=== PATIENT | female | born 1965 | race Caucasian/White ===

== ENCOUNTER → 2017-02-12 | Outpatient (CLI) | payer MEDICARE, MEDICAID ==
[~2017-02-12] MED LIST: ALPR1T; BUPR150T20; CLAR500T8; CYCL-97; HYDR-3720; IBP800T; LNS30CCR; NF-ESOM40C; ZLP10T
--- NOTE | 2017-02-13 06:28 | ECHOCARDIOGRAPHY REPORT ---
DATE OF SERVICE: 02/12/2017 TWO-DIMENSIONAL ECHOCARDIOGRAM REFERRING PHYSICIAN: Rashad Del Rosario MD MEASUREMENTS: LVED end-diastolic: 4.1 IVS thickness: 0.8 LVPW thickness: 0.9 Left atrial diameter: 3.1 Ejection fraction: 60% FINDINGS: 1. Technical quality is good. 2. The left ventricle is normal in size with normal contractility. Systolic function appeared to be normal. Estimated ejection fraction 60%. 3. The left atrium is normal in size. No clot or thrombus was seen within the left atrium. 4. The right atrium and right ventricle are normal in size. No clot or thrombus was seen within the right side. 5. Mitral valve is normal in morphology with mild mitral regurgitation by color Doppler flow. No mitral valve prolapse, no mitral valve stenosis. 6. Aortic valve is trileaflet with normal opening and closing pattern. No significant aortic stenosis or regurgitation was seen. 7. Tricuspid valve is normal in morphology with mitral tricuspid regurgitation noted by color Doppler flow. Doppler tricuspid valve estimated pulmonary artery pressure of 9 plus right atrial pressure. 8. Pulmonic valve is functioning normally. 9. No pericardial effusion. CONCLUSION: 1. Normal left ventricular size and systolic function. Estimated ejection fraction is 60%. 2. Mild mitral and tricuspid regurgitation. 3. Estimated pulmonary artery pressure of 15 mmHg. Job ID: [id number] DocumentID: [id number] Dictated Date: 02/12/2017 16:26:39 Manager Warehouse Date: 02/12/2017 19:55:16 Dictated By: TIMI JONES MD
== END ==
LOC: CARD 13:34
PROVIDERS: ATTEND Internal Medicine Cardiovascular Disease
DX: I73.9 Peripheral vascular disease, unspecified (principal); I73.00 Raynaud's syndrome without gangrene; R06.02 Shortness of breath; E66.9 Obesity, unspecified
CPT/HCPCS: 93306

== ENCOUNTER 2018-03-16 13:35 | Outpatient (RCR) | payer MEDICARE, MEDICAID ==
[2018-04-08] MEDS ORDERED: CYCL10TA9 PO (23:40)
[2018-04-08] MEDS ORDERED: MUPI1OIN6 TP (23:40)
[2018-04-08] MEDS ORDERED: SULF1TAB35 PO (23:40)
== END 2018-04-07 | disposition home or self-care (01) ==
LOC: ONC 13:35
PROVIDERS: ATTEND Internal Medicine Hematology & Oncology
DX: C34.92 Malignant neoplasm of unspecified part of left bronchus or lung (principal); J44.9 Chronic obstructive pulmonary disease, unspecified; I73.9 Peripheral vascular disease, unspecified; I73.00 Raynaud's syndrome without gangrene; E66.9 Obesity, unspecified; Z68.33 Body mass index [BMI] 33.0-33.9, adult; Z87.891 Personal history of nicotine dependence; Z79.899 Other long term (current) drug therapy
CPT/HCPCS: 99214

== ENCOUNTER 2018-04-08 19:59 | Emergency (ER) | payer OTHER, MEDICARE, MEDICAID ==
[~2018-04-08] VITALS: Ht 175.3 cm; Wt 99.8 kg
[2018-04-08] MEDS ORDERED: TETANUS,DIPTH,PERTUSS P/F (BOOSTRIX) 0.5 ML VIAL IM STA (20:14)
[2018-04-08] MEDS ORDERED: LACTATED RINGERS 1,000 ML IV ONE (20:14)
[2018-04-08] MEDS ORDERED: LIDOCAINE 1% INJ 20 ML 20 ML VIAL INJ ONE (21:00)
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
[2018-04-08] MEDS ORDERED: fentaNYL INJECTION 100 MCG/2 ML AMP ONE (21:51)
[2018-04-08] MEDS ORDERED: fentaNYL INJECTION 100 MCG/2 ML AMP IVP STA ×2 (21:52→23:09)
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
[2018-04-08] MEDS ORDERED: RX-TRIMETH/SULFA. 160-800 MG (BACTRIM DS) TAB PPK#2 PO STA (22:46)
[2018-04-08] MEDS ORDERED: RX-MUPIROCIN (BACTROBAN) 2% OINT 22 GM TUBE TOP STA (22:46)
[2018-04-08 22:48] LABS: BASOPHILS % (AUTO) 0 % (0-10); EOSINOPHILS % (AUTO) 0 % (0-10); HEMATOCRIT 37 % (35-52); HEMOGLOBIN 13.3 G/DL (11.5-16.0); LYMPHOCYTES # (AUTO) 0.7 X 10^3 (1.0-4.0); LYMPHOCYTES % (AUTO) 6 % (12-44); MEAN CORPUSCULAR HEMOGLOBIN 32 PG (25-34); MEAN CORPUSCULAR HGB CONC 36 G/DL (32-36); MEAN CORPUSCULAR VOLUME 89 FL (80-99); MEAN PLATELET VOLUME 10.9 FL (7.4-10.4); MONOCYTES # (AUTO) 0.7 X 10^3 (0.0-1.0); MONOCYTES % (AUTO) 6 % (0-12); NEUTROPHILS # (AUTO) 10.8 X 10^3 (1.8-7.8); NEUTROPHILS % (AUTO) 88 % (42-75); PLATELET COUNT 187 10^3/uL (130-400); RED BLOOD COUNT 4.13 10^6/uL (4.35-5.85); WHITE BLOOD COUNT 12.3 10^3/uL (4.3-11.0)
[2018-04-08] MEDS ORDERED: ceFAZolin INJECTION 1,000 MG in NS (IVPB) 50 ML IV ONE (23:00)
[2018-04-08 23:03] LABS: BAND NEUTROPHILS 15 %; NEUTROPHILS % (MANUAL) 73 %
[2018-04-08 23:04] LABS: BASOPHILS % (MANUAL) 0 %; EOSINOPHILS % (MANUAL) 0 %; LYMPHOCYTES % (MANUAL) 8 %; MONOCYTES % (MANUAL) 4 %; RBC MORPH NORMAL
[2018-04-08 23:09] LABS: ALANINE AMINOTRANSFERASE 16 U/L (0-55); ALBUMIN 4.3 GM/DL (3.2-4.5); ALKALINE PHOSPHATASE 91 U/L (40-136); BILIRUBIN,TOTAL 0.6 MG/DL (0.1-1.0); BUN/CREATININE RATIO 17; CALCIUM 9.5 MG/DL (8.5-10.1); CARBON DIOXIDE 21 MMOL/L (21-32); CHLORIDE 108 MMOL/L (98-107); CREATININE SERUM 0.72 MG/DL (0.60-1.30); GFR ESTIMATED > 60; GLUCOSE 108 MG/DL (70-105); POTASSIUM 3.4 MMOL/L (3.6-5.0); SODIUM 140 MMOL/L (135-145); TOTAL PROTEIN 7.1 GM/DL (6.4-8.2)
[2018-04-08 23:16] LABS: BILIRUBIN,URINE NEGATIVE (NEGATIVE); CLARITY,URINE SLIGHTLY CLOUDY; COLOR,URINE AMBER; GLUCOSE, URINE (UA) NEGATIVE (NEGATIVE); KETONES,URINE NEGATIVE (NEGATIVE); LEUKOCYTE ESTERASE ,URINE 1+ (NEGATIVE); NITRITE,URINE NEGATIVE (NEGATIVE); PH,URINE 5 (5-9); PROTEIN,URINE 2+ (NEGATIVE); UROBILINOGEN,URINE NORMAL (NORMAL)
[2018-04-08 23:17] LABS: PROTHROMBIN TIME PATIENT 12.9 SEC (12.2-14.7)
[2018-04-08 23:24] LABS: SQUAMOUS EPITHELIAL CELL,UR 0-2 /HPF
[2018-04-08 23:27] LABS: AMPHETAMINE SCREEN, URINE POSITIVE (NEGATIVE); BARBITURATE SCREEN URINE NEGATIVE (NEGATIVE); BENZODIAZEPINES SCREEN URINE POSITIVE (NEGATIVE); CANNABINOID SCREEN, URINE POSITIVE (NEGATIVE); COCAINE SCREEN URINE NEGATIVE (NEGATIVE); METHADONE STAT NEGATIVE (NEGATIVE); METHAMPHETAMINE SCREEN URINE S POSITIVE (NEGATIVE); OPIATE SCREEN URINE NEGATIVE (NEGATIVE); OXYCODONE STAT NEGATIVE (NEGATIVE); PROPOXYPHENE STAT NEGATIVE (NEGATIVE); TRICYCLIC ANTIDEPRESSANTS SCRE NEGATIVE (NEGATIVE)
[2018-04-08] MEDS ORDERED: CYCL10TA9 PO (23:40)
[2018-04-08] MEDS ORDERED: MUPI1OIN6 TP (23:40)
[2018-04-08] MEDS ORDERED: SULF1TAB35 PO (23:40)
[2018-04-09] MEDS ORDERED: RX-MUPIROCIN (BACTROBAN) 2% OINT 22 GM TUBE TOP STA (00:15)
[2018-04-09] MEDS ORDERED: SILVER SULFADIAZINE 50 GM CREAM TOP SCH ×2 (00:25→09:00)
[2018-04-09 00:50] VITALS: BP 134/78
--- OUTSIDE RECORDS SUMMARY | 2018-04-09 01:29 | XMS REPORT | Clinical Summary ---
Author Author [facility] Organization [facility] Address Unknown Phone Unavailable Care Team Providers Care Integrity Engineer Name Role Phone Derek Mccormick MD Unavailable Jose Daniel Mckeon MD Unavailable Mainor Del Rosario MD PCP Unavailable Angelita Caballero MD Unavailable Jakob Cole Unavailable Unavailable Yari Carias MA Unavailable Unavailable Mariah Espinoza Unavailable Unavailable Jennifer Mojica WASTE WATER OR WATER PLANT OPERATOR Unavailable Annie Macias MA Unavailable Unavailable Blessing Morin Unavailable Unavailable Parul De Los Santos MD Unavailable Ngozi Camarena PA-C Unavailable Lary Noguera MD 3 Source Comments Some departments are not documenting in the electronic medical record. If you do not see the information that you expected, contact Release of Information in the Health Information Management department at [phone] for further assistance in locating additional records.[facility] Allergies Active Allergy Reactions Severity Noted Date Comments Cefazolin NAUSEA AND VOMITING Low 09/12/2017 Current Medications Prescription Sig. Disp. Refills Start End Date Status Date albuterol (PROVENTIL; Inhale 2 puffs by mouth Active VENTOLIN) 90 into the lungs twice mcg/Actuation inhaler daily as needed for Wheezing. tiotropium-olodaterol Inhale 2 Puffs by mouth 4 g 12 05/20/20 Active 2.5-2.5 mcg/actuation into the lungs daily. 16 mistIndications: Chronic obstructive pulmonary disease, unspecified COPD type (HCC), SOB (shortness of breath) aspirin EC 81 mg tablet Take 1 tablet by mouth 90 tablet 3 07/15/20 Active daily. Take with food. 17 NIFEdipine XL Take 60 mg by mouth at Active (PROCARDIA-XL) 60 mg bedtime daily. tablet acetaminophen (TYLENOL) Take 2 tablets by mouth 0 09/13/19 Active 500 mg tablet every 6 hours while 18 awake. Max of 4,000 mg of acetaminophen in 24 hours. milk of magnesia (CONC) Take 10 mL by mouth 360 mL 09/13/19 Active 2,400 mg/10 mL oral daily. 18 suspension ondansetron (ZOFRAN ODT) Dissolve 1 tablet by 30 tablet 0 09/13/19 Active 8 mg rapid dissolve mouth every 8 hours as 18 tablet needed for Nausea or Vomiting. Place on tongue to disolve. oxycodone Take by mouth. Active HCl/acetaminophen (PERCOCET PO) alprazolam (XANAX PO) Take by mouth. Active azithromycin (ZITHROMAX) Take 2 tabs by mouth on 6 tablet 0 04/07/20 Active 250 mg tabletIndications: day 1, followed by 1 tab 18 chronic bronchitis with by mouth daily on days 2 bacterial exacerbation - 5. prednisone (DELTASONE) 10 Take 4 tablets by mouth 20 tablet 0 Active mg tabletIndications: daily with breakfast. 18 COPD exacerbation mxhnjemchex-ouqkiejcq-yis Inhale 1 puff by mouth 1 each 04/07/20 Active anter (TRELEGY ELLIPTA) into the lungs daily. 18 100-62.5-25 mcg dsdvIndications: Bronchospasm Prevention with COPD folic acid (FOLVITE) 1 mg Take 1 tablet by mouth 30 tablet 3 04/08/20 Active tabletIndications: daily. 18 Malignant neoplasm of hilus of left lung (HCC) ondansetron (ZOFRAN) 8 mg Take 1 tablet by mouth 30 tablet 3 04/08/20 Active tabletIndications: every 8 hours as needed 18 Malignant neoplasm of (nausea and vomiting). hilus of left lung (HCC) dexamethasone (DECADRON) Take 1 tablet by mouth 40 tablet 3 04/08/20 Active 4 mg tabletIndications: twice a day starting the 18 Malignant neoplasm of day before hilus of left lung (HCC) Pemetrexed/Carboplatin and continue for a total of five days. folic acid (FOLVITE) 1 mg Take 1 tablet by mouth 30 tablet 3 04/07/20 04/08/20 Discontin tabletIndications: daily. 18 18 ued Malignant neoplasm of hilus of left lung (HCC) dexamethasone (DECADRON) Take 1 tablet by mouth 40 tablet 3 04/07/20 04/08/20 Discontin 4 mg tabletIndications: twice a day starting the 18 18 ued Malignant neoplasm of day before hilus of left lung (HCC) Pemetrexed/Carboplatin and continue for a total of five days. ondansetron (ZOFRAN) 8 mg Take 1 tablet by mouth 30 tablet 3 04/07/20 04/08/20 Discontin tabletIndications: every 8 hours as needed 18 18 ued Malignant neoplasm of (nausea and vomiting). hilus of left lung (HCC) Active Problems Problem Noted Date Malignant neoplasm of hilus of left lung (HCC) 04/07/2018 Overview: [id number] adenocarcinoma s/p SBRT 02/19 to 02/27/18. Mediastinal adenopathy 12/24/2017 Hilar adenopathy 2017 Overview: Added automatically from request for surgery [id number] Personal history of tobacco use 08/08/2017 Abnormal cardiovascular stress test 07/15/2017 Adenocarcinoma of left lung (HCC) 06/04/2017 Overview: 52-year-old female with a newly diagnosed recurrent non-small cell lung cancer in the left hilar region. She previously had a history of lung lesion detected when she had an x-ray done for a flu symptom. Her initial CT scan was in November 2016 and she started her follow up since then. She had a E bus and biopsy in January 22, 2017 which was negative. She continued to have follow-up and then subsequent CT scan demonstrated increase of the left lower lung lesion. She underwent a CT-guided biopsy on April 28, 2017 which was negative. She underwent another CT scan in May 2017 after a follow-up CT scan showed increasing side that showed atypical cells. Finally she had a follow-up CT scan in August 05, 2017 that again show progression of the left lung lesion and underwent a left lower lung wedge resection on September 11, 2017 which demonstrated poorly differentiated adenocarcinoma. One lymph node was removed and was negative for disease. PDL 1 was 60%. Due to lung disease she did not have a formal lobectomy. She had a follow-up CT scan in December 20162017 demonstrating enlargement of the left hilar lymph node. PET scan demonstrated increased metabolic activity of this region but no distant metastatic disease. She underwent E bus and FNA of the level 11 and level 12 lymph node and this was positive for poorly differentiated adenocarcinoma. The patient was referred to radiation oncology and medical oncology for further recommendations regarding treatment. She denies increasing cough no shortness of breath. She denies Pain or weight loss. 09/11/17 - LLL Wedge resection, Path: poorly diff Adeno CA, pT2N0 A. Lung, "left lower lobe", wedge resection: Poorly differentiated adenocarcinoma. PD-L1 positive 60%, Additional mutation studies requested 01/05/18 - EBUS, LN path positive for malignant cells, consistent with Adeno CA Last Assessment & Plan: This patient was seen by Dr. Colvin in January 15, 2018 and reviewed in horacic tumor conference. It appears short interval progression or had persistent disease from September 2017 resection. Thoracic tumor conference, she was discussed and planned to have 10 fractions radiation possibly followed by chemotherapy. She now has completed radiation, recovering well from radiation therapy. Last date of radiation was on February. Patient desires care here in [facility], completed radiation (10 fractions), Because of short interval relapse and locally advanced disease she will require further therapy. She will need post radiation therapy CT for restaging as it is about a month since last radiation therapy. I will schedule CT scan of chest with contrast and return to see Dr. Colvin for consideration of further therapy. Abnormal PET scan, mediastinum 05/22/2017 Abnormal PET of left lung 05/22/2017 Acute metabolic encephalopathy 07/26/2016 Overview: 10/10 unintentional benzodiazepine overdose Encephalopathy acute 07/24/2016 Degeneration of lumbar or lumbosacral intervertebral disc 06/20/2016 Lumbar radicular pain 06/20/2016 Pulmonary nodules 05/20/2016 Overview: CT CHEST (05/2016): stable 0.5 cm YADIRA and subpleural nodularity LLL. New 0.[address] CHEST (11/2016): increase in size of nodular opacity of superior LLL. Stable appearance of RLL and YADIRA nodules PET (01/07/17): left hilar node with SUV 4.08 and superior LLL nodular opacity with SUV 3.16 EBUS (01/22/17): FNA 11L and 7 LN with polymorphous lymphocytes. No carcinoma identified in either specimen. CT CHEST (03/27/17): increase in nodular opacity of the LLL concerning for primary lung neoplasm, stable YADIRA nodule Pathology from surgery (LLL wedge resection): A. Lung, "left lower lobe", wedge resection: Poorly differentiated adenocarcinoma. See comment. B. Lymph node (1), "1-3 lymph nodes", biopsy: One lymph node negative for malignancy. (0/1) L ast Assessment & Plan: - 36 pack-year tobacco history - LLL nodular opacity with evidence of growth since 05/2016 - PET with LLL nodule SUV 3.16 - previous EBUS of hypermetabolic lymphadenopathy negative for malignancy, but given small sampling of FNA a false negative is of concern - recommend CT guided biopsy of LLL lesion - risk of pneumothorax discussed with patient, given peripheral location of this lesion this risk is slightly lower, but she has significant emphysema which increases her overall risk for this to occur - will follow-up with result of biopsy by phone Seizure disorder (HCC) 05/20/2016 Last Assessment & Plan: - Recent seizure 2 weeks ago - Transitioned from Trileptal to Depakote due to Harvoni, but now is off of Harvoni - Offered neurology consult for evaluation, but the patient prefers to follow up with primary care Daytime sleepiness 05/20/2016 Last Assessment & Plan: - ESS 12, witnessed apneas, snoring Plan: - Obtain sleep study Mixed simple and mucopurulent chronic bronchitis (HCC) 05/20/2016 Chronic hypoxemic respiratory failure (HCC) 05/20/2016 Overview: - On O2 with sleep and exertion - DME: [employer] L ast Assessment & Plan: Continue supplemental oxygen Cryoglobulinemia (HCC) 09/17/2015 Chronic hepatitis C without hepatic coma (HCC) 07/20/2015 Raynaud's disease 11/15/2014 COPD (chronic obstructive pulmonary disease) (HCC) 11/15/2014 Overview: GOLD Staging: Category B1 mMRC: 2 GOLD classification of airflow obstruction: 1 Number exacerbations in past year: 0-1 PFT (05/2016 --> 05/2017) FVC 2.29L (66% pred) --> 3.11L (90% pred) FEV1 1.38L (50% pred) --> 2.09L (77% pred) FEV1/FVC 60% --> 67% RV 3.32L (185% pred) --> 2.33L (128% pred) DLCO 45% pred --> 45% pred Inhaler Regimen Stiolto 2 puff QAM Albuterol PRN Vaccinations Influenza - up to date Pneumonia vaccine - received previously, unsure of type -- touching base with PCP Oxygen Oxygen at night and occasional exertion (DME: [facility]) Pulm Rehab Discussed possibility in the future, may benefit after acute illness Smoking 36 pack-years; quit 2011 LDCT screening N/A currently, as obtaining regular surveillance with her cancer L ast Assessment & Plan: S/s consistent with COPD exacerbation Will treat with Z-pac and Prednisone x [address] without focal pneumonia Will step up controller therapy with addition of ICS Trelegy (samples provided today in clinic) - favor 3-in-1 inhaler to minimize treatment burden and zyj-lz-ylmyml cost Resolved Problems Problem Noted Date Resolved Date Malignant neoplasm of lung (HCC) 2017 12/24/2017 Overview: T2N1M0 stage II s/p SBRT 02/19 - 02/27/18 Mutation testing ALK, ROS-1, EGFR, BRAF, KRAS negative. PD-L1 60%. . Last Assessment & Plan: Plan to give adjuvant chemotherapy pem/carboplatin. Pt has peripheral neuropathy, would avoid cisplatin. Acute confusional state 07/24/2016 07/26/2016 Last Assessment & Plan: - patient presents today with confusion that is new - reports taking meds as usual this AM; including clonazepam, xanax, and Depakote - denies additional substance use - denies infectious symptoms - CN II-XII grossly intact - dysarthria - glucose 150 - transport to ED for further evaluation Snoring 05/20/2016 07/26/2016 Encounters Date Type Specialty Care Team Description 04/08/2018 Refill Oncology Chapo Colvin MD Malignant neoplasm of hilus of left lung (HCC) 04/08/2018 Pre/Post Radiology Belia Enamorado RN Procedure 04/07/2018 Office Visit Oncology Chapo Colvin MD Adenocarcinoma of left lung (HCC) (Primary Dx); Malignant neoplasm of hilus of left lung (HCC) 04/07/2018 Hospital Radiology Maverick Castillo MD Arrived Encounter 04/07/2018 Office Visit Pulmonology Bozena Acuna APRN-NP COPD exacerbation (HCC) (Primary Dx); Chronic bronchitis, unspecified chronic bronchitis type (HCC); Chronic hypoxemic respiratory failure (HCC) 04/07/2018 Pharmacy Visit 04/01/2018 Office Visit Oncology Latrell Ayers MD Adenocarcinoma of left Maverick Castillo MD lung (HCC) (Primary Dx) 04/01/2018 Procedure Pass Radiology 03/24/2018 Nurse Only Radiation Therapy Francisco Green RN Malignant neoplasm of lung, unspecified laterality, unspecified part of lung (HCC) (Primary Dx) 03/05/2018 Documentation Radiation Therapy Francisco Green RN 02/27/2018 Office Visit Radiation Therapy Latrell Ayers MD Adenocarcinoma of left lung (HCC) (Primary Dx) 02/24/2018 Orders Only Radiation Therapy Interface, Aria Treatment Data 02/20/2018 Office Visit Radiation Therapy Latrell Ayers MD Adenocarcinoma of left lung (HCC) (Primary Dx) 02/16/2018 Orders Only Radiation Therapy Interface, Aria Treatment Data 02/06/2018 Hospital Radiology Latrell Ayers MD Encounter 02/04/2018 Hosp [facility] Documentation Only 02/03/2018 Hospital Lab Latrell Ayers MD Malignant neoplasm of Encounter unspecified part of left bronchus or lung (HCC) 02/03/2018 Nurse Only Radiation Therapy Latrell Ayers MD Adenocarcinoma of left lung (HCC) (Primary Dx) 02/03/2018 Orders Only Radiation Therapy Ruben Smith MD 01/26/2018 Orders Only Radiation Therapy Ruben Smith MD Malignant neoplasm of left lung, unspecified part of lung (HCC) (Primary Dx) 01/16/2018 Hospital Lab Chapo Colvin MD Malignant neoplasm of Encounter unspecified part of unspecified bronchus or lung (HCC) 01/15/2018 Office Visit Oncology Marko Pat MD Adenocarcinoma of left Chapo Colvin MD lung (HCC) (Primary Dx); Hilar adenopathy 01/15/2018 Office Visit Radiation Therapy Latrell Ayers MD Pulmonary nodules 01/15/2018 Procedure Pass Radiology 01/13/2018 Hospital Lab Chapo Colvin MD Malignant neoplasm of Encounter unspecified part of left bronchus or lung (HCC) 01/12/2018 Hospital Lab Chapo Colvin MD Malignant neoplasm of Encounter unspecified part of unspecified bronchus or lung (HCC) 01/12/2018 Telephone Oncology Chapo Colvin MD Navigation Assessment from Last 3 Months Immunizations Name Dates Previously Given Next Due Flu Vaccine 07/25/2016 Quadrivalent=>3 Yo (Preservative Free) Family History Medical History Relation Name Comments Emphysema Mother from cancer but does not know the primary stie. Cancer-Lung Sister Relation Name Status Comments Mother Sister Social History Tobacco Use Types Packs/Day Years Used Date Former Smoker Cigarettes 2 35 Quit: 06/03/2012 Smokeless Tobacco: Never Used Tobacco Cessation: Counseling Given: No Alcohol Use Drinks/Week oz/Week Comments No 1 Standard 0.6 drinks or equivalent Sex Assigned at Date Recorded Not on file Last Filed Vital Signs Vital Sign Reading Time Taken Blood Pressure 121/83 04/07/2018 3:29 PM CDT Pulse 87 04/07/2018 3:29 PM CDT Temperature 36.5 C (97.7 F) 04/07/2018 3:29 PM CDT Respiratory Rate 16 04/07/2018 3:29 PM CDT Oxygen Saturation 100% 04/07/2018 3:29 PM CDT Inhaled Oxygen - - Concentration Weight 88.5 kg (195 lb) 04/07/2018 3:29 PM CDT Height 162.6 cm (5' 4.02") 04/07/2018 3:29 PM CDT Body Mass Index 33.45 04/07/2018 3:29 PM CDT Plan of Treatment Health Maintenance Due Date Last Done Comments PHYSICAL (COMPREHENSIVE) 12/24/1971 EXAM PERTUSSIS VACCINE 12/24/1975 TETANUS VACCINE 1981 CERVICAL CANCER SCREENING 1994 BREAST CANCER SCREENING 2004 COLORECTAL CANCER 2014 SCREENING SHINGLES RECOMBINANT 2014 VACCINE (1 of 2) INFLUENZA VACCINE 06/08/2018 07/25/2016, 08/24/2014 HIV SCREENING Completed 06/27/2015 Implants Implanted Type Area Laboratory Inspector Device Expiration Model / Identifier Date Serial / Lot System [employer] T[employer] Sealant - Chest Wall Surgical [id number] Sn/A Specialties / Implanted: Qty: 1 on 04/28/2017 by Nba N/A / Filiberto Brown MD NOT RECORDED System [employer] T[employer] Sealant - Chest Wall [employer] [id number] Sn/A Specialties / Implanted: Qty: 1 on 06/26/2017 by Nba Marc/Ramón / Leonidas Patton MD [id number] Procedures Procedure Name Priority Date/Time Associated Diagnosis Comments RAD ONC TREATMENT Routine 02/27/2018 Results for this INFORMATION 12:57 PM CDT procedure are in the results section. RAD ONC TREATMENT Routine 02/26/2018 Results for this INFORMATION 1:13 PM CDT procedure are in the results section. RAD ONC TREATMENT Routine 02/25/2018 Results for this INFORMATION 1:22 PM CDT procedure are in the results section. RAD ONC TREATMENT Routine 02/24/2018 Results for this INFORMATION 1:31 PM CDT procedure are in the results section. RAD ONC TREATMENT Routine 02/23/2018 Results for this INFORMATION 1:02 PM CDT procedure are in the results section. RAD ONC TREATMENT Routine 02/20/2018 Results for this INFORMATION 1:13 PM CDT procedure are in the results section. RAD ONC TREATMENT Routine 02/19/2018 Results for this INFORMATION 1:05 PM CDT procedure are in the results section. RAD ONC TREATMENT Routine 02/18/2018 Results for this INFORMATION 1:01 PM CDT procedure are in the results section. RAD ONC TREATMENT Routine 02/17/2018 Results for this INFORMATION 3:10 PM CDT procedure are in the results section. RAD ONC TREATMENT Routine 02/16/2018 Results for this INFORMATION 3:04 PM CDT procedure are in the results section. from Last 3 Months Results * CT CHEST W CONTRAST (04/07/2018 1:12 PM) Impressions Performed At 1. Decrease in size of left hilar lymphadenopathy and mildly prominent [facility] RESULTS mediastinal lymph nodes. 2. Left lower lobe wedge resection changes without evidence of new or enlarging pulmonary nodule. 3. Moderate emphysema. 4. At least mild coronary artery calcification. Finalized by Tomy Abreu M.D. on 04/07/2018 3:05 PM. Dictated by Tomy Abreu M.D. on 04/07/2018 2:55 PM. Narrative Performed At CT Chest [facility] RESULTS Clinical Indication: Adenocarcinoma of the left lung. Restaging. Technique: Multiple contiguous axial CT images were obtained through the chest during IV administration of 80 mL Isovue-370 IV contrast.Post processing coronal and sagittal reconstruction images were made from the axial images. Comparison: [address] Findings: Axilla, Mediastinum and Tess: There is no axillary lymphadenopathy. There has been slight decrease in size of a few mildly prominent mediastinal lymph nodes. The enlarged left hilar lymph nodes have also slightly decreased, for example , a left hilar lymph node now measures 1.3 x 1.3 cm on series 2, image 31 compared to a previous measurement of 2.0 x 1.6 cm. Heart and Great Vessels: The heart size is normal. There is no pericardial effusion. There is at least mild coronary artery calcification. Lungs and Pleura: Moderate emphysema and scattered areas of scarring are again noted. Left lower lobe wedge resection changes are again noted. The previously identified small nodular opacity in the left upper lobe on image 20, and small nodule in the right lower lobe on image 43 remain unchanged since at least 10/24/2014 compatible with granulomas or scars. There is mild bibasilar atelectasis and/or scarring. No new or enlarging pulmonary nodules are identified. No pleural effusions. Chest Wall and Osseous Structures: No destructive osseous lesions. Visualized Upper Abdomen: Small right renal cyst is noted. Procedure Note Interface, Radiant Results - 04/07/2018 3:[address] Chest Clinical Indication: Adenocarcinoma of the left lung. Restaging. Technique: Multiple contiguous axial CT images were obtained through the chest during IV administration of 80 mL Isovue-370 IV contrast. Post processing coronal and sagittal reconstruction images were made from the axial images. Comparison: [address] Findings: Axilla, Mediastinum and Tess: There is no axillary lymphadenopathy. There has been slight decrease in size of a few mildly prominent mediastinal lymph nodes. The enlarged left hilar lymph nodes have also slightly decreased, for example, a left hilar lymph node now measures 1.3 x 1.3 cm on series 2, image 31 compared to a previous measurement of 2.0 x 1.6 cm. Heart and Great Vessels: The heart size is normal. There is no pericardial effusion. There is at least mild coronary artery calcification. Lungs and Pleura: Moderate emphysema and scattered areas of scarring are again noted. Left lower lobe wedge resection changes are again noted. The previously identified small nodular opacity in the left upper lobe on image 20, and small nodule in the right lower lobe on image 43 remain unchanged since at least 2014 compatible with granulomas or scars. There is mild bibasilar atelectasis and/or scarring. No new or enlarging pulmonary nodules are identified. No pleural effusions. Chest Wall and Osseous Structures: No destructive osseous lesions. Visualized Upper Abdomen: Small right renal cyst is noted. IMPRESSION 1. Decrease in size of left hilar lymphadenopathy and mildly prominent mediastinal lymph nodes. 2. Left lower lobe wedge resection changes without evidence of new or enlarging pulmonary nodule. 3. Moderate emphysema. 4. At least mild coronary artery calcification. Finalized by Tomy Abreu M.D. on 04/07/2018 3:05 PM. Dictated by Tomy Abreu M.D. on 04/07/2018 2:55 PM. Performing Organization Address [facility] Phone Number [facility] RESULTS * RAD ONC TREATMENT INFORMATION (02/27/2018 12:57 PM) Course ID Hypo L lung [facility] RAD ONC TREATMENT First Treatment Date 02-16-2018 03:00PM [facility] RAD ONC TREATMENT Last Treatment Date 02-27-2018 12:57PM [facility] RAD ONC TREATMENT Treatment Elapsed Days 11 [facility] RAD ONC TREATMENT Reference Point ID L LUNG PTV^L LUNG PTV [facility] RAD ONC TREATMENT Dosage Given To Date 60 [facility] RAD ONC TREATMENT Session Dosage Given 6 [facility] RAD ONC TREATMENT Plan ID [id number] [facility] RAD ONC TREATMENT Plan Name [id number] [facility] RAD ONC TREATMENT Fractions Treated to Date 10 [facility] RAD ONC TREATMENT Total Fractions on Plan 10 [facility] RAD ONC TREATMENT Prescribed Dose per 6 [facility] RAD ONC TREATMENT Fraction Prescription Dose 6,000 [facility] RAD ONC TREATMENT Performing Organization Address [facility] Phone Number [facility] RAD ONC TREATMENT * RAD ONC TREATMENT INFORMATION (02/26/2018 1:13 PM) Course ID Hypo L lung [facility] RAD ONC TREATMENT First Treatment Date 02-16-2018 03:00PM [facility] RAD ONC TREATMENT Last Treatment Date 02-26-2018 01:13PM [facility] RAD ONC TREATMENT Treatment Elapsed Days 10 [facility] RAD ONC TREATMENT Reference Point ID L LUNG PTV^L LUNG PTV [facility] RAD ONC TREATMENT Dosage Given To Date 54 [facility] RAD ONC TREATMENT Session Dosage Given 6 [facility] RAD ONC TREATMENT Plan ID [id number] [facility] RAD ONC TREATMENT Plan Name [id number] [facility] RAD ONC TREATMENT Fractions Treated to Date 9 [facility] RAD ONC TREATMENT Total Fractions on Plan 10 [facility] RAD ONC TREATMENT Prescribed Dose per 6 [facility] RAD ONC TREATMENT Fraction Prescription Dose 6,000 [facility] RAD ONC TREATMENT Performing Organization Address [facility] Phone Number [facility] RAD ONC TREATMENT * RAD ONC TREATMENT INFORMATION (02/25/2018 1:22 PM) Course ID Hypo L lung [facility] RAD ONC TREATMENT First Treatment Date 02-16-2018 03:00PM [facility] RAD ONC TREATMENT Last Treatment Date 02-25-2018 01:22PM [facility] RAD ONC TREATMENT Treatment Elapsed Days 9 [facility] RAD ONC TREATMENT Reference Point ID L LUNG PTV^L LUNG PTV [facility] RAD ONC TREATMENT Dosage Given To Date 48 [facility] RAD ONC TREATMENT Session Dosage Given 6 [facility] RAD ONC TREATMENT Plan ID [id number] [facility] RAD ONC TREATMENT Plan Name [id number] [facility] RAD ONC TREATMENT Fractions Treated to Date 8 [facility] RAD ONC TREATMENT Total Fractions on Plan 10 [facility] RAD ONC TREATMENT Prescribed Dose per 6 [facility] RAD ONC TREATMENT Fraction Prescription Dose 6,000 [facility] RAD ONC TREATMENT Performing Organization Address [facility] Phone Number [facility] RAD ONC TREATMENT * RAD ONC TREATMENT INFORMATION (02/24/2018 1:31 PM) Course ID Hypo L lung [facility] RAD ONC TREATMENT First Treatment Date 02-16-2018 03:00PM [facility] RAD ONC TREATMENT Last Treatment Date 02-24-2018 01:31PM [facility] ON[facility] TREATMENT Treatment Elapsed Days 8 [facility] TREATMENT Reference Point ID L LUNG PTV^L LUNG PTV [facility] TREATMENT Dosage Given To Date 42 [facility] ONC TREATMENT Session Dosage Given 6 [facility] ONC TREATMENT Plan ID [id number] [facility] ONC TREATMENT Plan Name [id number] [facility] ONC TREATMENT Fractions Treated to Date 7 [facility] ONC TREATMENT Total Fractions on Plan 10 [facility] ONC TREATMENT Prescribed Dose per 6 [facility] ONC TREATMENT Fraction Prescription Dose 6,000 [facility] ONC TREATMENT Performing Organization Address [facility] Phone Number [facility] ONC TREATMENT * RAD ONC TREATMENT INFORMATION (02/23/2018 1:02 PM) Course ID Hypo L lung [facility] ONC TREATMENT First Treatment Date 02-16-2018 03:00PM [facility] ONC TREATMENT Last Treatment Date 02-23-2018 01:02PM [facility] ONC TREATMENT Treatment Elapsed Days 7 [facility] RAD ONC TREATMENT Reference Point ID L LUNG PTV^L LUNG PTV [facility] RAD ONC TREATMENT Dosage Given To Date 36 [facility] RAD ONC TREATMENT Session Dosage Given 6 [facility] RAD ONC TREATMENT Plan ID [id number] [facility] RAD ONC TREATMENT Plan Name [id number] [facility] ONC TREATMENT Fractions Treated to Date 6 [facility] ONC TREATMENT Total Fractions on Plan 10 [facility] RAD ONC TREATMENT Prescribed Dose per 6 [facility] RAD ONC TREATMENT Fraction Prescription Dose 6,000 [facility] ONC TREATMENT Performing Organization Address [facility] Phone Number [facility] ONC TREATMENT * RAD ONC TREATMENT INFORMATION (02/20/2018 1:13 PM) Course ID Hypo L lung [facility] ONC TREATMENT First Treatment Date 02-16-2018 03:00PM [facility] ONC TREATMENT Last Treatment Date 02-20-2018 01:13PM [facility] ONC TREATMENT Treatment Elapsed Days 4 [facility] RAD ONC TREATMENT Reference Point ID L LUNG PTV^L LUNG PTV [facility] RAD ONC TREATMENT Dosage Given To Date 30 [facility] RAD ONC TREATMENT Session Dosage Given 6 [facility] RAD ONC TREATMENT Plan ID [id number] [facility] RAD ONC TREATMENT Plan Name [id number] [facility] RAD ONC TREATMENT Fractions Treated to Date 5 [facility] RAD ONC TREATMENT Total Fractions on Plan 10 [facility] RAD ONC TREATMENT Prescribed Dose per 6 [facility] RAD ONC TREATMENT Fraction Prescription Dose 6,000 [facility] ONC TREATMENT Performing Organization Address [facility] Phone Number [facility] ONC TREATMENT * RAD ONC TREATMENT INFORMATION (02/19/2018 1:05 PM) Course ID Hypo L lung [facility] ONC TREATMENT First Treatment Date 02-16-2018 03:00PM [facility] ONC TREATMENT Last Treatment Date 02-19-2018 01:05PM [facility] RAD ONC TREATMENT Treatment Elapsed Days 3 [facility] RAD ONC TREATMENT Reference Point ID L LUNG PTV^L LUNG PTV [facility] RAD ONC TREATMENT Dosage Given To Date 24 [facility] RAD ONC TREATMENT Session Dosage Given 6 [facility] RAD ONC TREATMENT Plan ID [id number] [facility] RAD ONC TREATMENT Plan Name [id number] [facility] RAD ONC TREATMENT Fractions Treated to Date 4 [facility] RAD ONC TREATMENT Total Fractions on Plan 10 [facility] RAD ONC TREATMENT Prescribed Dose per 6 [facility] RAD ONC TREATMENT Fraction Prescription Dose 6,000 [facility] ONC TREATMENT Performing Organization Address [facility] Phone Number [facility] ONC TREATMENT * RAD ONC TREATMENT INFORMATION (02/18/2018 1:01 PM) Course ID Hypo L lung [facility] ONC TREATMENT First Treatment Date 02-16-2018 03:00PM [facility] RAD ONC TREATMENT Last Treatment Date 02-18-2018 01:01PM [facility] RAD ONC TREATMENT Treatment Elapsed Days 2 [facility] RAD ONC TREATMENT Reference Point ID L LUNG PTV^L LUNG PTV [facility] RAD ONC TREATMENT Dosage Given To Date 18 [facility] RAD ONC TREATMENT Session Dosage Given 6 [facility] RAD ONC TREATMENT Plan ID [id number] [facility] RAD ONC TREATMENT Plan Name [id number] [facility] RAD ONC TREATMENT Fractions Treated to Date 3 [facility] RAD ONC TREATMENT Total Fractions on Plan 10 [facility] RAD ONC TREATMENT Prescribed Dose per 6 [facility] RAD ONC TREATMENT Fraction Prescription Dose 6,000 [facility] RAD ONC TREATMENT Performing Organization Address [facility] Phone Number [facility] ONC TREATMENT * RAD ONC TREATMENT INFORMATION (02/17/2018 3:10 PM) Course ID Hypo L lung [facility] ONC TREATMENT First Treatment Date 02-16-2018 03:00PM [facility] ONC TREATMENT Last Treatment Date 02-17-2018 03:10PM [facility] ONC TREATMENT Treatment Elapsed Days 1 [facility] RAD ONC TREATMENT Reference Point ID L LUNG PTV^L LUNG PTV [facility] RAD ONC TREATMENT Dosage Given To Date 12 [facility] RAD ONC TREATMENT Session Dosage Given 6 [facility] RAD ONC TREATMENT Plan ID [id number] [facility] RAD ONC TREATMENT Plan Name [id number] [facility] RAD ONC TREATMENT Fractions Treated to Date 2 [facility] RAD ONC TREATMENT Total Fractions on Plan 10 [facility] RAD ONC TREATMENT Prescribed Dose per 6 [facility] RAD ONC TREATMENT Fraction Prescription Dose 6,000 [facility] RAD ONC TREATMENT Performing Organization Address [facility] Phone Number [facility] RAD ONC TREATMENT * RAD ONC TREATMENT INFORMATION (02/16/2018 3:04 PM) Course ID Hypo L lung [facility] ONC TREATMENT First Treatment Date 02-16-2018 03:00PM [facility] ONC TREATMENT Last Treatment Date 02-16-2018 03:04PM [facility] RAD ONC TREATMENT Treatment Elapsed Days 0 [facility] RAD ONC TREATMENT Reference Point ID L LUNG PTV^L LUNG PTV [facility] RAD ONC TREATMENT Dosage Given To Date 6 [facility] RAD ONC TREATMENT Session Dosage Given 6 [facility] RAD ONC TREATMENT Plan ID [id number] [facility] RAD ONC TREATMENT Plan Name [id number] [facility] RAD ONC TREATMENT Fractions Treated to Date 1 [facility] RAD ONC TREATMENT Total Fractions on Plan 10 [facility] RAD ONC TREATMENT Prescribed Dose per 6 [facility] RAD ONC TREATMENT Fraction Prescription Dose 6,000 [facility] ONC TREATMENT Performing Organization Address [facility] Phone Number [facility] ONC TREATMENT * MRI HEAD WO/W CONTRAST (02/06/2018 11:52 AM) Impressions Performed At 1.No evidence of intracranial metastatic disease. [facility] RESULTS 2.Unchanged round area of hypointensity or signal loss at the periclinoid left ICA, possibly secondary to an aneurysm or vessel tortuosity. If not previously evaluated a CTA or MRA is suggested. Approved by Dwayne Berry D.O. on 02/06/2018 1:37 PM By my electronic signature, I attest that I have personally reviewed the images for this examination and formulated the interpretations and opinions expressed in this report Finalized by Angelito Fleming M.D. on 02/06/2018 4:46 PM. Dictated by Dwayne Berry D.O. on 02/06/2018 12:57 PM. Narrative Performed At EXAM: MRI BRAIN [facility] RESULTS HISTORY: 52-year-old female with history of lung cancer, staging. TECHNIQUE: Multiplanar and multisequence MR imaging of the head was performed. This was done both before and after the administration of MultiHancecontrast. COMPARISON: PET scan dated 01/05/2018 and MRI head dated 07/24/2016. FINDINGS: Dr. Angelito Fleming M.D. has personally reviewed these images and formulated the interpretations and opinions expressed in this report. Unchanged focal rounded area of T2 hypointensity or signal loss projecting medially from the left periclinoid internal carotid artery. The ventricles and subarachnoid spaces are normal in size and configuration. Brain parenchyma is normal in signal. There is no midline shift or mass effect. There is no area of abnormal contrast enhancement, suspicious lesions, or masses. The vascular flow-voids are unremarkable. Diffusion weighted imaging is not indicative of acute or recent infarct. Procedure Note Interface, Radiant Results - 02/06/2018 4:49 PM CDT EXAM: MRI BRAIN HISTORY: 52-year-old female with history of lung cancer, staging. TECHNIQUE: Multiplanar and multisequence MR imaging of the head was performed. This was done both before and after the administration of MultiHancecontrast. COMPARISON: PET scan dated 01/05/2018 and MRI head dated 07/24/2016. FINDINGS: Dr. Angelito Fleming M.D. has personally reviewed these images and formulated the interpretations and opinions expressed in this report. Unchanged focal rounded area of T2 hypointensity or signal loss projecting medially from the left periclinoid internal carotid artery. The ventricles and subarachnoid spaces are normal in size and configuration. Brain parenchyma is normal in signal. There is no midline shift or mass effect. There is no area of abnormal contrast enhancement, suspicious lesions, or masses. The vascular flow- voids are unremarkable. Diffusion weighted imaging is not indicative of acute or recent infarct. IMPRESSION 1. No evidence of intracranial metastatic disease. 2. Unchanged round area of hypointensity or signal loss at the periclinoid left ICA, possibly secondary to an aneurysm or vessel tortuosity. If not previously evaluated a CTA or MRA is suggested. Approved by Dwayne Berry D.O. on 02/06/2018 1:37 PM By my electronic signature, I attest that I have personally reviewed the images for this examination and formulated the interpretations and opinions expressed in this report Finalized by Angelito Fleming M.D. on 02/06/2018 4:46 PM. Dictated by Dwayne Berry D.O. on 02/06/2018 12:57 PM. Performing Organization Address City/[facility]dependent [employer] Phone Number [facility] RESULTS * BHARGAV PATH MOLEC REF LAB SCAN (02/05/2018 2:37 PM) Only the most recent of 4 results within the time period is included. Narrative Performed At Ordered by an unspecified provider. * BASIC METABOLIC PANEL (02/03/2018 8:20 AM) Sodium 138 137 - 147 MMOL/L [facility] Potassium 4.2 3.5 - 5.1 MMOL/L [facility] Chloride 106 98 - 110 MMOL/L [facility] CO2 25 21 - 30 MMOL/L [facility] Anion Gap 7 3 - 12 [facility] Glucose 102 (H) 70 - 100 MG/DL [facility] Blood Urea Nitrogen 16 7 - 25 MG/DL [facility] Creatinine 0.76 0.4 - 1.00 MG/DL [facility] Calcium 9.8 8.5 - 10.6 MG/DL [facility] eGFR Non >60 >60 mL/min [facility] Comment: The eGFR is not validated for use in drug dosing adjustments.Continue to use estimated creatinine clearance per dosing reference text.Please contact the Clinical Pharmacist for questions. eGFR >60 >60 mL/min [facility] Comment: The eGFR is not validated for use in drug dosing adjustments.Continue to use estimated creatinine clearance per dosing reference text.Please contact the Clinical Pharmacist for questions. Specimen Blood Performing Organization Address City/[facility]/Zipcode Phone Number [facility] [address] [place] [address] * RNA LUNG PANEL (01/16/2018 10:00 AM) RNA Lung Panel SEE STACKER STRAIGHTENER FOR REPORT REFERENCE LAB Performing Organization Address City/[facility] Phone Number REFERENCE LAB REFERENCE LAB See results for address. * BRAF SINGLE NGS (01/16/2018 10:00 AM) BRAF Single NGS SEE STACKER STRAIGHTENER FOR REPORT REFERENCE LAB Performing Organization Address City/[facility] Phone Number [facility] REFERENCE LAB See results for address. * EGFR SINGLE NGS (01/16/2018 10:00 AM) EGFR Single NGS SEE STACKER STRAIGHTENER FOR REPORT REFERENCE LAB Performing Organization Address [facility] Phone Number RE[facility] LAB REFERENCE LAB See results for address. * KRAS NGS EXONS 2, 3 & 4 (01/16/2018 10:00 AM) KRAS NGS Exons 2,3 and 4 SEE STACKER STRAIGHTENER FOR REPORT REFERENCE LAB Performing Organization Address [facility] Phone Number REFERENCE LAB REFERENCE LAB See results for address. * CYTOGENETICS SCAN (01/14/2018 4:30 PM) Only the most recent of 2 results within the time period is included. Narrative Performed At Ordered by an unspecified provider. * CHROMOSOMES FISH DNA PROBE (01/13/2018 9:00 AM) Only the most recent of 2 results within the time period is included. Chromosomes Fish DNA SEE STACKER STRAIGHTENER FOR REPORT [facility] Probe Performing Organization Address [facility] Phone Number [facility] [address] [place] [address] from Last 3 Months
--- OUTSIDE RECORDS SUMMARY | 2018-04-09 01:29 | XMS REPORT | Encounter Summary ---
Author Author [facility] Organization [facility] Address Unknown Phone Unavailable Care Team Providers Care Reimbursement Consultant Name Role Phone Derek Mccormick MD Unavailable Jose Daniel Mckeon MD Unavailable Mainor Del Rosario MD PCP Unavailable Angelita Caballero MD Unavailable Jakob Cole Unavailable Unavailable aYri Carias MA Unavailable Unavailable Mariah Espinoza Unavailable Unavailable Jennifer Mojica ENTRY LEVEL WEB DEVELOPER Unavailable Annie Macias MA Unavailable Unavailable Blessing Morin Unavailable Unavailable Parul De Los Santos MD Unavailable Ngozi Camarena PA-C Unavailable Lary Noguera MD 3 Encounter Details Date Type Department Care Team Description 04/07/2018 Pharmacy Visit [facility] [address] [place] [address] Social History Tobacco Use Types Packs/Day Years Used Date Former Smoker Cigarettes 2 35 Quit: 06/03/2012 Smokeless Tobacco: Never Used Alcohol Use Drinks/Week oz/Week Comments No 1 Standard 0.6 drinks or equivalent Sex Assigned at Date Recorded Not on file as of this encounter Functional Status Functional Status Response Date of Assessment Does the patient have a hearing impairment: No 01/15/2018 Does the patient have a visual impairment: Yes 01/15/2018 Does the patient have impaired ambulation: Yes 01/15/2018 Does the patient have an activity of daily living No 01/15/2018 (ADL) impairment: Does the patient have an instrumental activity of No 01/15/2018 daily living (IADL) impairment: Cognitive Status Response Date of Assessment Does the patient have a cognitive impairment: No 01/15/2018 as of this encounter Plan of Treatment Not on fileas of this encounter Visit Diagnoses Not on filein this encounter
--- OUTSIDE RECORDS SUMMARY | 2018-04-09 01:29 | XMS REPORT | Encounter Summary ---
Author Author [facility] Organization [facility] Address Unknown Phone Unavailable Care Team Providers Care Hat Cone Inspector Name Role Phone Derek Mccormick MD Unavailable Jose Daniel Mckeon MD Unavailable Mainor Del Rosario MD PCP Unavailable Angelita Caballero MD Unavailable Jakob Cole Unavailable Unavailable Yari Carias MA Unavailable Unavailable Mariah Espinoza Unavailable Unavailable Jennifer Mojica THREAT ANALYST Unavailable Annie Macias MA Unavailable Unavailable Blessing Morin Unavailable Unavailable Parul De Los Santos MD Unavailable Ngozi Camarena PA-C Unavailable Lary Noguera MD 3 Reason for Referral * Radiology Services Status Reason Specialty Diagnoses / Referred By Referred To Procedures Contact Contact No Auth Needed Radiology Diagnoses Jonathan, Kuwp Mri Adenocarcinoma MD [place] [address] [place] of left lung [address] (HCC) [place] [address] [address] Phone: [employer] [place], [place] [phone] [place]ST [address] [address] CONTRAST * Radiology Services Status Reason Specialty Diagnoses / Referred By Referred To Procedures Contact Contact No Auth Needed Radiology Diagnoses Jonathan, Kuwp Mri Adenocarcinoma MD [place] [address] [place] of left lung [address] (HCC) [place] [address] [address] Phone: [employer] [place], [place] [phone] CT CHEST [place] [address] CONTRAST Reason for Visit * Radiology Services Status Reason Specialty Diagnoses / Referred By Referred To Procedures Contact Contact No Auth Needed Radiology Diagnoses Jonathan, Kuwp Mri Adenocarcinoma MD [place] [address] [place] of left lung [address] (HCC) [place] [address] [address] Phone: [employer] [place], [place] [phone] CT CHEST W CONTRAST Encounter Details Date Type Department Care Team Description 04/07/2018 [facility] [place] Castillo MD Arrived Encounter [facility] Radiology [address] [place] [address] [place] [address] [place] [address] [phone] Social History Tobacco Use Types Packs/Day Years [...] Treatment Not on fileas of this encounter Results * CT CHEST W CONTRAST (04/07/2018 [...] on 04/07/2018 2:55 PM. Performing Organization Address City/State/Zipcode Phone Number [facility] RESULTS in this encounter Visit Diagnoses Diagnosis Adenocarcinoma of left lung (HCC) Administered Medications Medication Order MAR Action Action Date Dose Rate Site iopamidol 370 (ISOVUE-370) injection 80 Given 04/07/2018 80 mL mL 13:15 CDT 80 mL, Intravenous, ONCE, 1 dose, 04/07/18 at 1315, NOTE: This is a HIGH ALERT Medication. sodium chloride PF 0.9% injection 50 mL Given 04/07/2018 50 mL 50 mL, Intravenous, ONCE, 1 dose, Tue 13:15 CDT 04/07/18 at 1315, Intra-procedure (IR) in this encounter
--- OUTSIDE RECORDS SUMMARY | 2018-04-09 01:29 | XMS REPORT | Encounter Summary ---
Author Author [facility] Organization [facility] Address Unknown Phone Unavailable Care Team Providers Care Wall Attendant Name Role Phone Derek Mccormick MD Unavailable Jose Daniel Mckeon MD Unavailable Mainor Del Rosario MD PCP Unavailable Angelita Caballero MD Unavailable Jakob Cole Unavailable Unavailable Yari Carias MA Unavailable Unavailable Mariah Espinoza Unavailable Unavailable Jennifer Mojica OPTOMETRIST ASSISTANT Unavailable Annie Macias MA Unavailable Unavailable Blessing Morin Unavailable Unavailable Parul De Los Santos MD Unavailable Ngozi Camarena PA-C Unavailable Lary Noguera MD 3 Reason for Referral * Radiology Services Status Reason Specialty Diagnoses / Referred By Referred To Procedures Contact Contact New Request Radiology Diagnoses Chapo Colvin Malignant neoplasm of [address] hilus of left [place] lung (HCC) [address] [place], [place] rocedures [address] IR CENTRAL Phone: VENOUS CATHETER [phone] Reason for Visit * Reason Comments Heme/Onc Care Encounter Details Date Type Department Care Team Description 04/07/2018 Office Visit [facility] Chapo Colvin MD Adenocarcinoma of left Cancer Center [facility] Exam [address] [place] lung (HCC) (Primary Dx); [facility] [address] Malignant neoplasm of [address] [place] [address] hilus of left lung (HCC) [address] [phone] [place] [address] [phone] Social History Tobacco Use Types Packs/Day Years Used Date Former Smoker Cigarettes 2 35 Quit: 06/03/2012 Smokeless Tobacco: Never Used Alcohol Use Drinks/Week oz/Week Comments No 1 Standard 0.6 drinks or equivalent Sex Assigned at Date Recorded Not on file as of this encounter Last Filed Vital Signs Vital Sign Reading [...] Mass Index 33.45 04/07/2018 3:29 PM CDT in this encounter Functional Status Functional Status Response [...] impairment: No 01/15/2018 as of this encounter Miscellaneous Notes * Assessment & Plan Note - Chapo Colvin MD - 04/07/2018 3:55 PM CDT Associated Problem(s): Malignant neoplasm of lung (HCC) (Resolved 12/24/2017) Plan to give adjuvant chemotherapy pem/carboplatin. Pt has peripheral neuropathy , would avoid cisplatin. in this encounter Plan of Treatment Name Priority Associated Diagnoses Order Schedule CBC AND DIFF Routine Malignant neoplasm of Expected: 04/13/2018 hilus of left lung (HCC) (Approximate), Expires: 04/07/2019 COMPREHENSIVE METABOLIC PANEL Routine Malignant neoplasm of Expected: hilus of left lung (HCC) (Approximate), Expires: 04/07/2019 IR CENTRAL VENOUS CATHETER Routine Malignant neoplasm of Expected: 04/14 hilus of left lung (HCC) (Approximate), Expires: 04/07/2019 as of this encounter Visit Diagnoses Diagnosis Adenocarcinoma of left lung (HCC) - Primary Malignant neoplasm of hilus of left lung (HCC)
--- OUTSIDE RECORDS SUMMARY | 2018-04-09 01:29 | XMS REPORT | Encounter Summary ---
Author Author [facility] Organization [facility] Address Unknown Phone Unavailable Care Team Providers Care Longwall Foreman Name Role Phone Derek Mccormick MD Unavailable Jose Daniel Mckeon MD Unavailable Mainor Del Rosario MD PCP Unavailable Angelita Caballero MD Unavailable Jakob Cole Unavailable Unavailable Yari Carias MA Unavailable Unavailable Mariah Espinoza Unavailable Unavailable Jennifer Mojica GEOTECHNICAL ENGINEERING TECHNICIAN Unavailable Annie Macias MA Unavailable Unavailable Blessing Morin Unavailable Unavailable Parul De Los Santos MD Unavailable Ngozi Camarena PA-C Unavailable Lary Noguera MD 3 Reason for Visit * Reason Comments Medication Refill Encounter Details Date Type Department Care Team Description 04/08/2018 Refill [facility] Chapo Colvin MD Malignant neoplasm of [facility] Exam [address] [facility] hilus of left lung (HCC) [facility] [address] [place] [address] [address] [phone] [place] [address] [phone] Social History Tobacco Use Types Packs/Day Years [...] on fileas of this encounter Visit Diagnoses Diagnosis Malignant neoplasm of hilus of left lung (HCC)
--- OUTSIDE RECORDS SUMMARY | 2018-04-09 01:29 | XMS REPORT | Encounter Summary ---
Author Author [facility] Organization [facility] Address Unknown Phone Unavailable Care Team Providers Care Coil Wrapper Name Role Phone Derek Mccormick MD Unavailable Jose Daniel Mckeon MD Unavailable Mainor Del Rosario MD PCP Unavailable Angelita Caballero MD Unavailable Jakob Cole Unavailable Unavailable Yari Carias MA Unavailable Unavailable Mariah Espinoza Unavailable Unavailable Jennifer Mojica DRAPERY WORKER Unavailable Annie Macias MA Unavailable Unavailable Blessing Morin Unavailable Unavailable Parul De Los Santos MD Unavailable Ngozi Camarena PA-C Unavailable Lary Noguera MD 3 Encounter Details Date Type Department Care Team Description 04/08/2018 Pre/Post [facility] Rad[facility] [address] [place] [address] Social History Tobacco Use Types Packs/Day Years [...] impairment: No 01/15/2018 as of this encounter Progress Notes * Belia Enamorado RN - 04/08/2018 8:42 AM CDT Interventional Radiology Outpatient Scheduling Checklist 1. Procedure: Portacath placement 2. Date of Procedure: 05/13/18 3. Arrival Time: 0700 4. Procedure Time: 0800 5. Correct Procedural Room Assignment: ICC Fluoro 6. Blood Thinners Triaged and instructed per protocol: N/A 7. Order Verified: Yes 8. Patient informed regarding procedure: Yes 9. Patient instructed to have a assembly line driver: Yes 10. Patient instructed on NPO status: No solids after midnight, clear liquids until 0600, NPO from 0600 until after procedure 11. Specimen needed: Y/N: NA 12. Allergies Verified: Y/N: Yes 13. Iodine Allergy: Y/N: If yes and receiving Iodine has the patient been premedicated: Y/N: No 14. Does the patient have labs according to IR procedural policy: Y/N: Getting labs drawn prior to procedure 15. Will the patient need to be admitted/possible admission: Y/N: NA 16. If YES to possible admission has the patient been instructed: Y/N: NA 17. Patient States Understanding: Y/N Yes 18. Hx JOLYNN: Y/N: Pt instructed to bring PAP Machine:Pt uses O2 at [facility] And PRN during the day in this encounter Plan of Treatment Not on fileas of this encounter Visit Diagnoses Not on filein this encounter
--- OUTSIDE RECORDS SUMMARY | 2018-04-09 01:29 | XMS REPORT | Encounter Summary ---
Author Author [facility] Organization [facility] Address Unknown Phone Unavailable Care Team Providers Care Concessionist Name Role Phone Derek Mccormick MD Unavailable Jose Daniel Mckeon MD Unavailable Mainor Del Rosario MD PCP Unavailable Angelita Caballero MD Unavailable Jakob Cole Unavailable Unavailable Yari Carias MA Unavailable Unavailable Mariah Espinoza Unavailable Unavailable Jennifer Mojica SUPPLY ANALYST Unavailable Annie Macias MA Unavailable Unavailable Blessing Morin Unavailable Unavailable Parul De Los Santos MD Unavailable Ngozi Camarena PA-C Unavailable Lary Noguera MD 3 Reason for Visit * Reason Comments Copd Abnormal Lung Imaging Encounter Details Date Type Department Care Team Description 04/07/2018 Office Visit [facility] Bozena Acuna APRN-PLANT TECHNICAL SPECIALIST COPD exacerbation (HCC) Physicians - Internal [address] (Primary Dx); [place] [address] Chronic bronchitis, Ortho and Medical [phone] unspecified chronic [facility] Level 5A bronchitis type (HCC); [address] Chronic hypoxemic [place], [place] respiratory failure (HCC) [address] Social History Tobacco Use Types Packs/Day Years Used Date Former Smoker Cigarettes 2 35 Quit: 06/03/2012 Smokeless Tobacco: Never Used Alcohol Use Drinks/Week oz/Week Comments No 1 Standard 0.6 drinks or equivalent Sex Assigned at Date Recorded Not on file as of this encounter Last Filed Vital Signs Vital Sign Reading Time Taken Blood Pressure 97/66 04/07/2018 10:37 AM CDT Pulse 76 04/07/2018 10:37 AM CDT Temperature 36.4 C (97.6 F) 04/07/2018 10:37 AM CDT Respiratory Rate 16 04/07/2018 10:37 AM CDT Oxygen Saturation 96% 04/07/2018 10:37 AM CDT Inhaled Oxygen - - Concentration Weight 87.1 kg (192 lb) 04/07/2018 10:37 AM CDT Height 162.6 cm (5' 4") 04/07/2018 10:37 AM CDT Body Mass Index 32.96 04/07/2018 10:37 AM CDT in this encounter Functional Status Functional [...] impairment: No 01/15/2018 as of this encounter Instructions * Patient Instructions - Viviana Dumont RN - 04/07/2018 11:30 AM CDT My nurse is Viviana Dumont RN. She can be reached at [phone]. Please contact my nurse with any signs and symptoms of worsening productive cough with thick secretions, blood in sputum, chest tightness/pain, shortness of breath, fever, chills, night sweats, or any questions or concerns. For refills on medications, please have your pharmacy fax a refill authorization request form to our office at [phone]. Please allow at least 3 business days for refill requests. For urgent issues after business hours/weekends/holidays call [phone] and request for the route contractor to be paged. in this encounter Progress Notes * Bozena Acuna, SUPPLY ANALYST-PLANT TECHNICAL SPECIALIST - 04/07/2018 11:30 AM CDT Formatting of this note may be different from the original. Date of Service: 04/07/2018 Subjective: Charlene Arias is a 52 y.o. female. History of Present Illness Patient presents for follow-up on COPD. Since she was last seen she was diagnosed with locally advanced disease. Completed radiation therapy and scheduled for repeat chest CT today and follow-up with medical oncology for discussion of chemotherapy. With regards to her respiratory symptoms she reports she developed new symptoms over the weekend of chest heaviness and discomfort with coughing. No runny nose or congestion. Increase in cough and sputum production. Sputum is yellow in color. Small streaks of bright pink in her sputum over the weekend. Denies any shawanda hemoptysis. Erwin any associated fevers or chills. Has not been sick in years. No antibiotics for many months. On stiolto daily. Currently using albuterol nebulizer 2-3x daily. Is compliant with oxygen at home, with sleep, and with camping, is not wearing it outside the home regularly. Review of Systems HENT: Positive for congestion and sore throat. Respiratory: Positive for cough and wheezing. Musculoskeletal: Positive for arthralgias, back pain, joint swelling and myalgias. Psychiatric/Behavioral: Positive for sleep disturbance. The patient is nervous/ anxious. All other systems reviewed and are negative. Objective: acetaminophen (TYLENOL) 500 mg tablet Take 2 tablets by mouth every 6 hours while awake. Max of 4,000 mg of acetaminophen in 24 hours. albuterol (PROVENTIL; VENTOLIN) 90 mcg/Actuation inhaler Inhale 2 puffs by mouth into the lungs twice daily as needed for Wheezing. alprazolam (XANAX PO) Take by mouth. aspirin EC 81 mg tablet Take 1 tablet by mouth daily. Take with food. ( Patient taking differently: Take 81 mg by mouth at bedtime daily. Take with food.) azithromycin (ZITHROMAX) 250 mg tablet Take 2 tabs by mouth on day 1, followed by 1 tab by mouth daily on days 2 - 5. dexamethasone (DECADRON) 4 mg tablet Take 1 tablet by mouth twice a day starting the day before Pemetrexed/Carboplatin and continue for a total of five days. lnmlzrakpkd-zhevdyiab-gjxcuael (TRELEGY ELLIPTA) 100-62.5-25 mcg dsdv Inhale 1 puff by mouth into the lungs daily. folic acid (FOLVITE) 1 mg tablet Take 1 tablet by mouth daily. milk of magnesia (CONC) 2,400 mg/10 mL oral suspension Take 10 mL by mouth daily. NIFEdipine XL (PROCARDIA-XL) 60 mg tablet Take 60 mg by mouth at bedtime daily. ondansetron (ZOFRAN ODT) 8 mg rapid dissolve tablet Dissolve 1 tablet by mouth every 8 hours as needed for Nausea or Vomiting. Place on tongue to disolve. ondansetron (ZOFRAN) 8 mg tablet Take 1 tablet by mouth every 8 hours as needed (nausea and vomiting). oxycodone HCl/acetaminophen (PERCOCET PO) Take by mouth. prednisone (DELTASONE) 10 mg tablet Take 4 tablets by mouth daily with breakfast. tiotropium-olodaterol 2.5-2.5 mcg/actuation mist Inhale 2 Puffs by mouth into the lungs daily. Vitals: 04/07/18 1037 BP: 97/66 Pulse: 76 Resp: 16 Temp: 36.4 C (97.6 F) TempSrc: Oral SpO2: 96% Weight: 87.1 kg (192 lb) Height: 162.6 cm (64") Body mass index is 32.96 kg/m. Physical Exam Constitutional: She is oriented to person, place, and time. She appears well- developed and well-nourished. HENT: Head: Normocephalic and atraumatic. Eyes: Pupils are equal, round, and reactive to light. Neck: Neck supple. Cardiovascular: Normal rate, regular rhythm and normal heart sounds. Pulmonary/Chest: Effort normal. No respiratory distress. She has wheezes in the right lower field and the left lower field. She has rhonchi in the right lower field and the left lower field. Musculoskeletal: She exhibits no edema. Neurological: She is alert and oriented to person, place, and time. Skin: Skin is warm and dry. Psychiatric: She has a normal mood and affect. Her behavior is normal. Judgment and thought content normal. Vitals reviewed. CT CHEST W (04/07/18) IMPRESSION 1. Decrease in size of left hilar lymphadenopathy and mildly prominent mediastinal lymph nodes. 2. Left lower lobe wedge resection changes without evidence of new or enlarging pulmonary nodule. 3. Moderate emphysema. 4. At least mild coronary artery calcification. Finalized by Tomy Abreu M.D. on 04/07/2018 3:05 PM. Dictated by Tomy Abreu M.D. on 04/07/2018 2:55 PM. Assessment and Plan: Problem Chronic Hypoxemic Respiratory Failure (Hcc) - On O2 with sleep and exertion - DME: [facility] (Chronic Obstructive Pulmonary Disease) ([facility]) GOLD Staging: Category B1 mMRC: 2 GOLD [...] as obtaining regular surveillance with her cancer COPD (chronic obstructive pulmonary disease) ([facility]) S/s consistent with COPD exacerbation Will treat with Z-pac and Prednisone x [address] without focal pneumonia Will step up controller therapy with addition of ICS Trelegy (samples provided today in clinic) - favor 3-in-1 inhaler to minimize treatment burden and ppe-dg-ezvcqr cost Chronic hypoxemic respiratory failure (HCC) Continue supplemental oxygen RTC 3 mo Bozena Acuna APRN-PLANT TECHNICAL SPECIALIST Orders Placed This Encounter azithromycin (ZITHROMAX) 250 mg tablet prednisone (DELTASONE) 10 mg tablet slbqffvbyyl-xasbzrdvl-gxyrazkh (TRELEGY ELLIPTA) 100-62.5-25 mcg dsdv Future Appointments Date Time Provider Department Center 04/21/2018 8:30 AM CC LAB NURSE CHAIR [id number] None 04/21/2018 9:00 AM FINANCIAL COUNSELOR 2 [facility]2 [facility] Exam 04/21/2018 9:30 AM Jaleesa Coyle APRN [facility] Exam 04/21/2018 11:30 AM TREATMENT ROOM 27 [facility] Treatme 05/13/2018 8:00 AM IR - IC ROOM 1 [facility] ICC Interv R 05/19/2018 8:00 AM CC NURSE CHAIR [facility]2 [facility] Exam 05/19/2018 9:00 AM Jaleesa Coyle APRN [facility] Exam 05/19/2018 10:00 AM TREATMENT ROOM 31 [facility] Treatme 07/09/2018 9:30 AM Bozena Acuna APRN-NP [facility] IM in this encounter Miscellaneous Notes * Assessment & Plan Note - Bozena Acuna APRN-NP - 04/08/2018 11:22 AM CDT Associated Problem(s): Chronic hypoxemic respiratory failure (HCC) Continue supplemental oxygen * Assessment & Plan Note - Bozena Acuna APRN-NP - 04/08/2018 11:18 AM CDT Associated Problem(s): COPD (chronic obstructive pulmonary disease) (HCC) S/s consistent with COPD exacerbation Will treat with Z-pac and Prednisone x [address] without focal pneumonia Will step up controller therapy with addition of ICS Trelegy (samples provided today in clinic) - favor 3-in-1 inhaler to minimize treatment burden and xar-ng-olqkwf cost in this encounter Plan of Treatment Not on fileas of this encounter Visit Diagnoses Diagnosis COPD exacerbation (HCC) - Primary Obstructive chronic bronchitis with exacerbation Chronic bronchitis, unspecified chronic bronchitis type (HCC) Chronic hypoxemic respiratory failure (HCC) Chronic respiratory failure
--- OUTSIDE RECORDS SUMMARY | 2018-04-09 01:30 | XMS REPORT | Encounter Summary ---
Author Author [facility] Organization [facility] Address Unknown Phone Unavailable Care Team Providers Care Longitudinal Float Operator Name Role Phone Derek Mccormick MD Unavailable Jose Daniel Mckeon MD Unavailable Mainor Del Rosario MD PCP Unavailable Angelita Caballero MD Unavailable Jakob Cole Unavailable Unavailable Yari Carias MA Unavailable Unavailable Mariah Espinoza Unavailable Unavailable Jennifer Mojica COORDINATOR INTEGRATED MARKETING Unavailable Annie Macias MA Unavailable Unavailable Blessing Morin Unavailable Unavailable Parul De Los Santos MD Unavailable Ngozi Camarena PA-C Unavailable Encounter Details Date Type Department Care Team Description 02/24/2018 [facility] Rad [facility] [address] [place] [address] Social History Tobacco Use Types [...] Treatment Not on fileas of this encounter Procedures Procedure Name Priority Date/Time Associated Diagnosis [...] CDT procedure are in the results section. in this encounter Results * RAD ONC TREATMENT INFORMATION (02/27/2018 12:57 [...] [facility] RAD ONC TREATMENT Performing Organization Address City/State/Zipcode Phone Number [facility] RAD ONC TREATMENT * [...] [facility] RAD ONC TREATMENT Performing Organization Address [facility] Phone Number [facility] RAD ONC TREATMENT * [...] [facility] RAD ONC TREATMENT Performing Organization Address [facility] Phone Number [facility] RAD ONC TREATMENT * [...] [facility] RAD ONC TREATMENT Performing Organization Address [facility] Phone Number [facility] RAD ONC TREATMENT in this encounter Visit Diagnoses Not on filein this encounter
--- OUTSIDE RECORDS SUMMARY | 2018-04-09 01:30 | XMS REPORT | Encounter Summary ---
Author Author [facility] Organization [facility] Address Unknown Phone Unavailable Care Team Providers Care District Operations Manager Name Role Phone Derek Mccormick MD Unavailable Jose Daniel Mckeon MD Unavailable Mainor Del Rosario MD PCP Unavailable Angelita Caballero MD Unavailable Jakob Cole Unavailable Unavailable Yari Carias MA Unavailable Unavailable Mariah Espinoza Unavailable Unavailable Jennifer Mojica LAB COURIER Unavailable Annie Macias MA Unavailable Unavailable Blessing Morin Unavailable Unavailable Parul De Los Santos MD Unavailable Ngozi Camarena PA-C Unavailable Reason for Visit * Reason Comments On-treatment Encounter Details Date Type Department Care Team Description 02/20/2018 Office Visit Cancer Center - Radiation Latrell Ayers MD Adenocarcinoma of left Therapy [address] lung (HCC) (Primary Dx) Tonya Vasques [place] [address] [place] [address] [phone] [place] [address] [phone] Social History Tobacco Use Types Packs/Day Years Used Date Former Smoker Cigarettes 2 35 Quit: 06/03/2012 Smokeless Tobacco: Never Used Alcohol Use Drinks/Week oz/Week Comments No 1 Standard 0.6 drinks or equivalent Sex Assigned at Date Recorded Not on file as of this encounter Last Filed Vital Signs Vital Sign Reading Time Taken Blood Pressure 113/61 02/20/2018 1:22 PM CDT Pulse 99 02/20/2018 1:22 PM CDT Temperature 37.2 C (98.9 F) 02/20/2018 1:22 PM CDT Respiratory Rate - - Oxygen Saturation 100% 02/20/2018 1:22 PM CDT Inhaled Oxygen - - Concentration Weight 86.3 kg (190 lb 3.2 oz) 02/20/2018 1:22 PM CDT Height 162.6 cm (5' 4.02") 02/20/2018 1:22 PM CDT Body Mass Index 32.63 02/20/2018 1:22 PM CDT in this encounter Functional Status [...] as of this encounter Progress Notes * Latrell Ayers MD - 02/20/2018 1:45 PM CDT Formatting of this note may be different from the original. Weekly Management Progress Note Date: 02/20/2018 Charlene Arias is a 52 y.o. female. Vitals: Vitals: 02/20/18 1322 BP: 113/61 Pulse: 99 Temp: 37.2 C (98.9 F) TempSrc: Temporal SpO2: 100% Weight: 86.3 kg (190 lb 3.2 oz) Height: 162.6 cm (64.02") Subjective There were no encounter diagnoses. Staging: Cancer Staging Adenocarcinoma of left lung (HCC) Staging form: Lung, AJCC 7th Edition - Clinical stage from 09/11/2017: T2, N0, M0 - Signed by Nina Rubalcava APRN -NP on 09/23/2017 Treatment Data Summary: Treatment Data 02/16/2018 02/17/2018 02/18/2018 02/19/2018 02/20/2018 Course ID Hypo L lung Hypo L lung Hypo L lung Hypo L lung Hypo L lung Plan ID [id number] Prescription Dose (cGy) 6,000 6,000 6,000 6,000 6,000 Prescribed Dose per Fraction (Gy) 6 6 6 6 6 Fractions Treated to Date 1 2 3 4 5 Total Fractions on Plan 10 10 10 10 10 Treatment Elapsed Days 0 1 2 3 4 Reference Point ID L LUNG PTV~L LUNG PTV L LUNG PTV~L LUNG PTV L LUNG PTV~L LUNG PTV L LUNG PTV~L LUNG PTV L LUNG PTV~L LUNG PTV Dosage Given to Date (Gy) 6 12 18 24 30 Subjective: She tolerates treatment. No complaints. Objective: WNL Assessment: lung cancer. Plan: Continue planned XRT. Port images reviewed. in this encounter Plan of Treatment Not on fileas of this encounter Visit Diagnoses Diagnosis Adenocarcinoma of left lung (HCC) - Primary
--- OUTSIDE RECORDS SUMMARY | 2018-04-09 01:30 | XMS REPORT | Encounter Summary ---
Author Author [facility] Organization [facility] Address Unknown Phone Unavailable Care Team Providers Care Biology Internship Name Role Phone Derek Mccormick MD Unavailable Jose Daniel Mckeon MD Unavailable Mainor Del Rosario MD PCP Unavailable Angelita Caballero MD Unavailable Jakob Cole Unavailable Unavailable Yari Carias MA Unavailable Unavailable Mariah Espinoza Unavailable Unavailable Jennifer Mojica MANAGER TELECOM Unavailable Annie Macias MA Unavailable Unavailable Blessing Morin Unavailable Unavailable Parul De Los Santos MD Unavailable Ngozi Camarena PA-C Unavailable Encounter Details Date Type Department Care Team Description 02/16/2018 [facility] Data Tonya Vasques Rad Onc [address] [place] [address] Social History Tobacco Use Types [...] Associated Diagnosis Comments RAD ONC TREATMENT Routine 02/23/2018 Results for [...] encounter Results * RAD ONC TREATMENT INFORMATION (02/23/2018 1:02 [...] [facility] RAD ONC TREATMENT Performing Organization Address [facility] Phone Number KU RAD ONC TREATMENT * [...] KU RAD ONC TREATMENT Performing Organization Address [facility] Phone Number KU RAD ONC TREATMENT * [...] KU RAD ONC TREATMENT Performing Organization Address [facility] Phone Number KU RAD ONC TREATMENT * [...] KU RAD ONC TREATMENT Performing Organization Address City/[facility] Phone Number KU RAD ONC TREATMENT * [...] KU RAD ONC TREATMENT Performing Organization Address City/[facility] Phone Number KU RAD ONC TREATMENT in this encounter Visit Diagnoses Not on filein this encounter
--- OUTSIDE RECORDS SUMMARY | 2018-04-09 01:30 | XMS REPORT | Encounter Summary ---
Author Author [facility] Organization [facility] Address Unknown Phone Unavailable Care Team Providers Care Oil And Gas Specialist Name Role Phone Derek Mccormick MD Unavailable Jose Daniel Mckeon MD Unavailable Mainor Del Rosario MD PCP Unavailable Angelita Caballero MD Unavailable Jakob Cole Unavailable Unavailable Yari Carias MA Unavailable Unavailable Mariah Espinoza Unavailable Unavailable Jennifer Mojica ASSEMBLER [employer]ATCHES [employer] SPRINGS Unavailable Annie Macias MA Unavailable Unavailable Blessing Morin Unavailable Unavailable Parul De Los Santos MD Unavailable Ngozi Camarena PA-C Unavailable Lary Noguera MD 3 Reason for Referral * Radiology Services Status Reason Specialty Diagnoses / Referred By Referred To Procedures Contact Contact No Auth Needed Radiology Diagnoses Tasneem Castillo Mri Adenocarcinoma MD [place] [address] of left lung [address] (HCC) [place] [address] [address] Phone: [employer] [place], [place] [phone] [place] CHEST [place] [address] CONTRAST Reason for Visit * Reason Comments Lung Cancer * Consult, Test & Treat (Routine) Status Reason Specialty Diagnoses / Referred By Referred To Procedures Contact Contact No Auth Needed Specialty Oncology Diagnoses Latrell Ayers MD Huang, Chao H, MD Services Malignant [address] Required neoplasm of [place] lung, [place] [address] [place] [address] laterality, [address] Phone: unspecified part of lung (HCC) [phone] Encounter Details Date Type Department Care Team Description 04/01/2018 Office Visit [facility] Latrell Ayers MD Adenocarcinoma of RUST - WW Exam [address] lung (HCC) (Primary Dx) [facility] [place] [address] [place] [address] [address] [phone] [place] [address] [phone] Maverick Hutson MD [address] [place] [address] [phone] Social History Tobacco Use Types Packs/Day Years Used Date Former Smoker Cigarettes 2 35 Quit: 06/03/2012 Smokeless Tobacco: Never Used Alcohol Use Drinks/Week oz/Week Comments No 1 Standard 0.6 drinks or equivalent Sex Assigned at Date Recorded Not on file as of this encounter Last Filed Vital Signs Vital Sign Reading Time Taken Blood Pressure 117/71 04/01/2018 10:07 AM CDT Pulse 82 04/01/2018 10:07 AM CDT Temperature 36.6 C (97.8 F) 04/01/2018 10:07 AM CDT Respiratory Rate 18 04/01/2018 10:07 AM CDT Oxygen Saturation 97% 04/01/2018 10:07 AM CDT Inhaled Oxygen - - Concentration Weight 87.5 kg (192 lb 12.8 oz) 04/01/2018 10:07 AM CDT Height 162.6 cm (5' 4") 04/01/2018 10:07 AM CDT Body Mass Index 33.09 04/01/2018 10:07 AM CDT in this encounter Functional Status [...] as of this encounter Progress Notes * Maverick Castillo MD - 04/01/2018 10:20 AM CDT Formatting of this note may be different from the original. Name: Charlene Arias : 1965 AGE: 52 y.o. DATE OF SERVICE: 04/01/2018 Subjective: Reason for Visit: No chief complaint on file. Charlene Arias is a 52 y.o. female. Cancer Staging Adenocarcinoma of left lung (HCC) Staging form: Lung, AJCC 7th Edition - Clinical stage from 09/11/2017: T2, N0, M0 - Signed by Nina Rubalcava APRN -NP on 09/23/2017 History of Present Illness 52-year-old female with a newly diagnosed recurrent [...] which was negative. She continued to have follow -up and then subsequent CT scan demonstrated increase [...] for malignant cells, consistent with Adeno CA She completed 10 fractions of radiation on February 27 2018. She is here for discission of systemic therapy for her lung carcinoma. Review of Systems Constitutional: Positive for fatigue. Negative for activity change, appetite change and unexpected weight change. HENT: Negative. Respiratory: Positive for shortness of breath (on exertion). Negative for cough and choking. Cardiovascular: Negative. Negative for chest pain, palpitations and leg swelling. Gastrointestinal: Negative. Genitourinary: Negative. Musculoskeletal: Negative. Skin: Negative. Neurological: Negative. Hematological: Negative. Negative for adenopathy. Does not bruise/bleed easily. Psychiatric/Behavioral: Negative. All other systems reviewed and are negative. Objective: acetaminophen (TYLENOL) 500 mg tablet Take 2 tablets by mouth every 6 hours while awake. Max of 4,000 mg of acetaminophen in 24 hours. albuterol (PROVENTIL; VENTOLIN) 90 mcg/Actuation inhaler Inhale 2 puffs by mouth into the lungs twice daily as needed for Wheezing. aspirin EC 81 mg tablet Take 1 tablet by mouth daily. Take with food. ( Patient taking differently: Take 81 mg by mouth at bedtime daily. Take with food.) milk of magnesia (CONC) 2,400 mg/10 mL oral suspension Take 10 mL by mouth daily. NIFEdipine XL (PROCARDIA-XL) 60 mg tablet Take 60 mg by mouth at bedtime daily. ondansetron (ZOFRAN ODT) 8 mg rapid dissolve tablet Dissolve 1 tablet by mouth every 8 hours as needed for Nausea or Vomiting. Place on tongue to disolve. tiotropium-olodaterol 2.5-2.5 mcg/actuation mist Inhale 2 Puffs by mouth into the lungs daily. Vitals: 04/01/18 1007 BP: 117/71 Pulse: 82 Resp: 18 Temp: 36.6 C (97.8 F) TempSrc: Oral SpO2: 97% Weight: 87.5 kg (192 lb 12.8 oz) Height: 162.6 cm (64") Body mass index is 33.09 kg/m. Pain Addressed: N/A Patient Evaluated for a Clinical Trial: No treatment clinical trial available for this patient. Eastern Cooperative Oncology Group performance status is 1, Restricted in physically strenuous activity but ambulatory and able to carry out work of a light or sedentary nature, e.g., light house work, office work. Physical Exam Constitutional: She is oriented to person, place, and time. Vital signs are normal. She appears well-developed and well-nourished. She is active. HENT: Head: Normocephalic and atraumatic. Right Ear: External ear normal. Left Ear: External ear normal. Nose: Nose normal. Mouth/Throat: Uvula is midline, oropharynx is clear and moist and mucous membranes are normal. Eyes: Conjunctivae and EOM are normal. Pupils are equal, round, and reactive to light. Right eye exhibits no discharge. Left eye exhibits no discharge. No scleral icterus. Neck: Trachea normal, normal range of motion and full passive range of motion without pain. Neck supple. No JVD present. Carotid bruit is not present. Cardiovascular: Normal rate, regular rhythm, S1 normal, S2 normal, normal heart sounds, intact distal pulses and normal pulses. Exam reveals no gallop and no friction rub. No murmur heard. Pulmonary/Chest: Effort normal and breath sounds normal. No respiratory distress. She has no decreased breath sounds. She has no wheezes. She has no rhonchi. She has no rales. She exhibits no tenderness. Abdominal: Soft. Normal appearance and bowel sounds are normal. There is no tenderness. Musculoskeletal: Normal range of motion. She exhibits no edema or deformity. Lymphadenopathy: She has no cervical adenopathy. She has no axillary adenopathy. Neurological: She is alert and oriented to person, place, and time. No cranial nerve deficit. Skin: Skin is warm and intact. No cyanosis. Psychiatric: She has a normal mood and affect. Her speech is normal and behavior is normal. Judgment and thought content normal. Cognition and memory are normal. Vitals reviewed. Assessment and Plan: Problem Adenocarcinoma of Left Lung (Hcc) 52-year-old female with a newly diagnosed recurrent [...] which was negative. She continued to have follow -up and then subsequent CT scan demonstrated increase [...] for malignant cells, consistent with Adeno CA Adenocarcinoma of left lung (HCC) This patient was seen by Dr. Colvin [...] on February. Patient desires care here in [facility], completed radiation (10 fractions), Because of short interval relapse and locally advanced disease she will require further therapy. She will need post radiation therapy CT for restaging as it is about a month since last radiation therapy. I will schedule CT scan of chest with contrast and return to see Dr. Colvin for consideration of further therapy. in this encounter Miscellaneous Notes * Assessment & Plan Note - Maverick Castillo MD - 04/01/2018 10:56 AM CDT Associated Problem(s): Adenocarcinoma of left lung (HCC) This patient was seen by Dr. Colvin [...] on February. Patient desires care here in [facility], completed radiation (10 fractions), Because of short interval relapse and locally advanced disease she will require further therapy. She will need post radiation therapy CT for restaging as it is about a month since last radiation therapy. I will schedule CT scan of chest with contrast and return to see Dr. Colvin for consideration of further therapy. in this encounter Plan of Treatment Name Priority Associated Diagnoses Order Schedule COMPREHENSIVE METABOLIC PANEL Routine Adenocarcinoma of left Expected: 04/01/2018 lung (HCC) (Approximate), Expires: 04/01/2019 CBC AND DIFF Routine Adenocarcinoma of left Expected: 04/01/2018 lung (HCC) (Approximate), Expires: 04/01/2019 as of this encounter Results * CT CHEST [...]
--- OUTSIDE RECORDS SUMMARY | 2018-04-09 01:30 | XMS REPORT | Encounter Summary ---
Author Author [facility] Organization [facility] Address Unknown Phone Unavailable Care Team Providers Care Processor Helper Name Role Phone Derek Mccormick MD Unavailable Jose Daniel Mckeon MD Unavailable Mainor Del Rosario MD PCP Unavailable Angelita Caballero MD Unavailable Jakob Cole Unavailable Unavailable Yari Carias MA Unavailable Unavailable Mariah Espinoza Unavailable Unavailable Jennifer Mojica WIRE STRETCHER Unavailable Annie Macias MA Unavailable Unavailable Blessing Morin Unavailable Unavailable Parul De Los Santos MD Unavailable Ngozi Camarena PA-C Unavailable Lary Noguera MD 3 Encounter Details Date Type Department Care Team Description 03/05/2018 Documentation [facility] - Radiation Francisco Green, RN Therapy [facility] Rad Onc [address] [place] [address] Social History Tobacco Use Types [...] as of this encounter Progress Notes * Francisco Green RN - 03/05/2018 3:22 PM CDT XRT records sent to Dr. Lary Noguera's office at [facility] to [phone]. The patient will be discussing chemotherapy with Dr. Noguera now that she is post xrt. in this encounter Plan of Treatment Not on fileas of this encounter Visit Diagnoses Not on filein this encounter
--- OUTSIDE RECORDS SUMMARY | 2018-04-09 01:30 | XMS REPORT | Encounter Summary ---
Author Author [facility] Organization [facility] Address Unknown Phone Unavailable Care Team Providers Care Behavioral Sciences Instructor Name Role Phone Derek Mccormick MD Unavailable Jose Daniel Mckeon MD Unavailable Mainor Del Rosario MD PCP Unavailable Angelita Caballero MD Unavailable Jakob Cole Unavailable Unavailable Yari Carias MA Unavailable Unavailable Mariah Espinoza Unavailable Unavailable Jennifer Mojica FISCAL MANAGER Unavailable Annie Macias MA Unavailable Unavailable Blessing Morin Unavailable Unavailable Parul De Los Santos MD Unavailable Ngozi Camarena PA-C Unavailable Lary Noguera MD 3 Reason for Visit * Reason Comments On-treatment Encounter Details Date Type Department Care Team Description 02/27/2018 Office Visit Cancer Center - Radiation Latrell Ayers MD Adenocarcinoma of left Therapy [address] lung (HCC) (Primary Dx) [facility] [place] [address] [place] [address] [phone] [place] [address] [phone] Social History Tobacco Use Types Packs/Day Years Used Date Former Smoker Cigarettes 2 35 Quit: 06/03/2012 Smokeless Tobacco: Never Used Alcohol Use Drinks/Week oz/Week Comments No 1 Standard 0.6 drinks or equivalent Sex Assigned at Date Recorded Not on file as of this encounter Last Filed Vital Signs Vital Sign Reading Time Taken Blood Pressure 149/86 02/27/2018 1:22 PM CDT Pulse 96 02/27/2018 1:22 PM CDT Temperature 36.9 C (98.5 F) 02/27/2018 1:22 PM CDT Respiratory Rate - - Oxygen Saturation 98% 02/27/2018 1:22 PM CDT Inhaled Oxygen - - Concentration Weight 84.4 kg (186 lb) 02/27/2018 1:22 PM CDT Height - - Body Mass Index 31.91 02/27/2018 1:22 PM CDT in this encounter Functional [...] Progress Notes * Latrell Ayers MD - 02/27/2018 1:30 PM CDT Formatting of this note may be different from the original. End of Treatment Summary Note Date: 03/09/2018 Charlene Arias is a 52 y.o. female. There were no encounter diagnoses. Staging: Cancer Staging Adenocarcinoma of left lung (HCC) Staging form: Lung, AJCC 7th Edition - Clinical stage from 09/11/2017: T2, N0, M0 - Signed by Nina Rubalcava APRN -NP on 09/23/2017 Treatment Data Summary: Treatment Data 02/19/2018 02/20/2018 02/23/2018 02/24/2018 02/25/2018 02/26/20182017 Course ID Hypo L lung Hypo L lung Hypo L lung Hypo L lung Hypo L lung Hypo L lung Hypo L lung Plan ID [id number] L- [id number] Prescription Dose (cGy) 6,000 6,000 6,000 6,000 6,000 6,000 6,000 Prescribed Dose per Fraction (Gy) 6 6 6 6 6 6 6 Fractions Treated to Date 4 5 6 7 8 9 10 Total Fractions on Plan 10 10 10 10 10 10 10 Treatment Elapsed Days 3 4 7 8 9 10 11 Reference Point ID L LUNG PTV~L LUNG PTV L LUNG PTV~L LUNG PTV L LUNG PTV~L LUNG PTV L LUNG PTV~L LUNG PTV L LUNG PTV~L LUNG PTV L LUNG PTV~L LUNG PTV L LUNG PTV~L LUNG PTV Dosage Given to Date 24 30 36 42 48 54 60 Some recent data might be hidden Site of treatment: left lower lobe of lung Date of treatment: 02/16- Dose /fraction: 6000 cGy in 10 fractions Technique of radiation: VMAT, 6x photon Treatment Tolerance and Response: The patient tolerated treatment well without unexpected or significant acute side effects. Follow Up: Charlene Arias will be scheduled for a follow up in a month. She will start her chmeotherapy at OSH. * Latrell Ayers MD - 02/27/2018 1:30 PM CDT Formatting of this note may be different from the original. Weekly Management Progress Note Date: 03/09/2018 Charlene Arias is a 52 y.o. female. Vitals: Vitals: 02/27/18 1322 BP: 149/86 Pulse: 96 Temp: 36.9 C (98.5 F) SpO2: 98% Weight: 84.4 kg (186 lb) Subjective There were no encounter diagnoses. Staging: Cancer Staging Adenocarcinoma of left lung (HCC) Staging form: Lung, AJCC 7th Edition - Clinical stage from 09/11/2017: T2, N0, M0 - Signed by Nina Rubalcava APRN -NP on 09/23/2017 Treatment Data Summary: Treatment Data 02/19/2018 02/20/2018 02/23/2018 02/24/2018 02/25/2018 02/26/20182017 Course ID Hypo L lung Hypo L lung Hypo L lung Hypo L lung Hypo L lung Hypo L lung Hypo L lung Plan ID [id number] L- [id number] Prescription Dose (cGy) 6,000 6,000 6,000 6,000 6,000 6,000 6,000 Prescribed Dose per Fraction (Gy) 6 6 6 6 6 6 6 Fractions Treated to Date 4 5 6 7 8 9 10 Total Fractions on Plan 10 10 10 10 10 10 10 Treatment Elapsed Days 3 4 7 8 9 10 11 Reference Point ID L LUNG PTV~L LUNG PTV L LUNG PTV~L LUNG PTV L LUNG PTV~L LUNG PTV L LUNG PTV~L LUNG PTV L LUNG PTV~L LUNG PTV L LUNG PTV~L LUNG PTV L LUNG PTV~L LUNG PTV Dosage Given to Date (Gy) 24 30 36 42 48 54 60 Subjective: She tolerated fSBRT well. No painful swallowing and no cough or SOB. Objective: lungs are clear and no skin reaction Assessment: Lung cancer Plan: EOT today. Will started chemotherapy at [facility]. * Francisco Green RN - 02/27/2018 1:30 PM CDT The patient is scheduled to see Dr. Lary Noguera in med onc at [facility] in [place], [place] on 03/16 at 1:30pm. The patient is aware of the appointment and verbalizes understanding. in this encounter Plan of Treatment Not on fileas of this encounter Visit Diagnoses Diagnosis Adenocarcinoma of left lung (HCC) - Primary
--- OUTSIDE RECORDS SUMMARY | 2018-04-09 01:30 | XMS REPORT | Encounter Summary ---
Author Author [facility] Organization [facility] Address Unknown Phone Unavailable Care Team Providers Care Copra Sampler Name Role Phone Derek Mccormick MD Unavailable Jose Daniel Mckeon MD Unavailable Mainor Del Rosario MD PCP Unavailable Angelita Caballero MD Unavailable Jakob Cole Unavailable Unavailable Yari Carias MA Unavailable Unavailable Mariah Espinoza Unavailable Unavailable Jennifer Mojica TRIM CREW SUPERVISOR Unavailable Annie Macias MA Unavailable Unavailable Blessing Morin Unavailable Unavailable Parul De Los Santos MD Unavailable Ngozi Camarena PA-C Unavailable Lary Noguera MD 3 Reason for Referral * Consult, Test & Treat (Routine) Status Reason Specialty Diagnoses / Referred By Referred To Procedures Contact Contact No Auth Needed Specialty Oncology Diagnoses Latrell Ayers MD Huang, Chao H, MD Services Malignant [address] Required neoplasm of [address] [place] lung, [place] [address] [place] [address] laterality, [address] Phone: unspecified part of lung (HCC) [phone] Encounter Details Date Type Department Care Team Description 03/24/2018 Nurse Only Cancer Center - Radiation Francisco Green RN Malignant neoplasm of Therapy lung, unspecified Tonya Vasques laterality, unspecified Rad Onc part of lung (HCC) [address] [facility] (Primary Dx) [place] [address] Social History Tobacco Use Types Packs/Day Years [...] as of this encounter Plan of Treatment Name Priority Associated Diagnoses Order Schedule AMB REFERRAL TO ONCOLOGY Routine Malignant neoplasm of Ordered: 2017 lung, unspecified laterality, unspecified part of lung (HCC) as of this encounter Visit Diagnoses Diagnosis Malignant neoplasm of lung, unspecified laterality, unspecified part of lung ( HCC) - Primary
--- OUTSIDE RECORDS SUMMARY | 2018-04-09 01:30 | XMS REPORT | Encounter Summary ---
Author Author [facility] Organization [facility] Address Unknown Phone Unavailable Care Team Providers Care Poured Pipe Maker Name Role Phone Derek Mccormick MD Unavailable Jose Daniel Mckeon MD Unavailable Mainor Del Rosario MD PCP Unavailable Angelita Caballero MD Unavailable Jakob Cole Unavailable Unavailable Yari Craias MA Unavailable Unavailable Mariah Espinoza Unavailable Unavailable Jennifer Mojica COMPONENT OVERHAUL OPERATOR Unavailable Annie Macias MA Unavailable Unavailable Blessing Morin Unavailable Unavailable Parul eD Los Santos MD Unavailable Ngozi Camarena PA-C Unavailable Lary Noguera MD 3 Encounter Details Date Type Department Care Team Description 04/01/2018 Procedure Pass [facility] Radiology [address] [place] [address] Social History Tobacco Use Types Packs/Day Years Used Date Former Smoker Cigarettes 2 35 Quit: 06/03/2012 Smokeless Tobacco: Never Used Alcohol Use Drinks/Week oz/Week Comments No 1 Standard 0.6 drinks or equivalent Sex Assigned at Date Recorded Not on file as of this encounter Last Filed Vital Signs Vital Sign Reading Time Taken Blood Pressure - - Pulse - - Temperature - - Respiratory Rate - - Oxygen Saturation - - Inhaled Oxygen - - Concentration Weight 87.1 kg (192 lb) 04/07/2018 12:43 PM CDT Height 162.6 cm (5' 4") 04/07/2018 12:43 PM CDT Body Mass Index 32.96 04/07/2018 12:43 PM CDT in this encounter Functional Status [...]
--- OUTSIDE RECORDS SUMMARY | 2018-04-09 01:31 | XMS REPORT | Encounter Summary ---
Author Author [facility] Organization [facility] Address Unknown Phone Unavailable Care Team Providers Care Advertising Inserter Name Role Phone Derek Mccormick MD Unavailable Jose Daniel Mckeon MD Unavailable Mainor Del Rosario MD PCP Unavailable Angelita Caballero MD Unavailable Jakob Cole Unavailable Unavailable Yari Carias MA Unavailable Unavailable Mariah Espinoza Unavailable Unavailable Jennifer Mojica LEASING MANAGER Unavailable Annie Macias MA Unavailable Unavailable Blessing Morin Unavailable Unavailable Parul De Los Santos MD Unavailable Ngozi Camarena PA-C Unavailable Reason for Referral * Radiology Services Status Reason Specialty Diagnoses / Referred By Referred To Procedures Contact Contact No Auth Needed Radiology Diagnoses Latrell Ayers MD [facility] [address] [place] [address] rocedures [place], [place] Phone: MRI HEAD WO/W [address] CONTRAST Phone: Reason for Visit * Reason Comments Consult Encounter Details Date Type Department Care Team Description 01/15/2018 Office Visit Cancer Center - Radiation Latrell Ayers MD Pulmonary nodules Therapy [address] [place]adeo and Asha Vasques [address] [place] [address] [phone] [place] [address] [phone] Social History Tobacco Use Types Packs/Day Years Used Date Former Smoker Cigarettes 2 35 Quit: 06/03/2012 Smokeless Tobacco: Never Used Alcohol Use Drinks/Week oz/Week Comments No 1 Standard 0.6 drinks or equivalent Sex Assigned at Date Recorded Not on file as of this encounter Last Filed Vital Signs Vital Sign Reading Time Taken Blood Pressure 101/63 01/15/2018 10:11 AM CDT Pulse 98 01/15/2018 10:11 AM CDT Temperature 37 C (98.6 F) 01/15/2018 10:08 AM CDT Respiratory Rate - - Oxygen Saturation 94% 01/15/2018 10:08 AM CDT Inhaled Oxygen - - Concentration Weight 86.9 kg (191 lb 9.6 oz) 01/15/2018 10:08 AM CDT Height 162.6 cm (5' 4.02") 01/15/2018 10:08 AM CDT Body Mass Index 32.87 01/15/2018 10:08 AM CDT in this encounter Functional Status Functional Status Response Date of Assessment Does the patient have a hearing impairment: No 01/15/2018 Does the patient have a visual impairment: Yes 01/15/2018 Does the patient have impaired ambulation: No 01/15/2018 Does the patient have an activity of daily living No 01/15/2018 (ADL) impairment: Does the patient have an instrumental activity of No 01/15/2018 daily living (IADL) impairment: Cognitive Status Response Date of Assessment Does the patient have a cognitive impairment: No 01/15/2018 as of this encounter Progress Notes * Latrell Ayers MD - 01/15/2018 10:00 AM CDT Formatting of this note may be different from the original. Radiation Oncology Consultation Date: 01/15/2018 Sis Allen is a 52 y.o. female. Requesting Provider: Nikkie Rivero MD There were no encounter diagnoses. Staging: Cancer Staging Adenocarcinoma of left lung (HCC) Staging form: Lung, AJCC 7th Edition - Clinical stage from 09/11/2017: T2, N0, M0 - Signed by Nina Rubalcava APRN -NP on 09/23/2017 History of Present Illness: Sis Allen is a 52 y.o. female with LLL adenocarcinoma. Her oncologic Hx is as follows: ? 12/04/16 - CT chest - Increase in size of a nodular opacity in the superior segment of the left lower lobe, measuring 1.0 cm compared to a previous measurement of 0.6 cm. Stable tiny nodules in the right lower lobe and left upper lobe, stable since 10/24/14. ? 01/07/17 - PET scan - small metabolically active left hilar lymph node with a max SUV of 4.08. Nodular opacity in the left lower lobe has max SUV of 3.16. No additional hypermetabolic pulmonary nodules are seen. Recommend CT chest w/ contrast and biopsy. ? 01/22/17 - EBUS-FNA 11L and 7 lymph nodes - positive lymphocytes - negative for carcinoma ? 03/27/17 - consultation w/ pulmonary- concern for false negative of EBUS FNA; CT guided biopsy of LLL lesion recommended ? 03/27/17 - CT chest - The previously measured tiny left upper lobe nodule is unchanged measuring 0.5 cm on series 3, image 20. The previously measured small nodular opacity in the superior segment of the left lower lobe shows further increase in size, now measuring up to 1.3 cm on image 22 compared to a previous measurement of 1.0 cm. Tiny nodule in the right lower lobe remains unchanged on image 39. ? 04/28/17 - LLL biopsy Path: Subpleural lung tissue w/ focal pneumocyte atypia /chronic inflammation; findings are insufficient for definitive assessment ? 06/03/17 CT chest- Further slight increase in size of irregular nodular opacity in the superior segment of the left lower lobe most compatible with small primary bronchogenic carcinoma. This has slowly increased in size across multiple prior exams. Prominent left hilar lymph node, which was hypermetabolic on prior PET/CT of 01/07/2017, suggestive of early belén metastasis. No additional thoracic lymphadenopathy. ? 06/26/2017 CT guided biopsy of LLL nodule: Atypical and highly crushed epithelial groups, cannot exclude carcinoma. ? 09/11/2017 Video assisted LLL wedge resection with mediastinal LN dissection. A wedge resection was performed at that time secondary to poor pulmonary function and inability to tolerate a lobectomy. Intraoperatively, unable to access this belén station of concern secondary to necessity of a lobectomy which she would not tolerate. o Pathology: Poorly differentiated adenocarcinoma. One lymph node negative for malignancy. TNM Descriptors: pT2 N0, Tumor Size: 1.9 x 1.2 x 0.9 cm. ? Postoperative discussion in our tumor conference suggested short interval three-month follow-up with CT scan to monitor lymph node status. ? CT chest 2017: Development of left hilar adenopathy, suspicious for metastatic disease. Few mediastinal nodes are also slightly larger and are indeterminant. Interval left lower lobe wedge resection. No new or enlarging pulmonary nodule is identified. ? PET 01/05/2018: Progression in hypermetabolic left hilar lymphadenopathy compatible with progression of metastatic disease. No right hilar or mediastinal hypermetabolic lymphadenopathy demonstrated. No evidence of distant metastases. ? 01/05/2018 EBUS-FNA o A. Lymph Node - 11L, EBUS-FNA: Polymorphous population of lymphocytes. No carcinoma identified in the sampled specimen. B. Left Hilar Mass, EBUS-FNA: Blood and scant benign bronchial epithelial cells. No lesional tissue identified. C. Lymph Node - 12L, EBUS-FNA: Malignant cells present, consistent with poorly differentiated adenocarcinoma. See comment. Comment: Immunohistochemical stains performed on the cell block (C1) show the tumor cells are positive for CK7 and negative for Napsin and TTF-1, supporting the above diagnosis. The staining pattern is noted to be similar to the previously diagnosed poorly differentiated lung adenocarcinoma. ([id number]) 01/08/2018: Tumor board: Recommended chemotherapy and radiation therapy The patient has a h/o Raynaud's disease with consequent L index finger amputation. She reports SOB that has been consistent. The patient is on 3L O2 at home. No CP. She also reports fatigue. Denies h/o other cancers. No pacemaker. Past Medical History: Patient Active Problem List Diagnosis Date Noted Mediastinal adenopathy 12/24/2017 Hilar adenopathy 2017 Personal history of tobacco use 08/08/2017 Abnormal cardiovascular stress test 07/15/2017 Adenocarcinoma of left lung (HCC) 06/04/2017 Abnormal PET scan, mediastinum 05/22/2017 Abnormal PET of left lung 05/22/2017 Acute metabolic encephalopathy 07/26/2016 Encephalopathy acute 07/24/2016 Degeneration of lumbar or lumbosacral intervertebral disc 06/20/2016 Lumbar radicular pain 06/20/2016 Pulmonary nodules 05/20/2016 Seizure disorder (HCC) 05/20/2016 Daytime sleepiness 05/20/2016 Mixed simple and mucopurulent chronic bronchitis (HCC) 05/20/2016 Chronic hypoxemic respiratory failure (HCC) 05/20/2016 Cryoglobulinemia (HCC) 09/17/2015 Chronic hepatitis C without hepatic coma (HCC) 07/20/2015 Raynaud's disease 11/15/2014 COPD (chronic obstructive pulmonary disease) (HCC) 11/15/2014 Past Medical History: Diagnosis Date Anemia "comes and goes" last episode 2005 Anxiety Back pain Chest pain last episode 09/2007 evaluated Chronic bronchitis (HCC) Chronic hepatitis C (HCC) completed treatment COPD (chronic obstructive pulmonary disease) (HCC) DDD (degenerative disc disease), cervical Depression Fibromyalgia GERD (gastroesophageal reflux disease) Hiatal hernia Hyperlipidemia Osteoporosis Overweight Oxygen dependent 2.5 liters at night time and prn during day Poor circulation of extremity feet and hands RA (rheumatoid arthritis) (HCC) cervical per patient Raynaud's disease Seasonal allergic rhinitis Seizures (HCC) x 1 ~2006 Past Surgical History: Procedure Laterality Date [facility] EBUS GUIDED SAMPL 3/> NODE STATION/STRUX Left 01/22/2017 BRONCHOSCOPY WITH ULTRASOUND performed by Tomy Arnett MD at [facility] PERCUTANEOUS CORONARY INTERVENTION N/A 07/30/2017 Possible Percutaneous Coronary Intervention performed by Abdiel Augustine MD at [facility] Left 09/11/2017 LEFT VIDEO ASSISTED THORACOSCOPY, LEFT LOWER LOBECTOMY performed by Nikkie Rivero MD at [facility] BRONCHOSCOPY N/A 01/05/2018 BRONCHOSCOPY WITH ULTRASOUND performed by Tomy Arnett MD at [facility] HAND SURGERY Bilateral HX FRACTURE TX x2 numerous faciual fractures HX TUBAL LIGATION KNEE SURGERY Left arthroscopy TN UNLISTED PROCEDURE HANDS/FINGERS x8 SYMPATHECTOMY Prior Radiation History: None Medications acetaminophen (TYLENOL) 500 mg tablet Take 2 [...] Puffs by mouth into the lungs daily. 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 Respiratory: Positive for shortness of breath, wheezing and stridor. Cardiovascular: Positive for leg swelling. Gastrointestinal: Positive for abdominal pain, nausea and vomiting. Musculoskeletal: Positive for arthralgias, back pain, joint swelling, myalgias, neck pain and neck stiffness. Psychiatric/Behavioral: Positive for sleep disturbance. The patient is nervous/ anxious. All other systems reviewed and are negative. Patient Evaluated for a Clinical Trial: No treatment clinical trial available for this patient. KARNOFSKY PERFORMANCE SCORE: 80% Normal activity with effort; some symptoms of disease Physical Exam General: Patient in no acute distress. Alert and oriented. In wheelchair. Head: Normocephalic, atraumatic Eyes: Normal sclerae/conjunctivae. Lymphadenopathy: No cervical adenopathy. Heart: Regular rate and rhythm. Lungs: Clear to ausculation B/L. No increased work of breathing Abdomen: Non-distended Skin: No rashes or pallor Neurological: Cranial nerves 2-12 grossly intact, no focal deficits noted. Musculoskeletal: . No range of motion deficit. L index finger amputation Psychiatric: Normal mood and affect LABORATORY: Comprehensive Metabolic Profile Lab Results Component Value Date/Time NA 139 09/13/2017 03:25 AM K 3.8 09/13/2017 03:25 AM CL 106 09/13/2017 03:25 AM CO2 26 09/13/2017 03:25 AM GAP 7 09/13/2017 03:25 AM BUN 6 (L) 09/13/2017 03:25 AM CR 0.57 09/13/2017 03:25 AM GLU 99 09/13/2017 03:25 AM GLU 95 01/25/2016 10:32 AM Lab Results Component Value Date/Time CA 9.2 09/13/2017 03:25 AM PO4 3.3 07/26/2016 06:16 AM ALBUMIN 4.2 09/10/2017 10:51 AM TOTPROT 7.3 09/10/2017 10:51 AM ALKPHOS 77 09/10/2017 10:51 AM AST 15 09/10/2017 10:51 AM ALT 10 09/10/2017 10:51 AM TOTBILI 0.3 09/10/2017 10:51 AM GFR >60 09/13/2017 03:25 AM GFRAA >60 09/13/2017 03:25 AM CBC w/Diff Lab Results Component Value Date/Time WBC 7.9 09/13/2017 03:25 AM RBC 4.01 09/13/2017 03:25 AM HGB 12.4 09/13/2017 03:25 AM HCT 36.3 09/13/2017 03:25 AM MCV 90.6 09/13/2017 03:25 AM MCH 31.0 09/13/2017 03:25 AM MCHC 34.2 09/13/2017 03:25 AM RDW 14.3 09/13/2017 03:25 AM PLTCT 166 09/13/2017 03:25 AM MPV 10.2 09/13/2017 03:25 AM Lab Results Component Value Date/Time NEUT 61 01/07/2017 10:46 AM ANC 4.60 01/07/2017 10:46 AM LYMA 30 01/07/2017 10:46 AM ALC 2.30 01/07/2017 10:46 AM MARGARITA 6 01/07/2017 10:46 AM AMC 0.50 01/07/2017 10:46 AM EOSA 3 01/07/2017 10:46 AM AEC 0.20 01/07/2017 10:46 AM BASA 0 01/07/2017 10:46 AM ABC 0.00 01/07/2017 10:46 AM IMAGING: Ct Chest W Contrast Result Date: 2017 1. Development of left hilar adenopathy, suspicious for metastatic disease. Few mediastinal nodes are also slightly larger and are indeterminant. 2. Interval left lower lobe wedge resection. No new or enlarging pulmonary nodule is identified. 3. Moderate emphysema. 4. At least mild coronary artery calcification. Finalized by BERYL SCHAFFER M.D. on 2017 11:15 AM. Dictated by BERYL SCHAFFER M.D. on 2017 10:54 AM. Nm Pet Scan Torso (skull-thighs) Result Date: 01/06/2018 Progression in hypermetabolic left hilar lymphadenopathy compatible with progression of metastatic disease. No right hilar or mediastinal hypermetabolic lymphadenopathy demonstrated. No evidence of distant metastases. Approved by Daryl Wong D.O. on 01/06/2018 9:44 AM By my electronic signature, I attest that I have personally reviewed the images for this examination and formulated the interpretations and opinions expressed in this report Finalized by Leonidas Patton M.D. on 01/06/2018 10:01 AM. Dictated by Daryl Wong D.O. on 01/06/2018 8 :09 AM. PATHOLOGY: PATHOLOGY REPORT Date Value Ref Range Status 09/11/2017 Final [facility] [email or web address] Department of Pathology and Laboratory Medicine [address] [place] [address] Surgical Pathology Office: [phone] SURGICAL PATHOLOGY REPORT NAME: SIS ALLEN SURG PATH #: [id number] MR #: [id number] SPECIMEN CLASS: SR BILLING #: [id number] ALT ID #: LOCATION: [facility] DATE OF PROCEDURE: 09/11/2017 AGE: 51 SEX: F DATE RECEIVED: 09/11/2017 : 1965 TIME RECEIVED: 10:46 PHYSICIAN: NIKKIE RIVERO MD DATE OF REPORT: 09/18/2017 COPY TO: DATE OF PRINTIN09/18/2017 ######################################################################## Final Diagnosis: A. Lung, "left lower lobe", wedge resection: Poorly differentiated adenocarcinoma. See comment. B. Lymph node (1), "1-3 lymph nodes", biopsy: One lymph node negative for malignancy. (0/1) Comment: The tumor is composed predominantly of poorly differentiated carcinoma with focal glandular formation. Immunohistochemical stains performed on block A3 show the tumor cells are positive for CK7, MOC-31, Napsin A (very focal), and Ab-EP4 (focal), and negative for CK20, TTF-1, p40, CK5/6, [place]-8, calretinin, WT-1, chromogranin and synaptophysin. GATA3 shows weak non-specific staining. VVG special stain performed on block A1 confirms pleural involvement. A diagnosis of lung primary is favored due to the very focal Napsin A labeling, however clinical and radiological correlation is recommended to rule out other potential primary site. LUNG: Resection CAP Version: Lung 4.0.0.0 Procedure: Wedge resection Specimen Laterality: Left Tumor Site: Lower lobe Tumor Size Greatest dimension (centimeters): 1.9 cm Additional dimensions (centimeters): 1.2 x 0.9 cm Total Tumor Size Inclusive of Invasive and Lepidic Components (applies only to invasive nonmucinous adenocarcinoma with a lepidic component) Not applicable Invasive Tumor Size (applies only to invasive nonmucinous adenocarcinoma with a lepidic component) Not applicable Tumor Focality: Single tumor Histologic Type: Invasive adenocarcinoma, solid predominant (95%) Other subtypes present (specify subtype(s), may also include percentages): Acinar (5%) Histologic Grade G3: Poorly differentiated Spread Through Air Spaces (CLAIR): Not identified Visceral Pleura Invasion: Present Lymphovascular Invasion: Not identified Direct Invasion of Adjacent Structures: No adjacent structures present Margins: All margins are uninvolved by carcinoma Distance of invasive carcinoma from closest margin (centimeters): 2.4 cm Specify closest margin: Parenchymal margin Treatment Effect: No known presurgical therapy Regional Lymph Nodes Level 1-3 lymph node Lymph Node Examination: Number of Lymph Nodes Involved: 0 Number of Lymph Nodes Examined: 1 Specify belén station(s) examined: Level 1-3 lymph node Pathologic Stage Classification (pTNM, AJCC 8th Edition) TNM Descriptors (required only if applicable): pT2 N0 Primary Tumor (pT): pT2: Tumor greater than 3 cm but 5 cm or having any of the following features Involves the main bronchus regardless of distance to the yolanda, but without involvement of the yolanda; Invades visceral pleura (PL1 or PL2); Associated with atelectasis or obstructive pneumonitis that extends to the hilar region, involving part or all of the lung. Regional Lymph Nodes (pN): pN0: No regional lymph node metastasis Distant Metastasis (pM): Not applicable Other testing: PD-L1: Results: Positive % Positive: 60% Interpretation: High PD-L1 expression (Tumor proportion Score >=50%) Comment: PD-L1 test name: DAKO PD-L1 IHC 22C3 pharmDX Cell types evaluated: Tumor cells FDA status: Tube Balancer Pursuant to the Ground Support Equipment Mechanic Program at the [facility] Pathology Department, selected slides from this case have been concurrently reviewed by the following pathologist: Tita Sanches who agrees with the final diagnosis. The pathologic stage assigned here should be regarded as provisional, as it reflects only current pathologic data and does not incorporate full knowledge of the patient's clinical status and/or prior pathology. Block for Biomarker Testing: [A3] Attestation: By this signature, I attest that I have personally formulated the final interpretation expressed in this report and that the above diagnosis is based upon my examination of the slides and/or other material indicated in this report. +++ +++ Ramy Trevizo MD Resident ksw/09/11/2017 ######################################################################## Material Received: A: left lower lobe wedge frozen B: 1-3 lymph nodes History: 51-year-old female with a history of lung nodule. Gross Description: A. Fixative: Fresh Labeled: "left lower lobe wedge" Measurement: 8.3 x 4.5 x 1.9 cm Staple line: 9.2 cm Pleural Surface: Hoover-pink and smooth with an area of pleural erosion measuring 1.0 x 0.7 cm located 2.9 cm from the staple line Tumor: 1.9 x 1.2 x 0.9 cm Tumor appearance: Hoover-white and firm Tumor from pleura: Grossly abuts and correspond to the pleural erosion previously mentioned Tumor from staple line: 2.4 cm Uninvolved lung parenchyma: Red-pink and spongy The pleural surface is inked black, and the lung parenchyma deep to the staple line is inked blue. Sample Distributor sections are submitted as follows: A1FS Sample Distributor section of mass to inked pleura. A2 Mass to inked resection margin. A3 Mass to inked pleura and adjacent tissue. A4 Remainder of mass. (eef) B. Received fresh labeled patient's name and "level 1-3 lymph nodes" is a 0.5 x 0.4 x 0.2 cm black possible lymph node. The specimen is submitted entirely in cassette B1. (eef) ksw/09/11/2017 Intraoperative Consultation: A1FS, lung, "left lower lobe wedge", biopsy: Poorly differentiated non-small cell carcinoma Maxine Rice MD If immunohistochemical stains and/or in situ hybridization are cited in this report, the performance characteristics were determined by the Department of Pathology and Laboratory Medicine of the [facility] ([employer]) in compliance with CLIA'88 regulations. Some of these tests rely on the use of "analyte specific reagents" and are subject to specific labeling requirements by the FDA. Known positive and negative control tissues demonstrate appropriate staining. Results should be interpreted with caution given the likelihood of false negativity on decalcified specimens. This testing was developed by the Department of Pathology and Laboratory Medicine of the [facility]. It has not been cleared or approved by the FDA. The FDA has determined that such clearance or approval is not necessary. ] ASSESSMENT: 52 y.o. female who initially underwent a video-assisted thoracoscopic left lower lobe wedge resection in 09/2017 for what was likely a clinical cT2aN1 LLL adenocarcinoma, although the LN was not pathologically proven at the time. Her pre-op PET scan was concerning for left hilar LN metastasis but EBUS was negative. This belén station was not able to be accessed during the wedge resection. Followup CT chest found significant left hilar adenopathy suspicious for metastatic disease. PET found progression in hypermetabolic left hilar lymphadenopathy compatible with progression of metastatic disease. The patient currently has belén N1 progression. Tumor board recommended chemotherapy and RT. RECOMMENDATIONS: We discussed the patient's diagnosis, workup, exam, imaging, and pathologic findings with her at today's evaluation. We would recommend completion of staging with MRI of the head. We discussed that multimodality treatment of the LN progression would be preferable with systemic therapy as well as local therapy such as radiation therapy. Options for radiation therapy include 6 weeks of RT concurrent with chemotherapy or alternatively, if the patient is not going to have concurrent REINSTATEMENT CLERK therapy, we could treat with short course of RT via SBRT followed by chemotherapy. The risks and benefits of radiation therapy were discussed in detail with the patient. The patient expressed an understanding of these risks. She has an appointment with Medical Oncology later today. We will followup with patient after discussion with medical oncology. Patient lives in [place], [place] and is considering treatment there vs staying here at [facility]. Ruben Smith PGY2 Radiation Oncology Resident Pager # [phone] CC: A copy of this note has been sent to the referring provider, Nikkie Tello MD. ATTESTATION I personally performed the mckeon portions of the E/M visit, discussed case with resident and concur with resident documentation of history, physical exam, assessment, and treatment plan unless otherwise noted. Staff name: Latrell Ayers MD Date: 01/26/2018 in this encounter Plan of Treatment Not on fileas of this encounter Results * MRI HEAD WO/W CONTRAST (02/06/2018 11:52 [...] on 02/06/2018 12:57 PM. Performing Organization Address City/State/Zipcode Phone Number [facility] RESULTS in this encounter Visit Diagnoses Diagnosis Pulmonary nodules Other nonspecific abnormal finding of lung field
--- OUTSIDE RECORDS SUMMARY | 2018-04-09 01:31 | XMS REPORT | Encounter Summary ---
Author Author [facility] Organization [facility] Address Unknown Phone Unavailable Care Team Providers Care Qa Consultant Name Role Phone Derek Mccormick MD Unavailable Jose Daniel Mckeon MD Unavailable Mainor Del Rosario MD PCP Unavailable Angelita Caballero MD Unavailable Jakob Cole Unavailable Unavailable Yari Carias MA Unavailable Unavailable Mariah Espinoza Unavailable Unavailable Jenniefr Mojica DECORATING EQUIPMENT SETTER Unavailable Annie Macias MA Unavailable Unavailable Blessing Morin Unavailable Unavailable Parul De Los Santos MD Unavailable Ngozi Camarena PA-C Unavailable Reason for Referral * Radiation Oncology Status Reason Specialty Diagnoses / Referred By Referred To Procedures Contact Contact Authorized Specialty Radiation Therapy Diagnoses Latrell Ayers MD [facility] Malignant [address] Therapy Required neoplasm of left [address] and lung, [place] [address] Rad unspecified part [place], [place] Onc of lung (HCC) [address] Phone: [place], [place] [phone] Fax: Encounter Details Date Type Department Care Team Description 01/26/2018 Orders Only [facility] - Radiation Ruben Smith MD Malignant neoplasm of Therapy [address] left lung, unspecified [place] [address] part of lung (HCC) Rad Onc (Primary Dx) [address] [place] [address] Social History Tobacco Use Types Packs/Day Years [...] Treatment Name Priority Associated Diagnoses Order Schedule RADIATION THERAPY SIMULATION Routine Malignant neoplasm of Ordered: left lung, unspecified part of lung (HCC) as of this encounter Visit Diagnoses Diagnosis Malignant neoplasm of left lung, unspecified part of lung (HCC) - Primary
--- OUTSIDE RECORDS SUMMARY | 2018-04-09 01:31 | XMS REPORT | Encounter Summary ---
Author Author [facility] Organization [facility] Address Unknown Phone Unavailable Care Team Providers Care Iridologist Name Role Phone Derek Mccormick MD Unavailable Jose Daniel Mckeon MD Unavailable Mainor Del Rosario MD PCP Unavailable Angelita Caballero MD Unavailable Jakob Cole Unavailable Unavailable Yari Carias MA Unavailable Unavailable Mariah Espinoza Unavailable Unavailable Jennifer Mojica SENIOR ANALYST PROGRAMMER Unavailable Annie Macias MA Unavailable Unavailable Blessing Morin Unavailable Unavailable Parul De Los Santos MD Unavailable Ngozi Camarena PA-C Unavailable Encounter Details Date Type Department Care Team Description 01/16/2018 Hospital Clinlab Chapo Colvin MD Malignant neoplasm of Encounter [facility] 1st fl [address] unspecified part of [address] [place] [address] [place] [address] [place] [address] lung (HCC) [phone] Social History Tobacco Use Types Packs/Day Years [...] impairment: No 01/15/2018 as of this encounter Medications at Time of Discharge Medication Sig. Disp. Refills Start Date End Date acetaminophen (TYLENOL) Take 2 tablets by mouth 0 09/13/2017 500 mg tablet every 6 hours while awake. Max of 4,000 mg of acetaminophen in 24 hours. albuterol (PROVENTIL; Inhale 2 puffs by mouth VENTOLIN) 90 into the lungs twice mcg/Actuation inhaler daily as needed for Wheezing. aspirin EC 81 mg tablet Take 1 tablet by mouth 90 tablet 3 07/15/2017 daily. Take with food. milk of magnesia (CONC) Take 10 mL by mouth 360 mL 09/13/2017 2,400 mg/10 mL oral daily. suspension NIFEdipine XL Take 60 mg by mouth at (PROCARDIA-XL) 60 mg bedtime daily. tablet ondansetron (ZOFRAN ODT) Dissolve 1 tablet by 30 tablet 0 09/13/2017 8 mg rapid dissolve mouth every 8 hours as tablet needed for Nausea or Vomiting. Place on tongue to disolve. tiotropium-olodaterol Inhale 2 Puffs by mouth 4 g 12 05/20/2016 2.5-2.5 mcg/actuation into the lungs daily. mistIndications: Chronic obstructive pulmonary disease, unspecified COPD type (HCC), SOB (shortness of breath) as of this encounter Plan of Treatment Not on fileas of this encounter Results * RNA LUNG PANEL (01/16/2018 10:00 AM) RNA Lung Panel SEE DIRECT MARKETING MANAGER FOR REPORT REFERENCE LAB Performing Organization Address City/State/Zipcode Phone Number REFERENCE LAB REFERENCE LAB See results for address. * KRAS NGS EXONS 2, 3 & 4 (01/16/2018 10:00 AM) KRAS NGS Exons 2,3 and 4 SEE DIRECT MARKETING MANAGER FOR REPORT REFERENCE LAB Performing Organization Address City/State/Zipcode Phone Number REFERENCE LAB REFERENCE LAB See results for address. * EGFR SINGLE NGS (01/16/2018 10:00 AM) EGFR Single NGS SEE DIRECT MARKETING MANAGER FOR REPORT REFERENCE LAB Performing Organization Address City[facility] Phone Number [facility] LAB REFERENCE LAB See results for address. * BRAF SINGLE NGS (01/16/2018 10:00 AM) BRAF Single NGS SEE DIRECT MARKETING MANAGER FOR REPORT REFERENCE LAB Performing Organization Address City/[facility] Phone Number REFERENCE LAB REFERENCE LAB See results for address. in this encounter Visit Diagnoses Diagnosis Malignant neoplasm of unspecified part of unspecified bronchus or lung (HCC) Admitting Diagnoses Diagnosis Malignant neoplasm of unspecified part of unspecified bronchus or lung (HCC) Malignant neoplasm of unspecified part of unspecified bronchus or lung
--- OUTSIDE RECORDS SUMMARY | 2018-04-09 01:31 | XMS REPORT | Encounter Summary ---
Author Author [facility] Organization [facility] Address Unknown Phone Unavailable Care Team Providers Care Farm Reporter Name Role Phone Derek Mccormick MD Unavailable Jose Daniel Mckeon MD Unavailable Mainor Del Rosario MD PCP Unavailable Angelita Caballero MD Unavailable Jakob Cole Unavailable Unavailable Yari Carias MA Unavailable Unavailable Mariah Espinoza Unavailable Unavailable Jennifer Mojica RETORT COOLER Unavailable Annie Macias MA Unavailable Unavailable Blessing Morin Unavailable Unavailable Parul De Los Santos MD Unavailable Ngozi Camarena PA-C Unavailable Reason for Referral * Radiology Services Status Reason Specialty Diagnoses / Referred By Referred To Procedures Contact Contact No Auth Needed Radiology Diagnoses Latrell Ayers MD [facility] [address] [place] [address] [place] [address] [place], [place] Phone: MRI HEAD WO/W [address] CONTRAST Phone: * Radiology Services Status Reason Specialty Diagnoses / Referred By Referred To Procedures Contact Contact No Auth Needed Radiology Diagnoses Latrell A[place] MD [facility] [address] [place] [address] [place] [address] [facility], [place] Phone: MRI HEAD WO/W [address] CONTRAST Phone: Reason for Visit * Radiology Services (Routine) Status Reason Specialty Diagnoses / Referred By Referred To Procedures Contact Contact No Auth Needed Radiology Diagnoses Radiology [facility] Other [address] MED OFFICE BLDG abnormal finding [place], [place] 2ND FLOOR of lung field [address] [place], [place] 3-[address] Thi Phone: [phone] no pacemaker/ [phone] Phone: 191 lbs/pt [phone] resched P rocedures MRI HEAD WO/W CONTRAST MRI HEAD WO/W CONTRAST Encounter Details Date Type Department Care Team Description 02/06/2018 Hospital [facility] Latrell Ayers MD Encounter Hospital Radiology [address] MED [place] [address] [place] [address] 2ND FLOOR [phone] [place] [address] [phone] Social History Tobacco Use Types Packs/Day Years [...] Other nonspecific abnormal finding of lung field Administered Medications Medication Order MAR Action Action Date Dose Rate Site gadobenate dimeglumine (MULTIHANCE) Given 02/06/2018 18 mL injection 18 mL 11:40 CDT 18 mL, Intravenous, ONCE, 1 dose, Fri02/06/18 at 1130, NOTE: This is a HIGH ALERT Medication. in this encounter
--- OUTSIDE RECORDS SUMMARY | 2018-04-09 01:31 | XMS REPORT | Encounter Summary ---
Author Author [facility] Organization [facility] Address Unknown Phone Unavailable Care Team Providers Care Product Safety Compliance Leader Name Role Phone Derek Mccormick MD Unavailable Jose Daniel Mckeon MD Unavailable Mainor Del Rosario MD PCP Unavailable Angelita Caballero MD Unavailable Jakob Cole Unavailable Unavailable Yari Carias MA Unavailable Unavailable Mariah Espinoza Unavailable Unavailable Jennifer Mojica DISEASE MANAGEMENT NURSE Unavailable Annie Macias MA Unavailable Unavailable Blessing Morin Unavailable Unavailable Parul De Los Santos MD Unavailable Ngozi Camarena PA-C Unavailable Lary Noguera MD 3 Encounter Details Date Type Department Care Team Description 01/15/2018 Procedure Pass [facility] Radiology [address] [place] [address] Social History Tobacco Use Types [...]
--- OUTSIDE RECORDS SUMMARY | 2018-04-09 01:31 | XMS REPORT | Encounter Summary ---
Author Author [facility] Organization [facility] Address Unknown Phone Unavailable Care Team Providers Care Key Account Executive Name Role Phone Derek Mccormick MD Unavailable Jose Daniel Mckeon MD Unavailable Mainor Del Rosario MD PCP Unavailable Angelita Caballero MD Unavailable Jakob Cole Unavailable Unavailable Yari Carias MA Unavailable Unavailable Mariah Espinoza Unavailable Unavailable Jennifer Mojica BOTTOM BRUSHER Unavailable Annie Macias MA Unavailable Unavailable Blessing Morin Unavailable Unavailable Parul De Los Santos MD Unavailable Ngozi Camarena PA-C Unavailable Encounter Details Date Type Department Care Team Description 02/03/2018 Hospital Clinlab Latrell Ayers MD Malignant neoplasm [facility] 1st fl [address] unspecified part of left [address] [place] [address] bronchus or lung ([place]CC) [place] [address] [place] [address] [phone] Social History Tobacco Use Types Packs/Day Years [...] on fileas of this encounter Results * BASIC METABOLIC PANEL (02/03/2018 8:20 AM) [...] for questions. Specimen Blood Performing Organization Address City/State/Zipcode Phone Number [facility] [address] [place] [address] in this encounter Visit Diagnoses Diagnosis Adenocarcinoma of left lung (HCC) Admitting Diagnoses Diagnosis Malignant neoplasm of unspecified part of left bronchus or lung (HCC) Malignant neoplasm of unspecified part of left bronchus or lung
--- OUTSIDE RECORDS SUMMARY | 2018-04-09 01:31 | XMS REPORT | Encounter Summary ---
Author Author [facility] Organization [facility] Address Unknown Phone Unavailable Care Team Providers Care Gas Pumper Name Role Phone Derek Mccormick MD Unavailable Jose Daniel Mckeon MD Unavailable Mainor Del Rosario MD PCP Unavailable Angelita Caballero MD Unavailable Jakob Cole Unavailable Unavailable Yari Carias MA Unavailable Unavailable Mariah Espinoza Unavailable Unavailable Jennifer Mojica PRODUCE SERVICE TEAM MEMBER Unavailable Annie Macias MA Unavailable Unavailable Blessing Morin Unavailable Unavailable Parul De Los Santos MD Unavailable Ngozi Camarena PA-C Unavailable Encounter Details Date Type Department Care Team Description 02/04/2018 Hosp Case Management - Jessa Cruz Documentation Work Only [address] [place] [address] Social History Tobacco Use Types Packs/Day Years [...] as of this encounter Progress Notes * Jessa [place] - 02/04/2018 11:33 AM CDT 02/04/18-HERO note- Plan-Assist pt with lodging at [facility]. Intervention-HERO notified by RN that pt will start tx in next few weeks and will need [facility]. HERO called and spoke with pt who states she is due to start two week tx on 02/16/18 for stage 2 lung cancer. Pt has a s/o but he works and her sister also is ill therefore she states she has no caregiver. HERO has faxed referral and caregiver exception to [facility]. Await their decision. Pt has [place] medicaid so will use same for transportation to and from to x 2 weeks. HERO will inform pt when decides whether she can stay without a caregiver. KENYA Phillips,CCM in this encounter Plan of Treatment Not on fileas of this encounter Visit Diagnoses Not on filein this encounter
--- OUTSIDE RECORDS SUMMARY | 2018-04-09 01:31 | XMS REPORT | Encounter Summary ---
Author Author [facility] Organization [facility] Address Unknown Phone Unavailable Care Team Providers Care Medical Supply Technician Name Role Phone Derek Mccormick MD Unavailable Jose Daniel Mckeon MD Unavailable Mainor Del Rosario MD PCP Unavailable Angelita Caballero MD Unavailable Jakob Cole Unavailable Unavailable Yari Carias MA Unavailable Unavailable Mariah Espinoza Unavailable Unavailable Jennifer Mojica CATERERS HELPER Unavailable Annie Macias MA Unavailable Unavailable Blessing Morin Unavailable Unavailable Parul De Los Santos MD Unavailable Ngozi Camarena PA-C Unavailable Reason for Visit * Reason Comments Rad Therapy Follow-up Encounter Details Date Type Department Care Team Description 02/03/2018 Nurse Only [facility] - Radiation Latrell Ayers MD Adenocarcinoma of left Therapy [address] lung (HCC) (Primary Dx) [address] [place] [address] [place] [address] [phone] [place] [address] [phone] Social History Tobacco Use Types Packs/Day Years Used Date Former Smoker Cigarettes 2 35 Quit: 06/03/2012 Smokeless Tobacco: Never Used Alcohol Use Drinks/Week oz/Week Comments No 1 Standard 0.6 drinks or equivalent Sex Assigned at Date Recorded Not on file as of this encounter Last Filed Vital Signs Vital Sign Reading Time Taken Blood Pressure 106/66 02/03/2018 8:14 AM CDT Pulse 77 02/03/2018 8:14 AM CDT Temperature 36.8 C (98.3 F) 02/03/2018 8:14 AM CDT Respiratory Rate - - Oxygen Saturation 99% 02/03/2018 8:14 AM CDT Inhaled Oxygen - - Concentration Weight 87.5 kg (192 lb 12.8 oz) 02/03/2018 8:14 AM CDT Height - - Body Mass Index 33.07 02/03/2018 8:14 AM CDT in this encounter Functional Status [...] Blood Performing Organization Address City/State/Zipcode Phone Number MAIN [facility] [address] [place] [address] in this encounter Visit Diagnoses Diagnosis Adenocarcinoma of left lung (HCC) - Primary
--- OUTSIDE RECORDS SUMMARY | 2018-04-09 01:31 | XMS REPORT | Encounter Summary ---
Author Author [facility] Organization [facility] Address Unknown Phone Unavailable Care Team Providers Care Perpetual Inventory Clerk Name Role Phone Derek Mccormick MD Unavailable Jose Daniel Mckeon MD Unavailable Mainor Del Rosario MD PCP Unavailable Angelita Caballero MD Unavailable Jakob Cole Unavailable Unavailable Yari Carias MA Unavailable Unavailable Mariah Espinoza Unavailable Unavailable Jennifer Mojica FINANCIAL SERVICE PROFESSIONAL Unavailable Annie Macias MA Unavailable Unavailable Blessing Morin Unavailable Unavailable Parul De Los Santos MD Unavailable Ngozi Camarena PA-C Unavailable Encounter Details Date Type Department Care Team Description 02/03/2018 Orders Only Cancer Center - Radiation Ruben Smith MD Therapy [address] [facility] [address] [place] [address] Rad Onc [address] [place], [place] [id number] Social History Tobacco Use Types Packs/Day Years [...]
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
--- OUTSIDE RECORDS SUMMARY | 2018-04-09 01:32 | XMS REPORT | Encounter Summary ---
Author Author [facility] Organization [facility] Address Unknown Phone Unavailable Care Team Providers Care Surveillance Sensor Officer Name Role Phone Deerk Mccormick MD Unavailable Jose Daniel Mckeon MD Unavailable Mainor Del Rosario MD PCP Unavailable Angelita Caballero MD Unavailable Jakob Cole Unavailable Unavailable Yari Carias MA Unavailable Unavailable Mariah Espinoza Unavailable Unavailable Jennifer Mojica ALARM INSTALLATION TECHNICIAN Unavailable Annie Macias MA Unavailable Unavailable Blessing Morin Unavailable Unavailable Parul De Los Santos MD Unavailable Ngozi Camarena PA-C Unavailable Encounter Details Date Type Department Care Team Description 01/12/2018 Hospital Clinlab Chapo Colvin MD Malignant neoplasm of Encounter [facility] 1st fl [address] unspecified part of [address] [place] [address] [place] [address] lung (HCC) [phone] Social History Tobacco Use Types Packs/Day Years Used Date Former Smoker Cigarettes 1.5 35 Quit: 06/03/2012 Smokeless Tobacco: Never Used [...] Visit Diagnoses Not on filein this encounter Admitting Diagnoses Diagnosis Malignant neoplasm of unspecified part of unspecified bronchus or lung (HCC) Malignant neoplasm of unspecified part of unspecified bronchus or lung
--- OUTSIDE RECORDS SUMMARY | 2018-04-09 01:32 | XMS REPORT | Encounter Summary ---
Author Author [facility] Organization [facility] Address Unknown Phone Unavailable Care Team Providers Care Continuous Improvement Lead Name Role Phone Derek Mccormick MD Unavailable Jose Daniel Mckeon MD Unavailable Mainor Del Rosario MD PCP Unavailable Angelita Caballero MD Unavailable Jakob Cole Unavailable Unavailable Yari Carias MA Unavailable Unavailable Mariah Espinoza Unavailable Unavailable Jennifer Mojica MANAGER COUNCIL Unavailable Annie Macias MA Unavailable Unavailable Blessing Morin Unavailable Unavailable Parul De Los Santos MD Unavailable Ngozi Camarena PA-C Unavailable Reason for Visit * Reason Comments Navigation Assessment Encounter Details Date Type Department Care Team Description 01/12/2018 Telephone [facility] Chapo Colvin MD Navigation Assessment Cancer Center - [facility] Exam [address] [facility] [address] [place] [address] [address] [phone] [place] [address] [phone] Social History Tobacco Use Types Packs/Day Years Used Date Former Smoker Cigarettes 1.5 35 Quit: 06/03/2012 Smokeless Tobacco: Never Used Alcohol Use Drinks/Week oz/Week Comments No 1 Standard 0.6 drinks or equivalent Sex Assigned at Date Recorded Not on file as of this encounter Functional Status Functional Status Response Date of Assessment Does the patient have a hearing impairment: No 09/13/2017 Does the patient have a visual impairment: Yes 09/13/2017 Does the patient have impaired ambulation: No 09/13/2017 Does the patient have an activity of daily living No 09/13/2017 (ADL) impairment: Does the patient have an instrumental activity of No 09/13/2017 daily living (IADL) impairment: Cognitive Status Response Date of Assessment Does the patient have a cognitive impairment: No 09/13/2017 as of this encounter Miscellaneous Notes * Telephone Encounter - Maranda Moreland RN - 01/12/2018 11:37 AM CDT Navigation Intake Assessment Document Patient Name: Charlene Arias : 1965 Insurance: Medicare Appointment Info: to see Dr Colvin on 01/15/18 Diagnosis & Reason for Visit: [facility] [place] cancer Physician Info: Referring Physician: Dr Ramón Pat Contact Name & Number: Thoracic Surgery, [phone] Surgeon: Dr Ramón Pat Medical Oncologist: Radiation Oncologist: to see Dr Brionna Ayers, 01/15/18 appt at 10 am PCP: Dr Eder Del Rosario Other: Dr Arnett, Dr De Los Santos, Derek Acuna, Pul Location of Films: PACS Location of Pathology: IN HOUSE History of Present Illness: Pt had workup and surgery at . Records and images in [facility]. 12/04/16 - CT chest 01/07/17 - PET scan 01/22/17 - EBUS, path negative 03/27/17 - CT chest 04/28/17 - CT biopsy lung, LLL path negative 06/03/17 - CT chest 06/26/17 - CT biopsy lung, LLL path: atypical cells 08/05/17 - CT chest 09/11/17 - LLL Wedge resection, Path: poorly diff Adeno CA, pT2N0 PD-L1 positive 60%, Additional mutation studies requested 12/23/17 - CT chest 01/05/18 - PET scan 01/05/18 - EBUS, LN path positive for malignant cells, consistent with Adeno CA Pt referred to Med Onc and Rad Onc to eval for adjuvant treatment. Prior Treatment (XRT, Surgery, Chemotherapy): Surgical resection 09/11/17 Comments: Appts coordinated with Rad Onc and Med Onc on same day. Pt lives [place] few hours away from . Additional info sent to pt via email. NEEDS Assessment: Genetic Counseling: Not Applicable Nutrition: No needs identified Social Work/Financial: No need identified and Patient provided information on available services Spiritual & Emotional: No needs identified Physical: No needs identified Communication: No needs identified Oncofertility - Females age 40 and under; Males age 50 and under : Not applicable in this encounter Plan of Treatment Not on fileas of this encounter Visit Diagnoses Not on filein this encounter
--- OUTSIDE RECORDS SUMMARY | 2018-04-09 01:32 | XMS REPORT | Encounter Summary ---
Author Author [facility] Organization [facility] Address Unknown Phone Unavailable Care Team Providers Care Die Sizer Name Role Phone Derek Mccormick MD Unavailable Jose Daniel Mckeon MD Unavailable Mainor Del Rosario MD PCP Unavailable Angelita Caballero MD Unavailable Jakob Cole Unavailable Unavailable Yari Carias MA Unavailable Unavailable Mariah Espinoza Unavailable Unavailable Jennifer Mojica HOG SCRAPER Unavailable Annie Macias MA Unavailable Unavailable Blessing Morin Unavailable Unavailable Parul De Los Santos MD Unavailable Ngozi Camarena PA-C Unavailable Encounter Details Date Type Department Care Team Description 01/13/2018 Hospital Clinlab Chapo Colvin MD Malignant neoplasm of Encounter [facility] 1st fl [address] unspecified part of left [address] bronchus or lung (HCC) [place] [address] [place] [address] [phone] Social History Tobacco Use Types Packs/Day Years [...]
== END 2018-04-09 00:50 | disposition home or self-care (01) ==
LOC: EDUNIT# 19:59 → ER 20:00
DX: S09.90XA Unspecified injury of head, initial encounter (principal); S01.81XA Laceration without foreign body of other part of head, initial encounter; S16.1XXA Strain of muscle, fascia and tendon at neck level, initial encounter; S80.02XA Contusion of left knee, initial encounter; J44.9 Chronic obstructive pulmonary disease, unspecified; F15.10 Other stimulant abuse, uncomplicated; F41.9 Anxiety disorder, unspecified; F32.9 Major depressive disorder, single episode, unspecified; R40.2142 Coma scale, eyes open, spontaneous, at arrival to emergency department; R40.2252 Coma scale, best verbal response, oriented, at arrival to emergency department; R40.2362 Coma scale, best motor response, obeys commands, at arrival to emergency department; F12.10 Cannabis abuse, uncomplicated; F11.10 Opioid abuse, uncomplicated; F17.210 Nicotine dependence, cigarettes, uncomplicated; Z90.710 Acquired absence of both cervix and uterus; Z23 Encounter for immunization; Z92.21 Personal history of antineoplastic chemotherapy; Z91.5 Personal history of self-harm; Z85.118 Personal history of other malignant neoplasm of bronchus and lung; Z89.022 Acquired absence of left finger(s); Z98.51 Tubal ligation status; V20.4XXA Motorcycle driver injured in collision with pedestrian or animal in traffic accident, initial encounter
CPT/HCPCS: 13132; 36415; 70450; 70486; 71045; 72125; 72170; 73562; 80053; 80306; 80320; 81000; 85007; 85027; 85610; 85730; 90471; 90715; 93041; 96374; 96375; 96376

== ENCOUNTER 2018-11-26 13:06 | Inpatient (IN) | payer MEDICARE, MEDICAID ==
[~2018-11-26] VITALS: Ht 162.6 cm; Wt 83.6 kg
[~2018-11-26 13:06] MED LIST changes: +CYCL10TA9 PO; +MUPI1OIN6 TP; +SULF1TAB35 PO
--- OUTSIDE RECORDS SUMMARY | 2018-11-26 13:18 | XMS REPORT | Encounter Summary ---
Author Author [facility] Organization [facility] Address Unknown Phone Unavailable Care Team Providers Care Assistant Offset Press Operator Name Role Phone Derek Mccormick MD Unavailable Jose Daniel Mckeon MD Unavailable Angelita Caballero MD Unavailable Jakob Cole Unavailable Unavailable Yari Carias MA Unavailable Unavailable Mariah Espinoza Unavailable Unavailable Jennifer Mojica FREE LANCE MODEL Unavailable Annie Macias MA Unavailable Unavailable Blessing Morin Unavailable Unavailable Parul De Los Santos MD Unavailable Ngozi Camarena PA-C Unavailable Lary Noguera MD 3 Kristen Gong MD PCP Unavailable Kristen Gong MD 100 Unavailable Reason for Visit * Reason Comments Transition Of Care Encounter Details Care Team Description Date Type Department Kristen Gong MD [address] [place] [address] Transition Of Care 11/16/2018 Telephone [facility] [address] [facility] [address] [place] [address] Social History Date Tobacco Use Types Packs/Day Years Used Quit: 06/03/2012 Former Smoker Cigarettes 2 35 Smokeless Tobacco: Never Used Alcohol Use Drinks/Week oz/Week Comments No 1 Standard 0.6 drinks or equivalent Sex Assigned at Date Recorded Not on file Industry Job Start Date Occupation Not on file Not on file Not on file Travel End Travel History Travel Start No recent travel history available. documented as of this encounter Functional Status Date of Assessment Functional Status Response 11/13/2018 Does the patient have a hearing impairment: No 10/08/2018 Does the patient have a visual impairment: Yes 10/08/2018 Does the patient have impaired ambulation: Yes 10/08/2018 Does the patient have an activity of daily living No (ADL) impairment: 10/08/2018 Does the patient have an instrumental activity of No daily living (IADL) impairment: Date of Assessment Cognitive Status Response 10/08/2018 Does the patient have a cognitive impairment: No documented as of this encounter Miscellaneous Notes * Telephone Encounter - Ismael Dean - 11/16/2018 2:22 PM CDT Hospital Discharge Follow Up Reached Patient:Yes Admission Information: Hospital Name: [facility] Admission Date: 11/12/2018 Discharge Date: 11/14/2018 Discharge Diagnosis: Bipolar depression Chronic hypoxemic respiratory failure Intractable nausea and vomiting Malignant neoplasm of hilus of left lung Anemia, unspecified type - Primary Metastatic disease Was this a readmission? No If yes, reason: N/A Hospital Services: Unplanned Today's call is 1(business) days post discharge Discharge Instruction Review Did patient receive and understand discharge instructions? Yes Home Health ordered? No Agency name/telephone number: N/A Has Home Health agency contacted patient? No Caregiver assistance in the home? No Are there concerns regarding the patient's ADL'S? No Is patient a fall risk? Yes Special diet? No If yes, type: Regular diet Medication Reconciliation Changes to pre-hospital medications? Yes CHANGE how you take: prednisone 5 mg tablet (DELTASONE) Were new prescriptions filled?No, due to no new medications ordered. Understanding Condition Having any current symptoms? No Patient denies nausea/vomiting, fever/chills, diarrhea/constipation. Patient states she is now able to keep food and fluids down. Patient understands when to seek additional medical care? Yes Other instructions provided : Activity as tolerated. Scheduling Follow-up Appointment Upcoming appointment date and time and with whom scheduled: Future Appointments Date Time Provider Department Center 11/19/2018 1:00 PM LL2 NURSE CHAIR [facility] Exam 11/19/2018 2:00 PM Chapo Colvin MD CCC2 [facility] Exam 11/19/2018 3:15 PM CC [facility] TREATMENT CCT [facility] Treatme 12/10/2018 9:00 AM LL2 NURSE CHAIR [facility] Exam 12/10/2018 10:00 AM Jaleesa Coyle APRN [facility] Exam 12/10/2018 11:15 AM CC WW TREATMENT CCT [facility] Treatme 02/10/2019 9:00 AM [facility] 03/23/2019 8:50 AM Parul De Los Santos MD [facility] PCP appointment scheduled?Yes, Date: 02/10/2019 Patient declines sooner appointment. PCP primary location: [facility] Gen Medicine Specialist appointment scheduled? Yes, with Oncology 11/19/2018 and 12/10/2018; Pulmonary 03/23/2019 Both PCP and Specialist appointment scheduled: Yes Is assistance with transportation needed?No documented in this encounter Plan of Treatment Not on filedocumented as of this encounter Visit Diagnoses Not on filedocumented in this encounter
--- OUTSIDE RECORDS SUMMARY | 2018-11-26 13:18 | XMS REPORT | Clinical Summary ---
Author Author [facility] Organization [facility] Address Unknown Phone Unavailable Care Team Providers Care Oil Rigger Name Role Phone Derek Mccormick MD Unavailable Jose Daniel Mckeon MD Unavailable Angelita Caballero MD Unavailable Jakob Cole Unavailable Unavailable Yari Carias MA Unavailable Unavailable Mariah Espinoza Unavailable Unavailable Jennifer Mojica WILDLIFE POLICY PROFESSIONAL Unavailable Annie Macias MA Unavailable Unavailable Blessing Morin Unavailable Unavailable Parul De Los Santos MD Unavailable Ngozi Camarena PA-C Unavailable Lary Noguera MD 3 Kristen Gong MD PCP Unavailable Kristen Gong MD 100 Unavailable Source Comments Some departments are not documenting in the electronic medical record. If you do not see the information that you expected, contact Release of Information in the Health Information Management department at [phone] for further assistance in locating additional records.[facility] Allergies Comments Active Allergy Reactions Severity Noted Date Cefazolin NAUSEA AND Low 09/12/2017 VOMITING Medications End Date Status Medication Sig Dispensed Refills Start Date Active aspirin EC 81 mg tablet Take 1 tablet 90 tablet 3 by mouth 7 daily. Take with food. Active hattjcaqccm-lelmcipub-fxu Inhale 1 puff 1 each 11 anter (TRELEGY ELLIPTA) by mouth into 8 100-62.5-25 mcg the lungs dsdvIndications: Chronic daily. bronchitis, unspecified chronic bronchitis type (HCC) Active folic acid (FOLVITE) 1 mg Take 1 tablet 30 tablet 3 tabletIndications: by mouth 8 Malignant neoplasm of daily. hilus of left lung (HCC) Active ondansetron (ZOFRAN) 8 mg Take 1 tablet 30 tablet 3 tabletIndications: by mouth 8 Malignant neoplasm of every 8 hours hilus of left lung (HCC) as needed (nausea and vomiting). Active albuterol (PROAIR HFA, Inhale two 18 g 3 VENTOLIN HFA, OR puffs by 8 PROVENTIL HFA) 90 mouth into mcg/actuation the lungs inhalerIndications: every 6 hours Malignant neoplasm of as needed for lung, unspecified Wheezing or laterality, unspecified Shortness of part of lung (HCC) Breath. Shake well before use. Active prochlorperazine maleate Take one 50 tablet 3 (COMPAZINE) 10 mg tablet tablet by 8 mouth every 6 hours as needed for Nausea or Vomiting. Active gabapentin (NEURONTIN) Take one 90 capsule 3 100 mg capsule capsule by 9 mouth at bedtime daily. Active ALPRAZolam (XANAX) 1 mg Take one 90 tablet 0 tabletIndications: tablet by 9 Malignant neoplasm of mouth three lung, unspecified times daily laterality, unspecified as needed for part of lung (HCC), Anxiety. Anxiety Active oxyCODONE (ROXICODONE, Take 1 to 2 75 tablet 0 OXY-IR) 5 mg tablets by 9 tabletIndications: Pain mouth every 6 hours as needed for Pain Active albuterol-ipratropium Inhale 3 mL 3 ampule 1 (DUO-NEB, DUO-VENT) 0.5 solution by 9 mg-3 mg(2.5 mg base)/3 mL nebulizer as nebulizer solution directed four times daily. 11/13/2018 Discontinued NIFEdipine XL Take 60 mg by 0 (PROCARDIA-XL) 60 mg mouth at tablet bedtime daily. 11/13/2018 Discontinued acetaminophen (TYLENOL) Take 2 0 500 mg tablet tablets by 8 mouth every 6 hours while awake. Max of 4,000 mg of acetaminophen in 24 hours. 11/13/2018 Discontinued milk of magnesia (CONC) Take 10 mL by 360 mL 0 2,400 mg/10 mL oral mouth daily. 8 suspension 11/13/2018 Discontinued guaifenesin (MUCINEX PO) Take 1 tablet 0 by mouth every 4 hours as needed. 11/13/2018 Discontinued loperamide (IMODIUM A-D) Take 2 mg by 0 2 mg capsule mouth as Needed for Diarrhea. Take 2 capsules by mouth initially, followed by 1 capsule by mouth after each loose stool up to a maximum of 8 tablets in 24 hours. 11/13/2018 Discontinued albuterol 0.083% Inhale 3 mL 360 mL 11 (PROVENTIL; VENTOLIN) 2.5 solution by 8 mg /3 mL (0.083 %) nebulizer as nebulizer solution directed every 6 hours as needed for Wheezing or Shortness of Breath. 11/13/2018 Discontinued azithromycin (ZITHROMAX) Take one 30 tablet 11 250 mg tabletIndications: tablet by 9 COPD exacerbation mouth daily. . 11/13/2018 Discontinued prednisone (DELTASONE) 10 Take one 70 tablet 0 mg tablet tablet by 9 mouth daily with breakfast. 60mg x7days, then 40mg x 7d, then 30mg x7d, then 20mg x7,then 10mg xd, then 5mg x7 d then stop. 11/19/2018 prednisone (DELTASONE) 5 Take one 5 tablet 0 mg tablet tablet by 9 mouth daily with breakfast for 4 days. Active Problems Problem Noted Date Intractable nausea and vomiting 11/12/2018 Burning sensation of feet 09/23/2018 Overview: -advised pt to send pictures of feet when she gets the sensation -started on gabapentin 100mg and increase up to 300mg Insomnia 09/23/2018 Overview: -most likely anxiety and bipolar depression is contributing -pt take an OTC medication for sleep -started on gabapentin 100mg and can increase every 3 days up to 300mg nightly. Bipolar depression 07/01/2018 Overview: - hx of bipolar depression - pt has been medicated in the past; unknown medication - psychiatry referral placed today; would like assistance on bipolar medication in setting of chemotherapy Need for influenza vaccination 07/01/2018 Overview: - flu vaccine given today Hx of bipolar disorder 07/01/2018 Depression 07/01/2018 Overview: - pt's mood down since being dx with lung cancer - denies SI/HI - continue with psychology with oncology as needed - currently declines psychiatry and also any other medications Anxiety 05/19/2018 Overview: - anxiety and depression with diagnosis of lung cancer - pt currently xanax and pt states it is controlled. - continue PRN xanax - continue psychology services through oncology as needed - Pt declines to see psychiatry L ast Assessment & Plan: Well controlled with current medications. Healthcare maintenance 05/03/2018 Overview: Pap: 2017; will plan for pap on next visit Mammogram: 2016 and normal Colonoscopy: 2016; will be due to 2019 Flu Vaccine: 07/01/18 Tdap: unknown Pneumonia: pt states she has had one in the past Physical: 07/01/18 Last Assessment & Plan: Patients PCP recently retired. We will refer to [facility] per patients request. Malignant neoplasm of hilus of left lung 04/07/2018 Cancer Staging: Clinical: Stage IV (cT2a, cN1, cM1a) - Signed by Chapo Colvin MD on 10/22/2018 Overview: [id number] adenocarcinoma s/p SBRT 02/19 to 02/27/18. L ast Assessment & Plan: Carboplatin and Alimta side effects including: drop in blood counts, nausea, vomiting, constipation, diarrhea, rash, fatigue, watery eyes and nose and taste changes reviewed. Chemotherapy and blood consent signed. She will return in 3 weeks with labs, treatment and visit. Mediastinal adenopathy 12/24/2017 Last Assessment & Plan: Recent PET with hypermetabolic hilar peribronchial soft tissue thickening and subcarinal lymphadenopathy Plan for bronchoscopy tomorrow - not contraindications for proceeding. Pre-procedure instructions reviewed No anticoagulation or hypoglycemic agents EKG today Scheduled for follow-up with oncology 10/08 to discuss results and treatment options Hilar adenopathy 2017 Overview: Added automatically from request for surgery [id number] Personal history of tobacco use 08/08/2017 Abnormal cardiovascular stress test 07/15/2017 Adenocarcinoma of left lung 06/04/2017 Cancer Staging: Clinical stage from 09/11/2017: T2, N0, M0 - Signed by Nina Rubalcava APRN-SHIPPING AND RECEIVING SPECIALIST on 09/23/2017 Overview: 52-year-old female with a newly diagnosed [...] for malignant cells, consistent with [place] CA Pemetrexed 500 mg/m2 +Carboplatin AUC 5 chemotherapy IV for 4 cycles. Treatment was to begin 04/30/18 but unable to be completed r/t poor IV access. Patient had port placed 05/13/18. Treatment began 06/02/18. -CTs after 2 cycle showed significant progression in lung lesion with interval occlusion of the left lower lobe bronchus and progressing of a right adrenal nodule, most compatible with metastatic disease. Treamtne complicated by COPD exacerbations. Carbo & Alimta discontinued. -PDL1 expression >50%, recommend Keytruda. PRESENT THERAPY: Keytruda 200 mg IV every 21 days, begin today (10/29/18). Last Assessment & Plan: Patient will begin Keytruda today. She will call [phone] if she develops any immune related side effects including: worsening of shortness of breath, diarrhea or rash. Patient verbalized understanding. She will return in 3 weeks with labs, treatment and visit. Abnormal PET scan, mediastinum 05/22/2017 Abnormal PET [...] superior LLL. 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 ALT improved. Raynaud's disease 11/15/2014 COPD (chronic obstructive pulmonary disease) 11/15/2014 Overview: GOLD Staging: Category B1mMRC: 2GOLD classification of airflow obstruction: 1Number exacerbations in past year: 0-1 PFT (05/2016 --> 05/2017) FVC 2.29L (66% pred) --> 3.11L (90% pred) FEV1 1.38L (50% pred) --> 2.09L (77% pred) FEV1/FVC 60% --> 67% RV 3.32L (185% pred) --> 2.33L (128% pred) DLCO 45% pred --> 45% pred Inhaler Regimen Trelegy Albuterol PRN Vaccinations Influenza - up to date Pneumonia vaccine - received previously, unsure of type -records requested Oxygen Oxygen at night and occasional exertion (DME: [facility]) Pulm Rehab Possibly in the future - follows with pulmonary Smoking 36 pack-years; quit 2011 LDCT screening N/A currently, as obtaining regular surveillance with her cancer L ast Assessment & Plan: Continue medications as prescribed. Resolved Problems Problem Noted Date Resolved Date Malignant neoplasm of lung 2017 12/24/2017 Cancer Staging: Clinical stage from 01/15/2018: Stage IIB (cT2a, cN1, cM0) - Signed by Chapo Colvin MD on 01/15/2018 Overview: T2N1M0 stage II s/p SBRT 02/19 [...] for further evaluation Snoring 05/20/2016 07/26/2016 Encounters Care Team Description Date Type Specialty Kristen Gong MD Transition Of Care 11/16/2018 Telephone General Internal Medicine Andrew Molina MD Jones, Matthew, DO Gizaw, Yonatan, [facility] Intractable nausea and vomiting 11/12/2018 Hospital - Encounter 11/14/2018 Jaleesa Coyle APRN 10/29/2018 Hospital Oncology Encounter Jaleesa Coyle APRN Adenocarcinoma of left lung (HCC); Chronic bronchitis, unspecified chronic bronchitis type (HCC); Chronic hepatitis C without hepatic coma (HCC) 10/29/2018 Office Visit Oncology Jaleesa Coyle APRN 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); Chronic hepatitis C without hepatic coma (HCC) 10/29/2018 Lab Only Oncology Angely Huber, 10/29/2018 Clinical Oncology Support Chapo Colvin MD 10/28/2018 Orders Only Oncology Chapo Colvin MD Chronic hepatitis C without hepatic coma (HCC) (Primary Dx) 10/22/2018 Office Visit Oncology Chapo Colvin MD 10/22/2018 Hospital Radiology Encounter Chapo Colvin MD 10/22/2018 Hospital Radiology Encounter Chapo Colvin MD 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) 10/20/2018 Orders Only Oncology Chapo Colvin MD Malignant neoplasm of lung, unspecified laterality, unspecified part of lung (HCC); Anxiety; Upper respiratory tract infection, unspecified type; Pain 10/08/2018 Office Visit Oncology Chapo Colvin MD Appointment 10/08/2018 Telephone Oncology Tamiko Flores APRN-C Follow-up Phone Call (EBUS) 10/01/2018 Telephone Pulmonology Diana Yoder MD BRONCHOSCOPY WITH ENDOBRONCHIAL ULTRASOUND GUIDED TRANSTRACHEAL/ TRANSBRONCHIAL SAMPLING - 3 OR MORE MEDIASTINAL/ HILAR LYMPH NODE STATIONS/ STRUCTURE - FLEXIBLE 09/25/2018 Surgery Micah Varghese DO 09/25/2018 Anesthesia Event Diana Yoder MD Lung mass 09/25/2018 Hospital Encounter Bozena Acuna APRN-NP Abnormal cardiovascular stress test (Primary Dx) 09/25/2018 Orders Only Pulmonology Bozena Acuna APRN-NP Chronic bronchitis, unspecified chronic bronchitis type (HCC); Mediastinal adenopathy; Chronic hypoxemic respiratory failure (HCC) 09/24/2018 Office Visit Pulmonology Kristen Gong MD Burning sensation of feet (Primary Dx); Anxiety; Chronic bronchitis, unspecified chronic bronchitis type (HCC); Healthcare maintenance; Depression, unspecified depression type; Insomnia, unspecified type; Encounter for screening mammogram for malignant neoplasm of breast; Raynaud's disease with gangrene (HCC); Malignant neoplasm of hilus of left lung (HCC) 09/23/2018 Office Visit General Internal Medicine Tomy Arnett MD Lung mass (Primary Dx) 09/17/2018 Prep for Case Pulmonology Tiffany Aguero MD Research 09/16/2018 Telephone Oncology Chapo Colvin MD Malignant neoplasm of lung, unspecified laterality, unspecified part of lung (HCC) (Primary Dx); Pain; Anxiety 09/10/2018 Office Visit Oncology Chapo Colvin MD Custer, Brandon M, MD Haertling, Steffanie, RN Adenocarcinoma of left lung (HCC) 08/31/2018 Hospital Radiology Encounter from Last 3 Months Immunizations Name Dates Previously Given Next Due Flu Vaccine=>6 Months 07/01/2018 Quadrivalent PF Flu Vaccine 07/25/2016 Quadrivalent=>3 Yo (Preservative Free) Family History Medical History Relation Name Comments Emphysema Mother from cancer but does not know the primary stie. Cancer-Lung Sister Relation Name Status Comments Mother Sister Social History Date Tobacco Use Types Packs/Day Years Used Quit: 06/03/2012 Former Smoker Cigarettes 2 35 Smokeless Tobacco: Never Used Tobacco Cessation: Counseling Given: No Alcohol Use Drinks/Week oz/Week Comments No 1 Standard 0.6 drinks or equivalent Sex Assigned at Date Recorded Not on file Industry Job Start Date Occupation Not on file Not on file Not on file Travel End Travel History Travel Start No recent travel history available. Last Filed Vital Signs Time Taken Vital Sign Reading 11/14/2018 11:02 AM ROOF MECHANIC Blood Pressure 96/51 11/14/2018 11:02 AM ROOF MECHANIC Pulse 109 11/14/2018 11:02 AM ROOF MECHANIC Temperature 37.2 C (99 F) 10/29/2018 10:22 AM ROOF MECHANIC Respiratory Rate 16 11/14/2018 11:02 AM ROOF MECHANIC Oxygen Saturation 93% - Inhaled Oxygen - Concentration 11/12/2018 9:55 PM ROOF MECHANIC Weight 85 kg (187 lb 6.3 oz) 11/12/2018 9:55 PM ROOF MECHANIC Height 162.6 cm (5' 4") 11/12/2018 9:55 PM ROOF MECHANIC Body Mass Index 32.17 Plan of Treatment Health Maintenance Due Date Last Done Comments DTAP/TDAP VACCINES (1 - 1982 Tdap) BREAST CANCER SCREENING 2004 SHINGLES RECOMBINANT 2014 VACCINE (1 of 2) PHYSICAL (COMPREHENSIVE) 07/01/2019 07/01/2018 EXAM CERVICAL CANCER SCREENING 08/08/2020 08/08/2017 (Previously completed) COLORECTAL CANCER 03/10/2027 03/10/2017 (Previously completed) SCREENING HIV SCREENING Completed 06/27/2015 INFLUENZA VACCINE Completed 07/01/2018, 07/01/2018, 07/25/2016, Additional history exists Implants Device Identifier Shelf Expiration Date Model / Serial / Lot Implanted Type Area Manufactur [id number] / N/A / NOT RECORDED System [employer]entry Tract Sealant - Chest Wall Surgical Sn/A Specialtie Implanted: Qty: 1 on 04/28/2017 by s Filiberto Guerra MD [id number] / N/A / [id number] System Biosentry Tract Sealant - Chest Wall Surgical Sn/A Specialtie Implanted: Qty: 1 on 06/26/2017 by Leonidas Abreu MD [id number] 12/07/2019 [id number] / NA / [id number] Port Implantable Infusion Powerport Right: Chest C R BARD Mri Plastic Polyurethane - Sna Wall Implanted: Qty: 1 on 05/13/2018 by Kasi Rousseau MD Procedures Comments Procedure Name Priority Date/Time Associated Diagnosis CBC AND DIFF Routine 11/14/2018 9:16 AM ROOF MECHANIC MAGNESIUM Routine 11/14/2018 4:25 AM ROOF MECHANIC COMPREHENSIVE METABOLIC Routine 11/14/2018 PANEL 4:25 AM ROOF MECHANIC LACTIC ACID(LACTATE) Routine 11/13/2018 5:15 AM ROOF MECHANIC LACTIC ACID (BG - RAPID Routine 11/13/2018 LACTATE) 5:15 AM ROOF MECHANIC CORTISOL-AM Routine 11/13/2018 5:15 AM ROOF MECHANIC OSMOLALITY-URINE RANDOM STAT 11/13/2018 2:24 AM ROOF MECHANIC SODIUM-URINE RANDOM STAT 11/13/2018 2:24 AM ROOF MECHANIC PTT (APTT) Add on 11/12/2018 11:48 PM ROOF MECHANIC FREE T4 (FREE THYROXINE) Add on 11/12/2018 ONLY 11:48 PM ROOF MECHANIC FIBRINOGEN Add on 11/12/2018 11:48 PM ROOF MECHANIC BNP (B-TYPE NATRIURETIC Add on 11/12/2018 PEPTI) 11:48 PM ROOF MECHANIC CBC Routine 11/12/2018 11:48 PM ROOF MECHANIC PROTIME INR (PT) Routine 11/12/2018 11:48 PM ROOF MECHANIC THYROID STIMULATING STAT 11/12/2018 HORMONE-TSH 11:48 PM ROOF MECHANIC PERIPHERAL SMEAR STAT 11/12/2018 11:48 PM ROOF MECHANIC HAPTOGLOBIN STAT 11/12/2018 11:48 PM ROOF MECHANIC LDH-LACTATE DEHYDROGENASE STAT 11/12/2018 11:48 PM ROOF MECHANIC RETICULOCYTE COUNT STAT 11/12/2018 11:48 PM ROOF MECHANIC OSMOLALITY STAT 11/12/2018 11:48 PM ROOF MECHANIC CONTACT AOD TO REQUEST STAT 11/12/2018 INTERNAL MEDICINE 7:28 PM ROOF MECHANIC ADMISSION FROM ED CT ABD/PELV W CONTRAST STAT 11/12/2018 5:42 PM ROOF MECHANIC CHEST SINGLE VIEW STAT 11/12/2018 4:16 PM ROOF MECHANIC URINALYSIS, MICROSCOPIC STAT 11/12/2018 3:36 PM ROOF MECHANIC URINALYSIS DIPSTICK STAT 11/12/2018 3:36 PM ROOF MECHANIC INFLUENZA A/B AG (RAPID STAT 11/12/2018 TEST) 3:36 PM ROOF MECHANIC LIPASE Add on 11/12/2018 2:15 PM ROOF MECHANIC PHOSPHORUS STAT 11/12/2018 2:15 PM ROOF MECHANIC MAGNESIUM STAT 11/12/2018 2:15 PM ROOF MECHANIC COMPREHENSIVE METABOLIC STAT 11/12/2018 PANEL 2:15 PM ROOF MECHANIC CBC AND DIFF STAT 11/12/2018 2:15 PM ROOF MECHANIC ECG 12-LEAD STAT 11/12/2018 12:42 PM ROOF MECHANIC ECG-SCAN 11/12/2018 12:00 AM ROOF MECHANIC FREE T4-FREE THYROXINE Routine 10/29/2018 Malignant neoplasm of 10:05 AM ROOF MECHANIC hilus of left lung (HCC) HEPATITIS C VIRAL LOAD Routine 10/29/2018 Chronic hepatitis C PCR QUANT 10:05 AM ROOF MECHANIC without hepatic coma (HCC) TSH WITH FREE T4 REFLEX Routine 10/29/2018 Malignant neoplasm of 10:05 AM ROOF MECHANIC hilus of left lung (HCC) COMPREHENSIVE METABOLIC Routine 10/29/2018 Malignant neoplasm of PANEL 10:05 AM ROOF MECHANIC hilus of left lung (HCC) CBC AND DIFF Routine 10/29/2018 Malignant neoplasm of 10:05 AM ROOF MECHANIC hilus of left lung (HCC) CT CHEST W CONTRAST Routine 10/22/2018 Malignant neoplasm of 8:27 AM ROOF MECHANIC lung, unspecified laterality, unspecified part of lung (HCC) COMPREHENSIVE METABOLIC Routine 10/22/2018 Malignant neoplasm of PANEL 8:10 AM ROOF MECHANIC hilus of left lung (HCC) CBC AND DIFF Routine 10/22/2018 Malignant neoplasm of 8:10 AM ROOF MECHANIC hilus of left lung (HCC) NON-CHECKER CASHIER CYTOLOGY (BODY 09/25/2018 FLUIDS/TISSUE) 4:45 PM ROOF MECHANIC FINE NEEDLE ASPIRATE 09/25/2018 (FNA) 12:36 PM ROOF MECHANIC SURGICAL PATHOLOGY 09/25/2018 12:33 PM ROOF MECHANIC BRONCHOSCOPY WITH 09/25/2018 Lung mass ENDOBRONCHIAL ULTRASOUND 11:30 AM ROOF MECHANIC GUIDED TRANSTRACHEAL/ TRANSBRONCHIAL SAMPLING - 3 OR MORE MEDIASTINAL/ HILAR LYMPH NODE STATIONS/ STRUCTURE - FLEXIBLE BRONCHOSCOPY 09/25/2018 10:24 AM ROOF MECHANIC TEST-URINE STAT 09/25/2018 10:07 AM ROOF MECHANIC TELEMETRY STRIPS-SCAN 09/25/2018 12:00 AM ROOF MECHANIC PROCEDURE RECORD-SCAN 09/25/2018 12:00 AM ROOF MECHANIC FL ECG ROUTINE ECG Routine 09/24/2018 Abnormal cardiovascular W/LEAST 12 LDS W/I&R stress test SURGICAL PATHOLOGY 08/31/2018 10:35 AM ROOF MECHANIC CHEST IMMEDIATE POST Routine 08/31/2018 PROCEDURE INSP/EXP 10:[address] GUIDE NEEDLE PLACEMENT Routine 08/31/2018 Adenocarcinoma of left 9:03 AM ROOF MECHANIC lung (HCC) from Last 3 Months Results * CBC AND DIFF (11/14/2018 9:16 AM ROOF MECHANIC) Only the most recent of 4 results within the time period is included. White Blood 9.4 4.5 - 11.0 K/UL [facility] Cells RBC 2.93 (L) 4.0 - 5.0 M/UL [facility] Hemoglobin 8.5 (L) 12.0 - 15.0 GM/DL [facility] Hematocrit 25.7 (L) 36 - 45 % [facility] MCV 87.8 80 - 100 FL [facility] MCH 29.1 26 - 34 PG [facility] MCHC 33.1 32.0 - 36.0 G/DL [facility] RDW 16.4 (H) 11 - 15 % [facility] Platelet Count 218 150 - 400 K/UL [facility] MPV 8.8 7 - 11 FL [facility] Neutrophils 83 (H) 41 - 77 % [facility] Lymphocytes 8 (L) 24 - 44 % [facility] Monocytes 8 4 - 12 % [facility] Eosinophils 0 0 - 5 % [facility] Basophils 1 0 - 2 % [facility] Absolute 7.90 (H) 1.8 - 7.0 K/UL [facility] Neutrophil Count Absolute Lymph 0.70 (L) 1.0 - 4.8 K/UL [facility] Count Absolute 0.70 0 - 0.80 K/[facility] Monocyte Count Absolute 0.00 0 - 0.45 K/UL [facility] Eosinophil Count Absolute 0.10 0 - 0.20 K/UL [facility] Basophil Count Specimen Blood Performing Organization Address City/[facility]/Zipcode Phone Number MAIN LAB [address] [place] [address] * MAGNESIUM (11/14/2018 4:25 AM ROOF MECHANIC) Only the most recent of 2 results within the time period is included. [facility] Magnesium 1.5 (L) 1.6 - 2.6 mg/dL [facility]IN LAB Specimen Blood Performing Organization Address City/[facility]/Zipcode Phone Number [facility] [address] [place] [address] * COMPREHENSIVE METABOLIC PANEL (11/14/2018 4:25 AM ROOF MECHANIC) Only the most recent of 4 results within the time period is included. [facility] Sodium 138 137 - 147 MMOL/L MAIN LAB Potassium 4.4 3.5 - 5.1 MMOL/L [facility] Chloride 104 98 - 110 MMOL/L [facility] Glucose 130 (H) 70 - 100 MG/DL [facility] Blood Urea 5 (L) 7 - 25 MG/DL [facility] Nitrogen Creatinine 0.64 0.4 - 1.00 MG/DL [facility] Calcium 8.0 (L) 8.5 - 10.6 MG/DL [facility] Total Protein 5.1 (L) 6.0 - 8.0 G/DL [facility] Total Bilirubin 0.2 (L) 0.3 - 1.2 MG/DL [facility] Albumin 2.5 (L) 3.5 - 5.0 G/DL [facility] Alk Phosphatase 79 25 - 110 U/L [facility] AST (SGOT) 43 (H) 7 - 40 U/L [facility] CO2 28 21 - 30 MMOL/L [facility]IN [facility] ALT (SGPT) 33 7 - 56 U/L [facility] Anion Gap 6 3 - 12 MAIN LAB eGFR Non >60 >60 mL/min MAIN LAB Comment: Indian The eGFR is not validated for use in drug dosing adjustments.Continue to use estimated creatinine clearance per dosing reference text.Please contact the Clinical Pharmacist for questions. eGFR >60 >60 mL/min [facility] Indian Comment: The eGFR is not validated for use in drug dosing adjustments.Continue to use estimated creatinine clearance per dosing reference text.Please contact the Clinical Pharmacist for questions. Specimen Blood Performing Organization Address City/[facility]/Zipcode Phone Number [facility] [address] [place] [address] * LACTIC ACID (BG - RAPID LACTATE) (11/13/2018 5:15 AM ROOF MECHANIC) Lactic Acid,BG 1.8 0.5 - 2.0 MMOL/L [facility] Specimen Blood Performing Organization Address City/[facility]/Zipcode Phone Number [facility] [address] [place] [address] * LACTIC ACID(LACTATE) (11/13/2018 5:15 AM ROOF MECHANIC) Lactic Acid 1.7 0.5 - 2.0 MMOL/L [facility] Specimen Blood Performing Organization Address [facility]/Zipcode Phone Number [facility] [address] [place] [address] * CORTISOL-AM (11/13/2018 5:15 AM ROOF MECHANIC) Cortisol-AM 7.3 6.7 - 22.6 MCG/DL [facility] Specimen Blood Performing Organization Address [facility]/Zipcode Phone Number MAIN LAB [address] [place] [address] * SODIUM-URINE RANDOM (11/13/2018 2:24 AM ROOF MECHANIC) Sodium, Random 10 MMOL/L [facility] Specimen Urine - Urine Performing Organization Address [facility] Phone Number [facility] [address] [place] [address] * OSMOLALITY-URINE RANDOM (11/13/2018 2:24 AM ROOF MECHANIC) Osmolality-Urin 85 50 - 1,400 MOS/KG [facility] e Specimen Urine - Urine Performing Organization Address [facility] Phone Number [facility] [address] [place] [address] * PERIPHERAL SMEAR (11/12/2018 11:48 PM ROOF MECHANIC) Peripheral NORMOCYTIC ANEMIA WITH [facility] Smear ANISOCYTOSIS. WHITE CELLS AND PLATELETS APPEAR NORMAL IN NUMBER AND MORPHOLOGY. Pathologist INTERPRETED BY COOPER MEDRANO [facility] Signature Noel By the PATH SIGNATURE ABOVE, I attest that I have personally formulated the final interpretation expressed in this report and that the above diagnosis is based upon my examination of the slides and/or other material indicated in this report. Specimen Blood Performing Organization Address [facility] Phone Number [facility] [address] [place] [address] * PTT (APTT) (11/12/2018 11:48 PM ROOF MECHANIC) APTT 26.3 24.0 - 36.5 SEC MAIN LAB Performing Organization Address [facility]ode Phone Number MAIN LAB [address] [place] [address] * PROTIME INR (PT) (11/12/2018 11:48 PM ROOF MECHANIC) INR 1.6 (H) 0.8 - 1.2 [facility] Specimen Blood Performing Organization Address [facility]ode Phone Number [facility] [address] [place] [address] * FIBRINOGEN (11/12/2018 11:48 PM ROOF MECHANIC) Fibrinogen 527 (H) 200 - 400 MG/DL [facility] MAIN LAB Performing Organization Address City/[facility] Centercode Phone Number MAIN LAB [address] [place] [address] * RETICULOCYTE COUNT (11/12/2018 11:48 PM ROOF MECHANIC) [facility] Retic, 1.2 0.5 - 2.0 % [facility] MAIN LAB Uncorrected Retic, 0.8 % [facility] Corrected Retic, Absolute 35.4 30 - 94 K/UL [facility] MAIN LAB Specimen Blood Performing Organization Address City/[facility] Cent[facility]ode Phone Number [facility] MAIN [facility] [address] [place] [address] * CBC (11/12/2018 11:48 PM ROOF MECHANIC) [facility] White Blood 9.4 4.5 - 11.0 K/UL MAIN LAB Cells RBC 3.03 (L) 4.0 - 5.0 M/UL [facility] MAIN [facility] Hemoglobin 9.0 (L) 12.0 - 15.0 GM/DL [facility] MAIN LAB Hematocrit 26.6 (L) 36 - 45 % [facility] MCV 87.8 80 - 100 FL [facility]IN [facility] MCH 29.7 26 - 34 PG [facility] MCHC 33.8 32.0 - 36.0 G/DL [facility] MAIN [facility] RDW 16.2 (H) 11 - 15 % [facility] Platelet Count 207 150 - 400 K/UL [facility]IN [facility] MPV 8.9 7 - 11 FL MAIN LAB Specimen Blood Performing Organization Address [facility] Centercode Phone Number MAIN LAB [address] [place] [address] * THYROID STIMULATING HORMONE-TSH (11/12/2018 11:48 PM ROOF MECHANIC) [facility] TSH 0.120 (L) 0.35 - 5.00 MCU/ML MAIN LAB Specimen Blood Performing Organization Address City/[facility]/Zipcode Phone Number MAIN LAB [address] [place] [address] * FREE T4 (FREE THYROXINE) ONLY (11/12/2018 11:48 PM ROOF MECHANIC) [facility] T4-Free 1.1 0.6 - 1.6 NG/DL [facility] MAIN LAB Performing Organization Address City/[facility] Cent[facility]ode Phone Number MAIN LAB [address] [place] [address] * OSMOLALITY (11/12/2018 11:48 PM ROOF MECHANIC) Osmolality 278 (L) 280 - 307 MOSMOL/KG [facility] MAIN LAB Specimen Blood Performing Organization Address [facility] Center[facility]j Phone Number [facility] MA[facility] [address] [place] [address] * BNP (B-TYPE NATRIURETIC PEPTI) (11/12/2018 11:48 PM ROOF MECHANIC) B Type 134.0 (H) 0 - 100 PG/ML [facility] MAIN LAB Natriuretic Peptide Performing Organization Address [facility] Cent[facility]ode Phone Number [facility] MAIN [facility] [address] [place] [address] * LDH-LACTATE DEHYDROGENASE (11/12/2018 11:48 PM ROOF MECHANIC) Lactate 158 100 - 210 U/L [facility] MAIN LAB Dehydrogenase Specimen Blood Performing Organization Address [facility] Phone Number [facility] [address] [place] [address] * HAPTOGLOBIN (11/12/2018 11:48 PM ROOF MECHANIC) Haptoglobin 347 (H) 16 - 200 MG/DL [facility] MAIN [facility] Specimen Blood Performing Organization Address [facility] Phone Number [facility] [address] [place] [address] * CT ABD/PELV W CONTRAST (11/12/2018 5:42 PM ROOF MECHANIC) Impressions Performed At 1.No abdominopelvic inflammatory mass, bowel obstruction, or ascites. Normal [facility] RESULTS appendix. 2.Persistent complete left lower lobe consolidation, likely post obstructive atelectasis. Refer to recent CT chest for further discussion. 3.Further increased size of right adrenal mass consistent with worsening metastatic disease. 4.Development of retrocaval nodule at the level of the right kidney which may represent eblén metastasis or tumor thrombus within an adrenal vein. 5.Mild distal colonic diverticulosis without diverticulitis. By my electronic signature, I attest that I have personally reviewed the images for this examination and formulated the interpretations and opinions expressed in this report Finalized by Niall Armenta M.D. on 11/12/2018 6:44 PM. Dictated by Priyank Wynn MD on 11/12/2018 5:47 PM. Narrative Performed At CT ABDOMEN AND PELVIS [facility] RESULTS Clinical Indication:Female, 52 years old. Generalized abdominal pain, cough, vomiting Technique:Multiple contiguous axial images were obtained through the abdomen and pelvis following the administration of IV contrast material. Post processing coronal and sagittal reconstruction images were made from the axial images. IV contrast: Omnipaque 350 Bowel contrast:None Comparison: CT chest October 22 2018 and PET scan August 13, 2018. FINDINGS: Lower Thorax: Small hiatal hernia. Heart size is normal. Previous left lower lobe resection with complete consolidation of the left lower lobe, unchanged. Liver and Biliary system: Mild hepatomegaly. No focal enhancing hepatic mass identified. Small hypodense lesion adjacent to the falciform ligament which is likely area of focal fatty infiltration. Nondistended gallbladder. Main portal veins are patent. Spleen: Unremarkable. Adrenal Glands and Kidneys: Further increase in size in the heterogeneous right adrenal gland mass measuring up to 6.2 x 5.3 cm (series 2, image 15), previously 5.2 x 4.2 cm. Left adrenal gland is unremarkable. Small left renal cyst and additional subcentimeter renal hypodensities which are too small to characterize. Pancreas and Retroperitoneum: Pancreas is unremarkable. Development of right retrocaval nodule at the level of the right kidney measuring up to 1.7 x 1.3 (series 2, image 22). This nodule may be contiguous to the adjacent veins. Aorta and Major Vessels: Aorta is normal in caliber. Moderate scattered calcified atherosclerotic aortoiliac plaque. Bowel, Mesentery and Peritoneal space: Large and small bowel loops are normal in caliber. Appendix is normal. Mild distal colonic diverticulosis. No mesenteric lymphadenopathy or ascites. No intraperitoneal free air identified. Pelvis: Urinary bladder is mildly distended and grossly unremarkable. Uterus is unremarkable. No pelvic lymphadenopathy or ascites. Abdominal wall and Osseous Structures: Moderate thoracolumbar spondylosis with mild rightward convex scoliosis of the lumbar spine and multilevel degenerative disc disease greatest at L3-L4. No destructive osseous lesion identified. Small fat-containing umbilical hernia. Procedure Note Interface, Radiant Results - 11/12/2018 6:[address] ABDOMEN AND PELVIS Clinical Indication: Female, 52 years old. Generalized abdominal pain, cough, vomiting Technique: Multiple contiguous axial images were obtained through the abdomen and pelvis following the administration of IV contrast material. Post processing coronal and sagittal reconstruction images were made from the axial images. IV contrast: Omnipaque 350 Bowel contrast: None Comparison: CT chest October 22 2018 and PET scan August 13, 2018. FINDINGS: Lower Thorax: Small hiatal hernia. Heart size is normal. Previous left lower lobe resection with complete consolidation of the left lower lobe, unchanged. Liver and Biliary system: Mild hepatomegaly. No focal enhancing hepatic mass identified. Small hypodense lesion adjacent to the falciform ligament which is likely area of focal fatty infiltration. Nondistended gallbladder. Main portal veins are patent. Spleen: Unremarkable. Adrenal Glands and Kidneys: Further increase in size in the heterogeneous right adrenal gland mass measuring up to 6.2 x 5.3 cm (series 2, image 15), previously 5.2 x 4.2 cm. Left adrenal gland is unremarkable. Small left renal cyst and additional subcentimeter renal hypodensities which are too small to characterize. Pancreas and Retroperitoneum: Pancreas is unremarkable. Development of right retrocaval nodule at the level of the right kidney measuring up to 1.7 x 1.3 ( series 2, image 22). This nodule may be contiguous to the adjacent veins. Aorta and Major Vessels: Aorta is normal in caliber. Moderate scattered calcified atherosclerotic aortoiliac plaque. Bowel, Mesentery and Peritoneal space: Large and small bowel loops are normal in caliber. Appendix is normal. Mild distal colonic diverticulosis. No mesenteric lymphadenopathy or ascites. No intraperitoneal free air identified. Pelvis: Urinary bladder is mildly distended and grossly unremarkable. Uterus is unremarkable. No pelvic lymphadenopathy or ascites. Abdominal wall and Osseous Structures: Moderate thoracolumbar spondylosis with mild rightward convex scoliosis of the lumbar spine and multilevel degenerative disc disease greatest at L3-L4. No destructive osseous lesion identified. Small fat-containing umbilical hernia. IMPRESSION 1. No abdominopelvic inflammatory mass, bowel obstruction, or ascites. Normal appendix. 2. Persistent complete left lower lobe consolidation, likely post obstructive atelectasis. Refer to recent CT chest for further discussion. 3. Further increased size of right adrenal mass consistent with worsening metastatic disease. 4. Development of retrocaval nodule at the level of the right kidney which may represent belén metastasis or tumor thrombus within an adrenal vein. 5. Mild distal colonic diverticulosis without diverticulitis. By my electronic signature, I attest that I have personally reviewed the images for this examination and formulated the interpretations and opinions expressed in this report Finalized by Niall Armenta M.D. on 11/12/2018 6:44 PM. Dictated by Priyank Wynn MD on 11/12/2018 5:47 PM. Performing Organization Address [facility] Phone Number [facility] RESULTS * CHEST SINGLE VIEW (11/12/2018 4:16 PM ROOF MECHANIC) Impressions Performed At Chronic atelectasis or scarring in the left lower lobe. [facility] RESULTS No acute cardiopulmonary abnormalities. Finalized by Raymond Hanson M.D. on 11/13/2018 8:34 AM. Dictated by Raymond Hanson M.D. on 11/13/2018 8:29 AM. Narrative Performed At CHEST SINGLE VIEW [facility] RES[facility] History: shortness of breath. Technique: Single portable AP upright view of the chest was obtained. Comparison: Comparison is made to an examination of 08/31/2018. Findings: Cardiac size remains within normal limits. There is no vascular congestion. There is chronic atelectasis or scarring in the left lower lobe. No acute interstitial or alveolar opacities are identified. Right Vokasu-c-Hzrt catheter remains in place with its tip at the level of the right atrium. No pleural fluid is identified. No pneumothorax is seen. Procedure Note Interface, Radiant Results - 11/13/2018 8:37 AM ROOF MECHANIC CHEST SINGLE VIEW History: shortness of breath. Technique: Single portable AP upright view of the chest was obtained. Comparison: Comparison is made to an examination of 08/31/2018. Findings: Cardiac size remains within normal limits. There is no vascular congestion. There is chronic atelectasis or scarring in the left lower lobe. No acute interstitial or alveolar opacities are identified. Right Wrroae-l-Xabz catheter remains in place with its tip at the level of the right atrium. No pleural fluid is identified. No pneumothorax is seen. IMPRESSION Chronic atelectasis or scarring in the left lower lobe. No acute cardiopulmonary abnormalities. Finalized by Ramyond Hanson M.D. on 11/13/2018 8:34 AM. Dictated by Raymond Hanson M.D. on 11/13/2018 8:29 AM. Performing Organization Address City/[facility] Phone Number [facility] RES[facility] * URINALYSIS, MICROSCOPIC (11/12/2018 3:36 PM ROOF MECHANIC) WBCs,UA 2-10 0 - 2 /HPF [facility] MAIN LAB RBCs,UA 0-2 0 - 3 /HPF [facility] MAIN LAB MucousUA TRACE [facility] MAIN LAB Squamous 0-2 0 - 5 MAIN LAB Epithelial Cells Specimen Urine - Urine Performing Organization Address City/[facility] Phone Number MAIN LAB [address] [place] [address] * URINALYSIS DIPSTICK (11/12/2018 3:36 PM ROOF MECHANIC) Color,UA CHRISTIANO [facility] MAIN [facility] Turbidity,UA CLEAR CLEAR-CLEAR [facility] MAIN [facility] Specific 1.020 1.003 - 1.035 MAIN LAB [place]-Urine pH,UA 6.0 5.0 - 8.0 [facility] MAIN [facility] Protein,UA 1+ (A) NEG-NEG MAIN LAB Glucose,UA NEG NEG-NEG [facility] MAIN [facility] Ketones,UA NEG NEG-NEG MAIN LAB Bilirubin,UA NEG NEG-NEG MAIN LAB Blood,UA NEG NEG-NEG MAIN LAB Urobilinogen,UA INCREASED (A) NORM-NORMAL MAIN LAB Nitrite,UA NEG NEG-NEG [facility] MAIN LAB Leukocytes,UA NEG NEG-NEG [facility] MAIN [facility] Urine Ascorbic POS (A) NEG-NEG MAIN LAB Acid, UA Comment: Ascorbic acid is found in various food supplies and dietary supplements, and is reported to cause strong interference with Macroscopic Urinalysis testing for glucose, blood and nitrite, and can result in a false negative result. Specimen Urine - Urine Performing Organization Address [facility] Phone Number MAIN LAB [address] [place] [address] * INFLUENZA A/B AG (RAPID TEST) (11/12/2018 3:36 PM ROOF MECHANIC) Pathologist [facility] Battery Name INFLUENZA A/B ANTIGEN MAIN LAB Specimen NASOPHARYNGEAL SWAB MAIN LAB Description Special NONE MAIN LAB Requests Direct Antigen NEGATIVE FOR INFLUENZA A/B MAIN LAB Report Status FINAL MAIN LAB 11/12/2018 Specimen Nasopharyngeal Swab Performing Organization Address City/[facility]/Zipcode Phone Number MAIN LAB [address] [place] [address] * PHOSPHORUS (11/12/2018 2:15 PM ROOF MECHANIC) Phosphorus 3.1Comment: NOTE NEW REFERENCE 2.0 - 4.5 MG/DL [facility] MAIN LAB RANGES Specimen Blood Performing Organization Address City/[facility]/Zipcode Phone Number MAIN LAB [address] [place] [phone] * LIPASE (11/12/2018 2:15 PM ROOF MECHANIC) Lipase 9 (L) 11 - 82 U/L [facility] MAIN LAB Performing Organization Address [facility] Phone Number MAIN LAB [address] [place] [address] * ECG-SCAN (11/12/2018 12:00 AM ROOF MECHANIC) Narrative Performed At Ordered by an unspecified provider. * FREE T4-FREE THYROXINE (10/29/2018 10:05 AM ROOF MECHANIC) Pathologist [facility] T4-Free 1.0 0.6 - 1.6 NG/DL [facility] MAIN LAB Performing Organization Address [facility] Phone Number MAIN LAB [address] [place] [address] * TSH WITH FREE T4 REFLEX (10/29/2018 10:05 AM ROOF MECHANIC) Pathologist [facility] TSH 0.220 (L) 0.35 - 5.00 MCU/ML MAIN LAB Specimen Blood Performing Organization Address [facility] Phone Number MAIN LAB [address] [place] [address] * HEPATITIS C VIRAL LOAD PCR QUANT (10/29/2018 10:05 AM ROOF MECHANIC) Pathologist [facility] Hepatitis C PCR HCV RNA Not Detected, <12 <12 IU/ML MAIN LAB Quantitative IU/mL Comment: The test method detects HCV viral load using the Piña RealTime assay. Please correlate results with the clinical status of the patient. Log 10 HCV <1.08 <1.08 IU/mL MAIN LAB Specimen Blood Performing Organization Address [facility] Phone Number MAIN LAB [address] [place] [address] * CT CHEST W CONTRAST (10/22/2018 8:27 AM ROOF MECHANIC) Impressions Performed At 1. Interval occlusion of the left lower lobe bronchus, presumably by increasing [facility] RESULTS neoplastic tissue in the left hilum which is ill-defined and nonmasslike. 2. Marked increase in large right adrenal metastasis. 3. Moderate emphysema. 4. At least mild coronary artery calcification. Finalized by Tomy Abreu M.D. on 10/22/2018 9:39 AM. Dictated by Tomy Abreu M.D. on 10/22/2018 9:31 AM. Narrative Performed At CT Chest [facility] RES[facility] Clinical Indication: Lung cancer. Restaging. Technique: Multiple contiguous axial CT images were obtained through the chest with IV contrast.Post processing coronal and sagittal reconstruction images were made from the axial images. Comparison: October 22, [address] Findings: Right IJ chest port remains in place. Axilla, Mediastinum and Tess: There is no axillary or mediastinal lymphadenopathy. Left hilar soft tissue thickening persists which may represent belén tissue. A discrete rounded enlarged lymph node is no longer seen in this region. A small hiatal hernia is noted. Heart and Great Vessels: The heart size is normal. There is a persistent small pericardial effusion. There is at least mild coronary artery calcification. Lungs and Pleura: Moderate emphysema and scattered areas of scarring are again noted. Left lower lobe wedge resection changes are again noted. There has been interval occlusion of the left lower lobe bronchus with complete atelectasis of the left lower lobe. Mild patchy groundglass the previously identified faint left upper lobe nodule is no longer distinctly seen. The tiny right lower lobe nodule on image 39 is for greater than 2 years compatible with a granuloma. Opacities are now seen in the left lung base.No pleural effusions. Chest Wall and Osseous Structures: Old healed nondisplaced left lateral eighth rib fracture is again noted. No destructive osseous lesions are identified. Visualized Upper Abdomen: The right adrenal metastasis has markedly increased in size, now measuring up to 5.2 x 4.2 cm on series 2, image 52 compared to a previous measurement of 2.8 x 1.6 cm. Procedure Note Interface, Radiant Results - 10/22/2018 9:[address] Chest Clinical Indication: Lung cancer. Restaging. Technique: Multiple contiguous axial CT images were obtained through the chest with IV contrast. Post processing coronal and sagittal reconstruction images were made from the axial images. Comparison: October 22, [address] Findings: Right IJ chest port remains in place. Axilla, Mediastinum and Tess: There is no axillary or mediastinal lymphadenopathy. Left hilar soft tissue thickening persists which may represent belén tissue. A discrete rounded enlarged lymph node is no longer seen in this region. A small hiatal hernia is noted. Heart and Great Vessels: The heart size is normal. There is a persistent small pericardial effusion. There is at least mild coronary artery calcification. Lungs and Pleura: Moderate emphysema and scattered areas of scarring are again noted. Left lower lobe wedge resection changes are again noted. There has been interval occlusion of the left lower lobe bronchus with complete atelectasis of the left lower lobe. Mild patchy groundglass the previously identified faint left upper lobe nodule is no longer distinctly seen. The tiny right lower lobe nodule on image 39 is for greater than 2 years compatible with a granuloma. Opacities are now seen in the left lung base. No pleural effusions. Chest Wall and Osseous Structures: Old healed nondisplaced left lateral eighth rib fracture is again noted. No destructive osseous lesions are identified. Visualized Upper Abdomen: The right adrenal metastasis has markedly increased in size, now measuring up to 5.2 x 4.2 cm on series 2, image 52 compared to a previous measurement of 2.8 x 1.6 cm. IMPRESSION 1. Interval occlusion of the left lower lobe bronchus, presumably by increasing neoplastic tissue in the left hilum which is ill-defined and nonmasslike. 2. Marked increase in large right adrenal metastasis. 3. Moderate emphysema. 4. At least mild coronary artery calcification. Finalized by Tomy Abreu M.D. on 10/22/2018 9:39 AM. Dictated by Tomy Abreu M.D. on 10/22/2018 9:31 AM. Performing Organization Address City/State/Zipcode Phone Number [facility] RAD RESULTS * NON-CHECKER CASHIER CYTOLOGY (BODY FLUIDS/TISSUE) (09/25/2018 4:45 PM ROOF MECHANIC) Cytology [email or web address] Department of Pathology and Laboratory Medicine [address] [place] [address] Surgical Pathology Office:[phone] :[phone] CYTOLOGY REPORT NAME: SIS ALLEN CYTOLOGY #: [id number] MR #: [id number] ALT ID #: BILLING #: [id number] LOCATION: [facility] DATE OF PROCEDURE: 09/25/2018 AGE: 52 SEX: F DATE RECEIVED: 09/29/2018 : 1965TIME RECEIVED:16:45 PHYSICIAN: DIANA YODER MD DATE OF REPORT: 10/01/2018 COPY TO:DATE OF PRINTIN10/05/2018 Material Received: A: Bronchial Washing-LLL B: Bronchial Brushing-LLL History: 52 year old female with history of lung mass. Gross Description: A (1 ThinPrep) 10ml bloody turbid fluid. B (1 ThinPrep,1 Pap direct smear) 8ml clear fluid w / one brush. ############################## ############################## ############ Final Diagnosis: A. Bronchial Washing-LLL: Scant cellularity. Negative for malignant cells. B. Bronchial Brushing-LLL: Negative for malignant cells. Attestation: By this signature, I attest that I have personally formulated the final interpretation expressed in this report and that the above diagnosis is based upon my examination of the slides and/or other material indicated in this report. +++Electronically Signed Out By+++ /10/01/2018 Interpreted by: Yumiko Astudillo MD, PhD Russell Causey D.O. Performing Organization Address City/State/Zipcode Phone Number [facility] [address] [place] [address] * FINE NEEDLE ASPIRATE (FNA) (09/25/2018 12:36 PM ROOF MECHANIC) Cytology [facility] [email or web address] Department of Pathology and Laboratory Medicine [address] [place] [address] Surgical Pathology Office:[phone] :[phone] CYTOLOGY REPORT NAME: SIS ALLEN SURG PATH #: [id number] MR #: [id number] ALT ID #: BILLING #: [id number] LOCATION: [facility] DATE OF PROCEDURE: 09/25/2018 AGE: 52 SEX: F DATE RECEIVED: 09/25/2018 : 1965TIME RECEIVED:12:36 PHYSICIAN: DIANA YODER MD DATE OF REPORT: 09/30/2018 COPY TO:DATE OF PRINTIN09/30/2018 Material Received: A: FNA Lymph Node - Station 7 B: FNA Lymph Node - 11L History: 52-year-old woman with history of adenocarcinoma of the lung, undergoing evaluation of mediastinal and hilar lymphadenopathy Gross Description: A. (4 DQ direct smear, 4 Pap direct smear, 1 Cellblock) Rapid determination of adequacy was performed by the drywall boardhangerDO, on Diff-Quik stained slide(s). Passes one, two, and five were adequate for evaluation. Pass four was not adequate for evaluation. Pass three was submitted in RPMI for Cellblock. B. (4 DQ direct smear, 4 Pap direct smear, 1 Cellblock) Rapid determination of adequacy was performed by the drywall boardhanger, , on Diff-Quik stained slide(s). Passes one through four were not adequate for evaluation. Pass five was submitted in RPMI for Cellblock. ############################## ############################## ############ Final Diagnosis: A. Lymph Node, Station 7 (subcarinal), EBUS FNA: Polymorphous population of lymphocytes.No carcinoma identified in the sampled specimen. B. Lymph Node, Station 11L (interlobar), EBUS FNA: No lymphoid tissue or lesional tissue identified. Comment: Cellblocks are prepared for parts A and B and examined microscopically. Please also see concurrent surgical pathology report ([id number]). Attestation: By this signature, I attest that I have personally formulated the final interpretation expressed in this report and that the above diagnosis is based upon my examination of the slides and/or other material indicated in this report. +++Electronically Signed Out By+++ sk/09/25/2018 Interpreted by: Yumiko Astudillo MD, PhD Mariah De La Cruz M.D. Performing Organization Address City/State/Zipcode Phone Number [facility] [address] [place] [address] * SURGICAL PATHOLOGY (09/25/2018 12:33 PM ROOF MECHANIC) Only the most recent of 2 results within the time period is included. PATHOLOGY [email or web address] Department of Pathology and Laboratory Medicine [address] [place] [id number] Surgical Pathology Office:[phone] :[phone] SURGICAL PATHOLOGY REPORT NAME: SIS ALLEN SURG PATH #: [id number] MR #: [id number] SPECIMEN CLASS: SR BILLING #: [id number] ALT ID #:LOCATION: [facility] DATE OF PROCEDURE: 09/25/2018 AGE:52 SEX: F DATE RECEIVED: 09/25/2018 : 1965TIME RECEIVED:12:33 PHYSICIAN: DIANA YODER MD DATE OF REPORT: 10/01/2018 COPY TO: INOCENCIA TAN DATE OF PRINTIN10/01/2018 ############################## ############################## ############ Final Diagnosis: A. Squamous mucosa, "LLL lung mass", biopsy: Extensive necrosis and patchy acute inflammation. Negative for viable malignancy in this material. See comment. Comment: Special stains performed on block A1 for GMS and AFB are negative for fungal and acid-fast bacterial organisms. Clinical and radiologic correlation is recommended. Attestation: By this signature, I attest that I have personally formulated the final interpretation expressed in this report and that the above diagnosis is based upon my examination of the slides and/or other material indicated in this report. +++ +++ Florin Abel MD Resident lkr/09/29/2018 ############################## ############################## ############ Material Received: A: LLL lung mass History: 52-year-old female history of suspect recurrent NSCLC. Gross Description: A. Received in formalin labeled "LLL lung mass" is a 1.4 x 0.2 x 0.2 cm aggregate of irregular, pale doty soft tissue fragments. The specimen is entirely submitted in cassettes A1 and A2. (lmt) lt09/25/2018 Performing Organization Address City/State/Zipcode Phone Number [facility] [address] [place] [address] * BRONCHOSCOPY (09/25/2018 10:24 AM ROOF MECHANIC) Provation Patient Name: Sis CASE OTHER Report Procedure Date: 09/25/2018 RESULTS 10:24 AM CSN: [id number] Date of : 1965 Gender: Female Attending Physician: Diana Yoder MD Procedure: Bronchoscopy Indications: Personal history of lung cancer, Abnormal CT scan of chest Providers: Daina Yoder MD (Doctor), Inocencia Tan (Fellow), Matias Spaulding RN (Nurse), Inocencia Granger, Technologist (Program Developer) Referring Physician:Chapo Clovin Medications: Tetricaine 0.25%/Epinephrine 0.003% 10 mL nebulizer, Tetricaine 0.25%/Epinephrine 0.003% topically on airway mucosa 10 mL, General Anesthesia Complications: No immediate complications Findings: An endobronchial ultrasound endoscope was utilized in order to assist with fine needle aspiration and/or characterization of lymph node stations 4R, 4L, 10R, 10L, 11Rs, 11Ri, 11L and 7. Only the following lymphnode stations were determined to be larger than 5mm on EBUS and/or metabolically active on PET then sampled using EBUS FNA: Lymph Nodes: Lymph node sizing was performed via endobronchial ultrasound for suspected non-small cell lung cancer. Sampling by transbronchial needle aspiration was also performed 25 Gauge NonProcor in the subcarinal mediastinum (level 7) and left interlobar region (level 11L) and sent for routine cytology. - The 7 (subcarinal) node was 25 mm by EBUS. Six samples with the needle were obtained. - The 11L (interlobar) node was 8 mm by EBUS. Five samples with the needle were obtained. Rapid On-Site Evaluation (ANSELMO): - 7 (subcarinal): the cellularity of the specimen was adequate. - 11L (interlobar): preliminary cytology was suggestive of atypical cells (final results are pending). Endobronchial biopsies of an endobronchial papular pearly lesion were performed in the left lower lobe using a forceps and sent for histopathology examination. 8 were obtained. Brushings of a lesion were obtained in the left lower lobe with a cytology brush and sent for routine cytology. One sample was obtained. Washings were obtained in the left lower lobe and sent for routine cytology. The return was cellular. Impression: - Personal history of lung cancer - Abnormal CT scan of chest - Endobronchial ultrasound was performed. - Lymph node sizing and sampling was performed. - Rapid On-Site Evaluation (ANSELMO): Preliminary cytology was suggestive of the following: - 7 (subcarinal): the cellularity of the specimen was adequate. - 11L (interlobar): of atypical cells. (Final results are pending). - An endobronchial biopsy was performed. - Brushings were obtained. - Washings were obtained. Estimated Blood Loss: Estimated blood loss: none. Recommendation: - Await cytology results. Scope In: 10:54:51 AM Scope Out: 11:57:01 AM Attending Participation: I was present and participated during the entire procedure, including non-mckeon portions. MD Diana Mitchell MD 09/25/2018 1:21:14 PM The attending physician has electronically signed and finalized this document. Inocencia Tan, Number of Addenda: 0 Note Initiated On: 09/25/2018 10:24 AM Performing Organization Address City/State/Zipcode Phone Number OTHER RESULTS * TEST-URINE (09/25/2018 10:07 AM ROOF MECHANIC) Urine-HCG NEG [facility] Samples with Specific [place] <1.010 may result in a false negative test Specific 1.020 [facility] [place] Specimen Urine - Urine Performing Organization Address City/State/Zipcode Phone Number [facility] [address] [place] [address] * TELEMETRY STRIPS-SCAN (09/25/2018 12:00 AM ROOF MECHANIC) Narrative Performed At Ordered by an unspecified provider. * PROCEDURE RECORD-SCAN (09/25/2018 12:00 AM ROOF MECHANIC) Narrative Performed At Ordered by an unspecified provider. * FL ECG ROUTINE ECG W/LEAST 12 LDS W/I&R (09/24/2018) Narrative Performed At Performing Organization Address City/State/Zipcode Phone Number [facility] CLINIC * CHEST IMMEDIATE POST PROCEDURE INSP/EXP (08/31/2018 10:13 AM ROOF MECHANIC) Impressions Performed At No evidence of significant pneumothorax one hour after biopsy of the right [facility] adrenal nodule. Progressing atelectasis of the left lower lobe concerning for postobstructive atelectasis secondary to bronchial stenotic or bronchial occlusive lesion of the lower lobe bronchus. Finalized by Raymond Hanson M.D. on 08/31/2018 10:20 AM. Dictated by Raymond Hanson M.D. on 08/31/2018 10:14 AM. Narrative Performed At CHEST X-RAY INSPIRATION/EXPIRATION [facility] History: 1 hour post biopsy. Status post right adrenal biopsy, rule out pneumothorax Technique: Portable AP upright inspiratory and expiratory views of the chest were obtained Comparison: Comparison is made to a prior radiograph of 10/19/2017 Findings: There are persistent zones of atelectasis or scarring in the lower lobes bilaterally, left greater than right. The degree of atelectasis in the left lower lobe has progressed since the prior examination. There is hyperexpansion of the upper lobes with attenuation of vessels consistent with an element of COPD. A right [id number]-g-[id number] catheter remains in place with its tip at the level of the right atrium. There is no significant pleural fluid. No pneumothorax is identified. Performing Organization Address City/[facility] Phone Number [facility] * CT GUIDE NEEDLE PLACEMENT (08/31/2018 9:03 AM ROOF MECHANIC) Impressions Performed At 1. Successful CT-guided biopsy of right adrenal nodule. [facility] RESULTS 2. Three separate 18-gauge core biopsies were obtained and sent in formalin to surgical pathology. Lacho Naik M.D, the attending radiologist, was present for the critical and mckeon portions of the procedure with a midlevel, resident, and/or fellow participating.Overlapping portions were non mckeon and I was immediately available.I interpret the critical and mckeon portion of this procedure to have been needle positioning for core needle biopsy. @TT Approved by Remberto Douglas M.D. on 08/31/2018 3:10 PM By my electronic signature, I attest that I have personally reviewed the images for this examination and formulated the interpretations and opinions expressed in this report Finalized by Lacho Shepherd M.D. on 08/31/2018 4:24 PM. Dictated by Remberto Douglas M.D. on 08/31/2018 3:09 PM. Narrative Performed At CT GUIDED BIOPSY OF RIGHT ADRENAL NODULE [facility] RESULTS CLINICAL HISTORY:Lung cancer, right adrenal nodule MEDICATIONS:I was personally responsible for the administration of moderate sedation services during the procedure performed and I confirm requirements described in CPT section on moderate sedation were followed, including the use of an independent trained observer who had no other duties during the procedure.The drug(s) utilized were Versed and fentanyl. TECHNIQUE/FINDINGS: A brief history and physical was obtained and appropriate imaging was reviewed. The patient was provided an explanation of the procedure including risks and benefits. Informed written consent was then obtained. The patient was placed in prone position on the CT table. Limited scans through the abdomen were done to identify the right adrenal nodule. The patient's skin was marked with ink at the appropriate entry site. The entry site was then prepped and draped in the usual sterile fashion. Lidocaine was then injected in the subcutaneous tissues at this site. Position of the lesion was confirmed by CT measurements. A 15 cm 17/18 gauge Temno introducer needle was then advanced into the perinephric space and placement was confirmed by CT. 3 separate core biopsies were then obtained using an 18-gauge Temno needle and submitted in formalin for surgical pathology. A small amount of gelfoam slurry was injected for hemostasis prior to removal of the introducer needle.Limited post procedure CT scan demonstrates no evidence of post biopsy complication.The patient tolerated the procedure well and left the department in stable condition. Procedure Note Interface, Radiant Results - 08/31/2018 4:[address] GUIDED BIOPSY OF RIGHT ADRENAL NODULE CLINICAL HISTORY: Lung cancer, right adrenal nodule MEDICATIONS: I was personally responsible for the administration of moderate sedation services during the procedure performed and I confirm requirements described in CPT section on moderate sedation were followed, including the use of an independent trained observer who had no other duties during the procedure. The drug(s) utilized were Versed and fentanyl. TECHNIQUE/FINDINGS: A brief history and physical was obtained and appropriate imaging was reviewed. The patient was provided an explanation of the procedure including risks and benefits. Informed written consent was then obtained. The patient was placed in prone position on the CT table. Limited scans through the abdomen were done to identify the right adrenal nodule. The patient's skin was marked with ink at the appropriate entry site. The entry site was then prepped and draped in the usual sterile fashion. Lidocaine was then injected in the subcutaneous tissues at this site. Position of the lesion was confirmed by CT measurements. A 15 cm 17/18 gauge Temno introducer needle was then advanced into the perinephric space and placement was confirmed by CT. 3 separate core biopsies were then obtained using an 18-gauge Temno needle and submitted in formalin for surgical pathology. A small amount of gelfoam slurry was injected for hemostasis prior to removal of the introducer needle. Limited post procedure CT scan demonstrates no evidence of post biopsy complication. The patient tolerated the procedure well and left the department in stable condition. IMPRESSION 1. Successful CT-guided biopsy of right adrenal nodule. 2. Three separate 18-gauge core biopsies were obtained and sent in formalin to surgical pathology. ILacho M.D, the attending radiologist, was present for the critical and mckeon portions of the procedure with a midlevel, resident, and/or fellow participating. Overlapping portions were non mckeon and I was immediately available. I interpret the critical and mckeon portion of this procedure to have been needle positioning for core needle biopsy. @TT Approved by Remberto Douglas M.D. on 08/31/2018 3:10 PM By my electronic signature, I attest that I have personally reviewed the images for this examination and formulated the interpretations and opinions expressed in this report Finalized by Lacho Shepherd M.D. on 08/31/2018 4:24 PM. Dictated by Remberto Douglas M.D. on 08/31/2018 3:09 PM. Performing Organization Address City/State/Zipcode Phone Number [facility] RESULTS from Last 3 Months Insurance Type Payer Benefit Subscriber ID Effective Phone Address Plan / Dates Group Medicare MEDICARE MEDICARE xxxxxxxxxx 1996-P PART A AND resent B Medicaid [place] [employer] xxxxxxxxxxx 2010- STATE Present HEALTH Advance Directives Patient has advance care planning documents, and code status on file. For more information, please contact: [facility] [place] [place] [address] Date Inactivated Comments Code Status Date Activated 11/14/2018 2:59 PM Full Code 11/12/2018 10:37 PM Provider has discussed Code Status Yes w/Patient or Family? 11/12/2018 10:36 PM Full Code 11/12/2018 9:53 PM Provider has discussed Code Status No, more discussion w/Patient or Family? needed 09/13/2017 1:44 PM Full Code 09/11/2017 7:20 AM Provider has discussed Code Status Yes w/Patient or Family? 07/26/2016 5:29 PM Full Code 07/24/2016 4:54 PM Provider has discussed Code Status Yes w/Patient or Family?
--- OUTSIDE RECORDS SUMMARY | 2018-11-26 13:19 | XMS REPORT | Encounter Summary ---
Author Author [facility] Organization [facility] Address Unknown Phone Unavailable Care Team Providers Care Payable Manager Name Role Phone Derek Mccormick MD Unavailable Jose Daniel Mckeon MD Unavailable Angelita Caballero MD Unavailable Jakob Cole Unavailable Unavailable Yari Carias MA Unavailable Unavailable Mariah Espinoza Unavailable Unavailable Jennifer Mojica CAR REPAIR SUPERVISOR Unavailable Annie Macias MA Unavailable Unavailable Blessing Morin Unavailable Unavailable Parul De Los Santos MD Unavailable Ngozi Camarena PA-C Unavailable Lary Noguera MD 3 Kristen Gong MD PCP Unavailable Kristen Gong MD 100 Unavailable Reason for Visit * Reason Comments Heme/Onc Care Encounter Details Care Team Description Date Type Department Angely Huber, 10/29/2018 Clinical [facility] [address] [address] Social History Date Tobacco Use Types Packs/Day [...] Status Date of Assessment Functional Status Response 10/08/2018 Does the patient have a hearing impairment: [...] impairment: No documented as of this encounter Progress Notes * Mabel Hylton, PhD - 10/29/2018 2:55 PM LOCATION DIRECTOR Ms. Arias was seen by Angely Huber MS, psychology practicum student, on for a health and behavior intervention. The case was reviewed and discussed with the psychology trainee, and I agree with the findings and plan as documented in her note. Mabel Hylton, Ph.D. Licensed Psychologist and Clinical Manager Inpatient Clinical Brain Picker Pager [phone] TION DIRECTOR * Angely Huber, MS - 10/29/2018 2:55 PM LOCATION DIRECTOR Health and Behavior Assessment and Intervention CONFIDENTIAL : 1965 Date of Service: 10/29/2018 Time of Service: 10:30-10:55am Location of Service: [facility] Necessity of Service: Pt is a 52 y.o. female with adenocarcinoma of left lung. She was seen by this provider for Health and Behavior Assessment and Intervention as part of her medical care with her medical provider, Jaleesa Coyle. Review of Problem and Assessment: This assessment focused on the biological, psychological and social factors affecting the physical health and treatment plan of the patient. Pt reported feeling stressed, but did not endorse any significant symptoms of depression or anxiety. Pt reported sleep and appetite as poor, stating, Im not eating well because I cant swallow. Pt indicated that she is experiencing a lot of life stressors in addition to her current health condition. We discussed things the pt could do to alleviate her stress including, cooking, using adult coloring books, and riding her motorcycle when able. Introduced Onco-Psychology services and encouraged pt to contact the Onco-Psychology team for coping and symptom management if she experiences any significant anxiety or depression symptoms. Assessed for safety , and pt denied SI, plan, or intent, stating, "oh, no." MSE: Pt was alert and Ox4. Speech WNL. Thoughts lucid. Memory grossly intact. No evidence of AH/VH/HI or delusions. Pt denied SI, plan, or intent. Pt was cooperative and engaged in conversation. Mood was described as stressed with congruent affect. Plan of Care and Rationale: Pt was encouraged to engage in pleasurable activities to help alleviate stress. Pt was introduced with onco-psychology services and agreed to seek our services if the need arises. Medical Diagnosis: Adenocarcinoma of left lung [C34.90] Angely Huber M.A. Health Psychology Practicum Student Note: Services and documentation were provided under the supervision of a licensed psychologist. TION DIRECTOR documented in this encounter Plan of Treatment Not on filedocumented as of this encounter Visit Diagnoses Not on filedocumented in this encounter
--- OUTSIDE RECORDS SUMMARY | 2018-11-26 13:19 | XMS REPORT | Encounter Summary ---
Author Author [facility] Address Unknown Phone Unavailable Care Team Providers Care Dry Room Operator Name Role Phone Derek Mccormick MD Unavailable Jose Daniel Mckeon MD Unavailable Angelita Cbaallero MD Unavailable Jakob Cole Unavailable Unavailable Yari Carias MA Unavailable Unavailable Mariah Espinoza Unavailable Unavailable Jennifer Mojica PLANT CULTURE MANAGER Unavailable Annie Macias MA Unavailable Unavailable Blessing Morin Unavailable Unavailable Parul De Los Santos MD Unavailable Ngozi Camarena PA-C Unavailable Lary Noguera MD 3 Kristen Gong MD PCP Unavailable Kristen Gong MD 100 Unavailable Reason for Visit * Reason Comments Vomiting vomiting since Friday, chest pain, pt has hx of lung cancer and on chemotherapy. * Auth/Cert Referred By Contact Referred To Contact Status Reason Specialty Diagnoses / Procedures Diagnoses Intractable nausea and vomiting Encounter Details Care Team Description Date Type Department Andrew Molina MD [address] [facility] Emergency Dept [place], [place] [id number] Ollie Espinoza DO [address] [facility] [place], [place] [id number] Trav Sampson MD [address] [place] [address] [phone] Roberto Gauthier, JD [address] [place] [address] [phone] Intractable nausea and vomiting 11/12/2018 [facility] 11/14/[address] [place] [address] Social History Date Tobacco Use Types Packs/Day [...] history available. documented as of this encounter Last Filed Vital Signs Time Taken Vital Sign Reading 11/14/2018 11:02 AM DOUGH CATCHER Blood Pressure 96/51 11/14/2018 11:02 AM DOUGH CATCHER Pulse 109 11/14/2018 11:02 AM DOUGH CATCHER Temperature 37.2 C (99 F) - Respiratory Rate - 11/14/2018 11:02 AM DOUGH CATCHER Oxygen Saturation 93% - Inhaled Oxygen - Concentration 11/12/2018 9:55 PM DOUGH CATCHER Weight 85 kg (187 lb 6.3 oz) 11/12/2018 9:55 PM DOUGH CATCHER Height 162.6 cm (5' 4") 11/12/2018 9:55 PM DOUGH CATCHER Body Mass Index 32.17 documented in this encounter Functional Status Date of Assessment [...] impairment: No documented as of this encounter Discharge Summaries * Denia Queen MD - 11/14/2018 12:54 PM DOUGH CATCHER Physician Discharge Summary Name: Charlene Arias Date Of : 1965 Age: 52 years Admit date: 11/12/2018 Discharge date: 11/14/2018 Attending Physician: Denia Queen MD Service: [facility] 5573 Physician Summary completed by: Denia Queen MD Reason for hospitalization: 52-year-old F known COPD St IV NSCLCa who presented with a one-week history of intractable nausea and vomiting Significant PMH: Past Medical History: Diagnosis Date Anemia "comes [...] allergic rhinitis Seizures (HCC) x 1 ~2006 Allergies: Ancef [cefazolin] Brief Hospital Course: The patient was admitted and the following issues were addressed during this hospitalization: 52-year-old F known COPD St IV NSCLCa who presented with a one-week history of intractable nausea and vomiting Nausea and Emesis Etiology likely related to a viral gastroenteritis versus medication. 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 Most recently received a dose of Keytruda. A.m. cortisol level normal , TSH low but T4 normal. Oncology evaluated. Since improving symptoms, planned for supportive care. All her symptoms resolved. She was tolerating regular diet. No further diarrhea since hospitalization. She will follow up with oncology and pcp for further care. COPD/chronic respiratory failure Respiratory function at baseline no wheeze presently. 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 She will complete previously commenced prednisone taper Anemia Normocytic anemia no overt blood loss. Hemoglobin currently 9.0 continue to monitor. one marrow suppression from chemotherapy Adenocarcinoma of the lung Diagnosed in 2016 undergone wedge biopsy September 2017. Completed radiation therapy in February 2018. Completed 2 cycles of chemotherapy. Commenced on Keytruda in October [address] Colvin in the outpatient Condition at Discharge: Stable Discharge Diagnoses: Hospital Problems Active Problems * (Principal) Intractable nausea and vomiting Chronic hypoxemic respiratory failure (HCC) Malignant neoplasm of hilus of left lung (HCC) Bipolar depression (HCC) Surgical Procedures: None Significant Diagnostic Studies and Procedures: noted in brief hospital course Consults: Oncology Patient Disposition: Home Patient instructions/medications: Activity as Tolerated It is important to keep increasing your activity level after you leave the hospital. Moving around can help prevent blood clots, lung infection (pneumonia ) and other problems. Gradually increasing the number of times you are up moving around will help you return to your normal activity level more quickly. Continue to increase the number of times you are up to the chair and walking daily to return to your normal activity level. Begin to work toward your normal activity level at discharge Report These Signs and Symptoms Please contact your doctor if you have any of the following symptoms: temperature higher than 100 degrees F, uncontrolled pain, persistent nausea and/ or vomiting, difficulty breathing, chest pain, severe abdominal pain, headache, unable to urinate, unable to have bowel movement or drainage with a foul odor Questions About Your Stay For questions or concerns regarding your hospital stay. Call [phone] Discharging attending physician: DENIA QUEEN [[id number]] Regular Diet You have no dietary restriction. Please continue with a healthy balanced diet. Current Discharge Medication List CONTINUE these medications which have been CHANGED or REFILLED Details prednisone (DELTASONE) 5 mg tablet Take one tablet by mouth daily with breakfast for 4 days. Qty: 5 tablet, Refills: 0 PRESCRIPTION TYPE: Normal CONTINUE these medications which have NOT CHANGED Details albuterol (PROAIR HFA, VENTOLIN HFA, OR PROVENTIL HFA) 90 mcg/actuation inhaler Inhale two puffs by mouth into the lungs every 6 hours as needed for Wheezing or Shortness of Breath. Shake well before use. Qty: 18 g, Refills: 3 PRESCRIPTION TYPE: Normal Associated Diagnoses: Malignant neoplasm of lung, unspecified laterality, unspecified part of lung (HCC) albuterol-ipratropium (DUO-NEB, DUO-VENT) 0.5 mg-3 mg(2.5 mg base)/3 mL nebulizer solution Inhale 3 mL solution by nebulizer as directed four times daily. Qty: 3 ampule, Refills: 1 PRESCRIPTION TYPE: Normal ALPRAZolam (XANAX) 1 mg tablet Take one tablet by mouth three times daily as needed for Anxiety. Qty: 90 tablet, Refills: 0 PRESCRIPTION TYPE: Print Associated Diagnoses: Malignant neoplasm of lung, unspecified laterality, unspecified part of lung (HCC); Anxiety aspirin EC 81 mg tablet Take 1 tablet by mouth daily. Take with food. Qty: 90 tablet, Refills: 3 PRESCRIPTION TYPE: No Print sotkxgatjgl-cetffmkoz-vwplmoud (TRELEGY ELLIPTA) 100-62.5-25 mcg dsdv Inhale 1 puff by mouth into the lungs daily. Qty: 1 each, Refills: 11 PRESCRIPTION TYPE: Normal Associated Diagnoses: Chronic bronchitis, unspecified chronic bronchitis type ( HCC) folic acid (FOLVITE) 1 mg tablet Take 1 tablet by mouth daily. Qty: 30 tablet, Refills: 3 PRESCRIPTION TYPE: Normal Associated Diagnoses: Malignant neoplasm of hilus of left lung (HCC) gabapentin (NEURONTIN) 100 mg capsule Take one capsule by mouth at bedtime daily. Qty: 90 capsule, Refills: 3 PRESCRIPTION TYPE: Normal ondansetron (ZOFRAN) 8 mg tablet Take 1 tablet by mouth every 8 hours as needed (nausea and vomiting). Qty: 30 tablet, Refills: 3 PRESCRIPTION TYPE: Normal Associated Diagnoses: Malignant neoplasm of hilus of left lung (HCC) oxyCODONE (ROXICODONE, OXY-IR) 5 mg tablet Take 1 to 2 tablets by mouth every 6 hours as needed for Pain Qty: 75 tablet, Refills: 0 PRESCRIPTION TYPE: Print Associated Diagnoses: Pain prochlorperazine maleate (COMPAZINE) 10 mg tablet Take one tablet by mouth every 6 hours as needed for Nausea or Vomiting. Qty: 50 tablet, Refills: 3 PRESCRIPTION TYPE: Normal Scheduled appointments: Nov 19, 2018 1:00 PM CDT (Arrive by 12:45 PM) Lab with LL2 NURSE CHAIR [facility] Exam ([facility] Exam) [address] [address] Nov 19, 2018 2:00 PM CDT (Arrive by 1:45 PM) Return Patient with Chapo Colvin MD [facility] ([facility] Exam) [facility] [address] [place] [phone] Nov 19, 2018 3:15 PM CDT (Arrive by 3:00 PM) Treatment 02 Hour with CC [facility] TREATMENT [facility] Treatment ([facility] Treatment) [place] [address] [address] [place] [phone] Dec 10, 2018 9:00 AM CDT (Arrive by 8:45 AM) Nurse Lab Visit with LL2 NURSE CHAIR [facility] ([facility] Exam) [address] [address] Dec 10, 2018 10:00 AM CDT (Arrive by 9:45 AM) Return Patient with Jaleesa Coyle APRN [facility] ([facility] Exam) [address] [address] Dec 10, 2018 11:15 AM CDT (Arrive by 11:00 AM) Treatment 02 Hour with CC [facility] TREATMENT [facility] Treatment ([facility] Treatment) [place] [address] [place] [phone] Feb 10, 2019 9:00 AM CDT Return Patient with Kristen Gong MD [facility] - Internal Medicine (Internal Medicine) [address] [facility] [address] Mar 23, 2019 8:50 AM CDT Return Patient with Parul De Los Santos MD [facility] - [facility] Medicine (Internal Medicine) [address] [facility] [id number] Signed: Denia Queen MD 11/16/2018 cc: Primary Care Physician: Kristen Gong Referring physicians: Self, Referral Additional provider(s): documented in this encounter Medications at Time of Discharge Start Date End Date Medication Sig Dispensed Refills 05/19/2018 albuterol (PROAIR HFA, Inhale two 18 g 3 VENTOLIN HFA, OR puffs by PROVENTIL HFA) 90 mouth into mcg/actuation the lungs inhalerIndications: every 6 hours Malignant neoplasm of as needed for lung, unspecified Wheezing or laterality, unspecified Shortness of part of lung (HCC) Breath. Shake well before use. 10/22/2018 albuterol-ipratropium Inhale 3 mL 3 ampule 1 (DUO-NEB, DUO-VENT) 0.5 solution by mg-3 mg(2.5 mg base)/3 mL nebulizer as nebulizer solution directed four times daily. 10/08/2018 ALPRAZolam (XANAX) 1 mg Take one 90 tablet 0 tabletIndications: tablet by Malignant neoplasm of mouth three lung, unspecified times daily laterality, unspecified as needed for part of lung (HCC), Anxiety. Anxiety 07/15/2017 aspirin EC 81 mg tablet Take 1 tablet 90 tablet 3 by mouth daily. Take with food. 04/07/2018 ulnefylbqxv-acclkozbn-bey Inhale 1 puff 1 each 11 anter (TRELEGY ELLIPTA) by mouth into 100-62.5-25 mcg the lungs dsdvIndications: Chronic daily. bronchitis, unspecified chronic bronchitis type (HCC) 04/08/2018 folic acid (FOLVITE) 1 mg Take 1 tablet 30 tablet 3 tabletIndications: by mouth Malignant neoplasm of daily. hilus of left lung (HCC) 09/23/2018 gabapentin (NEURONTIN) Take one 90 capsule 3 100 mg capsule capsule by mouth at bedtime daily. 04/08/2018 ondansetron (ZOFRAN) 8 mg Take 1 tablet 30 tablet 3 tabletIndications: by mouth Malignant neoplasm of every 8 hours hilus of left lung (HCC) as needed (nausea and vomiting). 10/08/2018 oxyCODONE (ROXICODONE, Take 1 to 2 75 tablet 0 OXY-IR) 5 mg tablets by tabletIndications: Pain mouth every 6 hours as needed for Pain 05/19/2018 prochlorperazine maleate Take one 50 tablet 3 (COMPAZINE) 10 mg tablet tablet by mouth every 6 hours as needed for Nausea or Vomiting. 11/15/2018 11/19/2018 prednisone (DELTASONE) 5 Take one 5 tablet 0 mg tablet tablet by mouth daily with breakfast for 4 days. documented as of this encounter Progress Notes * Do Bolton RN - 11/14/2018 12:54 PM DOUGH CATCHER Charlene Arias discharged on 11/14/2018. . Discharge instructions reviewed with patient and family. Valuables returned: Personal Items / Valuables: Cell Phone, Eyeglasses/Contacts, Dentures, Clothing Denture Type: Full upper, Full lower. Home medications: N/A . Functional assessment at discharge complete: Yes . Prescriptions delivered via PCS. Addressed questions/concerns. Port de- accessed. Pt left unit via wheelchair at 1255. H CATCHER * Denia Queen MD - 11/14/2018 7:48 AM DOUGH CATCHER General Progress Note Admission Date: 11/12/2018 LOS: 2 days Assessment/Plan: Principal Problem: Intractable nausea and vomiting Active Problems: Chronic hypoxemic respiratory failure (HCC) Malignant neoplasm of hilus of left lung (HCC) Bipolar depression (HCC) 52-year-old F known COPD St IV NSCLCa who presented with a one-week history of intractable nausea and vomiting Nausea and Emesis Etiology likely related to a viral gastroenteritis versus medication. 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 Most recently received a dose of Keytruda. A.m. cortisol level normal , TSH low but T4 normal. Oncology evaluated. Since improving symptoms, planned for supportive care. All her symptoms resolved. She was tolerating regular diet. No further diarrhea since hospitalization. She will follow up with oncology and pcp for further care. COPD/chronic respiratory failure Respiratory function at baseline no wheeze presently. 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 She will complete previously commenced prednisone taper Anemia Normocytic anemia no overt blood loss. Hemoglobin currently 9.0 continue to monitor. one marrow suppression from chemotherapy Adenocarcinoma of the lung Diagnosed in 2016 undergone wedge biopsy September 2017. Completed radiation therapy in February 2018. Completed 2 cycles of chemotherapy. Commenced on Keytruda in October [address] Colvin in the outpatient Disp -discharge to home today. ATTESTATION Total floor unit time 40 minutes performing discharge service. Time spent in evaluating patient and coordinating discharge. Staff name: Denia Queen MD Date: 11/14/2018 Subjective No acute events overnight. No Nausea or vomiting. No diarrhea. She feels like she is 100% better and anxious to go home. Medications Scheduled Meds: albuterol 0.5% (PROVENTIL; VENTOLIN) nebulizer solution 2.5 mg 2.5 mg Inhalation TID & PRN enoxaparin (LOVENOX) syringe 40 mg 40 mg Subcutaneous QDAY(21) flzfzjymxrm-zkipwckjh-eugudvwy (TRELEGY ELLIPTA) 100-62.5-25 mcg dsdv 1 puff [ Patient's Own Medication] 1 puff Inhalation QDAY ipratropium bromide (ATROVENT) 0.02 % nebulizer solution 0.5 mg 0.5 mg Inhalation TID & PRN pantoprazole DR (PROTONIX) tablet 40 mg 40 mg Oral QDAY(21) prednisone (DELTASONE) tablet 5 mg 5 mg Oral QDAY w/breakfast Continuous Infusions: dextrose 5 % & 0.9% NaCl with KCl 20 mEq/L infusion 125 mL/hr at 11/14/18 0541 PRN and Respiratory Meds:acetaminophen/lidocaine/antacid DS(#) Q6H PRN, ALPRAZolam TID PRN, ondansetron (ZOFRAN) IV Q6H PRN, oxyCODONE Q6H PRN, prochlorperazine maleate Q6H PRN Objective Vital Signs: Last Filed Vital Signs: 24 Hour Range BP: 98/50 (11/14 644) Temp: 37.4 C (99.4 F) (11/14 644) Pulse: 123 (11/14 644) Respirations: 18 PER MINUTE (11/14 644) SpO2: 92 % (11/14 644) O2 Delivery: None (Room Air) (11/14 644) BP: (96-126)/(50-64) Temp: [36.7 C (98.1 F)-37.4 C (99.4 F)] Pulse: [97-123] Respirations: [16 PER MINUTE-20 PER MINUTE] SpO2: [92 %-100 %] O2 Delivery: None (Room Air) Intensity Pain Scale (Self Report): Asleep (11/14/18 0015) Vitals: 11/12/18 1249 11/12/18 2155 Weight: 86.6 kg (191 lb) 85 kg (187 lb 6.3 oz) Intake/Output Summary: (Last 24 hours) Intake/Output Summary (Last 24 hours) at 11/14/2018 0748 Last data filed at 11/14/2018 0415 Gross per 24 hour Intake 2797 ml Output 1760 ml Net 1037 ml Stool Occurrence: 1 Physical Exam General appearance: fatigued, well-developed, cooperative and no distress Neurologic: Grossly normal Lungs: clear to auscultation bilaterally Heart: regular rate and rhythm, S1, S2 normal, no murmur, click, rub or gallop Abdomen: soft, non-tender. Bowel sounds normal. No masses, no organomegaly Extremities: extremities normal, atraumatic, no cyanosis or edema Lab Review CBC w/Diff Lab Results Component Value Date/Time WBC 9.4 11/12/2018 11:48 PM RBC 3.03 (L) 11/12/2018 11:48 PM HGB 9.0 (L) 11/12/2018 11:48 PM HCT 26.6 (L) 11/12/2018 11:48 PM MCV 87.8 11/12/2018 11:48 PM MCH 29.7 11/12/2018 11:48 PM MCHC 33.8 11/12/2018 11:48 PM RDW 16.2 (H) 11/12/2018 11:48 PM PLTCT 207 11/12/2018 11:48 PM MPV 8.9 11/12/2018 11:48 PM Lab Results Component Value Date/Time NEUT 82 (H) 11/12/2018 02:15 PM ANC 10.50 (H) 11/12/2018 02:15 PM LYMA 8 (L) 11/12/2018 02:15 PM ALC 1.00 11/12/2018 02:15 PM MARGARITA 9 11/12/2018 02:15 PM AMC 1.10 (H) 11/12/2018 02:15 PM EOSA 1 11/12/2018 02:15 PM AEC 0.10 11/12/2018 02:15 PM BASA 0 11/12/2018 02:15 PM ABC 0.00 11/12/2018 02:15 PM Comprehensive Metabolic Profile Lab Results Component Value Date/Time NA 138 11/14/2018 04:25 AM K 4.4 11/14/2018 04:25 AM CL 104 11/14/2018 04:25 AM CO2 28 11/14/2018 04:25 AM GAP 6 11/14/2018 04:25 AM BUN 5 (L) 11/14/2018 04:25 AM CR 0.64 11/14/2018 04:25 AM GLU 130 (H) 11/14/2018 04:25 AM GLU 95 01/25/2016 10:32 AM Lab Results Component Value Date/Time CA 8.0 (L) 11/14/2018 04:25 AM PO4 3.1 11/12/2018 02:15 PM ALBUMIN 2.5 (L) 11/14/2018 04:25 AM TOTPROT 5.1 (L) 11/14/2018 04:25 AM ALKPHOS 79 11/14/2018 04:25 AM AST 43 (H) 11/14/2018 04:25 AM ALT 33 11/14/2018 04:25 AM TOTBILI 0.2 (L) 11/14/2018 04:25 AM GFR >60 11/14/2018 04:25 AM GFRAA >60 11/14/2018 04:25 AM Point of Care Testing (Last 24 hours) Glucose: (!) 130 Hemoccult: Negative Radiology and other Diagnostics Review: CT Scan Abd/Pelvis - Impression 1. No abdominopelvic inflammatory mass, bowel obstruction, [...] 5. Mild distal colonic diverticulosis without diverticulitis. Denia Queen MD [employer] [facility] [address] H CATCHER * Roberto Gauthier, [facility] - 11/13/2018 11:41 AM DOUGH CATCHER General Progress Note Admission Date: 11/12/2018 LOS: 1 day Assessment/Plan: Principal Problem: Intractable nausea and vomiting Active Problems: Chronic hypoxemic respiratory failure (HCC) Malignant neoplasm of hilus of left lung (HCC) Bipolar depression (HCC) 52-year-old F known COPD St IV NSCLCa who presented with a one-week history of intractable nausea and vomiting Nausea and Emesis -Etiology likely related to a viral gastroenteritis versus medication -CT abdomen did not show any obstructive lesions-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 cortisol level normal , TSH low but T4 normal -With improvement in symptoms will advance diet as tolerated -We will discontinue IV fluids encourage oral hydration FEN -Hypovolemic hyponatremia slowly resolving -IV fluids discontinued as noted above -Continue cardiac diet COPD/chronic respiratory failure -Respiratory function at baseline no wheeze presently -Patient had baseline oxygen requirement -We will maintain current duo nebs and Trelegy Ellipta -Will complete previously commenced prednisone taper Anemia -Normocytic anemia no overt blood loss -Hemoglobin currently 9.0 continue to monitor -Bone marrow suppression from chemotherapy Adenocarcinoma of the lung -Diagnosed in 2016 undergone wedge biopsy September 2017 -Completed radiation therapy in February 2018 -Completed 2 cycles of chemotherapy -Commenced on Keytruda in October [address] Colvin in the outpatient Ppx - Lovenox Code - Full Code Disp -remains inpatient this encounter took 40 minutes reviewing chart labs radiology examining patient and counseling on plan of care 20 minutes spent face -to-face with the patient Subjective Stable this a.m. has tolerated clear liquids without any episodes of nausea or emesis denies any abdominal pain presently Medications Scheduled Meds: albuterol 0.5% (PROVENTIL; VENTOLIN) nebulizer solution 2.5 mg 2.5 mg Inhalation TID & PRN enoxaparin (LOVENOX) syringe 40 mg 40 mg Subcutaneous QDAY(21) ikvruvhvwew-tqilyvycz-lfuzibxu (TRELEGY ELLIPTA) 100-62.5-25 mcg dsdv 1 puff [ Patient's Own Medication] 1 puff Inhalation QDAY ipratropium bromide (ATROVENT) 0.02 % nebulizer solution 0.5 mg 0.5 mg Inhalation TID & PRN pantoprazole DR (PROTONIX) tablet 40 mg 40 mg Oral QDAY(21) [START ON 11/14/2018] prednisone (DELTASONE) tablet 5 mg 5 mg Oral QDAY w/ breakfast Continuous Infusions: dextrose 5 % & 0.9% NaCl with KCl 20 mEq/L infusion 125 mL/hr at 11/13/18 1237 PRN and Respiratory Meds:acetaminophen/lidocaine/antacid DS(#) Q6H PRN, ALPRAZolam TID PRN, ondansetron (ZOFRAN) IV Q6H PRN, oxyCODONE Q6H PRN, prochlorperazine maleate Q6H PRN Objective Vital Signs: Last Filed Vital Signs: 24 Hour Range BP: 96/50 (11/13 1830) Temp: 36.8 C (98.2 F) (11/13 1829) Pulse: 102 (11/13 1829) Respirations: 20 PER MINUTE (11/13 1829) SpO2: 93 % (11/13 1829) O2 Delivery: Nasal Cannula (11/13 1829) Height: 162.6 cm (64") (11/12 2154) BP: (78-123)/(43-72) Temp: [36.7 C (98.1 F)-37.2 C (99 F)] Pulse: [92-117] Respirations: [11 PER MINUTE-20 PER MINUTE] SpO2: [92 %-97 %] O2 Delivery: Nasal Cannula Intensity Pain Scale (Self Report): 7 (11/13/182106) Vitals: 11/12/18 1249 11/12/182154 Weight: 86.6 kg (191 lb) 85 kg (187 lb 6.3 oz) Intake/Output Summary: (Last 24 hours) Intake/Output Summary (Last 24 hours) at 11/13/20182126 Last data filed at 11/13/2018 193 Gross per 24 hour Intake 2690 ml Output 1500 ml Net 1190 ml Physical Exam General appearance: fatigued, well-developed, cooperative and no distress Neurologic: Grossly normal Lungs: clear to auscultation bilaterally Heart: regular rate and rhythm, S1, S2 normal, no murmur, click, rub or gallop Abdomen: soft, non-tender. Bowel sounds normal. No masses, no organomegaly Extremities: extremities normal, atraumatic, no cyanosis or edema Lab Review CBC w/Diff Lab Results Component Value Date/Time WBC 9.4 11/12/2018 11:48 PM RBC 3.03 (L) 11/12/2018 11:48 PM HGB 9.0 (L) 11/12/2018 11:48 PM HCT 26.6 (L) 11/12/2018 11:48 PM MCV 87.8 11/12/2018 11:48 PM MCH 29.7 11/12/2018 11:48 PM MCHC 33.8 11/12/2018 11:48 PM RDW 16.2 (H) 11/12/2018 11:48 PM PLTCT 207 11/12/2018 11:48 PM MPV 8.9 11/12/2018 11:48 PM Lab Results Component Value Date/Time NEUT 82 (H) 11/12/2018 02:15 PM ANC 10.50 (H) 11/12/2018 02:15 PM LYMA 8 (L) 11/12/2018 02:15 PM ALC 1.00 11/12/2018 02:15 PM MARGARITA 9 11/12/2018 02:15 PM AMC 1.10 (H) 11/12/2018 02:15 PM EOSA 1 11/12/2018 02:15 PM AEC 0.10 11/12/2018 02:15 PM BASA 0 11/12/2018 02:15 PM ABC 0.00 11/12/2018 02:15 PM Comprehensive Metabolic Profile Lab Results Component Value Date/Time NA 130 (L) 11/12/2018 02:15 PM K 3.3 (L) 11/12/2018 02:15 PM CL 92 (L) 11/12/2018 02:15 PM CO2 28 11/12/2018 02:15 PM GAP 10 11/12/2018 02:15 PM BUN 7 11/12/2018 02:15 PM CR 0.61 11/12/2018 02:15 PM GLU 109 (H) 11/12/2018 02:15 PM GLU 95 01/25/2016 10:32 AM Lab Results Component Value Date/Time CA 9.5 11/12/2018 02:15 PM PO4 3.1 11/12/2018 02:15 PM ALBUMIN 3.4 (L) 11/12/2018 02:15 PM TOTPROT 7.1 11/12/2018 02:15 PM ALKPHOS 95 11/12/2018 02:15 PM AST 38 11/12/2018 02:15 PM ALT 35 11/12/2018 02:15 PM TOTBILI 0.6 11/12/2018 02:15 PM GFR >60 11/12/2018 02:15 PM GFRAA >60 11/12/2018 02:15 PM Point of Care Testing (Last 24 hours) Glucose: (!) 109 Hemoccult: Negative Radiology and other Diagnostics Review: CT Scan Abd/Pelvis - Impression 1. No abdominopelvic inflammatory mass, bowel obstruction, [...] 5. Mild distal colonic diverticulosis without diverticulitis. Breanna Mccarthy [facility] P[address] 5573 H CATCHER * Idalia Raymond PHARMD - 11/13/2018 6:12 AM DOUGH CATCHER Pharmacy Note: Patient's Own Medication The following medication has been identified by pharmacy and placed in the secure medication room for storage: wyxhpzklzqz-cwsbheionais-usjoilskiu (TRELEGY ELLIPTA) 100-62.5-25 mcg inhalation disk Lot: [id number] Exp: The patient may use their own supply of this medication during this admission. All doses should be administered and documented per hospital policy. Idalia Raymond PharmEder, JESSICA [phone] H CATCHER * Sakshi Casey, RN - 11/13/2018 1:50 AM DOUGH CATCHER Pt BP 78/43. Text page sent to [facility] Teaching pager [phone]. Awaiting orders. H CATCHER * Roberto Aparicio, RT - 11/12/2018 10:58 PM DOUGH CATCHER RT Adult Assessment Note NAME:Charlene Arias :1965 AGE: 52 y.o. ADMISSION DATE: 11/12/2018 DAYS ADMITTED: LOS: 0 days RT Treatment Plan: Protocol Plan: Medications Albuterol: Neb TID Ipratropium: Neb TID Protocol Plan: Procedures IPPB: Place a nursing order for "IS Q1h While Awake" for any of Lung Expansion indicators Oxygen/Humidity: O2 to keep SpO2 > 95%(Hbg 7.8(11/12)) Monitoring: Pulse oximetry BID & PRN Comment: Hx Bronchitis w/Tx TID@ home.Lonnie Additional Comments: Impressions of the patient: Alert no distress Intervention(s)/outcome(s): oxygen 2Lpm Patient education that was completed: Tx frequency Recommendations to the care team: None Vital Signs: Pulse: 112 RR: 16 PER MINUTE SpO2: 95 % O2 Device: Cannula Liter Flow: 2 lpm O2%: Breath Sounds: Clear (implies normal);Decreased;Coarse crackles Respiratory Effort: Non-Labored H CATCHER * Jenni Stoner RN - 11/12/2018 9:51 PM DOUGH CATCHER Patient arrived to room # 5320 via cart accompanied by organic section technical lead. Patient transferred to the bed with assistance. Bedside safety checks completed. Initial patient assessment completed, refer to flowsheet for details. Admission skin assessment completed by: JOSH Arteaga and JOSH Cantor Pressure Injury Present on Hospital Admission (within 24 hours): No 1. Occiput: No 2. Ear: No 3. Scapula: No 4. Spinous Process: No 5. Shoulder: No 6. Elbow: No 7. Iliac Crest: No 8. Sacrum/Coccyx: No 9. Ischial Tuberosity: No 10. Trochanter: No 11. Knee: No 12. Malleolus: No 13. Heel: No 14. Toes: No 15. Assessed for device associated injury Yes 16. Nursing Nutrition Assessment Completed Yes See Doc Flowsheet for additional wound details. H CATCHER documented in this encounter H&P Notes * Ge Wong MD - 11/12/2018 10:39 PM DOUGH CATCHER Admission History and Physical Examination Name: Charlene Arias Admission Date: 11/12/2018 Assessment/Plan: Active Problems: Intractable nausea and vomiting Intractable Nausea and Vomiting -Most likely viral gastroenteritis given the diarrhea. Also could be due to Keytruda. Nausea is listed as a side effect -No belly pain, hematemesis or headache -CT abdomen on admission shows new adrenal lesion -TSH 0.22 on 10/29/18. No mention of thyroid issues in her pmh -TSH is low. PLAN >D5NS w/ 20meq potassium @ 125ml/hr >Consult Oncology >CLD >AM cortisol >Free T4 pending >Zofran PRN. QTc 430 Normocytic Anemia -Hgb 7.8 from 11.5 on 10/29/18 -No hematemesis, black or bloody stools -Most likely 2/2 Keytruda. Will r/o destruction PLAN >LDH, haptoglobin, peripheral smear >Retic count >INR >Oncology consult >repeat CBC when up on floor COPD -No acute exacerbation -at baseline o2 requirement of 2L -wheezy on exam -chronic cough without recent worsening -Takes Trelegy and duonebs at home. She has been taking albuterol 2-3 times per day -Follows with Dr. De Los Santos -PFT 05/2017: mild obstructive defect with air trapping and mild uncorrected diffusion defect PLAN >Continue [employer] trelegy and duonebs Hyponatremia -most likely hypovolemic hyponatremia. Differential includes medication effect of Keytruda vs SIADH -Baseline is 140 >s/p 2L in ED PLAN >Urine studies >IVF as above Elevated INR -INR 1.6 on admission -previously normal most recently in September -Patient has hx of treated HCV -Reportedly had liver Bx at [facility] showing no cirrhosis -Denies bleeding. Denies melena, hematochezia and hematemesis PLAN >PTT, Fibrinogen, peripheral smear ordered Leukocytosis -Most likely hemoconcentration -No infectious symptoms: No cough, SOB, dysuria, headache, abdominal pain PLAN >Will recheck CBC once she arrives on floor Hypokalemia -2/2 poor PO intake and dehydration PLAN >replete as necessary. IVFs as above Hypomagnesemia -2/2 poor PO intake PLAN >replet as necessary. Daily monitoring. Stage IV adenocarcinoma of the lung Anxiety -First noticed on CXR. CT first demonstrated in 2016. Underwent wedge biospy on 09/11/2017 showing poorly differentiated adenocarcinoma. Formal lobectomy not performed due to COPD. Underwent EBUS abd Bx on 01/05 demonstrating adenocarcinoma present in mediastinal lymph nodes. Underwent radiation from 02/19-02/27/18. Received Permetrexed and Carboplatin 2 cycles starting 06/02/18. Was paused for a COPD exacerbation. Started Keytruda on 10/29/18 because PDL1 is 60% -Follows with Dr. Colvin PLAN >consult oncology >Continue [employer] xanax. >continue [employer] prednisone taper. Fluids, electrolytes and Nutrition: IVF: No IVF Electrolytes: replacing prn Diet: CLD. Prophylaxis: DVT: Lovenox Code status: FULL Disposition: [facility] Patient seen and discussed with Dr. Leoncio Wong MD __ Primary Care Physician: Kristen Gong Verified Chief Complaint: Intractable Nausea and Vomiting History of Present Illness: Charlene Arias is a 52 y.o. female with the active problems of COPD and stage IV adenocarcinoma of the lung presents for a week of intractable nausea and vomiting. Patient says that on Friday she started vomiting everything that she try to eat. Over a few days a got little bit worse to where she was not able to take anything by mouth. During the week before admission she was only able to get down a bowl of 40 tiffanie. Around that time she started having watery diarrhea and this subsided 3 days ago. She has Zofran and Compazine at home and these did not help. Patient initially links her chronic cough with the vomiting but on further questioning it appears she vomits most often after taking anything by mouth. The vomitus is undigested food. It is nonbilious and nonbloody. She denies black or bloody stools. She denies abdominal pain. 2 weeks ago she was started on Keytruda. She has had nausea and vomiting after chemotherapy in the past but this usually subsided after a couple of days. She has had fevers and chills but denies dysuria and increased cough. In the ED patient was found to be anemic with a hemoglobin of 7.8. On 2018 her hemoglobin was 11.5. She denies bleeding of any sort as described above. Patient says she is faithfully taking her inhalers and takes her albuterol 2-3 times a day. This has increased within the last 2 weeks. She says she is taking it more often to help with the cough and does not feel more dyspneic. Past Medical History: Diagnosis Date Anemia "comes [...] ~2006 Past Surgical History: Procedure Laterality Date IN [facility] EBUS GUIDED SAMPL 3/> NODE STATION/STRUX Left 01/22/2017 BRONCHOSCOPY WITH ULTRASOUND performed by Tomy Arnett MD at ENDO/GI PERCUTANEOUS CORONARY INTERVENTION N/A 07/30/2017 Possible Percutaneous Coronary Intervention performed by Abdiel Augustine MD at [facility] THORACOSCOPY Left 09/11/2017 LEFT VIDEO ASSISTED THORACOSCOPY, LEFT LOWER LOBECTOMY performed by Marko Pat MD at OR LUNG SURGERY Left 09/11/2017 LLL wedge resection showed poorly differentiated adenocarcinoma. pT2N0 PD-L1 60 %. BRONCHOSCOPY N/A 01/05/2018 BRONCHOSCOPY WITH ULTRASOUND performed by Tomy Arnett MD at ENDO/GI BRONCHOSCOPY N/A 09/25/2018 BRONCHOSCOPY WITH ENDOBRONCHIAL ULTRASOUND GUIDED TRANSTRACHEAL/ TRANSBRONCHIAL SAMPLING - 3 OR MORE MEDIASTINAL/ HILAR LYMPH NODE STATIONS/ STRUCTURE - FLEXIBLE performed by Clinton Hart MD at [facility] OR/Periop HAND SURGERY Bilateral HAND SURGERY Left left index amputation due to burn injury and ischemia from Raynaud's HX FRACTURE TX x2 numerous faciual fractures HX TUBAL LIGATION KNEE SURGERY Left arthroscopy IN UNLISTED PROCEDURE HANDS/FINGERS x8 SYMPATHECTOMY Family History Problem Relation Age of Onset Emphysema Mother from cancer but does not know the primary stie. Cancer-Lung Sister 57 Social History Socioeconomic History Marital status: Spouse name: Not on file Number of children: 4 Years of education: 15 Highest education level: Not on file Social Needs Financial resource strain: Not on file Food insecurity - worry: Not on file Food insecurity - inability: Not on file Transportation needs - medical: Not on file Transportation needs - non-medical: Not on file Occupational History Occupation: [email or web address] business Comment: disabled. 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 No pets Immunizations (includes history and patient reported): Immunization History Administered Date(s) Administered Flu Vaccine=>6 Months Quadrivalent PF 07/01/2018 Flu Vaccine Quadrivalent=>3 Yo (Preservative Free) 07/25/2016 Allergies: Ancef [cefazolin] Medications: Medications Prior to Admission Medication Sig acetaminophen (TYLENOL) 500 mg tablet Take 2 tablets by mouth every 6 hours while awake. Max of 4,000 mg of acetaminophen in 24 hours. albuterol (PROAIR HFA, VENTOLIN HFA, OR PROVENTIL HFA) 90 mcg/actuation inhaler Inhale two puffs by mouth into the lungs every 6 hours as needed for Wheezing or Shortness of Breath. Shake well before use. albuterol 0.083% (PROVENTIL; VENTOLIN) 2.5 mg /3 mL (0.083 %) nebulizer solution Inhale 3 mL solution by nebulizer as directed every 6 hours as needed for Wheezing or Shortness of Breath. albuterol-ipratropium (DUO-NEB, DUO-VENT) 0.5 mg-3 mg(2.5 mg base)/3 mL nebulizer solution Inhale 3 mL solution by nebulizer as directed four times daily. ALPRAZolam (XANAX) 1 mg tablet Take one tablet by mouth three times daily as needed for Anxiety. aspirin EC 81 mg tablet Take 1 tablet by mouth daily. Take with food. ( Patient taking differently: Take 81 mg by mouth at bedtime daily. Take with food.) azithromycin (ZITHROMAX) 250 mg tablet Take one tablet by mouth daily. . lionbyghrhl-rhvrvxtof-vsxeubfk (TRELEGY ELLIPTA) 100-62.5-25 mcg dsdv Inhale 1 puff by mouth into the lungs daily. folic acid (FOLVITE) 1 mg tablet Take 1 tablet by mouth daily. gabapentin (NEURONTIN) 100 mg capsule Take one capsule by mouth at bedtime daily. guaifenesin (MUCINEX PO) Take 1 tablet by mouth every 4 hours as needed. loperamide (IMODIUM A-D) 2 mg capsule Take 2 mg by mouth as Needed for Diarrhea. Take 2 capsules by mouth initially, followed by 1 capsule by mouth after each loose stool up to a maximum of 8 tablets in 24 hours. milk of magnesia (CONC) 2,400 mg/10 mL oral suspension Take 10 mL by mouth daily. (Patient taking differently: Take 10 mL by mouth daily as needed.) NIFEdipine XL (PROCARDIA-XL) 60 mg tablet Take 60 mg by mouth at bedtime daily. ondansetron (ZOFRAN) 8 mg tablet Take 1 tablet by mouth every 8 hours as needed (nausea and vomiting). oxyCODONE (ROXICODONE, OXY-IR) 5 mg tablet Take 1 to 2 tablets by mouth every 6 hours as needed for Pain prednisone (DELTASONE) 10 mg tablet Take one tablet by mouth daily with breakfast. 60mg x7days, then 40mg x 7d, then 30mg x7d, then 20mg x7,then 10mg xd , then 5mg x7 d then stop. prochlorperazine maleate (COMPAZINE) 10 mg tablet Take one tablet by mouth every 6 hours as needed for Nausea or Vomiting. Review of Systems: Review of Systems Constitutional: Positive for chills, fever, malaise/fatigue and weight loss. HENT: Negative. Eyes: Negative. Respiratory: Positive for cough, sputum production, shortness of breath and wheezing. Cardiovascular: Negative. Gastrointestinal: Positive for diarrhea, nausea and vomiting. Negative for abdominal pain, blood in stool, constipation and melena. Genitourinary: Negative for dysuria, frequency and urgency. Musculoskeletal: Negative for back pain. Skin: Negative for rash. Neurological: Positive for weakness. Negative for sensory change. Endo/Heme/Allergies: Does not bruise/bleed easily. Psychiatric/Behavioral: The patient is nervous/anxious. Physical Exam: Vital Signs: Last Filed In 24 Hours Vital Signs: 24 Hour Range BP: 109/72 (11/12 2154) Temp: 37.2 C (99 F) (11/12 2154) Pulse: 92 (11/12 2154) Respirations: 11 PER MINUTE (11/12 2154) SpO2: 97 % (11/12 2154) O2 Delivery: Nasal Cannula (03/07 2155) SpO2 Pulse: 110 (11/12 2099) Height: 162.6 cm (64") (11/12 2154) BP: (68-111)/(52-79) Temp: [37.2 C (98.9 F)-37.2 C (99 F)] Pulse: [92-120] Respirations: [9 PER MINUTE-24 PER MINUTE] SpO2: [96 %-100 %] O2 Delivery: Nasal Cannula Intensity Pain Scale (Self Report): 6 (11/12/18 1249) General: Well appearing. No acute distress. Awake and Oriented x3. HEENT: Normocephalic and atraumatic. No scleral icterus, PERRLA, No conjunctival injection. Oropharynx is clear. Neck: Supple. Trachea is midline. No evidence of thyroid enlargement. No lymphadenopathy. Lungs: diffuse wheezes bilaterally. No crackles Heart: mildly tachycardic with normal rhythm and normal S1 and S2. No murmurs, gallops, or rubs. Abdomen: Soft, non-tender without masses, guarding, or rebound. No organomegaly or hernia. Bowel sounds are present. No CVA tenderness or flank mass. Extremities: No cyanosis, clubbing, or edema. Neuro: Cranial nerves II-XII are grossly intact. Psych: Appropriate mood and affect. Skin: Warm, dry, and well perfused. No rashes are noted. Lab/Radiology/Other Diagnostic Tests: 24-hour labs: Results for orders placed or performed during the hospital encounter of (from the past 24 hour(s)) CBC AND DIFF Collection Time: 11/12/18 2:15 PM Result Value Ref Range White Blood Cells 12.6 (H) 4.5 - 11.0 K/UL RBC 2.63 (L) 4.0 - 5.0 M/UL Hemoglobin 7.8 (L) 12.0 - 15.0 GM/DL Hematocrit 23.6 (L) 36 - 45 % MCV 89.7 80 - 100 FL MCH 29.7 26 - 34 PG MCHC 33.1 32.0 - 36.0 G/DL RDW 16.9 (H) 11 - 15 % Platelet Count 279 150 - 400 K/UL MPV 9.7 7 - 11 FL Neutrophils 82 (H) 41 - 77 % Lymphocytes 8 (L) 24 - 44 % Monocytes 9 4 - 12 % Eosinophils 1 0 - 5 % Basophils 0 0 - 2 % Absolute Neutrophil Count 10.50 (H) 1.8 - 7.0 K/UL Absolute Lymph Count 1.00 1.0 - 4.8 K/UL Absolute Monocyte Count 1.10 (H) 0 - 0.80 K/UL Absolute Eosinophil Count 0.10 0 - 0.45 K/UL Absolute Basophil Count 0.00 0 - 0.20 K/UL COMPREHENSIVE METABOLIC PANEL Collection Time: 11/12/18 2:15 PM Result Value Ref Range Sodium 130 (L) 137 - 147 MMOL/L Potassium 3.3 (L) 3.5 - 5.1 MMOL/L Chloride 92 (L) 98 - 110 MMOL/L Glucose 109 (H) 70 - 100 MG/DL Blood Urea Nitrogen 7 7 - 25 MG/DL Creatinine 0.61 0.4 - 1.00 MG/DL Calcium 9.5 8.5 - 10.6 MG/DL Total Protein 7.1 6.0 - 8.0 G/DL Total Bilirubin 0.6 0.3 - 1.2 MG/DL Albumin 3.4 (L) 3.5 - 5.0 G/DL Alk Phosphatase 95 25 - 110 U/L AST (SGOT) 38 7 - 40 U/L CO2 28 21 - 30 MMOL/L ALT (SGPT) 35 7 - 56 U/L Anion Gap 10 3 - 12 eGFR Non >60 >60 mL/min eGFR >60 >60 mL/min MAGNESIUM Collection Time: 11/12/18 2:15 PM Result Value Ref Range Magnesium 1.6 1.6 - 2.6 mg/dL PHOSPHORUS Collection Time: 11/12/18 2:15 PM Result Value Ref Range Phosphorus 3.1 2.0 - 4.5 MG/DL LIPASE Collection Time: 11/12/18 2:15 PM Result Value Ref Range Lipase 9 (L) 11 - 82 U/L URINALYSIS DIPSTICK Collection Time: 11/12/18 3:36 PM Result Value Ref Range Color,UA CHRISTIANO Turbidity,UA CLEAR CLEAR-CLEAR Specific Rogers-Urine 1.020 1.003 - 1.035 pH,UA 6.0 5.0 - 8.0 Protein,UA 1+ (A) NEG-NEG Glucose,UA NEG NEG-NEG Ketones,UA NEG NEG-NEG Bilirubin,UA NEG NEG-NEG Blood,UA NEG NEG-NEG Urobilinogen,UA INCREASED (A) NORM-NORMAL Nitrite,UA NEG NEG-NEG Leukocytes,UA NEG NEG-NEG Urine Ascorbic Acid, UA POS (A) NEG-NEG URINALYSIS, MICROSCOPIC Collection Time: 11/12/18 3:36 PM Result Value Ref Range WBCs,UA 2-10 0 - 2 /HPF RBCs,UA 0-2 0 - 3 /HPF MucousUA TRACE Squamous Epithelial Cells 0-2 0 - 5 INFLUENZA A/B AG (RAPID TEST) Collection Time: 11/12/18 3:36 PM Result Value Ref Range Battery Name INFLUENZA A/B ANTIGEN Specimen Description NASOPHARYNGEAL SWAB Special Requests NONE Direct Antigen NEGATIVE FOR INFLUENZA A/B Report Status FINAL 11/12/2018 Glucose: (!) 109 (11/12/18 1415) Hemoccult: Negative (11/12/18 1634) Pertinent radiology reviewed. Ge Wong MD Pager [phone]. After 0600, please page day team H CATCHER Associated attestation - Sofi Quinonez MD - 11/13/2018 5:22 AM DOUGH CATCHER ATTESTATION I personally performed the mckeon portions of the E/M visit, discussed case with resident and concur with resident documentation of history, physical exam, assessment, and treatment plan unless otherwise noted. I have seen and examined the patient on - 11/12/2018 Assessment: patient states that all her symptoms started after Keytruda. She denies having worsening breathing or cough. She denies having GI bleed. Hemoccult negative. No abdominal tenderness on exam. Plan: - Supportive tx with IVF and anti-emetics - Oncology consult - AM cortisol Staff name: Sofi Fang MD Date: 11/13/2018 documented in this encounter Consult Notes * Yanira Morgan MD - 11/13/2018 7:55 AM DOUGH CATCHER Associated Order(s): CONSULT ONCOLOGY PHYSICIAN Oncology Consult Note Admission Date: 11/12/2018 LOS: 1 day Reason for Consult: Stage IV poorly differentiated adenocarcinoma of lung. s/p 2 cycles of permetrexed and carboplatin. Started on Keytruda 2 weeks ago. Coming in with anemia, hyponatremia, and intractable nausea and vomiting. No s/ s of GI bleed. Consult type: Opinion Assessment/Plan Lung Adenocarcinoma - Current therapy: Pembrolizumab C1 on 10/29 Nausea/Vomiting - Developed on 11/06 - Normal AM cortisol (7.3) - Normal TSH and free T4 - 11/12/18: CT a/p- No abdominopelvic inflammatory mass, bowel obstruction, or ascites. Normal appendix Hyponatremia - NA 130, stable (NA 131 on 10/29) Anemia - 11.5 down to 7.8 - No evidence of bleeding - LDH wnl, retic count wnl, haptoglobin elevated Plan - Continue with supportive care. If symptoms of nausea persist or worsen, recommend MRI brain to evaluate for other possible etiologies - Please continue to track amount of emesis and diarrhea. If diarrhea continues or increases, will need to assess for possible immunotherapy induced colitis - Follow up appointment with Dr. Colvin on 11/19/18 at [facility] 2 pm Thank you for this consult, please page with any questions. Patient seen and discussed with Dr. Morgan. ATTESTATION I personally interviewed and examined the patient. I have reviewed the history , physical, impression and plan outlined by the Nurse Practitioner. The patient presents with (HPI) 52 F with metastatic adenocarcinoma of the lung who is hospitalized with nausea and vomiting. She reports she had nausea and vomiting similar to this with her prior chemotherapy (carbo pem which was stopped due to COPD exacerbation). She received her first dose of pembrolizumab on 10/29 and nausea/vomiting started on 11/06 with watery diarrhea. Denies any blood in stools or emesis. No abdominal pain. Decreased appetite. Since admission her symptoms have improved and she tolerated lunch without any nausea/ vomiting or diarrhea. On examination there is older appearing woman in no acute distress, she is resting comfortably in bed. Breathing comfortably on oxygen by nasal cannula ( baseline), no wheezing on exam. Cardiac exam regular rate and rhythm. Abdomen is soft and nondistended and non-tender. She is alert and oriented. My impression is 52 F with metastatic adenocarcinoma of the lung s/p cycle 1 pembrolizumab on 10/29/18 who presents with nausea/vomting since 11/06. CT imaging reviewed without notable etiology. Symptoms currently resolved. My plan is continue supportive care. If symptoms persist, particularly diarrhea or if there is any bloody diarrhea or abdominal pain please contact us so we can evaluate for immunotherapy induced colitis which may require colonoscopy for diagnosis (I am not highly suspicious of this at this time). Staff name: Yanira Morgan MD Date: 11/13/2018 History of Present Illness: Charlene Arias is a 52 y.o. female admitted with intractable nausea, vomiting. She follows with Dr. Colvin for history of metastatic lung cancer, most recently started on immunotherapy with Pembrolizumab. She reports symptoms of nausea, vomiting, generalized weakness started around last 11/06/18. She reports over the past week, minimal intake of oral intake. She is currently on 2 liters oxygen per NC, which has been her baseline need at home. She reports several episodes of diarrhea, approximately three days ago and one recent episode of fever 2-3 days ago. She denies any current pain. Oncology consulted regarding ongoing plan of care, treatment recommendations. Oncology History Non-Small Cell Lung Cancer - Presented with finding of mass involving left hilar region - 01/22/17: EBUS- negative. She continued to have follow-up and then subsequent CT scan demonstrated increase of the left lower lung lesion. - 04/28/17: CT-guided biopsy- negative. - Continued with surveillance imaging which noted increased size of mass - 09/11/17: s/p left lower lung wedge resection which demonstrated poorly differentiated adenocarcinoma. One lymph node was removed and was negative for disease. PDL 1 was 60%. Due to lung disease she did not have a formal lobectomy. - December 2017: imaging demonstrating enlargement of the left hilar lymph node. PET scan demonstrated increased metabolic activity of this region but no distant metastatic disease. - 01/05/18: EBUS and FNA of the level 11 and level 12 lymph node and this was positive for poorly differentiated adenocarcinoma. - Mutation testing ALK, ROS-1, EGFR, BRAF, KRAS negative. PD-L1 60%. - 08/13/18: PET- Hypermetabolic left hilar peribronchial soft tissue thickening with local tumor recurrence. Prominent hypermetabolic subcarinal lymph node and hypermetabolic right adrenal mass compatible with metastatic disease. - 08/31/18: adrenal mass bx negative - 09/25/18: EBUS negative PREVIOUS TREATMENT - 02/19/18-02/27/18: s/p SBRT - 06/02/18: S/p 2 cycles Pemetrexed 500mg/m2 +Carboplatin. Treatment stopped due to COPD exacerbation CURRENT TREATMENT - 10/10/18: Pembrolizumab, s/p 1 cycles Past Medical History: Diagnosis Date Anemia "comes [...] ~2006 Past Surgical History: Procedure Laterality Date IN [facility] EBUS GUIDED SAMPL 3/> NODE STATION/STRUX Left 01/22/2017 BRONCHOSCOPY WITH ULTRASOUND performed by Tomy Arnett MD at ENDO/GI PERCUTANEOUS CORONARY INTERVENTION N/A 07/30/2017 Possible Percutaneous Coronary Intervention performed by Abdiel Augustine MD at [facility] THORACOSCOPY Left 09/11/2017 LEFT VIDEO ASSISTED THORACOSCOPY, LEFT LOWER LOBECTOMY performed by Marko Pat MD at OR LUNG SURGERY Left 09/11/2017 LLL wedge resection showed poorly differentiated adenocarcinoma. pT2N0 PD-L1 60 %. BRONCHOSCOPY N/A 01/05/2018 BRONCHOSCOPY WITH ULTRASOUND performed by Tomy Arnett MD at ENDO/GI BRONCHOSCOPY N/A 09/25/2018 BRONCHOSCOPY WITH ENDOBRONCHIAL ULTRASOUND GUIDED TRANSTRACHEAL/ TRANSBRONCHIAL SAMPLING - 3 OR MORE MEDIASTINAL/ HILAR LYMPH NODE STATIONS/ STRUCTURE - FLEXIBLE performed by Clinton Hart MD at [facility] OR/Periop HAND SURGERY Bilateral HAND SURGERY Left left index amputation due to burn injury and ischemia from Raynaud's HX FRACTURE TX x2 numerous faciual fractures HX TUBAL LIGATION KNEE SURGERY Left arthroscopy IN UNLISTED PROCEDURE HANDS/FINGERS x8 SYMPATHECTOMY Social History Socioeconomic History Marital status: Spouse name: Not on file Number of children: 4 Years of education: 15 Highest education level: Not on file Social Needs Financial resource strain: Not on file Food insecurity - worry: Not on file Food insecurity - inability: Not on file Transportation needs - medical: Not on file Transportation needs - non-medical: Not on file Occupational History Occupation: [email or web address] business Comment: disabled. 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 No pets Family History Problem Relation Age of Onset Emphysema Mother from cancer but does not know the primary stie. Cancer-Lung Sister 57 Allergies: Ancef [cefazolin] Scheduled Meds: albuterol 0.5% (PROVENTIL; VENTOLIN) nebulizer solution 2.5 mg 2.5 mg Inhalation TID & PRN nkyiyhllpjf-gzjgmolig-csbewrhg (TRELEGY ELLIPTA) 100-62.5-25 mcg dsdv 1 puff [ Patient's Own Medication] 1 puff Inhalation QDAY ipratropium bromide (ATROVENT) 0.02 % nebulizer solution 0.5 mg 0.5 mg Inhalation TID & PRN pantoprazole DR (PROTONIX) tablet 40 mg 40 mg Oral QDAY(21) prednisone (DELTASONE) tablet 10 mg 10 mg Oral QDAY w/breakfast Continuous Infusions: dextrose 5 % & 0.9% NaCl with KCl 20 mEq/L infusion 125 mL/hr at 11/12/18 2326 PRN and Respiratory Meds:acetaminophen/lidocaine/antacid DS(#) Q6H PRN, ALPRAZolam TID PRN, ondansetron (ZOFRAN) IV Q6H PRN, oxyCODONE Q6H PRN, prochlorperazine maleate Q6H PRN Review of Systems: A 14 point review of systems was negative except for: Constitutional: positive for fatigue, anorexia and weight loss Respiratory: positive for cough or dyspnea on exertion Gastrointestinal: positive for nausea, vomiting and diarrhea Musculoskeletal: positive for muscle weakness Neurological: positive for dizziness Vital Signs: Last Filed in 24 hours Vital Signs: 24 hour Range BP: 123/56 (11/13 554) Temp: 37 C (98.6 F) (11/13 554) Pulse: 109 (11/13 554) Respirations: 20 PER MINUTE (11/13 554) SpO2: 92 % (11/13 554) O2 Delivery: Nasal Cannula (11/13 554) SpO2 Pulse: 110 (11/12 2099) Height: 162.6 cm (64") (11/12 2154) BP: (68-123)/(43-79) Temp: [36.9 C (98.4 F)-37.2 C (99 F)] Pulse: [92-120] Respirations: [9 PER MINUTE-24 PER MINUTE] SpO2: [92 %-100 %] O2 Delivery: Nasal Cannula Physical Exam: General appearance: alert, cooperative, no distress Head: normocephalic, atraumatic Eyes: PERRL Throat: lips, mucosa, and tongue normal. Lungs: coarse in bases, + wheezes Heart: regular rate and rhythm Abdomen: soft, non-tender. Bowel sounds normal Extremities: extremities normal, atraumatic, no edema Neurologic: no focal deficits Pulses:2+ and symmetric Skin: No rash Lab/Radiology/Other Diagnostic Tests: 24-hour labs: Results for orders placed or performed during the hospital encounter of (from the past 24 hour(s)) CBC AND DIFF Collection Time: 11/12/18 2:15 PM Result Value Ref Range White Blood Cells 12.6 (H) 4.5 - 11.0 K/UL RBC 2.63 (L) 4.0 - 5.0 M/UL Hemoglobin 7.8 (L) 12.0 - 15.0 GM/DL Hematocrit 23.6 (L) 36 - 45 % MCV 89.7 80 - 100 FL MCH 29.7 26 - 34 PG MCHC 33.1 32.0 - 36.0 G/DL RDW 16.9 (H) 11 - 15 % Platelet Count 279 150 - 400 K/UL MPV 9.7 7 - 11 FL Neutrophils 82 (H) 41 - 77 % Lymphocytes 8 (L) 24 - 44 % Monocytes 9 4 - 12 % Eosinophils 1 0 - 5 % Basophils 0 0 - 2 % Absolute Neutrophil Count 10.50 (H) 1.8 - 7.0 K/UL Absolute Lymph Count 1.00 1.0 - 4.8 K/UL Absolute Monocyte Count 1.10 (H) 0 - 0.80 K/UL Absolute Eosinophil Count 0.10 0 - 0.45 K/UL Absolute Basophil Count 0.00 0 - 0.20 K/UL COMPREHENSIVE METABOLIC PANEL Collection Time: 11/12/18 2:15 PM Result Value Ref Range Sodium 130 (L) 137 - 147 MMOL/L Potassium 3.3 (L) 3.5 - 5.1 MMOL/L Chloride 92 (L) 98 - 110 MMOL/L Glucose 109 (H) 70 - 100 MG/DL Blood Urea Nitrogen 7 7 - 25 MG/DL Creatinine 0.61 0.4 - 1.00 MG/DL Calcium 9.5 8.5 - 10.6 MG/DL Total Protein 7.1 6.0 - 8.0 G/DL Total Bilirubin 0.6 0.3 - 1.2 MG/DL Albumin 3.4 (L) 3.5 - 5.0 G/DL Alk Phosphatase 95 25 - 110 U/L AST (SGOT) 38 7 - 40 U/L CO2 28 21 - 30 MMOL/L ALT (SGPT) 35 7 - 56 U/L Anion Gap 10 3 - 12 eGFR Non >60 >60 mL/min eGFR >60 >60 mL/min MAGNESIUM Collection Time: 11/12/18 2:15 PM Result Value Ref Range Magnesium 1.6 1.6 - 2.6 mg/dL PHOSPHORUS Collection Time: 11/12/18 2:15 PM Result Value Ref Range Phosphorus 3.1 2.0 - 4.5 MG/DL LIPASE Collection Time: 11/12/18 2:15 PM Result Value Ref Range Lipase 9 (L) 11 - 82 U/L URINALYSIS DIPSTICK Collection Time: 11/12/18 3:36 PM Result Value Ref Range Color,UA CHRISTIANO Turbidity,UA CLEAR CLEAR-CLEAR Specific Rogers-Urine 1.020 1.003 - 1.035 pH,UA 6.0 5.0 - 8.0 Protein,UA 1+ (A) NEG-NEG Glucose,UA NEG NEG-NEG Ketones,UA NEG NEG-NEG Bilirubin,UA NEG NEG-NEG Blood,UA NEG NEG-NEG Urobilinogen,UA INCREASED (A) NORM-NORMAL Nitrite,UA NEG NEG-NEG Leukocytes,UA NEG NEG-NEG Urine Ascorbic Acid, UA POS (A) NEG-NEG URINALYSIS, MICROSCOPIC Collection Time: 11/12/18 3:36 PM Result Value Ref Range WBCs,UA 2-10 0 - 2 /HPF RBCs,UA 0-2 0 - 3 /HPF MucousUA TRACE Squamous Epithelial Cells 0-2 0 - 5 INFLUENZA A/B AG (RAPID TEST) Collection Time: 11/12/18 3:36 PM Result Value Ref Range Battery Name INFLUENZA A/B ANTIGEN Specimen Description NASOPHARYNGEAL SWAB Special Requests NONE Direct Antigen NEGATIVE FOR INFLUENZA A/B Report Status FINAL 11/12/2018 OSMOLALITY Collection Time: 11/12/18 11:48 PM Result Value Ref Range Osmolality 278 (L) 280 - 307 MOSMOL/KG RETICULOCYTE COUNT Collection Time: 11/12/18 11:48 PM Result Value Ref Range Retic, Uncorrected 1.2 0.5 - 2.0 % Retic, Corrected 0.8 % Retic, Absolute 35.4 30 - 94 K/UL LDH-LACTATE DEHYDROGENASE Collection Time: 11/12/18 11:48 PM Result Value Ref Range Lactate Dehydrogenase 158 100 - 210 U/L HAPTOGLOBIN Collection Time: 11/12/18 11:48 PM Result Value Ref Range Haptoglobin 347 (H) 16 - 200 MG/DL THYROID STIMULATING HORMONE-TSH Collection Time: 11/12/18 11:48 PM Result Value Ref Range TSH 0.120 (L) 0.35 - 5.00 MCU/ML PROTIME INR (PT) Collection Time: 11/12/18 11:48 PM Result Value Ref Range INR 1.6 (H) 0.8 - 1.2 CBC Collection Time: 11/12/18 11:48 PM Result Value Ref Range White Blood Cells 9.4 4.5 - 11.0 K/UL RBC 3.03 (L) 4.0 - 5.0 M/UL Hemoglobin 9.0 (L) 12.0 - 15.0 GM/DL Hematocrit 26.6 (L) 36 - 45 % MCV 87.8 80 - 100 FL MCH 29.7 26 - 34 PG MCHC 33.8 32.0 - 36.0 G/DL RDW 16.2 (H) 11 - 15 % Platelet Count 207 150 - 400 K/UL MPV 8.9 7 - 11 FL BNP (B-TYPE NATRIURETIC PEPTI) Collection Time: 11/12/18 11:48 PM Result Value Ref Range B Type Natriuretic Peptide 134.0 (H) 0 - 100 PG/ML FIBRINOGEN Collection Time: 11/12/18 11:48 PM Result Value Ref Range Fibrinogen 527 (H) 200 - 400 MG/DL FREE T4 (FREE THYROXINE) ONLY Collection Time: 11/12/18 11:48 PM Result Value Ref Range T4-Free 1.1 0.6 - 1.6 NG/DL PTT (APTT) Collection Time: 11/12/18 11:48 PM Result Value Ref Range APTT 26.3 24.0 - 36.5 SEC SODIUM-URINE RANDOM Collection Time: 11/13/18 2:24 AM Result Value Ref Range Sodium, Random 10 MMOL/L OSMOLALITY-URINE RANDOM Collection Time: 11/13/18 2:24 AM Result Value Ref Range Osmolality-Urine 85 50 - 1,400 MOS/KG CORTISOL-AM Collection Time: 11/13/18 5:15 AM Result Value Ref Range Cortisol-AM 7.3 6.7 - 22.6 MCG/DL LACTIC ACID (BG - RAPID LACTATE) Collection Time: 11/13/18 5:15 AM Result Value Ref Range Lactic Acid,BG 1.8 0.5 - 2.0 MMOL/L LACTIC ACID(LACTATE) Collection Time: 11/13/18 5:15 AM Result Value Ref Range Lactic Acid 1.7 0.5 - 2.0 MMOL/L Pertinent radiology reviewed. Meagan Mendez, PLANT CULTURE MANAGER [phone] H CATCHER documented in this encounter ED Notes * Vesta Espinoza RN - 11/12/2018 9:42 PM DOUGH CATCHER To room per cart H CATCHER * Vesta Espinoza RN - 11/12/2018 9:16 PM DOUGH CATCHER Report to Zoe MORENO H CATCHER * Vesta Espinoza RN - 11/12/2018 8:49 PM DOUGH CATCHER Nicom results reported to Dr García, orders to bolus fluids H CATCHER * Vesta Espinoza RN - 11/12/2018 8:43 PM DOUGH CATCHER NICOM Fluid Bolus or Passive Leg Raise Challenge: Fluid Bolus Challenge: {/no , Passive Leg Raise: {yes CO CI SV SVI Baseline 4.0 37 Challenge Stroke Volume Index Change:2.3% H CATCHER * Vesta Espinoza RN - 11/12/2018 8:04 PM DOUGH CATCHER BP reported to Dr Molina orders to nicom H CATCHER * Vesta Espinoza RN - 11/12/2018 7:39 PM DOUGH CATCHER Assumed care, bedside safety checks done, H CATCHER * Andrew Molina MD - 11/12/2018 3:05 PM DOUGH CATCHER Charlene Arias is a 52 y.o. female. Chief Complaint: Chief Complaint Patient presents with Vomiting vomiting since Friday, chest pain, pt has hx of lung cancer and on chemotherapy. History of Present Illness: Ms. Gomez is a 52-year-old woman with history of COPD, chronic hepatitis C, cryoglobulinemia, chronic hypoxic respiratory failure, adenocarcinoma of the lung, recently started on Keytruda, who presents with concern for shortness of breath and vomiting. Patient states for the last week she has been unable to keep any food down and persistently vomits. Patient also states that she vomits after having coughing fits. Patient states that she is beginning to feel exhausted and feels extremely lightheaded. Patient states that this was her first Keytruda and she is unsure if this precipitated her vomiting, however her treatment was 1 week before initiation of her vomiting. Patient has no known sick contacts. She reports subjective fevers at home. Denies leg swelling. Review of Systems: Review of Systems Constitutional: Positive for chills, fatigue and fever. HENT: Negative for congestion, rhinorrhea, sneezing and sore throat. Eyes: Negative for photophobia and visual disturbance. Respiratory: Positive for cough and shortness of breath. Negative for chest tightness. Cardiovascular: Negative for chest pain, palpitations and leg swelling. Gastrointestinal: Positive for diarrhea, nausea and vomiting. Negative for abdominal pain and constipation. Endocrine: Negative. Genitourinary: Negative for difficulty urinating, dysuria and frequency. Musculoskeletal: Positive for arthralgias and myalgias. Skin: Negative. Neurological: Positive for light-headedness. Negative for weakness, numbness and headaches. Psychiatric/Behavioral: Negative. All other systems reviewed and are negative. Allergies: Ancef [cefazolin] Past Medical History: Past Medical History: Diagnosis Date Anemia [...] (HCC) x 1 ~2006 Past Surgical History: Past Surgical History: Procedure Laterality Date IN [facility] EBUS GUIDED SAMPL 3/> NODE STATION/STRUX Left 01/22/2017 BRONCHOSCOPY WITH ULTRASOUND performed by Tomy Arnett MD at ENDO/GI PERCUTANEOUS CORONARY INTERVENTION N/A 07/30/2017 Possible Percutaneous Coronary Intervention performed by Abdiel Augustine MD at [facility] THORACOSCOPY Left 09/11/2017 LEFT VIDEO ASSISTED THORACOSCOPY, LEFT LOWER LOBECTOMY performed by Marko Pat MD at [facility] LUNG SURGERY Left 09/11/2017 LLL wedge resection showed poorly differentiated adenocarcinoma. pT2N0 PD-L1 60 %. BRONCHOSCOPY N/A 01/05/2018 BRONCHOSCOPY WITH ULTRASOUND performed by Tomy Arnett MD at ENDO/GI BRONCHOSCOPY N/A 09/25/2018 BRONCHOSCOPY WITH ENDOBRONCHIAL ULTRASOUND GUIDED TRANSTRACHEAL/ TRANSBRONCHIAL SAMPLING - 3 OR MORE MEDIASTINAL/ HILAR LYMPH NODE STATIONS/ STRUCTURE - FLEXIBLE performed by Clinton Hart MD at [facility] OR/Periop HAND SURGERY Bilateral HAND SURGERY Left left index amputation due to burn injury and ischemia from Raynaud's HX FRACTURE TX x2 numerous faciual fractures HX TUBAL LIGATION KNEE SURGERY Left arthroscopy IN UNLISTED PROCEDURE HANDS/FINGERS x8 SYMPATHECTOMY Pertinent medical/surgical history reviewed Social History: Social History Tobacco Use Smoking status: Former Smoker Packs/day: 2.00 Years: 35.00 Pack years: 70.00 Types: Cigarettes Last attempt to quit: 06/03/2012 Years since quittin.4 Smokeless tobacco: Never Used Substance Use Topics Alcohol use: No Alcohol/week: 0.6 oz Types: 1 Standard drinks or equivalent per week Drug use: Yes Frequency: 2.0 times per week Types: Marijuana Social History Substance and Sexual Activity Drug Use Yes Frequency: 2.0 times per week Types: Marijuana Family History: Family History Problem Relation Age of Onset Emphysema Mother from cancer but does not know the primary stie. Cancer-Lung Sister 57 Vitals: ED Vitals Date and Time T BP P RR SPO2P SPO2 User 11/12/18 1259 37.2 C (98.9 F) 111/59 -- -- 113 99 % DB Physical Exam: Physical Exam Constitutional: She is oriented to person, place, and time. She appears well- developed and well-nourished. No distress. HENT: Head: Normocephalic and atraumatic. Eyes: EOM are normal. Pupils are equal, round, and reactive to light. Neck: Normal range of motion. Cardiovascular: Regular rhythm, normal heart sounds and intact distal pulses. Tachycardia present. Pulmonary/Chest: Effort normal. No respiratory distress. She has wheezes in the left upper field and the left middle field. Rare wheezes L lung coronado Abdominal: Soft. Bowel sounds are normal. She exhibits no distension. There is no tenderness. Genitourinary: Rectal exam shows guaiac negative stool. Musculoskeletal: Normal range of motion. She exhibits no edema. Neurological: She is alert and oriented to person, place, and time. No cranial nerve deficit. Skin: Skin is warm and dry. Capillary refill takes less than 2 seconds. She is not diaphoretic. Psychiatric: She has a normal mood and affect. Nursing note and vitals reviewed. Laboratory Results: Labs Reviewed CBC AND DIFF - Abnormal Result Value Ref Range Status White Blood Cells 12.6 (*) 4.5 - 11.0 K/UL Final RBC 2.63 (*) 4.0 - 5.0 M/UL Final Hemoglobin 7.8 (*) 12.0 - 15.0 GM/DL Final Hematocrit 23.6 (*) 36 - 45 % Final MCV 89.7 80 - 100 FL Final MCH 29.7 26 - 34 PG Final MCHC 33.1 32.0 - 36.0 G/DL Final RDW 16.9 (*) 11 - 15 % Final Platelet Count 279 150 - 400 K/UL Final MPV 9.7 7 - 11 FL Final Neutrophils 82 (*) 41 - 77 % Final Lymphocytes 8 (*) 24 - 44 % Final Monocytes 9 4 - 12 % Final Eosinophils 1 0 - 5 % Final Basophils 0 0 - 2 % Final Absolute Neutrophil Count 10.50 (*) 1.8 - 7.0 K/UL Final Absolute Lymph Count 1.00 1.0 - 4.8 K/UL Final Absolute Monocyte Count 1.10 (*) 0 - 0.80 K/UL Final Absolute Eosinophil Count 0.10 0 - 0.45 K/UL Final Absolute Basophil Count 0.00 0 - 0.20 K/UL Final COMPREHENSIVE METABOLIC PANEL - Abnormal Sodium 130 (*) 137 - 147 MMOL/L Final Potassium 3.3 (*) 3.5 - 5.1 MMOL/L Final Chloride 92 (*) 98 - 110 MMOL/L Final Glucose 109 (*) 70 - 100 MG/DL Final Blood Urea Nitrogen 7 7 - 25 MG/DL Final Creatinine 0.61 0.4 - 1.00 MG/DL Final Calcium 9.5 8.5 - 10.6 MG/DL Final Total Protein 7.1 6.0 - 8.0 G/DL Final Total Bilirubin 0.6 0.3 - 1.2 MG/DL Final Albumin 3.4 (*) 3.5 - 5.0 G/DL Final Alk Phosphatase 95 25 - 110 U/L Final AST (SGOT) 38 7 - 40 U/L Final CO2 28 21 - 30 MMOL/L Final ALT (SGPT) 35 7 - 56 U/L Final Anion Gap 10 3 - 12 Final eGFR Non >60 >60 mL/min Final eGFR >60 >60 mL/min Final URINALYSIS DIPSTICK - Abnormal Color,UA CHRISTIANO Final Turbidity,UA CLEAR CLEAR-CLEAR Final Specific Rogers-Urine 1.020 1.003 - 1.035 Final pH,UA 6.0 5.0 - 8.0 Final Protein,UA 1+ (*) NEG-NEG Final Glucose,UA NEG NEG-NEG Final Ketones,UA NEG NEG-NEG Final Bilirubin,UA NEG NEG-NEG Final Blood,UA NEG NEG-NEG Final Urobilinogen,UA INCREASED (*) NORM-NORMAL Final Nitrite,UA NEG NEG-NEG Final Leukocytes,UA NEG NEG-NEG Final Urine Ascorbic Acid, UA POS (*) NEG-NEG Final INFLUENZA A/B AG (RAPID TEST) Battery Name INFLUENZA A/B ANTIGEN Specimen Description NASOPHARYNGEAL SWAB Final Special Requests NONE Final Direct Antigen NEGATIVE FOR INFLUENZA A/B Final Report Status Final Value: FINAL 11/12/2018 MAGNESIUM Magnesium 1.6 1.6 - 2.6 mg/dL Final PHOSPHORUS Phosphorus 3.1 2.0 - 4.5 MG/DL Final URINALYSIS, MICROSCOPIC WBCs,UA 2-10 0 - 2 /HPF Final RBCs,UA 0-2 0 - 3 /HPF Final MucousUA TRACE Final Squamous Epithelial Cells 0-2 0 - 5 Final Radiology Interpretation: CHEST SINGLE VIEW Final Result Chronic atelectasis or scarring in the left lower lobe. No acute cardiopulmonary abnormalities. Finalized by Raymond Hanson M.D. on 11/13/2018 8:34 AM. Dictated by Raymond Hanson M.D. on 11/13/2018 8:[address] ABD/PELV W CONTRAST Final Result 1. No abdominopelvic inflammatory mass, bowel obstruction, [...] Priyank Wynn MD on 11/12/2018 5:47 PM. EKG: n/a ED Course: Ms. Gomez is a 52-year-old woman with history of COPD, chronic hepatitis C, cryoglobulinemia, chronic hypoxic respiratory failure, adenocarcinoma of the lung, recently started on Keytruda, who presents with concern for shortness of breath and vomiting. On initial assessment patient is alert and in no apparent distress. Patient is hemodynamically stable and afebrile. Physical exam is noted above Differential includes but is not limited to gastroenteritis, chemotherapy related nausea and vomiting, electrolyte abnormality, anemia of chronic disease , gastrointestinal bleed WorkUp: Labs as above, chest x-ray, CT abdomen pelvis On reassessment, patient exam is stable. Her tachycardia is improved after a liter bolus, however blood pressures are trending down. Fluid that was initiated to run at high maintenance level was changed to bolus, with some improvement of blood pressures. Patient received 2 L total. Patient's labs are concerning for a drop in her hemoglobin. Rectal exam was performed and she is guaiac negative. Additionally, patient denies blood in vomit and blood in stool. She states she has never had a GI bleed before. Patient's chest x-ray is without acute process. Her CT abdomen pelvis is concerning for worsening tumor burden specifically at the adrenals. There is some question of possible adrenal vein thrombus versus belén metastasis. These findings are discussed with patient. Patient states that she does still feel nauseous and has been unable to tolerate p.o. We will admit patient to medicine service for continued management of intractable nausea and vomiting as well as unspecified anemia. Discussed plan of care with patient. She expressed understanding and is agreeable to plan. Patient admitted to medicine service. MDM Reviewed: previous chart, nursing note and vitals Reviewed previous: labs and x-ray Interpretation: labs, x-ray and CT scan Facility Administered Meds: Medications lactated ringers infusion (not administered) ondansetron (ZOFRAN) injection 4 mg (not administered) Clinical Impression: Clinical Impression Anemia, unspecified type Intractable vomiting with nausea, unspecified vomiting type Metastatic disease (HCC) Disposition/Follow up ED Disposition None No follow-up provider specified. Medications: New Prescriptions No medications on file Procedure Notes: Procedures Attestation / Supervision: Vignesh García MD Attestation / Supervision Note concerning Charlene Ghulammiesha Arias: I personally performed the mckeon portions of the E/M visit, discussed case with resident and concur with resident documentation of history, physical exam, assessment, and treatment plan unless otherwise noted. Andrew Molina MD H CATCHER * Meagan Cortez RN - 11/12/2018 1:40 PM DOUGH CATCHER 52 y.o. Female to ED with c/o cough + vomiting x6 days. Pt reports productive cough, she's been coughing so hard that it's made her throw up. She reports being unable to keep anything down. Pt reports coughing up "dark stuff." Pt has hx of lung CA. She's on chemo, reports last treatment being around 2 weeks ago. Pt reports going through CA treatment for the past 2 years. Pt has had radiation done. She reports pain in her chest that she reports being from radiation. Pt has tried PO meds at home for her nausea but unable to keep them down. Pt reports chills, she hasn't taken her temp. She reports normally having N/V/D 4-5 days after chemo treatment. Pt wears 3L NC at baseline. Pt reports dizziness. Pt is A&Ox4, resting on cart. Awaiting physician evaluation. Belongings: Shirt, pants, shoes, bra, home O2 tank, purse. H CATCHER documented in this encounter Miscellaneous Notes * Care Plan - Do Bolton RN - 11/14/2018 11:47 AM DOUGH CATCHER Problem: Infection, Risk of, Central Venous Catheter-Associated Bloodstream Infection Goal: Absence of CVC Associated Bloodstream infection Outcome: Goal Achieved Date Met: 11/14/18 Port de-accessed prior to discharge. Problem: Respiratory Impairment (Non-Ventilated Patient) Goal: Effective gas exchange Outcome: Goal Achieved Date Met: 11/14/18 O2 sats >92% on 2L NC. Pt denies SOA. Resp status at baseline level. Problem: Falls, High Risk of Goal: Absence of falls-Adult Patient Outcome: Goal Achieved Date Met: 11/14/18 No falls this shift. Fall precautions in place. H CATCHER * Case Mgmt DC Plan - Lian Dahl RN - 11/13/2018 10:43 AM DOUGH CATCHER Case Management Admission AssessmentNAME:Orma Ghulam Sinhala :1965 AGE: 52 y.o. ADMISSION DATE: 11/12/2018 DAYS ADMITTED: LOS: 1 day Todays Date: 11/13/2018 Source of Information: Patient Plan Plan: Case Management Assessment, Discharge Planning for Home Anticipated INtroduced self and explained role of NCM Pt presented with N/V which started after Keytruda which was started on . Pt receiving chemo at [facility]. Pt feeling better this morning. Continue IVF's, Zofran PRN, Oncology consult Pt mostly independent at home but does require assistance with bathing provided by her MIRZA Dale. Pt also receiving home care services for housework and shopping 28 hrs/week. Baseline [facility] MIRZA Dale to bring tank at discharge. Denies d/c needs at this time. Patient Address/Phone [address] [facility] [address] (home) Emergency Contact Extended Emergency Contact Information Primary Emergency Contact: Chito Crowe Address: [address] [place] [address] [facility] Mobile Relation: Significant Other Secondary Emergency Contact: Almaz Agustin Address: [address] [place] [address] [facility] Relation: Sister Healthcare Directive Healthcare Directive: No, patient does not have a healthcare directive Would patient like to fill out a (a new) Healthcare Directive?: No, patient declined Psych Advance Directive (Psych unit only): No, patient does not have a Psych Advance Directive Transportation Does the patient need discharge transport arranged?: No Transportation Name, Phone and Availability #1: [facility] [employer] will transport home [phone] Does the patient use Medicaid Transportation?: No Expected Discharge Date Expected Discharge Date: 11/14/18 Living Situation Prior to Admission ? Living Arrangements Type of Residence: Home, independent Living Arrangements: Spouse/significant other(Lives with MIRZA Dale) Bathroom Shower / Tub: Tub/Shower Unit How many levels in the residence?: 1(Trailer home) Can patient live on one level if needed?: Yes Does residence have entry and/or side stairs?: Yes(4) Assistance needed prior to admit or anticipated on discharge: Yes Who provides assistance or could if needed?: Chito- SO Are they in good health?: Yes Can support system provide 24/7 care if needed?: Maybe ? Level of Function Prior level of function: Needs assist with ADLs Which ADLs require assistance?: bathing Who assists with ADLs?: Chito ? Cognitive Abilities Cognitive Abilities: Alert and Oriented, Participates in decision making, Understands nature of health condition Financial Resources ? Coverage Primary Insurance: Medicare Secondary Insurance: Medicaid([facility] Medicaid) Additional Coverage: RX(Medicaid, states meds are affordable) ? Source of Income Source Of Income: SSDI ? Financial Assistance Needed? none Psychosocial Needs ? Mental Health Mental Health History: No ? Substance Use History Substance Use History Screen: No ? Other none Current/Previous Services ? PCP Kristen Gong, None, None ? Pharmacy [facility][id number] [place], [place] - [address] [facility] [address] [facility] [phone] [facility] [id number] ? Durable Medical Equipment Durable Medical Equipment at home: Oxygen(Baseline 2-3L all the time, provided by [facility]) ? Home Health Receiving home health: No ? Hemodialysis or Peritoneal Dialysis Undergoing hemodialysis or peritoneal dialysis: No ? Tube/Enteral Feeds Receive tube/enteral feeds: No ? Infusion Receive infusions: No ? Private Duty Private duty help used: No ? Home and Community Based Services Home and community based services: Yes Agency name: [facility] assistance hours/week: 28 Services provided: shopping, housework, cooking ? Gilles White Gilles White: N/A ? Hospice Hospice: No ? Outpatient Therapy PT: No OT: No AUTHOR: No ? Retirement Facility/[facility] SNF: No NH: No ? Inpatient Rehab IPR: No ? [facility] LTACH: No ? Acute Hospital Stay Acute Hospital Stay: No DORIE Morgan, RN, CPHQ Integrated Nurse Pneumatic Tester Mechanic [phone] H CATCHER * Med Student Consult - Giselle Naik, MS - 11/13/2018 10:22 AM DOUGH CATCHER Medical Student General Consult Note NAME: Charlene Arias : 1965 AGE: 52 y.o. 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 S/p 2 cycles of permetrexed + carboplatin. Started on Keytruda 2 weeks ago. Presenting with anemia, hyponatremia, intractable n/v. No s/s of GI bleed. Consult type: Written opinion only Assessment/Plan: Stage IV Adenocarcinoma of Lung - Diarrhea is known side effect of Pembrolizumab - Pembro is less likely to cause n/v - Rapid progression on current regimen with adrenal mass increasing in size ( 6.5 x 5.3 on admission, 5.2 x 4.2 on 10/22/2018) - Normal AM cortisol (7.3) - Normal TSH and free T4 > Continue with supportive measures > F/u with Dr. Colvin on 10/22/2018 if sx improve > Brain MRI if sx worsen/do not improve Patient seen and discussed with Dr. Morgan. History of Present Illness: Charlene Arias is a 52 yo female with an extensive PMH and stage IV adenocarcinoma. She follows with Dr. Colvin and received her first treatment of Pembrolizumab on 10/29/2018. Two weeks following her recent treatment she presented with intractable nausea and vomiting which began on 11/05/2018. Initially, she also had watery diarrhea for about three days but that has resolved since. Her symptoms are not improved by zofran or compazine and she describes the vomitus as non-bloody and brown. CT on admission 11/13/2018 revealed progression with increase in the size of a previously seen right adrenal mass and development of a retrocaval nodule at the right kidney. She has been receiving supportive care with IV fluids and zofran and states that she is feeling improved this morning. She has an appt with Dr. Colvin in one week on 11/19/2018 for follow-up and treatment. Oncologic History: - November 2016 - 12/04/2016: F/u CT chest: Increase in size of a nodular opacity in the superior segment of the left lower lobe. This may represent developing scarring or focal pneumonitis, however a PET CT is recommended for further evaluation. Stable tiny nodule in the right lower lobe and left upper lobe. These are stable since the most remote prior study of October 24, 2014, most likely representing small scars or granulomas. Moderate emphysema. At least mild coronary artery calcification. - 01/07/2017: PET: Hypermetabolic nodule in the superior left lower lobe with a nodular area of hypermetabolic activity in the left hilum. CT chest with contrast and biopsy are recommended for further evaluation. - 01/22/2017: E bus + bx showing ... - 03/27/2017: CT chest: Significant increase in the nodular opacity in the superior segment of the left lower lobe, most compatible with primary lung neoplasm. PET/CT, biopsy and/or excision is recommended. Stable tiny nodules in the left upper lobe and right lower lobe may be granulomas or scars. These remain unchanged since at least October 24, 2014. 3. Moderate emphysema. 4. At least mild coronary artery calcification. - 04/28/2017: bx of nodule ..... - 06/03/2017: CT chest: Further slight increase in size of irregular nodular opacity in the superior segment of the left lower lobe most compatible with small primary bronchogenic carcinoma. This has slowly increased in size across multiple prior exams. Prominent left hilar lymph node, which was hypermetabolic on prior PET/CT of 01/07/2017, suggestive of early belén metastasis. No additional thoracic lymphadenopathy. Moderate emphysema with scattered areas of scarring throughout the lungs. No pleural effusion or superimposed consolidation. Coronary artery calcification. - 08/05/2017: CT chest: Further slight increase in superior segment left lower lobe nodule which was previously biopsied. This remains suspicious for low- grade primary lung neoplasm. Stable mildly prominent left hilar lymph node which was hypermetabolic on prior PET/CT of 01/07/2017. Development of mild patchy nodular opacities in the right lower lobe, most likely sequela of atypical pneumonitis. Moderate to severe emphysema. There are 2 tiny pulmonary nodules which are unchanged since at least 10/24/2014, compatible with scars or granulomas. - 09/11/2017: LLL wedge resection, bx revealed poorly differentiated adenocarcinoma. LN negative for disease. PDL-1 60%, Alk/ROS-1/EGFR/BRAF/KRAS negative. - 2018: CT Chest: Development of left hilar adenopathy, suspicious for metastatic disease. Few mediastinal nodes are also slightly larger and are indeterminant. Interval left lower lobe wedge resection. No new or enlarging pulmonary nodule is identified. Moderate emphysema. At least mild coronary artery calcification. - 04/07/2019: CT chest: Decrease in size of left hilar lymphadenopathy and mildly prominent mediastinal lymph nodes. Left lower lobe wedge resection changes without evidence of new or enlarging pulmonary nodule. Moderate emphysema. At least mild coronary artery calcification. - 08/06/2019: CT chest: Further decrease in discrete left hilar adenopathy. However, there has been increase in soft tissue thickening within the left hilum and along the central airways, resulting in significant airway narrowing, greatest in the left lower lobe. This finding is nonspecific and may reflect bronchial wall edema and/or necrosis following radiation therapy or recurrent neoplasm. Bronchoscopy or close interval follow-up is recommended. Development of a right adrenal nodule, most compatible with metastatic disease. Moderate emphysema. Development of sclerosis within the left lateral eighth rib, likely a healing fracture. - 08/13/2019: PET: Hypermetabolic left hilar peribronchial soft tissue thickening with local tumor recurrence. Prominent hypermetabolic subcarinal lymph node and hypermetabolic right adrenal mass compatible with metastatic disease. Development of complete post obstructive left lower lobe atelectasis and patchy left upper lobe pneumonia. Probable distal esophagitis. Endoscopic correlation as clinically indicated. - 10/22/2018: CT Chest: Interval occlusion of the left lower lobe bronchus, presumably by increasing neoplastic tissue in the left hilum which is ill- defined and nonmasslike. Marked increase in large right adrenal metastasis. Moderate emphysema. At least mild coronary artery calcification. - 11/13/2018: CT Abd/Pelvis: No abdominopelvic inflammatory mass, bowel obstruction, or ascites. Normal appendix. Persistent complete left lower lobe consolidation, likely post obstructive atelectasis. Refer to recent CT chest for further discussion.Further increased size of right adrenal mass consistent with worsening metastatic disease.Development of retrocaval nodule at the level of the right kidney which may represent belén metastasis or tumor thrombus within an adrenal vein.Mild distal colonic diverticulosis without diverticulitis. PMH: Past Medical History: Diagnosis Date Anemia "comes and goes" last episode 2006 Anxiety Back pain Chest pain last episode [...] patient Raynaud's disease Seasonal allergic rhinitis Seizures ([facility]) x 1 ~2006 FH: Family History Problem Relation Age of Onset Emphysema Mother from cancer but does not know the primary stie. Cancer-Lung Sister 57 SH: Social History Socioeconomic History Marital status: Spouse name: Not on file Number of children: 4 Years of education: 15 Highest education level: Not on file Social Needs Financial resource strain: Not on file Food insecurity - worry: Not on file Food insecurity - inability: Not on file Transportation needs - medical: Not on file Transportation needs - non-medical: Not on file Occupational History Occupation: [employer] Comment: disabled. 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 No pets Allergies: Allergies Allergen Reactions Ancef [Cefazolin] NAUSEA AND VOMITING Medications: Scheduled Meds: albuterol 0.5% (PROVENTIL; VENTOLIN) nebulizer solution 2.5 mg 2.5 mg Inhalation TID & PRN enoxaparin (LOVENOX) syringe 40 mg 40 mg Subcutaneous QDAY(21) cbjdabqkejn-zngslhqvg-vhgzwbgx (TRELEGY ELLIPTA) 100-62.5-25 mcg dsdv 1 puff [ Patient's Own Medication] 1 puff Inhalation QDAY ipratropium bromide (ATROVENT) 0.02 % nebulizer solution 0.5 mg 0.5 mg Inhalation TID & PRN pantoprazole DR (PROTONIX) tablet 40 mg 40 mg Oral QDAY(21) [START ON 11/14/2018] prednisone (DELTASONE) tablet 5 mg 5 mg Oral QDAY w/ breakfast Continuous Infusions: dextrose 5 % & 0.9% NaCl with KCl 20 mEq/L infusion 125 mL/hr at 11/12/18 2326 PRN and Respiratory Meds:acetaminophen/lidocaine/antacid DS(#) Q6H PRN, ALPRAZolam TID PRN, ondansetron (ZOFRAN) IV Q6H PRN, oxyCODONE Q6H PRN, prochlorperazine maleate Q6H PRN Lab/Radiology/Other Diagnostic Tests: Labs: Results for orders placed or performed during the hospital encounter of (from the past 48 hour(s)) CBC AND DIFF Collection Time: 11/12/18 2:15 PM # # Low-High White Blood Cells 12.6 (H) 4.5 - 11.0 K/UL RBC 2.63 (L) 4.0 - 5.0 M/UL Hemoglobin 7.8 (L) 12.0 - 15.0 GM/DL Hematocrit 23.6 (L) 36 - 45 % MCV 89.7 80 - 100 FL MCH 29.7 26 - 34 PG MCHC 33.1 32.0 - 36.0 G/DL RDW 16.9 (H) 11 - 15 % Platelet Count 279 150 - 400 K/UL MPV 9.7 7 - 11 FL Neutrophils 82 (H) 41 - 77 % Lymphocytes 8 (L) 24 - 44 % Monocytes 9 4 - 12 % Eosinophils 1 0 - 5 % Basophils 0 0 - 2 % Absolute Neutrophil Count 10.50 (H) 1.8 - 7.0 K/UL Absolute Lymph Count 1.00 1.0 - 4.8 K/UL Absolute Monocyte Count 1.10 (H) 0 - 0.80 K/UL Absolute Eosinophil Count 0.10 0 - 0.45 K/UL Absolute Basophil Count 0.00 0 - 0.20 K/UL COMPREHENSIVE METABOLIC PANEL Collection Time: 11/12/18 2:15 PM # # Low-High Sodium 130 (L) 137 - 147 MMOL/L Potassium 3.3 (L) 3.5 - 5.1 MMOL/L Chloride 92 (L) 98 - 110 MMOL/L Glucose 109 (H) 70 - 100 MG/DL Blood Urea Nitrogen 7 7 - 25 MG/DL Creatinine 0.61 0.4 - 1.00 MG/DL Calcium 9.5 8.5 - 10.6 MG/DL Total Protein 7.1 6.0 - 8.0 G/DL Total Bilirubin 0.6 0.3 - 1.2 MG/DL Albumin 3.4 (L) 3.5 - 5.0 G/DL Alk Phosphatase 95 25 - 110 U/L AST (SGOT) 38 7 - 40 U/L CO2 28 21 - 30 MMOL/L ALT (SGPT) 35 7 - 56 U/L Anion Gap 10 3 - 12 eGFR Non >60 >60 mL/min eGFR >60 >60 mL/min MAGNESIUM Collection Time: 11/12/18 2:15 PM # # Low-High Magnesium 1.6 1.6 - 2.6 mg/dL PHOSPHORUS Collection Time: 11/12/18 2:15 PM # # Low-High Phosphorus 3.1 2.0 - 4.5 MG/DL LIPASE Collection Time: 11/12/18 2:15 PM # # Low-High Lipase 9 (L) 11 - 82 U/L URINALYSIS DIPSTICK Collection Time: 11/12/18 3:36 PM # # Low-High Color,UA CHRISTIANO Turbidity,UA CLEAR CLEAR-CLEAR Specific Rogers-Urine 1.020 1.003 - 1.035 pH,UA 6.0 5.0 - 8.0 Protein,UA 1+ (A) NEG-NEG Glucose,UA NEG NEG-NEG Ketones,UA NEG NEG-NEG Bilirubin,UA NEG NEG-NEG Blood,UA NEG NEG-NEG Urobilinogen,UA INCREASED (A) NORM-NORMAL Nitrite,UA NEG NEG-NEG Leukocytes,UA NEG NEG-NEG Urine Ascorbic Acid, UA POS (A) NEG-NEG URINALYSIS, MICROSCOPIC Collection Time: 11/12/18 3:36 PM # # Low-High WBCs,UA 2-10 0 - 2 /HPF RBCs,UA 0-2 0 - 3 /HPF MucousUA TRACE Squamous Epithelial Cells 0-2 0 - 5 INFLUENZA A/B AG (RAPID TEST) Collection Time: 11/12/18 3:36 PM # # Low-High Battery Name INFLUENZA A/B ANTIGEN Specimen Description NASOPHARYNGEAL SWAB Special Requests NONE Direct Antigen NEGATIVE FOR INFLUENZA A/B Report Status FINAL 11/12/2018 OSMOLALITY Collection Time: 11/12/18 11:48 PM # # Low-High Osmolality 278 (L) 280 - 307 MOSMOL/KG RETICULOCYTE COUNT Collection Time: 11/12/18 11:48 PM # # Low-High Retic, Uncorrected 1.2 0.5 - 2.0 % Retic, Corrected 0.8 % Retic, Absolute 35.4 30 - 94 K/UL LDH-LACTATE DEHYDROGENASE Collection Time: 11/12/18 11:48 PM # # Low-High Lactate Dehydrogenase 158 100 - 210 U/L HAPTOGLOBIN Collection Time: 11/12/18 11:48 PM # # Low-High Haptoglobin 347 (H) 16 - 200 MG/DL PERIPHERAL SMEAR Collection Time: 11/12/18 11:48 PM # # Low-High Peripheral Smear NORMOCYTIC ANEMIA WITH ANISOCYTOSIS. WHITE CELLS AND PLATELETS APPEAR NORMAL IN NUMBER AND MORPHOLOGY. Pathologist Signature INTERPRETED BY COOPER MEDRANO M.D. By the PATH SIGNATURE ABOVE, I attest that I have personally formulated the final interpretation expressed in this report and that the above diagnosis is based upon my examination of the slides and/or other material indicated in this report. THYROID STIMULATING HORMONE-TSH Collection Time: 11/12/18 11:48 PM # # Low-High TSH 0.120 (L) 0.35 - 5.00 MCU/ML PROTIME INR (PT) Collection Time: 11/12/18 11:48 PM # # Low-High INR 1.6 (H) 0.8 - 1.2 CBC Collection Time: 11/12/18 11:48 PM # # Low-High White Blood Cells 9.4 4.5 - 11.0 K/UL RBC 3.03 (L) 4.0 - 5.0 M/UL Hemoglobin 9.0 (L) 12.0 - 15.0 GM/DL Hematocrit 26.6 (L) 36 - 45 % MCV 87.8 80 - 100 FL MCH 29.7 26 - 34 PG MCHC 33.8 32.0 - 36.0 G/DL RDW 16.2 (H) 11 - 15 % Platelet Count 207 150 - 400 K/UL MPV 8.9 7 - 11 FL BNP (B-TYPE NATRIURETIC PEPTI) Collection Time: 11/12/18 11:48 PM # # Low-High B Type Natriuretic Peptide 134.0 (H) 0 - 100 PG/ML FIBRINOGEN Collection Time: 11/12/18 11:48 PM # # Low-High Fibrinogen 527 (H) 200 - 400 MG/DL FREE T4 (FREE THYROXINE) ONLY Collection Time: 11/12/18 11:48 PM # # Low-High T4-Free 1.1 0.6 - 1.6 NG/DL PTT (APTT) Collection Time: 11/12/18 11:48 PM # # Low-High APTT 26.3 24.0 - 36.5 SEC SODIUM-URINE RANDOM Collection Time: 11/13/18 2:24 AM # # Low-High Sodium, Random 10 MMOL/L OSMOLALITY-URINE RANDOM Collection Time: 11/13/18 2:24 AM # # Low-High Osmolality-Urine 85 50 - 1,400 MOS/KG CORTISOL-AM Collection Time: 11/13/18 5:15 AM # # Low-High Cortisol-AM 7.3 6.7 - 22.6 MCG/DL LACTIC ACID (BG - RAPID LACTATE) Collection Time: 11/13/18 5:15 AM # # Low-High Lactic Acid,BG 1.8 0.5 - 2.0 MMOL/L LACTIC ACID(LACTATE) Collection Time: 11/13/18 5:15 AM # # Low-High Lactic Acid 1.7 0.5 - 2.0 MMOL/L Radiology: CXR (11/13/2018): Chronic atelectasis or scarring in the left lower lobe. No acute cardiopulmonary abnormalities. CT Abdomen/Pelvis (11/13/2018): 1. No abdominopelvic inflammatory mass, bowel obstruction, [...] 5. Mild distal colonic diverticulosis without diverticulitis. Jillian Naik MS4 H CATCHER * Care Coordination-Inpatient - Trav Sampson MD - 11/13/2018 4:59 AM DOUGH CATCHER Please page [phone] with any issues until 8am after that please page med Private J H CATCHER * Advanced Care Planning/Resuscitation Status - Ge Wong MD - 11/12/2018 11:31 PM DOUGH CATCHER Advance Care Planning/Resuscitation Status Conversation Individuals present for advance care planning conversation: resident/fellow physician Pertinent details of conversation (including direct quotes from patient or surrogate): "I want everything done to keep me around. I have a lot of love to give." Outcome of conversation: Full Code Documents completed as a result of this conversation: None Other documents present, which outline patient/surrogate wishes: None Attestation? N/A H CATCHER documented in this encounter Plan of Treatment Not on filedocumented as of this encounter Procedures Comments Procedure Name Priority Date/Time Associated Diagnosis CBC AND DIFF Routine 11/14/2018 9:16 AM DOUGH CATCHER MAGNESIUM Routine 11/14/2018 4:25 AM DOUGH CATCHER COMPREHENSIVE METABOLIC Routine 11/14/2018 PANEL 4:25 AM DOUGH CATCHER LACTIC ACID (BG - RAPID Routine 11/13/2018 LACTATE) 5:15 AM DOUGH CATCHER LACTIC ACID(LACTATE) Routine 11/13/2018 5:15 AM DOUGH CATCHER CORTISOL-AM Routine 11/13/2018 5:15 AM DOUGH CATCHER SODIUM-URINE RANDOM STAT 11/13/2018 2:24 AM DOUGH CATCHER OSMOLALITY-URINE RANDOM STAT 11/13/2018 2:24 AM DOUGH CATCHER PERIPHERAL SMEAR STAT 11/12/2018 11:48 PM DOUGH CATCHER PTT (APTT) Add on 11/12/2018 11:48 PM DOUGH CATCHER PROTIME INR (PT) Routine 11/12/2018 11:48 PM DOUGH CATCHER FIBRINOGEN Add on 11/12/2018 11:48 PM DOUGH CATCHER RETICULOCYTE COUNT STAT 11/12/2018 11:48 PM DOUGH CATCHER CBC Routine 11/12/2018 11:48 PM DOUGH CATCHER THYROID STIMULATING STAT 11/12/2018 HORMONE-TSH 11:48 PM DOUGH CATCHER FREE T4 (FREE THYROXINE) Add on 11/12/2018 ONLY 11:48 PM DOUGH CATCHER OSMOLALITY STAT 11/12/2018 11:48 PM DOUGH CATCHER BNP (B-TYPE NATRIURETIC Add on 11/12/2018 PEPTI) 11:48 PM DOUGH CATCHER LDH-LACTATE DEHYDROGENASE STAT 11/12/2018 11:48 PM DOUGH CATCHER HAPTOGLOBIN STAT 11/12/2018 11:48 PM DOUGH CATCHER CONTACT AOD TO REQUEST STAT 11/12/2018 INTERNAL MEDICINE 7:28 PM DOUGH CATCHER ADMISSION FROM ED CT ABD/PELV W CONTRAST STAT 11/12/2018 5:42 PM DOUGH CATCHER CHEST SINGLE VIEW STAT 11/12/2018 4:16 PM DOUGH CATCHER URINALYSIS, MICROSCOPIC STAT 11/12/2018 3:36 PM DOUGH CATCHER URINALYSIS DIPSTICK STAT 11/12/2018 3:36 PM DOUGH CATCHER INFLUENZA A/B AG (RAPID STAT 11/12/2018 TEST) 3:36 PM DOUGH CATCHER CBC AND DIFF STAT 11/12/2018 2:15 PM DOUGH CATCHER PHOSPHORUS STAT 11/12/2018 2:15 PM DOUGH CATCHER MAGNESIUM STAT 11/12/2018 2:15 PM DOUGH CATCHER LIPASE Add on 11/12/2018 2:15 PM DOUGH CATCHER COMPREHENSIVE METABOLIC STAT 11/12/2018 PANEL 2:15 PM DOUGH CATCHER ECG 12-LEAD STAT 11/12/2018 12:42 PM DOUGH CATCHER ECG-SCAN 11/12/2018 12:00 AM DOUGH CATCHER documented in this encounter Results * CBC AND DIFF (11/14/2018 9:16 AM DOUGH CATCHER) White Blood 9.4 4.5 - 11.0 K/UL [...] Basophil Count Specimen Blood Performing Organization Address City/[facility] Phone Number [facility] [address] [phone] * MAGNESIUM (11/14/2018 4:25 AM DOUGH CATCHER) Pathologist [facility] Magnesium 1.5 (L) 1.6 - 2.6 mg/dL [facility] Specimen Blood Performing Organization Address City/[facility] Phone Number [facility] [address] [place] [address] * COMPREHENSIVE METABOLIC PANEL (11/14/2018 4:25 AM DOUGH CATCHER) Pathologist [facility] Sodium 138 137 - 147 MMOL/L [facility] Potassium 4.4 3.5 - 5.1 MMOL/L [facility] Chloride 104 98 - 110 MMOL/L [facility] Glucose 130 (H) 70 - 100 MG/DL [facility] Blood Urea 5 (L) 7 - 25 MG/DL [facility] Nitrogen Creatinine 0.64 0.4 - 1.00 MG/DL [facility] Calcium 8.0 (L) 8.5 - 10.6 MG/DL [facility] Total Protein 5.1 (L) 6.0 - 8.0 G/DL [facility] Total Bilirubin 0.2 (L) 0.3 - 1.2 MG/DL [facility] Albumin 2.5 (L) 3.5 - 5.0 G/DL [facility] Alk Phosphatase 79 25 - 110 U/L [facility] AST (SGOT) 43 (H) 7 - 40 U/L [facility] CO2 28 21 - 30 MMOL/L [facility] ALT (SGPT) 33 7 - 56 U/L [facility] Anion Gap 6 3 - 12 [facility] eGFR Non >60 >60 mL/min [facility] Comment: [place] The eGFR is not validated for use in drug dosing adjustments.Continue to use estimated creatinine clearance per dosing reference text.Please contact the Clinical Pharmacist for questions. eGFR >60 >60 mL/min [facility] [place] Comment: The eGFR is not validated for use in drug dosing adjustments.Continue to use estimated creatinine clearance per dosing reference text.Please contact the Clinical Pharmacist for questions. Specimen Blood Performing Organization Address City/[facility]/Zipcode Phone Number [facility] [address] [place] [address] * LACTIC ACID(LACTATE) (11/13/2018 5:15 AM DOUGH CATCHER) Lactic Acid 1.7 0.5 - 2.0 MMOL/L [facility] Specimen Blood Performing Organization Address City/[facility]/Zipcode Phone Number [facility] [address] [place] [address] * LACTIC ACID (BG - RAPID LACTATE) (11/13/2018 5:15 AM DOUGH CATCHER) Lactic Acid,BG 1.8 0.5 - 2.0 MMOL/L [facility] Specimen Blood Performing Organization Address [facility]/Zipcode Phone Number [facility] [address] [place] [address] * CORTISOL-AM (11/13/2018 5:15 AM DOUGH CATCHER) Cortisol-AM 7.3 6.7 - 22.6 MCG/DL [facility] Specimen Blood Performing Organization Address [facility] Phone Number [facility] [address] [place] [address] * OSMOLALITY-URINE RANDOM (11/13/2018 2:24 AM DOUGH CATCHER) Osmolality-Urin 85 50 - 1,400 MOS/KG [facility] e Specimen Urine - Urine Performing Organization Address [facility] Phone Number [facility] [address] [place] [address] * SODIUM-URINE RANDOM (11/13/2018 2:24 AM DOUGH CATCHER) Sodium, Random 10 MMOL/L [facility] Specimen Urine - Urine Performing Organization Address [facility] Phone Number MA[facility] [address] [place], [place] [phone] * PTT (APTT) (11/12/2018 11:48 PM DOUGH CATCHER) APTT 26.3 24.0 - 36.5 SEC [facility] Performing Organization Address [facility] Phone Number [facility] [address] [phone] * FREE T4 (FREE THYROXINE) ONLY (11/12/2018 11:48 PM DOUGH CATCHER) T4-Free 1.1 0.6 - 1.6 NG/DL [facility] Performing Organization Address [facility] Phone Number [facility] [address] [place] [address] * FIBRINOGEN (11/12/2018 11:48 PM DOUGH CATCHER) Fibrinogen 527 (H) 200 - 400 MG/DL [facility] Performing Organization Address [facility] Phone Number [facility] [address] [place] [address] * BNP (B-TYPE NATRIURETIC PEPTI) (11/12/2018 11:48 PM DOUGH CATCHER) B Type 134.0 (H) 0 - 100 PG/ML [facility] Natriuretic Peptide Performing Organization Address [facility] Phone Number [facility] [address] [phone] * CBC (11/12/2018 11:48 PM DOUGH CATCHER) White Blood 9.4 4.5 - 11.0 K/UL [facility] Cells RBC 3.03 (L) 4.0 - 5.0 M/UL [facility] Hemoglobin 9.0 (L) 12.0 - 15.0 GM/DL [facility] Hematocrit 26.6 (L) 36 - 45 % [facility] MCV 87.8 80 - 100 FL [facility] MCH 29.7 26 - 34 PG [facility] MCHC 33.8 32.0 - 36.0 G/DL [facility] RDW 16.2 (H) 11 - 15 % [facility] Platelet Count 207 150 - 400 K/UL [facility] MPV 8.9 7 - 11 FL [facility] Specimen Blood Performing Organization Address [facility] Phone Number [facility] [address] [place] [address] * PROTIME INR (PT) (11/12/2018 11:48 PM DOUGH CATCHER) Pathologist [facility] INR 1.6 (H) 0.8 - 1.2 [facility] Specimen Blood Performing Organization Address [facility] Phone Number [facility] [address] [place] [address] * THYROID STIMULATING HORMONE-TSH (11/12/2018 11:48 PM DOUGH CATCHER) Pathologist [facility] TSH 0.120 (L) 0.35 - 5.00 MCU/ML [facility] Specimen Blood Performing Organization Address [facility] Phone Number [facility] [address] [place] [address] * PERIPHERAL SMEAR (11/12/2018 11:48 PM DOUGH CATCHER) Peripheral NORMOCYTIC ANEMIA WITH MAIN LAB Smear ANISOCYTOSIS. WHITE CELLS AND PLATELETS APPEAR NORMAL IN NUMBER AND MORPHOLOGY. Pathologist INTERPRETED BY COOPER MEDRANO [facility] Evie Cohen By the PATH SIGNATURE ABOVE, I attest that I have personally formulated the final interpretation expressed in this report and that the above diagnosis is based upon my examination of the slides and/or other material indicated in this report. Specimen Blood Performing Organization Address [facility] Phone Number [facility] [address] [place] [address] * HAPTOGLOBIN (11/12/2018 11:48 PM DOUGH CATCHER) Haptoglobin 347 (H) 16 - 200 MG/DL [facility] Specimen Blood Performing Organization Address [facility] Phone Number [facility] [address] [place] [address] * LDH-LACTATE DEHYDROGENASE (11/12/2018 11:48 PM DOUGH CATCHER) Lactate 158 100 - 210 U/L [facility] Dehydrogenase Specimen Blood Performing Organization Address [facility] Phone Number MAIN LAB [address] [place] [phone] * RETICULOCYTE COUNT (11/12/2018 11:48 PM DOUGH CATCHER) Pathologist [facility] Retic, 1.2 0.5 - 2.0 % [facility] Uncorrected Retic, 0.8 % [facility] Corrected Retic, Absolute 35.4 30 - 94 K/UL [facility] Specimen Blood Performing Organization Address [facility] Phone Number [facility] [address] [place] [address] * OSMOLALITY (11/12/2018 11:48 PM DOUGH CATCHER) Osmolality 278 (L) 280 - 307 MOSMOL/KG [facility] Specimen Blood Performing Organization Address [facility] Phone Number MAIN LAB [address] [place] [address] * CT ABD/PELV W CONTRAST (11/12/2018 5:42 PM DOUGH CATCHER) Impressions Performed At 1.No abdominopelvic inflammatory mass, [...] Interface, Radiant Results - 11/12/2018 6:[address] ABDOMEN AND PELVIS Clinical Indication: Female, [...] on 11/12/2018 5:47 PM. Performing Organization Address City/[facility] Phone Number [facility] RAD RESULTS * CHEST SINGLE VIEW (11/12/2018 4:16 PM DOUGH CATCHER) Impressions Performed At Chronic atelectasis or scarring [...] interstitial or alveolar opacities are identified. Right Ldyddg-t-Sucp catheter remains in place with its tip at the level of the right atrium. No pleural fluid is identified. No pneumothorax is seen. Procedure Note Interface, Radiant Results - 11/13/2018 8:37 AM DOUGH CATCHER CHEST SINGLE VIEW History: shortness of breath. Technique: Single portable AP upright view of the chest was obtained. Comparison: Comparison is made to an examination of 08/31/2018. Findings: Cardiac size remains within normal limits. There is no vascular congestion. There is chronic atelectasis or scarring in the left lower lobe. No acute interstitial or alveolar opacities are identified. Right Snifwk-k-Nxbf catheter remains in place with its tip at the level of the right atrium. No pleural fluid is identified. No pneumothorax is seen. IMPRESSION Chronic atelectasis or scarring in the left lower lobe. No acute cardiopulmonary abnormalities. Finalized by Raymond Hanson M.D. on 11/13/2018 8:34 AM. Dictated by Raymond Hanson M.D. on 11/13/2018 8:29 AM. Performing Organization Address City/[facility] Phone Number [facility] RESULTS * INFLUENZA A/B AG (RAPID TEST) (11/12/2018 3:36 PM DOUGH CATCHER) Battery Name INFLUENZA A/B ANTIGEN [facility] Specimen NASOPHARYNGEAL SWAB [facility] Description Special NONE [facility] Requests Direct Antigen NEGATIVE FOR INFLUENZA A/B [facility] Report Status FINAL MAIN LAB 11/12/2018 Specimen Nasopharyngeal Swab Performing Organization Address [facility] Phone Number [facility] [address] [place] [address] * URINALYSIS, MICROSCOPIC (11/12/2018 3:36 PM DOUGH CATCHER) WBCs,UA 2-10 0 - 2 /HPF [facility] RBCs,UA 0-2 0 - 3 /HPF [facility] MucousUA TRACE MAIN LAB Squamous 0-2 0 - 5 MAIN LAB Epithelial Cells Specimen Urine - Urine Performing Organization Address [facility] Phone Number MAIN LAB [address] [place] [address] * URINALYSIS DIPSTICK (11/12/2018 3:36 PM DOUGH CATCHER) Color,UA [facility] MAIN LAB Turbidity,UA CLEAR CLEAR-CLEAR MAIN LAB Specific 1.020 1.003 - 1.035 MAIN LAB Rogers-Urine pH,UA 6.0 5.0 - 8.0 [facility] Protein,UA 1+ (A) NEG-NEG MAIN LAB Glucose,UA NEG NEG-NEG MAIN LAB Ketones,UA NEG NEG-NEG MAIN LAB Bilirubin,UA NEG NEG-NEG MAIN LAB Blood,UA NEG NEG-NEG MAIN LAB Urobilinogen,UA INCREASED (A) NORM-NORMAL MAIN LAB Nitrite,UA NEG NEG-NEG MAIN LAB Leukocytes,UA NEG NEG-NEG MAIN LAB Urine Ascorbic POS (A) NEG-NEG MAIN LAB Acid, UA Comment: Ascorbic acid is found in various food supplies and dietary supplements, and is reported to cause strong interference with Macroscopic Urinalysis testing for glucose, blood and nitrite, and can result in a false negative result. Specimen Urine - Urine Performing Organization Address [facility] Phone Number MAIN LAB [address] [place] [address] * LIPASE (11/12/2018 2:15 PM DOUGH CATCHER) Lipase 9 (L) 11 - 82 U/L [facility] Performing Organization Address [facility] Phone Number [facility] [address] [place] [address] * PHOSPHORUS (11/12/2018 2:15 PM DOUGH CATCHER) Phosphorus 3.1Comment: NOTE NEW REFERENCE 2.0 - 4.5 MG/DL [facility] RANGES Specimen Blood Performing Organization Address City/[facility]/Zipcode Phone Number MAIN LAB [address] [place] [address] * MAGNESIUM (11/12/2018 2:15 PM DOUGH CATCHER) Magnesium 1.6 1.6 - 2.6 mg/dL [facility] Specimen Blood Performing Organization Address City/[facility]/Zipcode Phone Number MAIN LAB [address] [place] [address] * COMPREHENSIVE METABOLIC PANEL (11/12/2018 2:15 PM DOUGH CATCHER) Sodium 130 (L) 137 - 147 MMOL/L [facility] Potassium 3.3 (L) 3.5 - 5.1 MMOL/L [facility] Chloride 92 (L) 98 - 110 MMOL/L [facility] Glucose 109 (H) 70 - 100 MG/DL [facility] Blood Urea 7 7 - 25 MG/DL [facility] Nitrogen Creatinine 0.61 0.4 - 1.00 MG/DL [facility] Calcium 9.5 8.5 - 10.6 MG/DL [facility] Total Protein 7.1 6.0 - 8.0 G/DL [facility] Total Bilirubin 0.6 0.3 - 1.2 MG/DL [facility] Albumin 3.4 (L) 3.5 - 5.0 G/DL [facility] Alk Phosphatase 95 25 - 110 U/L [facility] AST (SGOT) 38 7 - 40 U/L [facility] CO2 28 21 - 30 MMOL/L [facility] ALT (SGPT) 35 7 - 56 U/L [facility] Anion Gap 10 3 - 12 [facility] eGFR Non >60 >60 mL/min [facility] Comment: [place] The eGFR is not validated for use in drug dosing adjustments.Continue to use estimated creatinine clearance per dosing reference text.Please contact the Clinical Pharmacist for questions. eGFR >60 >60 mL/min [facility] [place] Comment: The eGFR is not validated for use in drug dosing adjustments.Continue to use estimated creatinine clearance per dosing reference text.Please contact the Clinical Pharmacist for questions. Specimen Blood Performing Organization Address City/[facility]/Zipcode Phone Number [facility] [address] [place] [address] * CBC AND DIFF (11/12/2018 2:15 PM DOUGH CATCHER) White Blood 12.6 (H) 4.5 - 11.0 K/UL [facility] Cells RBC 2.63 (L) 4.0 - 5.0 M/UL [facility] Hemoglobin 7.8 (L) 12.0 - 15.0 GM/DL [facility] Hematocrit 23.6 (L) 36 - 45 % [facility] MCV 89.7 80 - 100 FL [facility] MCH 29.7 26 - 34 PG [facility] MCHC 33.1 32.0 - 36.0 G/DL [facility] RDW 16.9 (H) 11 - 15 % [facility] Platelet Count 279 150 - 400 K/UL [facility] MPV 9.7 7 - 11 FL [facility] Neutrophils 82 (H) 41 - 77 % [facility] Lymphocytes 8 (L) 24 - 44 % [facility] Monocytes 9 4 - 12 % [facility] Eosinophils 1 0 - 5 % [facility] Basophils 0 0 - 2 % [facility] Absolute 10.50 (H) 1.8 - 7.0 K/UL [facility] Neutrophil Count Absolute Lymph 1.00 1.0 - 4.8 K/UL [facility] Count Absolute 1.10 (H) 0 - 0.80 K/UL [facility] Monocyte Count Absolute 0.10 0 - 0.45 K/UL [facility] Eosinophil Count Absolute 0.00 0 - 0.20 K/UL [facility] Basophil Count Specimen Blood Performing Organization Address City/[facility]/Zipcode Phone Number [facility] [address] [place] [address] * ECG-SCAN (11/12/2018 12:00 AM DOUGH CATCHER) Narrative Performed At Ordered by an unspecified provider. documented in this encounter Visit Diagnoses Diagnosis Anemia, unspecified type Intractable vomiting with nausea, unspecified vomiting type Metastatic disease (HCC) Other malignant neoplasm without specification of site Bipolar depression (HCC) Bipolar I disorder, most recent episode (or current) depressed, unspecified Malignant neoplasm of hilus of left lung (HCC) Chronic hypoxemic respiratory failure (HCC) Chronic respiratory failure documented in this encounter Admitting Diagnoses Diagnosis Intractable nausea and vomiting Persistent vomiting documented in this encounter Administered Medications Action Date Dose Rate Site Medication Order MAR Action 11/12/2018 11:37 PM DOUGH CATCHER 30 mL acetaminophen/lidocaine/antacid DS(#) Given (GI COCKTAIL) 1:1:3 suspension 30 mL 30 mL, Oral, EVERY 6 HOURS PRN, Starting Meghann 11/12/18 at 2324, Until 11/14/18 at 1454, Indigestion/Heartburn, 30mL (1:1:3)=192mg/6mL acetamin-6mL 2% vis lidocaine-18mL Antacid DS, 11/14/2018 12:12 PM DOUGH CATCHER 2.5 mg albuterol 0.5% (PROVENTIL; VENTOLIN) Given nebulizer solution 2.5 mg 2.5 mg, Inhalation, RT THREE TIMES DAILY AND PRN, First dose on Fri11/13/18 at 0600, Until Discontinued, ADMINISTERED BY RT, 2.5 mg Given 11/14/2018 5:45 AM DOUGH CATCHER 2.5 mg Given 11/13/2018 5:46 PM DOUGH CATCHER 11/13/2018 9:18 PM DOUGH CATCHER 1 mg ALPRAZolam (XANAX) tablet 1 mg Given 1 mg, Oral, THREE TIMES DAILY PRN, Starting Meghann 11/12/18 at 2153, Until 11/14/18 at 1454, Anxiety PO 1 mg Given 11/13/2018 4:27 PM DOUGH CATCHER 11/14/2018 5:41 AM DOUGH CATCHER 125 mL/hr dextrose 5 % & 0.9% NaCl with KCl 20 Given - New mEq/L infusion Bag 1,000 mL, Intravenous, at 125 mL/hr, CONTINUOUS, Starting Meghann 11/12/18 at 2245, Until 11/14/18 at 1454 125 mL/hr Given - New Bag 11/13/2018 9:37 PM DOUGH CATCHER 125 mL/hr Given - New Bag 11/13/2018 12:37 PM DOUGH CATCHER 11/13/2018 9:07 PM DOUGH CATCHER 40 mg Abdominal Tissue enoxaparin (LOVENOX) syringe 40 mg Given 40 mg, Subcutaneous, DAILY, First dose on Fri11/13/18 at 2100, Until Discontinued, For patients undergoing surgery: Consult physician in advance -- enoxaparin is an anticoagulant and may need to be held for 12hr prior to surgery or invasive procedures. NOTE: This is a HIGH ALERT Medication., 11/14/2018 5:48 AM DOUGH CATCHER 1 puff oedyynjqpqg-zjzedsqpz-ofupdqoh (TRELEGY Given ELLIPTA) 100-62.5-25 mcg dsdv 1 puff [Patient's Own Medication] 1 puff, Inhalation, RT DAILY, First dose on Fri11/13/18 at 0615, Until Discontinued, NOTE: patient's own medication., 1 puff Given 11/13/2018 5:22 AM DOUGH CATCHER 11/12/2018 11:27 PM DOUGH CATCHER 100 mg gabapentin (NEURONTIN) capsule 100 mg Given 100 mg, Oral, AT BEDTIME DAILY, First dose on Meghann 11/12/18 at 2200, Until Discontinued 11/14/2018 11:37 AM DOUGH CATCHER 500 Units heparin lock flush PF syringe 500 Units Given 500 Units, Intra-catheter, ONCE PRN, 1 dose, Starting 11/14/18 at 1014, Until 11/14/18 at 1137, Catheter flush, When de-accessing a port-a-cath pack with 5 mL heparin (100 units/mL) unless contraindicated. NOTE: This is a HIGH ALERT Medication., 11/12/2018 5:37 PM DOUGH CATCHER 100 mL iohexol (OMNIPAQUE-350) 350 mg/mL Given injection 100 mL 100 mL, Intravenous, ONCE, 1 dose, Meghann 11/12/18 at 1745, NOTE: This is a HIGH ALERT Medication., 11/14/2018 12:12 PM DOUGH CATCHER 0.5 mg ipratropium bromide (ATROVENT) 0.02 % Given nebulizer solution 0.5 mg 0.5 mg, Inhalation, RT THREE TIMES DAILY AND PRN, First dose on Fri11/13/18 at 0600, Until Discontinued, ADMINISTERED BY RT, 0.5 mg Given 11/14/2018 5:45 AM DOUGH CATCHER 0.5 mg Given 11/13/2018 5:48 PM DOUGH CATCHER 11/12/2018 3:19 PM DOUGH CATCHER 1,000 mL 999 mL/hr lactated ringers infusion Given - New 1,000 mL, 1,000 mL, Intravenous, at 999 Bag mL/hr, BOLUS, 1 dose, Meghann 11/12/18 at 1500 11/12/2018 7:28 PM DOUGH CATCHER 1,000 mL 150 mL/hr lactated ringers infusion Given - New 1,000 mL, 1,000 mL, Intravenous, at 150 Bag mL/hr, BOLUS, 1 dose, Fri11/12/18 at 1915 11/12/2018 8:52 PM DOUGH CATCHER 1,000 mL 999 mL/hr lactated ringers infusion Given - New 1,000 mL, 1,000 mL, Intravenous, at 999 Bag mL/hr, BOLUS, 1 dose, Fri11/12/18 at 2100 11/13/2018 3:36 AM DOUGH CATCHER 500 mL 9999 mL/hr lactated ringers infusion Given - New 1,000 mL, 500 mL, Intravenous, at 9,999 Bag mL/hr, BOLUS, 1 dose, Fri11/13/18 at 0300 11/13/2018 12:58 AM DOUGH CATCHER 1 g 100 mL/hr magnesium sulfate 1 g/D5W 100 mL IVPB Given - New 1 g, Intravenous, 100 mL, Administer Bag over 1 Hours, EVERY 1 HOUR FOR 2 DOSES, 2 doses, First dose on Fri11/12/18 at 2300, Last dose on Fri11/13/18 at 0000, Each 1gm delivers 8.1 mEq Magnesium., 1 g 100 mL/hr Given - New Bag 11/12/2018 11:26 PM DOUGH CATCHER 11/14/2018 10:09 AM DOUGH CATCHER 1 g 100 mL/hr magnesium sulfate 1 g/D5W 100 mL IVPB Given - New 1 g, Intravenous, 100 mL, Administer Bag over 1 Hours, EVERY 1 HOUR FOR 2 DOSES, 2 doses, First dose on Fri11/14/18 at 0800, Last dose on Fri11/14/18 at 0900, Each 1gm delivers 8.1 mEq Magnesium., 1 g 100 mL/hr Given - New Bag 11/14/2018 9:08 AM DOUGH CATCHER 11/12/2018 3:19 PM DOUGH CATCHER 4 mg ondansetron (ZOFRAN) injection 4 mg Given 4 mg, Intravenous, ONCE, 1 dose, Fri11/12/18 at 1500 11/13/2018 9:18 PM DOUGH CATCHER 5 mg oxyCODONE (ROXICODONE, OXY-IR) tablet Given 5-10 mg 5-10 mg, Oral, EVERY 6 HOURS PRN, Starting Fri11/12/18 at 2153, Until Fri11/14/18 at 1454, Pain PO 10 mg Given 11/12/2018 11:37 PM DOUGH CATCHER 11/13/2018 9:07 PM DOUGH CATCHER [address] (PROTONIX) tablet 40 mg Given 40 mg, Oral, DAILY, First dose on Fri11/12/18 at 2330, Until Discontinued, Do not crush or chew tablet., 40 mg Given 11/12/2018 11:37 PM DOUGH CATCHER 11/12/2018 11:27 PM DOUGH CATCHER 60 mEq potassium chloride SR (K-DUR) tablet 60 Given mEq 60 mEq, Oral, ONCE, 1 dose, Fri11/12/18 at 2245, - Tablet may be dispersed in water. Place tab in 30 mL of water for 40-60 seconds. - Gently swirl until fully dispersed. If particles remain after admin, add small amount of water and admin remaining content. - DO NOT CRUSH. Tablet may be split in half. , 11/13/2018 8:50 AM DOUGH CATCHER 10 mg prednisone (DELTASONE) tablet 10 mg Given 10 mg, Oral, DAILY WITH BREAKFAST, First dose on Fri11/13/18 at 0800, Until Discontinued, Give with food, 11/14/2018 9:07 AM DOUGH CATCHER 5 mg prednisone (DELTASONE) tablet 5 mg Given 5 mg, Oral, DAILY WITH BREAKFAST, 6 doses, First dose on Fri11/14/18 at 0800, Last dose on Fri11/19/18 at 0800, Give with food, 11/12/2018 5:37 PM DOUGH CATCHER 50 mL 2.5 mL/hr sodium chloride PF 0.9% injection 50 mL Given 50 mL, Intravenous, at 2.5 mL/hr, ONCE, 1 dose, Fri11/12/18 at 1745, DO NOT SEND this medication unless it is requested. This med is usually available in floor stock., Intra-procedure (IR) documented in this encounter
--- OUTSIDE RECORDS SUMMARY | 2018-11-26 13:19 | XMS REPORT | Encounter Summary ---
Author Author [facility] Organization [facility] Address Unknown Phone Unavailable Care Team Providers Care Dramatic Art Teacher Name Role Phone Derek Mccormick MD Unavailable Jose Daniel Mckeon MD Unavailable Angelita Caballero MD Unavailable Jakob Cole Unavailable Unavailable Yari Carias MA Unavailable Unavailable Mariah Espinoza Unavailable Unavailable Jennifer Mojica TERMINAL BLOCK ASSEMBLER Unavailable Annie Macias MA Unavailable Unavailable Blessing Morin Unavailable Unavailable Parul De Los Santos MD Unavailable Ngozi Camarena PA-C Unavailable Lary Noguera MD 3 Kristen Gong MD PCP Unavailable Kristen Gong MD 100 Unavailable Encounter Details Care Team Description Date Type Department Jaleesa Coyle, TERMINAL BLOCK ASSEMBLER [address] [place], [place] [phone] 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) ; Chronic hepatitis C without hepatic coma (HCC) 10/29/2018 Lab Only The [address] [phone] Social History Date Tobacco Use Types Packs/Day [...] impairment: No documented as of this encounter Plan of Treatment Not on filedocumented as of this encounter Procedures Comments Procedure Name Priority Date/Time Associated Diagnosis FREE T4-FREE THYROXINE Routine 10/29/2018 Malignant neoplasm of 10:05 AM TOWER FOREMAN hilus of left lung (HCC) TSH WITH FREE T4 REFLEX Routine 10/29/2018 Malignant neoplasm of 10:05 AM TOWER FOREMAN hilus of left lung (HCC) HEPATITIS C VIRAL LOAD Routine 10/29/2018 Chronic hepatitis C PCR QUANT 10:05 AM TOWER FOREMAN without hepatic coma (HCC) CBC AND DIFF Routine 10/29/2018 Malignant neoplasm of 10:05 AM TOWER FOREMAN hilus of left lung (HCC) COMPREHENSIVE METABOLIC Routine 10/29/2018 Malignant neoplasm of PANEL 10:05 AM TOWER FOREMAN hilus of left lung (HCC) documented in this encounter Results * FREE T4-FREE THYROXINE (10/29/2018 10:05 AM TOWER FOREMAN) T4-Free 1.0 0.6 - 1.6 NG/DL [facility] Performing Organization Address City/State/Zipcode Phone Number MAIN LAB [address] [place] [address] * HEPATITIS C VIRAL LOAD PCR QUANT (10/29/2018 10:05 AM TOWER FOREMAN) Hepatitis C PCR HCV RNA Not Detected, <12 <12 IU/ML MAIN LAB Quantitative IU/mL Comment: The test method detects HCV viral load using the Piña RealTime assay. Please correlate results with the clinical status of the patient. Log 10 HCV <1.08 <1.08 IU/mL MAIN LAB Specimen Blood Performing Organization Address City/[facility]/Zipcode Phone Number MAIN LAB [address] [place] [address] * TSH WITH FREE T4 REFLEX (10/29/2018 10:05 AM TOWER FOREMAN) [facility] TSH 0.220 (L) 0.35 - 5.00 MCU/ML MAIN LAB Specimen Blood Performing Organization Address [facility] Phone Number [facility] [address] [place] [address] * COMPREHENSIVE METABOLIC PANEL (10/29/2018 10:05 AM TOWER FOREMAN) [facility] Sodium 131 (L) 137 - 147 MMOL/L [facility] Potassium 3.8 3.5 - 5.1 MMOL/L [facility] Chloride 95 (L) 98 - 110 MMOL/L [facility] Glucose 174 (H) 70 - 100 MG/DL [facility] Blood Urea 14 7 - 25 MG/DL [facility] Nitrogen Creatinine 0.88 0.4 - 1.00 MG/DL [facility] Calcium 9.3 8.5 - 10.6 MG/DL [facility] Total Protein 7.4 6.0 - 8.0 G/DL [facility] Total Bilirubin 0.3 0.3 - 1.2 MG/DL [facility] Albumin 3.7 3.5 - 5.0 G/DL [facility] Alk Phosphatase 112 (H) 25 - 110 U/L [facility] AST (SGOT) 38 7 - 40 U/L [facility] CO2 27 21 - 30 MMOL/L [facility] ALT (SGPT) 81 (H) 7 - 56 U/L [facility] Anion Gap 9 3 - 12 [facility] eGFR Non >60 >60 mL/min [facility] Comment: [place] The eGFR is not validated for use in drug dosing adjustments.Continue to use estimated creatinine clearance per dosing reference text.Please contact the Clinical Pharmacist for questions. eGFR >60 >60 mL/min [facility] [place] Comment: The eGFR is not validated for use in drug dosing adjustments.Continue to use estimated creatinine clearance per dosing reference text.Please contact the Clinical Pharmacist for questions. Specimen Blood Performing Organization Address City/[facility]/Zipcode Phone Number [facility] [address] [place] [address] * CBC AND DIFF (10/29/2018 10:05 AM TOWER FOREMAN) White Blood 9.1 4.5 - 11.0 K/UL [facility] Cells RBC 3.87 (L) 4.0 - 5.0 M/UL [facility] Hemoglobin 11.5 (L) 12.0 - 15.0 GM/DL [facility] Hematocrit 34.6 (L) 36 - 45 % [facility] MCV 89.6 80 - 100 FL [facility] MCH 29.7 26 - 34 PG [facility] MCHC 33.2 32.0 - 36.0 G/DL [facility] RDW 15.9 (H) 11 - 15 % [facility] Platelet Count 260 150 - 400 K/UL [facility] MPV 8.7 7 - 11 FL [facility] Neutrophils 88 (H) 41 - 77 % [facility] Lymphocytes 7 (L) 24 - 44 % [facility] Monocytes 4 4 - 12 % [facility] Eosinophils 0 0 - 5 % [facility] Basophils 1 0 - 2 % [facility] Absolute 8.00 (H) 1.8 - 7.0 K/UL [facility] Neutrophil Count Absolute Lymph 0.60 (L) 1.0 - 4.8 K/UL [facility] Count Absolute 0.40 0 - 0.80 K/UL [facility] Monocyte Count Absolute 0.00 0 - 0.45 K/UL [facility] Eosinophil Count Absolute 0.10 0 - 0.20 K/UL [facility] Basophil Count Specimen Blood Performing Organization Address City/[facility]/Zipcode Phone Number [facility] [address] [place] [address] documented in this encounter Visit Diagnoses Diagnosis Malignant neoplasm of hilus of left lung (HCC) - Primary Chronic hepatitis C without hepatic coma (HCC) Chronic hepatitis C without mention of hepatic coma documented in this encounter
--- OUTSIDE RECORDS SUMMARY | 2018-11-26 13:19 | XMS REPORT | Encounter Summary ---
Author Author [facility] Organization [facility] Address Unknown Phone Unavailable Care Team Providers Care Music Copyist Name Role Phone Derek Mccormick MD Unavailable Jose Daniel Mckeon MD Unavailable Angelita Caballero MD Unavailable Jakob Cole Unavailable Unavailable Yari Carias MA Unavailable Unavailable Mariah Espinoza Unavailable Unavailable Jennifer Mojica AGRICULTURAL ECONOMIST Unavailable Annie Macias MA Unavailable Unavailable Blessing Morin Unavailable Unavailable Parul De Los Santos MD Unavailable Ngozi Camarena PA-C Unavailable Lary Noguera MD 3 Kristen Gong MD PCP Unavailable Kristen Gong MD 100 Unavailable Reason for Visit * Reason Comments Cancer Encounter Details Care Team Description Date Type Department Jaleesa Coyle, AGRICULTURAL ECONOMIST [address] [place], [place] [phone] Adenocarcinoma of left lung (HCC); Chronic bronchitis, unspecified chronic bronchitis type (HCC); Chronic hepatitis C without hepatic coma (HCC) 10/29/2018 Office Visit The [address] [phone] Social History Date Tobacco Use Types Packs/Day [...] Vital Signs Time Taken Vital Sign Reading 10/29/2018 10:22 AM MATURITY CHECKER Blood Pressure 118/74 10/29/2018 10:22 AM MATURITY CHECKER Pulse 109 10/29/2018 10:22 AM MATURITY CHECKER Temperature 36.6 C (97.8 F) 10/29/2018 10:22 AM MATURITY CHECKER Respiratory Rate 16 10/29/2018 10:22 AM MATURITY CHECKER Oxygen Saturation 97% - Inhaled Oxygen - Concentration 10/29/2018 10:22 AM MATURITY CHECKER Weight 86.6 kg (191 lb) 10/29/2018 10:22 AM MATURITY CHECKER Height 160 cm (5' 2.99") 10/29/2018 10:22 AM MATURITY CHECKER Body Mass Index 33.84 documented in this encounter Functional Status Date [...] impairment: No documented as of this encounter Patient Instructions * Patient Instructions* Bridgett Randolph RN - 10/29/2018 10:30 AM MATURITY CHECKER To reschedule appointments please contact: [phone] To speak to a nurse between the hours of 8:00 to 4:00 please call [phone] Please ensure your schedule is correct prior to leaving clinic and that all your refill requests have been taken care of. Please allow 5-7 business days to complete any paperwork. Please allow 3 business days for narcotic refills. Please try to avoid filling your narcotic [facility] [place] [place], [facility], or [facility]. RITY CHECKER documented in this encounter Progress Notes * Jaleesa Coyle APRN - 10/29/2018 10:30 AM MATURITY CHECKER Name: Charlene Arias : 1965 AGE: 52 y.o. DATE OF SERVICE: 10/29/2018 Cancer Charlene Arias is a 52 y.o. female. Cancer Staging Adenocarcinoma of left lung (HCC) Staging form: Lung, AJCC 7th Edition - Clinical stage from 09/11/2017: T2, N0, M0 - Signed by Nina Rubalcava APRN -UI DEVELOPER on 09/23/2017 - Pathologic: No stage assigned - Unsigned Malignant neoplasm of hilus of left lung (HCC) Staging form: Lung, AJCC 8th Edition - Clinical: Stage IV (cT2a, cN1, cM1a) - Signed by Chapo Colvin MD on 2018 History of Present [id number] female with a newly diagnosed recurrent non-small [...] for malignant cells, consistent with [place] CA PAST THERAPY: Completed 10 fractions of radiation on February 27 2018. SBRT 02/19 - 02/27/18 -Mutation testing ALK, ROS-1, EGFR, BRAF, KRAS negative. PD-L1 60%. -We discussed that the adjuvant chemotherapy is not traditionally given after radiation with SBR but since she had N1 disease she is at high risk of systemic metastasis. 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 -Pemetrexed 500 mg/m2 +Carboplatin AUC 5 chemotherapy IV. Plan for 4 cycles. Treatment was to begin [...] IV every 21 days, begin today (10/29/18). Patient here to begin Keytruda. Dyspnea and wheezing have improved with Duo- neb. Fair appetite. Moderate fatigue. Rheumatoid arthritis stable. Numbness r/t RA. Denies nausea, vomiting, constipation or diarrhea. Patient anxious to get out and ride her motorcycle when weather improves. She continues to receive home health in the home. Review of Systems Constitutional: Positive for fatigue. Negative for activity change, appetite change and unexpected weight change. HENT: Negative for congestion, sore throat and trouble swallowing. Respiratory: Positive for cough, chest tightness and shortness of breath. Negative for choking and wheezing. Cardiovascular: Negative. Negative for chest pain, palpitations and leg swelling. Gastrointestinal: Negative for nausea. Genitourinary: Negative. Musculoskeletal: Positive for arthralgias (RA), back pain, joint swelling and myalgias. Skin: Negative for rash. Neurological: Negative. Hematological: Negative. Negative for adenopathy. Does not bruise/bleed easily. Psychiatric/Behavioral: The patient is nervous/anxious. All other systems reviewed and are negative. [...] Take one tablet by mouth daily. . asfwgfbpjno-asqeqlrjd-wljwctfh (TRELEGY ELLIPTA) 100-62.5-25 mcg dsdv Inhale 1 [...] hours as needed for Nausea or Vomiting. Vitals: 10/29/18 1022 BP: 118/74 Pulse: 109 Resp: 16 Temp: 36.6 C (97.8 F) TempSrc: Oral SpO2: 97% Weight: 86.6 kg (191 lb) Height: 160 cm (62.99") Body mass index is 33.84 kg/m. Pain Score: Zero Pain Addressed: Patient to call office if pain not relieved or worsened Patient Evaluated for a Clinical Trial: No [...] friction rub. No murmur heard. Pulmonary/Chest: Effort normal. No respiratory distress. She has no [...] is warm and intact. No cyanosis. Psychiatric: Her speech is normal and behavior is normal. Judgment and thought content normal. Her mood appears anxious. Cognition and memory are normal. Vitals reviewed. CBC w/Diff Lab Results Component Value Date/Time WBC 9.1 10/29/2018 10:05 AM RBC 3.87 (L) 10/29/2018 10:05 AM HGB 11.5 (L) 10/29/2018 10:05 AM HCT 34.6 (L) 10/29/2018 10:05 AM MCV 89.6 10/29/2018 10:05 AM MCH 29.7 10/29/2018 10:05 AM MCHC 33.2 10/29/2018 10:05 AM RDW 15.9 (H) 10/29/2018 10:05 AM PLTCT 260 10/29/2018 10:05 AM MPV 8.7 10/29/2018 10:05 AM Lab Results Component Value Date/Time NEUT 88 (H) 10/29/2018 10:05 AM ANC 8.00 (H) 10/29/2018 10:05 AM LYMA 7 (L) 10/29/2018 10:05 AM ALC 0.60 (L) 10/29/2018 10:05 AM MARGARITA 4 10/29/2018 10:05 AM AMC 0.40 10/29/2018 10:05 AM EOSA 0 10/29/2018 10:05 AM AEC 0.00 10/29/2018 10:05 AM BASA 1 10/29/2018 10:05 AM ABC 0.10 10/29/2018 10:05 AM Comprehensive Metabolic Profile Lab Results Component Value Date/Time NA 131 (L) 10/29/2018 10:05 AM K 3.8 10/29/2018 10:05 AM CL 95 (L) 10/29/2018 10:05 AM CO2 27 10/29/2018 10:05 AM GAP 9 10/29/2018 10:05 AM BUN 14 10/29/2018 10:05 AM CR 0.88 10/29/2018 10:05 AM GLU 174 (H) 10/29/2018 10:05 AM GLU 95 01/25/2016 10:32 AM Lab Results Component Value Date/Time CA 9.3 10/29/2018 10:05 AM PO4 3.3 07/26/2016 06:16 AM ALBUMIN 3.7 10/29/2018 10:05 AM TOTPROT 7.4 10/29/2018 10:05 AM ALKPHOS 112 (H) 10/29/2018 10:05 AM AST 38 10/29/2018 10:05 AM ALT 81 (H) 10/29/2018 10:05 AM TOTBILI 0.3 10/29/2018 10:05 AM GFR >60 10/29/2018 10:05 AM GFRAA >60 10/29/2018 10:05 AM Assessment and Plan: Problem Adenocarcinoma of Left [...] IV every 21 days, begin today (10/29/18). Chronic hepatitis C without hepatic coma (HCC) Copd (Chronic Obstructive Pulmonary Disease) (Hcc) GOLD Staging: Category B1 mMRC: 2 GOLD [...] as obtaining regular surveillance with her cancer Adenocarcinoma of left lung (HCC) Patient will begin Keytruda today. She will call [phone] if she develops any immune related side effects including: worsening of shortness of breath, diarrhea or rash. Patient verbalized understanding. She will return in 3 weeks with labs, treatment and visit. COPD (chronic obstructive pulmonary disease) (HCC) Continue medications as prescribed. Chronic hepatitis C without hepatic coma (HCC) F/u with Hep C lab drawn today once results are available. ALT improved. The patient and her friend verbalized understanding of the information discussed today. Mrs Arias does have the main cancer center phone number to call with questions or concerns. RITY CHECKER documented in this encounter Plan of Treatment Not on filedocumented as of this encounter Visit Diagnoses Diagnosis Adenocarcinoma of left lung (HCC) Chronic bronchitis, unspecified chronic bronchitis type (HCC) Chronic hepatitis C without hepatic coma (HCC) Chronic hepatitis C without mention of hepatic coma * Assessment & Plan Note - Jaleesa Coyle APRN - 10/29/2018 5:23 PM MATURITY CHECKER Associated Problem(s): Chronic hepatitis C without hepatic coma (HCC) F/u with Hep C lab drawn today once results are available. ALT improved. RITY CHECKER * Assessment & Plan Note - Jaleesa Coyle APRN - 10/29/2018 5:22 PM MATURITY CHECKER Associated Problem(s): COPD (chronic obstructive pulmonary disease) (HCC) Continue medications as prescribed. RITY CHECKER * Assessment & Plan Note - Jaleesa Coyle APRN - 10/29/2018 5:20 PM MATURITY CHECKER Associated Problem(s): Adenocarcinoma of left lung (HCC) Patient will begin Keytruda today. She will call [phone] if she develops any immune related side effects including: worsening of shortness of breath, diarrhea or rash. Patient verbalized understanding. She will return in 3 weeks with labs, treatment and visit. RITY CHECKER documented in this encounter
--- OUTSIDE RECORDS SUMMARY | 2018-11-26 13:20 | XMS REPORT | Encounter Summary ---
Author Author [facility] Organization [facility] Address Unknown Phone Unavailable Care Team Providers Care Admin Asst Name Role Phone Derek Mccormick MD Unavailable Jose Daniel Mckeon MD Unavailable Angelita Caballero MD Unavailable Jakob Cole Unavailable Unavailable Yari Carias MA Unavailable Unavailable Mariah Espinoza Unavailable Unavailable Jennifer Mojica COMMUNITY CENTER COORDINATOR Unavailable Annie Macias MA Unavailable Unavailable Blessing Morin Unavailable Unavailable Parul De Los Santos MD Unavailable Ngozi Camarena PA-C Unavailable Lary Noguera MD 3 Kristen Gong MD PCP Unavailable Kristen Gong MD 100 Unavailable Encounter Details Care Team Description Date Type Department Chapo Colvin MD [address] [place] [address] [phone] 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) 10/20/2018 Orders Only The [address] [phone] Social History Date Tobacco Use Types Packs/Day [...] Not on filedocumented as of this encounter Results * COMPREHENSIVE METABOLIC PANEL (10/22/2018 8:10 AM CHIP TESTER) [facility] Sodium 132 (L) 137 - 147 MMOL/L [facility] Potassium 3.8 3.5 - 5.1 MMOL/L [facility] Chloride 97 (L) 98 - 110 MMOL/L [facility] Glucose 80 70 - 100 MG/DL [facility] Blood Urea 20 7 - 25 MG/DL [facility] Nitrogen Creatinine 0.63 0.4 - 1.00 MG/DL [facility] Calcium 8.8 8.5 - 10.6 MG/DL [facility] Total Protein 6.7 6.0 - 8.0 G/DL [facility] Total Bilirubin 0.2 (L) 0.3 - 1.2 MG/DL [facility] Albumin 3.5 3.5 - 5.0 G/DL [facility] Alk Phosphatase 99 25 - 110 U/L [facility] AST (SGOT) 99 (H) 7 - 40 U/L [facility] CO2 30 21 - 30 MMOL/L [facility] ALT (SGPT) 136 (H) 7 - 56 U/L [facility] Anion Gap 5 3 - 12 [facility] eGFR Non >60 >60 mL/min [facility] Comment: [facility] The eGFR is not validated for use in drug dosing adjustments.Continue to use estimated creatinine clearance per dosing reference text.Please contact the Clinical Pharmacist for questions. eGFR >60 >60 mL/min [facility] Comment: The eGFR is not validated for use in drug dosing adjustments.Continue to use estimated creatinine clearance per dosing reference text.Please contact the Clinical Pharmacist for questions. Specimen Blood Performing Organization Address City/[facility]/Zipcode Phone Number [facility] [address] [place] [address] * CBC AND DIFF (10/22/2018 8:10 AM CHIP TESTER) White Blood 14.9 (H) 4.5 - 11.0 K/UL [facility] Cells RBC 3.68 (L) 4.0 - 5.0 M/UL [facility] Hemoglobin 11.2 (L) 12.0 - 15.0 GM/DL [facility] Hematocrit 32.9 (L) 36 - 45 % [facility] MCV 89.3 80 - 100 FL [facility] MCH 30.4 26 - 34 PG [facility] MCHC 34.0 32.0 - 36.0 G/DL [facility] RDW 15.7 (H) 11 - 15 % [facility] Platelet Count 228 150 - 400 K/UL [facility] MPV 9.0 7 - 11 FL [facility] Neutrophils 82 (H) 41 - 77 % [facility] Lymphocytes 10 (L) 24 - 44 % [facility] Monocytes 6 4 - 12 % [facility] Eosinophils 1 0 - 5 % [facility] Basophils 1 0 - 2 % [facility] Absolute 12.30 (H) 1.8 - 7.0 K/UL [facility] Neutrophil Count Absolute Lymph 1.40 1.0 - 4.8 K/UL [facility] Count Absolute 0.80 0 - 0.80 K/UL [facility] Monocyte Count Absolute 0.10 0 - 0.45 K/UL [facility] Eosinophil Count Absolute 0.20 0 - 0.20 K/UL [facility] Basophil Count Specimen Blood Performing Organization Address City/[facility]/Zipcode Phone Number [facility] [address] [place] [address] documented in this encounter Visit Diagnoses Diagnosis Malignant neoplasm of hilus of left lung (HCC) - Primary documented in this encounter
--- OUTSIDE RECORDS SUMMARY | 2018-11-26 13:20 | XMS REPORT | Encounter Summary ---
Author Author [facility] Address Unknown Phone Unavailable Care Team Providers Care Blending Supervisor Name Role Phone Derek Mccormick MD Unavailable Jose Daniel Mckeon MD Unavailable Angelita Caballero MD Unavailable Jakob Cole Unavailable Unavailable Yari Carias MA Unavailable Unavailable Mariah Espinoza Unavailable Unavailable Jennifer Mojica RESEARCH CONTRACTS SUPERVISOR Unavailable Annie Macias MA Unavailable Unavailable Blessing Morin Unavailable Unavailable Parul De Los Santos MD Unavailable Ngozi Camarena PA-C Unavailable Lary Noguera MD 3 Kristen Gong MD PCP Unavailable Kristen Gong MD 100 Unavailable Reason for Visit * Reason Comments Heme/Onc Care Encounter Details Care Team Description Date Type Department Chapo Colvin MD [address] [place] [address] [phone] Chronic hepatitis C without hepatic coma (HCC) (Primary Dx) 10/22/2018 Office Visit [facility] [address] [place] [phone] Social History Date Tobacco Use Types Packs/Day [...] Vital Signs Time Taken Vital Sign Reading 10/22/2018 11:01 AM BINDERY OPERATOR Blood Pressure 107/67 10/22/2018 11:01 AM BINDERY OPERATOR Pulse 101 10/22/2018 11:01 AM BINDERY OPERATOR Temperature 36.4 C (97.5 F) 10/22/2018 11:01 AM BINDERY OPERATOR Respiratory Rate 16 10/22/2018 11:01 AM BINDERY OPERATOR Oxygen Saturation 95% - Inhaled Oxygen - Concentration 10/22/2018 11:01 AM BINDERY OPERATOR Weight 90.1 kg (198 lb 9.6 oz) 10/22/2018 11:01 AM BINDERY OPERATOR Height 160 cm (5' 2.99") 10/22/2018 11:01 AM BINDERY OPERATOR Body Mass Index 35.19 documented in this encounter Functional Status Date [...] * Patient Instructions* Bridgett [place] RN - 10/22/2018 11:20 AM BINDERY OPERATOR To reschedule appointments please contact: [phone] To speak to a nurse between the hours of 8:00 to 4:00 please call [phone] Please ensure your schedule is correct prior to leaving clinic and that all your refill requests have been taken care of. Please allow 5-7 business days to complete any paperwork. Please allow 3 business days for narcotic refills. Please try to avoid filling your narcotic prescriptions at [facility], [facility], or [facility]. ERY OPERATOR documented in this encounter Progress Notes * Chapo Colvin MD - 10/22/2018 11:20 AM BINDERY OPERATOR I discussed the case with the resident / fellow, reviewed the H&P laboratory results, and assessment. I also personally examined the pt and formulated the assessment and plan. The patient continued to have dyspnea despite the use of prednisone. She denies nausea vomiting or diarrhea. The patient completed a course of antibiotic and she is on tapering dose of prednisone. On exam performed status is 1. She has rhonchi's and occasional expiratory wheezing in her left lung. Review of the CT scan demonstrated partial atelectasis of the left lower lung then increase in the size of the right adrenal gland. 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 Despite the negative biopsy adrenal gland and the left hilar region on the current CT scan is compatible with progression of disease. We discussed the findings with the patient and her family members. We also discussed that her respiratory symptoms is likely secondary to the atelectasis of the left lung as well as COPD. We recommend initiation of systemic therapy. We discussed in the past about participation in clinical trial but unfortunately due to the use of prednisone she is not a candidate for the immunotherapy trial. We therefore discussed with her about initiation of Pembrolizumab single agent due to positive PDL 1 expression. We reviewed with her about the side effects of therapy. After review the patient is agreed to proceed with treatment. We plan to request approval with insurance initiate therapy next week. We also plan to refer her to radiation oncology for radiation of the adrenal gland before she develops pain from this metastatic disease and this could potentially have been beneficial abscopal effect along with immunotherapy. #2 COPD exacerbation. Will maintain her on her current dose of prednisone and change her nebulizer treatment to DuoNeb every 3-4 times a day. ERY OPERATOR * [facility] [place], [facility] - 10/22/2018 11:20 AM BINDERY OPERATOR Name: Charlene Arias : 1965 AGE: 52 y.o. DATE OF SERVICE: 10/22/2018 Heme/Onc Care Charlene Arias is a 52 y.o. female. 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 PD-L1 60%. We discussed that the adjuvant chemotherapy is not traditionally given after radiation with SBR but since she had N1 disease she is at high risk of systemic metastasis. 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 PRESENT THERAPY: Pemetrexed 500 mg/m2 +Carboplatin AUC 5 chemotherapy IV for 4 cycles. Treatment was to begin 04/30/18 but unable to be completed r/t poor IV access. Patient had port placed 05/13/18. Treatment began 06/02/18. Pt had 2 cycles. Tx stopped due COPD exacerbation after 2nd cycle now concern about new adrenal metastatic disease. INTERVAL HISTORY: Patient had a bronchoscopy in E bus biopsy of the left hilar region. Since the bronchoscopy the patient developed increasing cough and shortness of breath as well as wheezing. She did not have fevers or chills and she has a dry cough. The biopsy of bronchoscopy was negative for malignancy and did show inflammatory cells. Review of Systems Constitutional: Negative for appetite change, chills, fatigue and fever. HENT: Negative for mouth sores, sore throat and trouble swallowing. Eyes: Negative for visual disturbance. Respiratory: Positive for cough, shortness of breath (On exertion) and wheezing. Cardiovascular: Negative for chest pain and leg swelling. Gastrointestinal: Negative for abdominal pain, blood in stool, diarrhea, nausea and vomiting. Genitourinary: Negative for dysuria, flank pain and frequency. Musculoskeletal: Negative for arthralgias, back pain and neck pain. Skin: Negative for color change, pallor and rash. Neurological: Negative for dizziness, numbness and headaches. Hematological: Negative for adenopathy. Does not bruise/bleed easily. Psychiatric/Behavioral: Negative for agitation and confusion. The patient is not nervous/anxious. Objective: acetaminophen (TYLENOL) 500 mg tablet Take [...] needed for Wheezing or Shortness of Breath. ALPRAZolam (XANAX) 1 mg tablet Take one tablet by mouth three times daily as needed for Anxiety. aspirin EC 81 mg tablet Take 1 tablet by mouth daily. Take with food. ( Patient taking differently: Take 81 mg by mouth at bedtime daily. Take with food.) azithromycin (ZITHROMAX) 250 mg tablet Take one tablet by mouth daily. . eqyymeumczz-gerwqfguj-ncolurgs (TRELEGY ELLIPTA) 100-62.5-25 mcg dsdv Inhale 1 [...] as needed for Nausea or Vomiting. Vitals: 10/22/18 1101 BP: 107/67 Pulse: 101 Resp: 16 Temp: 36.4 C (97.5 F) TempSrc: Oral SpO2: 95% Weight: 90.1 kg (198 lb 9.6 oz) Height: 160 cm (62.99") Body mass index is 35.19 kg/m. Pain Score: Zero Pain Addressed: Patient [...] no friction rub. No murmur heard. Pulmonary/Chest: She is in respiratory distress. She has no decreased breath sounds. She has wheezes. She has no rhonchi. She has no rales. She exhibits no tenderness. Decrease breast sound in LL lobe Abdominal: Soft. Normal appearance and bowel sounds [...] w/Diff Lab Results Component Value Date/Time WBC 14.9 (H) 10/22/2018 08:10 AM RBC 3.68 (L) 10/22/2018 08:10 AM HGB 11.2 (L) 10/22/2018 08:10 AM HCT 32.9 (L) 10/22/2018 08:10 AM MCV 89.3 10/22/2018 08:10 AM MCH 30.4 10/22/2018 08:10 AM MCHC 34.0 10/22/2018 08:10 AM RDW 15.7 (H) 10/22/2018 08:10 AM PLTCT 228 10/22/2018 08:10 AM MPV 9.0 10/22/2018 08:10 AM Lab Results Component Value Date/Time NEUT 82 (H) 10/22/2018 08:10 AM ANC 12.30 (H) 10/22/2018 08:10 AM LYMA 10 (L) 10/22/2018 08:10 AM ALC 1.40 10/22/2018 08:10 AM MARGARITA 6 10/22/2018 08:10 AM AMC 0.80 10/22/2018 08:10 AM EOSA 1 10/22/2018 08:10 AM AEC 0.10 10/22/2018 08:10 AM BASA 1 10/22/2018 08:10 AM ABC 0.20 10/22/2018 08:10 AM Comprehensive Metabolic Profile Lab Results Component Value Date/Time NA 132 (L) 10/22/2018 08:10 AM K 3.8 10/22/2018 08:10 AM CL 97 (L) 10/22/2018 08:10 AM CO2 30 10/22/2018 08:10 AM GAP 5 10/22/2018 08:10 AM BUN 20 10/22/2018 08:10 AM CR 0.63 10/22/2018 08:10 AM GLU 80 10/22/2018 08:10 AM GLU 95 01/25/2016 10:32 AM Lab Results Component Value Date/Time CA 8.8 10/22/2018 08:10 AM PO4 3.3 07/26/2016 06:16 AM ALBUMIN 3.5 10/22/2018 08:10 AM TOTPROT 6.7 10/22/2018 08:10 AM ALKPHOS 99 10/22/2018 08:10 AM AST 99 (H) 10/22/2018 08:10 AM ALT 136 (H) 10/22/2018 08:10 AM TOTBILI 0.2 (L) 10/22/2018 08:10 AM GFR >60 10/22/2018 08:10 AM GFRAA >60 10/22/2018 08:[address] chest 10/22/18 . Interval occlusion of the left lower lobe bronchus, presumably by increasing neoplastic tissue in the left hilum which is ill-defined and nonmasslike. 2. Marked increase in large right adrenal metastasis. 3. Moderate emphysema. 4. At least mild coronary artery calcification. Assessment and Plan: Assessment plan #1 non-small cell lung cancer the patient was on adjuvant chemotherapy but unfortunately follow-up CT scan demonstrated enlargement of the right adrenal gland concerning for metastatic disease. Patient had a PET scan which showed increased metabolic activity of the right adrenal gland as well as the left hilar region. She was referred for CT-guided biopsy of adrenal gland to confirm recurrence however the biopsy was negative. Patient also underwent a E bus and biopsy of the left hilar region and is also came back negative. We discussed with the patient and family member of the results. We discussed that this could represent a truly negative process or a false negative due to inadequate sampling. The patient has increasing cough and dyspnea likely COPD exacerbation. With plan to treat her with prednisone and antibiotics and reassess in 2 weeks with a repeat CT of the chest. If there is further progression of the adrenal lesion then I think we will need to consider initiation of treatment without a confirmatory biopsy. We discussed previously about the participation in clinical trial using Atezolizumab with cabozantinib. She was not a candidate for the T-sheet trial due to the fact that her disease recurred in less than 6 months from her adjuvant chemotherapy. We will plan to see her in 2 weeks for reevaluation with a CT scan and she will initiate a prednisone and antibiotics as discussed before. she is symptomatic with worsening GREGG, cough possibly due atelectasis and lower lob bronchus obstruction. Course of PO ATB X7 days and steroid X10 days didn't help in improve the symptoms( currently she is on 50 mg prednisone daily) There is significant progression in lung lesion with Interval occlusion of the left lower lobe bronchus and progressing of a right adrenal nodule, most compatible with metastatic disease. Will start her on keytruda next week, As Her PDL1 expression >50% Recommended schedule follow-up appointment with radiation oncology radiation for palliative radiation of the pulmonary lesion, which might help to improve his respiratory status -Advised to taper the the prednisone dose to 40 mg, but if her respiratory status worsens she was advised to go up to 50 mg treatment plan: Keytruda 200 mg IV q. 3 weeks until disease progression or unacceptable toxicity RTC 1 week for evaluation and starting treatment The above assessment and recommendations were discussed with the patient/ family today and they are in agreement with the plan. Their questions and concerns were addressed to the best of their satisfaction. Patient/family voiced understanding and shared plan of care with patient who agreed with plan.Patient/family has/have the phone numbers for the Cancer Center and was/ were instructed on how to contact us with any questions or concerns. Seen and D/W ERY OPERATOR documented in this encounter Plan of Treatment Not on filedocumented as of this encounter Results * HEPATITIS C VIRAL LOAD PCR QUANT (10/29/2018 10:05 AM BINDERY OPERATOR) Hepatitis C PCR HCV RNA Not Detected, <12 <12 IU/ML [facility] Quantitative IU/mL Comment: The test method detects HCV viral load using the Piña RealTime assay. Please correlate results with the clinical status of the patient. Log 10 HCV <1.08 <1.08 IU/mL [facility] Specimen Blood Performing Organization Address City/State/Zipcode Phone Number [facility] [address] [place] [address] documented in this encounter Visit Diagnoses Diagnosis Chronic hepatitis C without hepatic coma (HCC) - Primary Chronic hepatitis C without mention of hepatic coma documented in this encounter
--- OUTSIDE RECORDS SUMMARY | 2018-11-26 13:20 | XMS REPORT | Encounter Summary ---
Author Author [facility] Organization [facility] Address Unknown Phone Unavailable Care Team Providers Care Security Shift Supervisor Name Role Phone Derek Mccormick MD Unavailable Jose Daniel Mckeon MD Unavailable Angelita Caballero MD Unavailable Jakob Cole Unavailable Unavailable Yari Carias MA Unavailable Unavailable Mariah Espinoza Unavailable Unavailable Jennifer Mojica DIFFERENTIAL TESTER Unavailable Annie Macias MA Unavailable Unavailable Blessing Morin Unavailable Unavailable Parul De Los Santos MD Unavailable Ngozi Camarena PA-C Unavailable Lary Noguera MD 3 Krsiten Gong MD PCP Unavailable Kristen Gong MD 100 Unavailable Encounter Details Care Team Description Date Type Department Chapo Colvin MD [address] [facility] [place] [address] 10/22/2018 [facility] [address] [address] Social History Date Tobacco Use Types Packs/Day [...] impairment: No documented as of this encounter Medications at Time [...] lung (HCC) Breath. Shake well before use. 10/08/2018 ALPRAZolam (XANAX) 1 mg Take one 90 tablet 0 tabletIndications: tablet by Malignant neoplasm of mouth three lung, unspecified times daily laterality, unspecified as needed for part of lung (HCC), Anxiety. Anxiety 07/15/2017 aspirin EC 81 mg tablet Take 1 tablet 90 tablet 3 by mouth daily. Take with food. 04/07/2018 [id number]-[id number]-bvm Inhale 1 puff 1 each 11 anter [...] hours as needed for Nausea or Vomiting. 09/13/2017 11/13/2018 acetaminophen (TYLENOL) Take 2 0 500 mg tablet tablets by mouth every 6 hours while awake. Max of 4,000 mg of acetaminophen in 24 hours. 06/01/2018 11/13/2018 albuterol 0.083% Inhale 3 mL 360 mL 11 (PROVENTIL; VENTOLIN) 2.5 solution by mg /3 mL (0.083 %) nebulizer as nebulizer solution directed every 6 hours as needed for Wheezing or Shortness of Breath. 09/24/2018 11/13/2018 azithromycin (ZITHROMAX) Take one 30 tablet 11 250 mg tabletIndications: tablet by COPD exacerbation mouth daily. . 11/13/2018 guaifenesin (MUCINEX PO) Take 1 tablet 0 by mouth every 4 hours as needed. 11/13/2018 loperamide (IMODIUM A-D) Take 2 mg by 0 2 mg capsule mouth as Needed for Diarrhea. Take 2 capsules by mouth initially, followed by 1 capsule by mouth after each loose stool up to a maximum of 8 tablets in 24 hours. 09/13/2017 11/13/2018 milk of magnesia (CONC) Take 10 mL by 360 mL 0 2,400 mg/10 mL oral mouth daily. suspension 11/13/2018 NIFEdipine XL Take 60 mg by 0 (PROCARDIA-XL) 60 mg mouth at tablet bedtime daily. 10/08/2018 11/13/2018 prednisone (DELTASONE) 10 Take one 70 tablet 0 mg tablet tablet by mouth daily with breakfast. 60mg x7days, then 40mg x 7d, then 30mg x7d, then 20mg x7,then 10mg xd, then 5mg x7 d then stop. documented as of this encounter Plan of Treatment Not on filedocumented as of this encounter Visit Diagnoses Not on filedocumented in this encounter
--- OUTSIDE RECORDS SUMMARY | 2018-11-26 13:20 | XMS REPORT | Encounter Summary ---
Author Author [facility] Organization [facility] Address Unknown Phone Unavailable Care Team Providers Care Esthetic Dermatologist Name Role Phone Derek Mccormick MD Unavailable Jose Daniel Mckeon MD Unavailable Angelita Caballero MD Unavailable Jakob Cole Unavailable Unavailable Yari Carias MA Unavailable Unavailable Mariah Espinoza Unavailable Unavailable Jennifer Mojica REHAB THERAPY MANAGER Unavailable Annie Macias MA Unavailable Unavailable Blessing Morin Unavailable Unavailable Parul De Los Santos MD Unavailable Ngozi Camarena PA-C Unavailable Lary Noguera MD 3 Kristen Gong MD PCP Unavailable Kristen Gong MD 100 Unavailable Reason for Referral * Radiology Services (Routine) Referred By Contact Referred To Contact Status Reason Specialty Diagnoses / Procedures Chapo Colvin MD [address] [facility] [place] [address] [place] [address] No Auth Needed Radiology Diagnoses Malignant neoplasm of lung, unspecified laterality, unspecified part of lung (HCC) P rocedures CT CHEST W CONTRAST * Radiology Services (Routine) Referred By Contact Referred To Contact Status Reason Specialty Diagnoses / Procedures Chapo Colvin MD [address] [place] [address] [address] [address] No Auth Needed Radiology Diagnoses Malignant neoplasm of lung, unspecified laterality, unspecified part of lung (HCC) P rocedures CT CHEST W CONTRAST Reason for Visit * Radiology Services (Routine) Referred By Contact Referred To Contact Status Reason Specialty Diagnoses / Procedures Chapo Colvin MD [address] [place] [address] [address] [address] No Auth Needed Radiology Diagnoses Malignant neoplasm of lung, unspecified laterality, unspecified part of lung (HCC) P rocedures CT CHEST W CONTRAST Encounter Details Care Team Description Date [place] [address] [place] [address] [phone] 10/22/2018 [facility] [address] [place] [phone] Social History Date Tobacco Use Types Packs/Day [...] by mouth daily. Take with food. 04/07/2018 [id number] Inhale 1 puff 1 each 11 anter [...] Comments Procedure Name Priority Date/Time Associated Diagnosis CT CHEST W CONTRAST Routine 10/22/2018 Malignant neoplasm of 8:27 AM PANELBOARD TANK PUMPER lung, unspecified laterality, unspecified part of lung (HCC) CBC AND DIFF Routine 10/22/2018 Malignant neoplasm of 8:10 AM PANELBOARD TANK PUMPER hilus of left lung (HCC) COMPREHENSIVE METABOLIC Routine 10/22/2018 Malignant neoplasm of PANEL 8:10 AM PANELBOARD TANK PUMPER hilus of left lung (HCC) documented in this encounter Results * CT CHEST W CONTRAST (10/22/2018 8:27 AM PANELBOARD TANK PUMPER) Impressions Performed At 1. Interval occlusion of [...] Interface, Radiant Results - 10/22/2018 9:[address] Chest Clinical Indication: Lung cancer. Restaging. [...] City/State/Zipcode Phone Number [facility] RESULTS * COMPREHENSIVE METABOLIC PANEL (10/22/2018 8:10 AM PANELBOARD TANK PUMPER) Sodium 132 (L) 137 - 147 MMOL/L [...] Non >60 >60 mL/min [facility] Comment: [place] The eGFR is not validated for use in drug dosing adjustments.Continue to use estimated creatinine clearance per dosing reference text.Please contact the Clinical Pharmacist for questions. eGFR >60 >60 mL/min [facility] [place] Comment: The eGFR is not validated for use in drug dosing adjustments.Continue to use estimated creatinine clearance per dosing reference text.Please contact the Clinical Pharmacist for questions. Specimen Blood Performing Organization Address City/State/Zipcode Phone Number [facility] [address] [place] [address] * CBC AND DIFF (10/22/2018 8:10 AM PANELBOARD TANK PUMPER) White Blood 14.9 (H) 4.5 - 11.0 [...] Basophil Count Specimen Blood Performing Organization Address City/State/Zipcode Phone Number [facility] [address] [place] [address] documented in this encounter Visit Diagnoses Diagnosis Malignant neoplasm of lung, unspecified laterality, unspecified part of lung ( HCC) Malignant neoplasm of hilus of left lung (HCC) documented in this encounter Administered Medications Action Date Dose Rate Site Medication Order MAR Action 10/22/2018 8:27 AM PANELBOARD TANK PUMPER 70 mL iohexol (OMNIPAQUE-350) 350 mg/mL Given injection 70 mL 70 mL, Intravenous, ONCE, 1 dose, Meghann 10/22/18 at 0815, NOTE: This is a HIGH ALERT Medication., 10/22/2018 8:27 AM PANELBOARD TANK PUMPER 50 mL sodium chloride PF 0.9% injection 50 mL Given 50 mL, Intravenous, ONCE, 1 dose, Meghann 10/22/18 at 0815, Intra-procedure (IR) documented in this encounter
--- OUTSIDE RECORDS SUMMARY | 2018-11-26 13:20 | XMS REPORT | Encounter Summary ---
Author Author [facility] Organization [facility] Address Unknown Phone Unavailable Care Team Providers Care Ict Systems Test Engineer Name Role Phone Derek Mccormick MD Unavailable Jose Daniel Mckeon MD Unavailable Angelita Caballero MD Unavailable Jakob Cole Unavailable Unavailable Yari Carias MA Unavailable Unavailable Mariah Espinoza Unavailable Unavailable Jennifer Mojica MEDICAL LOGISTICS SPECIALIST Unavailable Annie Macias MA Unavailable Unavailable Blessing Morin Unavailable Unavailable Parul De Los Santos MD Unavailable Ngozi Camarena PA-C Unavailable Lary Noguera MD 3 Kristen Gong MD PCP Unavailable Kristen Gong MD 100 Unavailable Encounter Details Care Team Description Date Type Department Chapo Colvin MD [address] [place] [address] [phone] 10/28/[address] [facility] [address] [place] [phone] Social History Date Tobacco Use Types Packs/Day [...]
--- OUTSIDE RECORDS SUMMARY | 2018-11-26 13:20 | XMS REPORT | Encounter Summary ---
Author Author [facility] Organization [facility] Address Unknown Phone Unavailable Care Team Providers Care Director Epidemiology Name Role Phone Derek Mccormick MD Unavailable Jose Daniel Mckeon MD Unavailable Angelita Caballero MD Unavailable Jakob Cole Unavailable Unavailable Yari Carias MA Unavailable Unavailable Mariah Espinoza Unavailable Unavailable Jennifer Mojica APPLICATION ARCHITECT Unavailable Annie Macias MA Unavailable Unavailable Blessing Morin Unavailable Unavailable Parul De Los Santos MD Unavailable Ngozi Camarena PA-C Unavailable Lary Noguera MD 3 Kristen Gong MD PCP Unavailable Kristen Gong MD 100 Unavailable Reason for Visit * Reason Comments Treatment keytruda infusion * Treatment (Routine) Referred By Contact Referred To Contact Status Reason Specialty Diagnoses / Procedures Chapo Colvin MD [address] [place] [address] Chapo Colvin MD [address] [place] [address] Authorized Oncology Diagnoses Malignant neoplasm of hilus of left lung (HCC) 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 Take with food. 04/07/2018 [id number] Inhale 1 puff 1 each 11 anter [...] then stop. documented as of this encounter Progress Notes * Florencia Cameron RN - 10/29/2018 4:09 PM CABLE REELER CHEMO NOTE Verified chemo consent signed and in chart. Verified initiate chemo order in O2 Blood return positive via: Port (Single) BSA and dose double checked (agree with orders as written) with: yes Labs/applicable tests checked: CBC and Comprehensive Metabolic Panel (CMP) Chemo regime: Drug/cycle/day C1D1 pembrolizumab (KEYTRUDA) 200 mg in sodium chloride 0.9% (NS) 58 mL IVPB Rate verified and armband double checkwith second RN: yes, see MAR Pt was evaluated by physician prior to treatment. Labs were reviewed. Blood return was verified pre and post infusion. Pt tolerated infusion well. Patient education offered and stated understanding. Denies questions at this time. Denies AVS. Pt left ambulatory. E REELER documented in this encounter Miscellaneous Notes * Addendum Note - Cassandra Cornell - 10/30/2018 8:29 AM CABLE REELER Encounter addended by: Cassandra Cornell on: 10/30/2018 8:29 AM Actions taken: Charge Capture section accepted E REELER documented in this encounter Plan of Treatment Not on filedocumented as of this encounter Visit Diagnoses Diagnosis Malignant neoplasm of hilus of left lung (HCC) - Primary documented in this encounter Administered Medications Action Date Dose Rate Site Medication Order MAR Action 10/29/2018 3:22 PM CABLE REELER 500 Units heparin lock flush PF syringe 500 Units Given 500 Units, Intravenous, ONCE, 1 dose, Meghann 10/29/18 at 1415, NOTE: This is a HIGH ALERT Medication., 10/29/2018 2:43 PM CABLE REELER 200 mg 116 mL/hr pembrolizumab (KEYTRUDA) 200 mg in Given - New sodium chloride 0.9% (NS) 58 mL IVPB Bag 200 mg, Intravenous, 58 mL, Administer over 30 Minutes, ONCE, 1 dose, Meghann 10/29/18 at 1430, NOTE: This is a HIGH ALERT Medication., documented in this encounter
--- OUTSIDE RECORDS SUMMARY | 2018-11-26 13:21 | XMS REPORT | Encounter Summary ---
Author Author [facility] Organization [facility] Address Unknown Phone Unavailable Care Team Providers Care Mate Ship Name Role Phone Derek Mccormick MD Unavailable Jose Daniel Mckeon MD Unavailable Angelita Caballero MD Unavailable Jakob Cole Unavailable Unavailable Yari Carias MA Unavailable Unavailable Mariah Espinoza Unavailable Unavailable Jennifer Mojica MECHANICAL DESIGN ENGINEER FACILITIES Unavailable Annie Macias MA Unavailable Unavailable Blessing Morin Unavailable Unavailable Parul De Los Santos MD Unavailable Ngozi Camarena PA-C Unavailable Lary Noguera MD 3 Kristen Gong MD PCP Unavailable Kristen Gong MD 100 Unavailable Reason for Visit * Reason Comments Follow-up Phone Call EBUS Encounter Details Care Team Description Date Type Department Tamiko Flores APRN-C [address] [facility] [address] [place] [address] Follow-up Phone Call (EBUS) 10/01/2018 Telephone [facility] [address] [place] [address] Social History Date Tobacco Use [...] Status Date of Assessment Functional Status Response 09/10/2018 Does the patient have a hearing impairment: No 09/10/2018 Does the patient have a visual impairment: Yes 09/10/2018 Does the patient have impaired ambulation: Yes 09/10/2018 Does the patient have an activity of daily living No (ADL) impairment: 09/10/2018 Does the patient have an instrumental activity of No daily living (IADL) impairment: Date of Assessment Cognitive Status Response 09/10/2018 Does the patient have a cognitive impairment: No documented as of this encounter Miscellaneous Notes * Telephone Encounter - Tamiko Flores APRN-C - 10/01/2018 12:21 PM MORTGAGE SERVICING SPECIALIST Preliminary results negative. Cytology is still pending. She will keep fu for next week with oncology. Discussed they may recommend additional testing, but she will make sure she keeps this appt. GAGE SERVICING SPECIALIST * Telephone Encounter - Tamiko Flores APRN-C - 10/01/2018 12:21 PM MORTGAGE SERVICING SPECIALIST ----- Message from Clinton Hart MD sent at 09/30/2018 7:24 PM MORTGAGE SERVICING SPECIALIST ----- ----- Message ----- From: Interface, In Results Misys Sent: 09/30/2018 3:35 PM To: Clinton Hart MD GAGE SERVICING SPECIALIST documented in this encounter Plan of Treatment Not on filedocumented as of this encounter Visit Diagnoses Not on filedocumented in this encounter
--- OUTSIDE RECORDS SUMMARY | 2018-11-26 13:21 | XMS REPORT | Encounter Summary ---
Author Author [facility] Organization [facility] Address Unknown Phone Unavailable Care Team Providers Care Bonding And Composite Fabricator Name Role Phone Derek Mccormick MD Unavailable Jose Daniel Mckeon MD Unavailable Angelita Caballero MD Unavailable Jakob Cole Unavailable Unavailable Yari Carias MA Unavailable Unavailable Mariah Espinoza Unavailable Unavailable Jennifer Mojica WARP TIER Unavailable Annie Macias MA Unavailable Unavailable Blessing Morin Unavailable Unavailable Parul De Los Santos MD Unavailable Ngozi Camarena PA-C Unavailable Lary Noguera MD 3 Kristen Gong MD PCP Unavailable Kristen Gong MD 100 Unavailable Reason for Visit * Auth/Cert Referred By Contact Referred To Contact Status Reason Specialty Diagnoses / Procedures Diagnoses Lung mass Lung mass [R91.8] P rocedures [facility] EBUS GUIDED SAMPL 3/> NODE STATION/STRUX BRONCHOSCOPY WITH ENDOBRONCHIAL ULTRASOUND GUIDED TRANSTRACHEAL/ TRANSBRONCHIAL SAMPLING - 3 OR MORE MEDIASTINAL/ HILAR LYMPH NODE STATIONS/ STRUCTURE - FLEXIBLE Encounter Details Care Team Description Date Type Department Micah Varghese DO [address] [place] [address] [phone] 09/25/2018 Anesthesia [facility] [address] [address] Anesthesia Record Responsible Anesthesiologist Anesthesia Start Time Anesthesia Stop Time Procedure Name Jigar Chun MD 09/25/18 1043 09/25/18 1207 BRONCHOSCOPY WITH ENDOBRONCHIAL ULTRASOUND GUIDED TRANSTRACHEAL/ TRANSBRONCHIAL SAMPLING - 3 OR MORE MEDIASTINAL/ HILAR LYMPH NODE STATIONS/ STRUCTURE - FLEXIBLE (N/A Bronchus) Date Time Event Comment 1025 AN Equip Check 2018 1037 1042 Out of Pre Procedure 1043 Anes Start 1043 In Room 1043 An Start Data 1047 An Induction The patient was reevaluated immediately before moderate or deep sedation use and before anesthesia induction. 1048 An Intubation 1050 Anesthesia Ready 1053 Proc Start 1202 An Extubation 1204 an stop data 1207 Handoff to RN I completed my SBAR handoff to the receiving nurse. 1207 An Stop Meds Name Total midazolam (VERSED) 1 mg/mL injection 2 mg fentaNYL PF (SUBLIMAZE) injection 100 mcg lidocaine (2%) 200 mg/10mL Injection 80 mg syringe propofol (DIPRIVAN) 200 mg/ 20 mL 200 mg injection (VIAL) succinylcholine (ANECTINE) injection 100 mg (VIAL) ondansetron (ZOFRAN) injection 4 mg dexamethasone (DECADRON) 4 mg/mL 4 mg injection dextran 70/hypromellose (GENTEAL TEARS; 2 drop BION TEARS) ophthalmic solution ketamine (KETALAR) 10 mg/mL injection 20 mg albuterol (VENTOLIN HFA, PROAIR HFA) 12 puff inhaler sodium chloride 0.9 % infusion 0 mL * Name O2 N2O Inspired N2O Sevoflurane Inspired Sevoflurane * No blood administrations on file. Removal Type Details Placement Wounds 09/11/17; 1130; Left; Chest; Surgical 09/11/17 1130 by Robert, (NOT for Incision; 4x4 GAUZE AND JOELLEN Valiente RN Pressure DRESSING; DRESSING APPLIED TO PATIENT'S Injuries) LEFT CHEST TUBE EXIT SITE BY Rogers CASEY RNDERMABOND DRESSING; DRESSING APPLIED TO PATIENT'S PORT SITES X 2 BY Rogers CASEY RN Wounds 09/12/17; 1200; Left; Surgical Incision; 09/12/17 1200 by (NOT for CT exit pulled 09/12/17 Allegrezza, Otilia, RN Pressure Injuries) Wounds 05/13/18; 0915; Right; Neck; Puncture 05/13/18 0915 by Rod, (NOT for Wound; IJ access site Consuelo, RN Pressure Injuries) Wounds 05/13/18; 0915; Right; Chest; Surgical 05/13/18 0915 by Rod, (NOT for Incision; port site Consuelo, RN Pressure Injuries) Wounds 08/31/18; 0849; Posterior; Back; 08/31/18 0849 by (NOT for Puncture Wound Emilee Siegel, RN Pressure Injuries) 09/25/18 1347 by Cricket Wong RN Portacath 05/13/18; 0850; IR; Dr Dominguez Rousseau; 05/13/18 0850 by Brock Correct Procedure, Correct Patient, JOSH Sr Correct Patient Position, Correct Equipment / Implants Available; Hand Hygiene, Cap , Sterile Gown, Eye Protection, Mask, Sterile Gloves, Full Body Sterile Drape; Chlorhexadine (CHG); Internal Jugular, Right; Other (Comment) (8Fr diameter/26cm catheter length); Powerport; Sutured, Sterile occlusive dressing; X-ray; 09/25/18; 1347 09/25/18 1202 by Micah Varghese DO ETT 09/25/18; 1049; Ventilated by mask with 09/25/18 1049 by Halima oral airway (2); Direct laryngoscopy, Micah Cantu DO Stylet; Single-Lumen, Cuffed; 8.5mm; Mac; 3; Oral; 1-Full view of the glottis; 1 insertion attempt; Auscultation, ETCO2 Detector, Other (Comment) (Bronch by pulm); 22 centimeters; atraumatic; 09/25/18; 1202 documented in this encounter Social History Date Tobacco Use Types Packs/Day [...] impairment: No documented as of this encounter OR Notes * Anesthesia Postprocedure Evaluation - Tray Omer, DO - 09/25/2018 1:04 PM ISOLATION WASHER Post-Anesthesia Evaluation Name: Charlene Arias : 1965 Age: 52 y.o. Sex: female Procedure Date: 09/25/2018 Procedure: Procedure(s) with comments: BRONCHOSCOPY WITH ENDOBRONCHIAL ULTRASOUND GUIDED TRANSTRACHEAL/ TRANSBRONCHIAL SAMPLING - 3 OR MORE MEDIASTINAL/ HILAR LYMPH NODE STATIONS/ STRUCTURE - FLEXIBLE - CASE LENGTH 1.5 HOURS Surgeon: Surgeon(s): Clinton Hart MD Post-Anesthesia Vitals BP: 135/62 (09/25 1208) Temp: 36.8 C (98.3 F) (09/25 1208) Pulse: 106 (09/25 1208) Respirations: 24 PER MINUTE (09/25 1208) SpO2: 94 % (09/25 1208) O2 Delivery: Simple Mask (09/25 120) SpO2 Pulse: 106 (09/25 1208) Post Anesthesia Evaluation Note Evaluation location: Pre/Post Patient participation: recovered; patient participated in evaluation Level of consciousness: alert Pain management: adequate Hydration: normovolemia Temperature: 36.0C - 38.4C Airway patency: adequate Perioperative Events Perioperative events: no Post-op nausea and vomiting: no PONV Postoperative Status Cardiovascular status: hemodynamically stable Respiratory status: spontaneous ventilation and supplemental oxygen (At baseline 2L/min) Perioperative Events Perioperative Event: No Emergency Case Activation: No ATION WASHER Associated attestation - Parul Akers MD - 09/25/2018 1:39 PM ISOLATION WASHER ATTESTATION Post-Anesthesia Evaluation Attestation: I reviewed and agree the indicated post- anesthesia care was provided. Staff name: Parul Akers MD Date: 09/25/2018 * Anesthesia Preprocedure Evaluation - Jigar Chun MD - 09/25/2018 10:34 AM ISOLATION WASHER Anesthesia Pre-Procedure Evaluation Name: Charlene Arias : 1965 Age: 52 y.o. Sex: female Procedure Date: 09/25/2018 Procedure: Procedure(s) with comments: BRONCHOSCOPY WITH ENDOBRONCHIAL ULTRASOUND GUIDED TRANSTRACHEAL/ TRANSBRONCHIAL SAMPLING - 3 OR MORE MEDIASTINAL/ HILAR LYMPH NODE STATIONS/ STRUCTURE - FLEXIBLE - CASE LENGTH 1.5 HOURS Physical Assessment Vital Signs (last filed in past 24 hours): BP: 124/110 (09/25 1025) Temp: 36.8 C (98.2 F) (09/25 1025) Pulse: 105 (09/25 1025) Respirations: 26 PER MINUTE (09/25 1025) SpO2: 97 % (09/25 1025) O2 Delivery: None (Room Air) (09/25 1025) Height: 162.6 cm (64") (09/25 1025) Weight: 86.2 kg (190 lb) (09/25 1025) Patient History Allergies Allergen Reactions Ancef [Cefazolin] NAUSEA AND VOMITING Current Medications Medication Directions acetaminophen (TYLENOL) 500 mg tablet Take 2 [...] Wheezing or Shortness of Breath. ALPRAZolam (XANAX) 0.5 mg tablet Take one tablet by mouth three times daily as needed for Anxiety. aspirin EC 81 mg tablet Take 1 tablet by mouth daily. Take with food. Patient taking differently: Take 81 mg by mouth at bedtime daily. Take with food. azithromycin (ZITHROMAX) 250 mg tablet Take one tablet by mouth daily. . htyyoqlvmgo-zniikkjpp-jbxlghlj (TRELEGY ELLIPTA) 100-62.5-25 mcg dsdv Inhale 1 [...] suspension Take 10 mL by mouth daily. Patient taking differently: Take 10 mL by mouth daily as needed. NIFEdipine XL (PROCARDIA-XL) 60 mg tablet Take 60 mg by mouth at bedtime daily. ondansetron (ZOFRAN) 8 mg tablet Take 1 tablet by mouth every 8 hours as needed (nausea and vomiting). oxyCODONE (ROXICODONE, OXY-IR) 5 mg tablet Take 1 to 2 tablets by mouth every 6 hours as needed for Pain prochlorperazine maleate (COMPAZINE) 10 mg tablet Take one tablet by mouth every 6 hours as needed for Nausea or Vomiting. Review of Systems/Medical History Patient summary reviewed Nursing notes reviewed Pertinent labs reviewed PONV Screening: Female gender and Non-smoker Airway - negative Pulmonary Not a current smoker Asthma COPD (at baseline. No ER visits/hospitalizations), severe No recent URI Home oxygen use No sleep apnea Cardiovascular Exercise tolerance: >4 METS Beta Sasha therapy: No Beta blockers within 24 hours: No PVD (Reynaud's) Hyperlipidemia GI/Hepatic/Renal Hiatal hernia GERD, well controlled Hepatitis C Liver disease Neuro/Psych Seizures, well controlled No hx neuromuscular disease Neuropathy Psychiatric history Depression Bipolar disorder Musculoskeletal Back pain Arthritis Endocrine/Other No diabetes Anemia Autoimmune disease Malignancy Obesity Physical Exam Airway Findings Mallampati: I TM distance: >3 FB Neck ROM: full Mouth opening: good Airway patency: adequate Dental Findings: Upper dentures, lower dentures and full Cardiovascular Findings: Negative Rhythm: regular Rate: normal Pulmonary Findings: Wheezes (mild wheezing on initial breaths, then clearing). Abdominal Findings: Negative Abdomen soft Neurological Findings: Negative Diagnostic Tests Hematology: Lab Results Component Value Date HGB 11.2 08/06/2018 HCT 32.2 08/06/2018 PLTCT 245 08/06/2018 WBC 6.1 08/06/2018 NEUT 71 08/06/2018 ANC 4.40 08/06/2018 LYMPH 11 06/18/2018 ALC 1.10 08/06/2018 MARGARITA 9 08/06/2018 AMC 0.60 08/06/2018 EOSA 1 08/06/2018 ABC 0.00 08/06/2018 MCV 97.0 08/06/2018 MCH 33.9 08/06/2018 MCHC 34.9 08/06/2018 MPV 8.4 08/06/2018 RDW 16.9 08/06/2018 General Chemistry: Lab Results Component Value Date NA 135 08/06/2018 K 3.6 08/06/2018 CL 101 08/06/2018 CO2 28 08/06/2018 GAP 6 08/06/2018 BUN 12 08/06/2018 CR 0.91 08/06/2018 GLU 136 08/06/2018 GLU 95 01/25/2016 CA 9.6 08/06/2018 ALBUMIN 4.0 08/06/2018 MG 1.8 07/26/2016 TOTBILI 0.3 08/06/2018 PO4 3.3 07/26/2016 Coagulation: Lab Results Component Value Date PT 11.6 12/17/2004 PTT 29.6 09/10/2017 INR 1.0 09/10/2017 Anesthesia Plan ASA score: 3 Plan: general Induction method: intravenous NPO status: acceptable Informed Consent Anesthetic plan and risks discussed with patient. Use of blood products discussed with patient Blood Consent: consented Plan discussed with: anesthesiologist and resident. ATION WASHER documented in this encounter Plan of Treatment Not on filedocumented as of this encounter Visit Diagnoses Not on filedocumented in this encounter Administered Medications Action Date Dose Rate Site Medication Order MAR Action 09/25/2018 12:01 PM ISOLATION WASHER 6 puffs albuterol (PROAIR HFA, VENTOLIN HFA, or Given PROVENTIL HFA) inhaler INTRA-PROCEDURE MED, Starting Fri09/25/18 at 1043, Until Fri09/25/18 at 1209, Anesthesia Intra-op 6 puffs Given 09/25/2018 10:43 AM ISOLATION WASHER 09/25/2018 10:54 AM ISOLATION WASHER 4 mg dexamethasone (DECADRON) injection Given Intravenous, INTRA-PROCEDURE MED, Starting Fri09/25/18 at 1054, Until Fri09/25/18 at 1209, Anesthesia Intra-op 09/25/2018 10:49 AM ISOLATION WASHER 2 drops dextran 70/hypromellose (GENTEAL TEARS; Given BION TEARS) ophthalmic solution INTRA-PROCEDURE MED, Starting Fri09/25/18 at 1049, Until Fri09/25/18 at 1209, Anesthesia Intra-op 09/25/2018 10:53 AM ISOLATION WASHER 50 mcg fentaNYL citrate PF (SUBLIMAZE) Given injection INTRA-PROCEDURE MED, Starting Fri09/25/18 at 1045, Until Fri09/25/18 at 1209, Anesthesia Intra-op 50 mcg Given 09/25/2018 10:45 AM ISOLATION WASHER 09/25/2018 11:17 AM ISOLATION WASHER 20 mg ketamine (KETALAR) injection Given INTRA-PROCEDURE MED, Starting Fri09/25/18 at 1117, Until Fri09/25/18 at 1209, Anesthesia Intra-op 09/25/2018 10:47 AM ISOLATION WASHER 80 mg lidocaine (PF) injection Given INTRA-PROCEDURE MED, Starting Fri09/25/18 at 1047, Until Fri09/25/18 at 1209, Anesthesia Intra-op 09/25/2018 10:43 AM ISOLATION WASHER 2 mg midazolam (VERSED) injection Given Intravenous, INTRA-PROCEDURE MED, Starting Fri09/25/18 at 1043, Until Fri09/25/18 at 1209, Anesthesia Intra-op 09/25/2018 11:48 AM ISOLATION WASHER 4 mg ondansetron (ZOFRAN) injection Given INTRA-PROCEDURE MED, Starting Fri09/25/18 at 1148, Until Fri09/25/18 at 1209, Anesthesia Intra-op 09/25/2018 11:51 AM ISOLATION WASHER 20 mg propofol (DIPRIVAN) injection Given INTRA-PROCEDURE MED, Starting Fri09/25/18 at 1047, Until Fri09/25/18 at 1209, Anesthesia Intra-op 30 mg Given 09/25/2018 11:41 AM ISOLATION WASHER 150 mg Given 09/25/2018 10:47 AM ISOLATION WASHER 09/25/2018 10:47 AM ISOLATION WASHER 100 mg succinylcholine (ANECTINE) injection Given Intravenous, INTRA-PROCEDURE MED, Starting Fri09/25/18 at 1047, Until Fri09/25/18 at 1209, Anesthesia Intra-op documented in this encounter
--- OUTSIDE RECORDS SUMMARY | 2018-11-26 13:21 | XMS REPORT | Encounter Summary ---
Author Author [facility] Organization [facility] Address Unknown Phone Unavailable Care Team Providers Care Agricultural Labor Camp Manager Name Role Phone Derek Mccormick MD Unavailable Jose Daniel Mckeon MD Unavailable Angelita Caballero MD Unavailable Jakob Cole Unavailable Unavailable Yari Carias MA Unavailable Unavailable Mariah Espinoza Unavailable Unavailable Jennifer Mojica CHROME PLATER Unavailable Annie Macias MA Unavailable Unavailable Blessing Morin Unavailable Unavailable Parul De Los Santos MD Unavailable Ngozi Camarena PA-C Unavailable Lary Noguera MD 3 Kristen Gong MD PCP Unavailable Kristen Gong MD 100 Unavailable Reason for Visit * Auth/Cert Referred By Contact Referred To Contact Status Reason Specialty Diagnoses / Procedures Diagnoses Lung mass Lung mass [R91.8] P rocedures [facility] EBUS GUIDED SAMPL 3/> NODE STATION/STRUX BRONCHOSCOPY WITH ENDOBRONCHIAL ULTRASOUND GUIDED TRANSTRACHEAL/ TRANSBRONCHIAL SAMPLING - 3 OR MORE MEDIASTINAL/ HILAR LYMPH NODE STATIONS/ STRUCTURE - FLEXIBLE Encounter Details Care Team Description Date Type Department Diana Yoder MD [address] [facility] [address] [place] [address] BRONCHOSCOPY WITH ENDOBRONCHIAL ULTRASOUND GUIDED TRANSTRACHEAL/ TRANSBRONCHIAL SAMPLING - 3 OR MORE MEDIASTINAL/ HILAR LYMPH NODE STATIONS/ STRUCTURE - FLEXIBLE 09/25/2018 Surgery [facility] [address] [address] Social History Date Tobacco Use Types Packs/Day [...] Vital Signs Time Taken Vital Sign Reading 09/25/2018 12:53 PM METERMAN Blood Pressure 118/73 09/25/2018 12:53 PM METERMAN Pulse 103 09/25/2018 12:53 PM METERMAN Temperature 36.5 C (97.7 F) - Respiratory Rate - 09/25/2018 12:53 PM METERMAN Oxygen Saturation 95% - Inhaled Oxygen - Concentration 09/25/2018 10:26 AM METERMAN Weight 86.2 kg (190 lb) 09/25/2018 10:26 AM METERMAN Height 162.6 cm (5' 4") 09/25/2018 10:26 AM METERMAN Body Mass Index 32.61 documented in this encounter Functional Status Date [...] lung (HCC) Breath. Shake well before use. 07/15/2017 aspirin EC 81 mg tablet Take 1 tablet 90 tablet 3 by mouth daily. Take with food. 04/07/2018 eylauotsewx-azgrmphec-ekg Inhale 1 puff 1 each 11 anter [...] lung (HCC) as needed (nausea and vomiting). 05/19/2018 prochlorperazine maleate Take one 50 tablet [...] needed for Wheezing or Shortness of Breath. 09/10/2018 10/08/2018 ALPRAZolam (XANAX) 0.5 mg Take one 75 tablet 0 tabletIndications: tablet by Malignant neoplasm of mouth three lung, unspecified times daily laterality, unspecified as needed for part of lung (HCC), Anxiety. Anxiety 09/24/2018 11/13/2018 azithromycin (ZITHROMAX) Take one 30 tablet 11 250 mg tabletIndications: tablet by COPD exacerbation mouth daily. . 11/13/2018 guaifenesin (MUCINEX PO) Take 1 tablet 0 by mouth every 4 hours as needed. 05/13/2018 10/08/2018 levoFLOXacin (LEVAQUIN) Take one 7 tablet 0 500 mg tabletIndications: tablet by Upper respiratory tract mouth daily infection, unspecified for 7 days. type 11/13/2018 loperamide (IMODIUM A-D) Take 2 mg [...] 60 mg mouth at tablet bedtime daily. 09/10/2018 10/08/2018 oxyCODONE (ROXICODONE, Take 1 to 2 75 tablet 0 OXY-IR) 5 mg tablets by tabletIndications: Pain mouth every 6 hours as needed for Pain documented as of this encounter H&P Notes * Inocencia Tan - 09/25/2018 10:28 AM METERMAN History and Physical Update Note Allergies: Ancef [cefazolin] Lab/Radiology/Other Diagnostic Tests: 24-hour labs: Results for orders placed or performed during the hospital encounter of (from the past 24 hour(s)) TEST-URINE Collection Time: 09/25/18 10:07 AM Result Value Ref Range Urine-HCG NEG Samples with Specific [place] <1.010 may result in a false negative test Specific [place] 1.020 Point of Care Testing: (Last 24 hours): I have examined the patient, and there are no significant changes in their condition, from the previous H&P performed on 09/24/18. Inocencia Tan Pager [phone] RMAN * Bozena Acuna APRN-NP - 09/24/2018 11:30 AM METERMAN Date of Service: 09/24/2018 Subjective: Sis Allen is a 52 y.o. female. History of Present Illness Patient presents today for follow-up on COPD. Overall she feels her breathing is stable. She was recently sick with a URI following a known sick contact. Did not require any antibiotics or steroids. Feels symptoms improving daily. Continues to cough up clear sputum. Denies any increase in shortness of breath. Continues to use her Trelegy daily, and Albuterol 3-4x a day with shortness of breath. Recent PET scan with concern for progression of diease. Case was recently discussed at [facility]. Scheduled for EBUS tomorrow for further evaluation. Review of Systems Respiratory: Positive for shortness of breath. Musculoskeletal: Positive for arthralgias, back pain, joint [...] Take one tablet by mouth daily. . pxjsgmgnzhm-jzcrmgqls-ravnmsxi (TRELEGY ELLIPTA) 100-62.5-25 mcg dsdv Inhale 1 [...] as needed for Nausea or Vomiting. Vitals: 09/24/18 1121 Pulse: 114 Resp: 16 Temp: 37.1 C (98.8 F) SpO2: 94% Weight: 86.2 kg (190 lb) Height: 162.6 cm (64") Body mass index is 32.61 kg/m. Physical Exam Constitutional: She is oriented to person, place, and time. She appears well- developed and well-nourished. HENT: Head: Normocephalic and atraumatic. Eyes: Pupils are equal, round, and reactive to light. Cardiovascular: Normal rate, regular rhythm and normal heart sounds. Pulmonary/Chest: Effort normal. No stridor. No respiratory distress. She has no wheezes. She has no rales. Musculoskeletal: She exhibits no edema. Lymphadenopathy: She has no cervical adenopathy. Neurological: She is alert and oriented to person, place, and time. Skin: Skin is warm and dry. Psychiatric: She has a normal mood and affect. Her behavior is normal. Judgment and thought content normal. Vitals reviewed. NM PET SCAN (08/23/19) IMPRESSION 1. Hypermetabolic left hilar peribronchial soft tissue thickening with local tumor recurrence. 2. Prominent hypermetabolic subcarinal lymph node and hypermetabolic right adrenal mass compatible with metastatic disease. 3. Development of complete post obstructive left lower lobe atelectasis and patchy left upper lobe pneumonia. 4. Probable distal esophagitis. Endoscopic correlation as clinically indicated. Assessment and Plan: Problem Mediastinal Adenopathy Chronic Hypoxemic Respiratory Failure (Hcc) - On O2 with sleep and exertion - DME: David Copd (Chronic Obstructive Pulmonary Disease) ([facility]) GOLD Staging: Category B1 mMRC: [...] her cancer COPD (chronic obstructive pulmonary disease) (HCC) Continue Trelegy 1 puff once daily Continue Albuterol PRN Recent recurrent exacerbations - ok to add ppx per onc given treatment plan EKG today with QTC 397 Add Azithromycin 250 mg daily Would qualify for pulmonary rehab, though it will require 3x weekly appointments and will hold on referral until we know next treatment plans from oncology. Would not recommend starting during active chemo/radiation. Mediastinal adenopathy Recent PET with hypermetabolic hilar peribronchial soft tissue thickening and subcarinal lymphadenopathy Plan for bronchoscopy tomorrow - not contraindications for proceeding. Pre-procedure instructions reviewed No anticoagulation or hypoglycemic agents EKG today Scheduled for follow-up with oncology 10/08 to discuss results and treatment options Chronic hypoxemic respiratory failure (HCC) Continue supplemental oxygen RTC [address] Filiberto Acuna APRN-AIDEN Orders Placed This Encounter azithromycin (ZITHROMAX) 250 mg tablet Future Appointments Date Time Provider Department Center 10/08/2018 10:40 AM Chapo Colvin MD [facility] Exam 02/10/2019 9:00 AM Kristen Gong MD [facility] 03/23/2019 8:50 AM Parul De Los Santos MD [facility] documented in this encounter Plan of Treatment Not on filedocumented as of this encounter Procedures Comments Procedure Name Priority Date/Time Associated Diagnosis NON-CAR WORKER HELPER CYTOLOGY (BODY 09/25/2018 FLUIDS/TISSUE) 4:45 PM METERMAN FINE NEEDLE ASPIRATE 09/25/2018 (FNA) 12:36 PM METERMAN SURGICAL PATHOLOGY 09/25/2018 12:33 PM METERMAN BRONCHOSCOPY WITH 09/25/2018 Lung mass ENDOBRONCHIAL ULTRASOUND 11:30 AM METERMAN GUIDED TRANSTRACHEAL/ TRANSBRONCHIAL SAMPLING - 3 OR MORE MEDIASTINAL/ HILAR LYMPH NODE STATIONS/ STRUCTURE - FLEXIBLE BRONCHOSCOPY 09/25/2018 10:24 AM METERMAN TEST-URINE STAT 09/25/2018 10:07 AM METERMAN TELEMETRY STRIPS-SCAN 09/25/2018 12:00 AM METERMAN PROCEDURE RECORD-SCAN 09/25/2018 12:00 AM METERMAN documented in this encounter Results * NON-CAR WORKER HELPER CYTOLOGY (BODY FLUIDS/TISSUE) (09/25/2018 4:45 PM METERMAN) Cytology [facility] [email or web address] Department of Pathology and Laboratory Medicine [address] [place] [address] Surgical Pathology Office:[phone] :[phone] CYTOLOGY REPORT NAME: JUSTIN ALLENAMIRA DAWKINS CYTOLOGY #: [id number] MR #: [id number] ALT ID #: BILLING #: [id number] LOCATION: [facility] DATE OF PROCEDURE: 09/25/2018 AGE: [...] D.O. Performing Organization Address City/State/Zipcode Phone Number [facility] [address] [place] [address] * FINE NEEDLE ASPIRATE (FNA) (09/25/2018 12:36 PM METERMAN) Cytology [facility] www.[email or web address] Department of Pathology and Laboratory Medicine [address] [place] [address] Surgical Pathology Office:[phone] :[phone] CYTOLOGY REPORT NAME: SIS ALLEN SURG PATH #: [id number] MR #: [id number] ALT ID #: BILLING #: [id number] LOCATION: [facility] DATE OF PROCEDURE: 09/25/2018 AGE: [...] determination of adequacy was performed by the biochemistry teacherDO, on Diff-Quik stained slide(s). Passes one, two, and five were adequate for evaluation. Pass four was not adequate for evaluation. Pass three was submitted in RPMI for Cellblock. B. (4 DQ direct smear, 4 Pap direct smear, 1 Cellblock) Rapid determination of adequacy was performed by the biochemistry teacherDO, on Diff-Quik stained slide(s). Passes one through [...] Please also see concurrent surgical pathology report ([id number]). Attestation: By this signature, I attest that I have personally formulated the final interpretation expressed in this report and that the above diagnosis is based upon my examination of the slides and/or other material indicated in this report. +++Electronically Signed Out By+++ sk/09/25/2018 Interpreted by: Yumiko Astudillo MD, PhD Mariah De La Cruz M.D. Performing Organization Address City/State/Zipcode Phone Number [facility] [address] [place] [address] * SURGICAL PATHOLOGY (09/25/2018 12:33 PM METERMAN) PATHOLOGY [facility] www.[email or web address] Department of Pathology and Laboratory Medicine [address] [place] [address] Surgical Pathology Office:[phone] :[phone] SURGICAL PATHOLOGY REPORT NAME: SIS ALLEN SURG PATH #: [id number] MR #: [id number] SPECIMEN CLASS: SR BILLING #: [id number] ALT ID #:LOCATION: [facility] DATE OF PROCEDURE: [...] submitted in cassettes A1 and A2. (lmt) lt/09/25/2018 Performing Organization Address City/State/Zipcode Phone Number [facility] [address] [place] [address] * BRONCHOSCOPY (09/25/2018 10:24 AM METERMAN) Provation Patient Name: Sis CASE OTHER Report Procedure Date: 09/25/2018 RESULTS 10:24 AM CSN: [id number] Date of : 1965 Gender: Female Attending Physician: Diana Yoder MD Procedure: Bronchoscopy Indications: Personal history of lung cancer, Abnormal CT scan of chest Providers: Diana Yoder MD (Doctor), Inocencia Tan (Fellow), Matias Spaulding RN (Nurse), Inocencia Granger, Technologist (Micro Lab Analyst) Referring Physician:Cahpo Colvin Medications: Tetricaine 0.25%/Epinephrine 0.003% 10 mL nebulizer, [...] AM Performing Organization Address City/State/Zipcode Phone Number [facility] OTHER RESULTS * TEST-URINE (09/25/2018 10:07 AM METERMAN) Urine-HCG NEG [facility] Samples with Specific [place] <1.010 may result in a false negative test Specific 1.020 [facility] [place] Specimen Urine - Urine Performing Organization Address City/State/Zipcode Phone Number [facility] [address] [place] [address] * TELEMETRY STRIPS-SCAN (09/25/2018 12:00 AM METERMAN) Narrative Performed At Ordered by an unspecified provider. * PROCEDURE RECORD-SCAN (09/25/2018 12:00 AM METERMAN) Narrative Performed At Ordered by an unspecified provider. documented in this encounter Visit Diagnoses Diagnosis Lung mass Swelling, mass, or lump in chest documented in this encounter Administered Medications Action Date Dose Rate Site Medication Order MAR Action 09/25/2018 12:38 PM METERMAN 50 mcg fentaNYL citrate PF (SUBLIMAZE) Given injection 50 mcg 50 mcg, Intravenous, EVERY 5 MIN PRN, Starting Fri09/25/18 at 1119, Until Fri09/25/18 at 1529, Pain Injectable, For Pain Score 4-6, Maximum total dose 200 mcg Hold if RR < 10, PACU (only) 50 mcg Given 09/25/2018 12:21 PM METERMAN 50 mcg Given 09/25/2018 12:11 PM METERMAN 09/25/2018 1:17 PM METERMAN 500 Units heparin lock flush PF syringe 500 Units Given 500 Units, Intra-catheter, ONCE PRN, 1 dose, Starting Fri09/25/18 at 1258, Until Fri09/25/18 at 1317, Catheter flush, When de-accessing a port-a-cath pack with 5 mL heparin (100 units/mL) unless contraindicated. NOTE: This is a HIGH ALERT Medication., ondansetron (ZOFRAN) injection 4 mg 4 mg, Intravenous, ONCE PRN, 1 dose, Starting Fri09/25/18 at 1119, Until Fri09/25/18 at 1529, Other..., nausea/vomiting, First line agent., DO NOT ADMINISTER if given within the last six hours., PACU (only) 09/25/2018 10:20 AM METERMAN sodium chloride 0.9 % infusion Given - New 1,000 mL, Intravenous, CONTINUOUS, Bag Starting Fri09/25/18 at 1015, Until Fri09/25/18 at 1529, Pre-Op SODIUM CHLORIDE 0.9 % IV SOLP (Cabinet Override) NOW, 1 dose, Fri09/25/18 at 1015, Created by cabinet override, Created by cabinet override, 09/25/2018 11:34 AM METERMAN 6 mL tetracaine 0.25% /EPINEPHrine 0.003%(#) Given INTRA-PROCEDURE MED, Starting Fri09/25/18 at 1134, Until Fri09/25/18 at 1207, Intra-op documented in this encounter
--- OUTSIDE RECORDS SUMMARY | 2018-11-26 13:21 | XMS REPORT | Encounter Summary ---
Author Author [facility] Organization [facility] Address Unknown Phone Unavailable Care Team Providers Care Swine Nutritionist Name Role Phone Derek Mccormick MD Unavailable Jose Daniel Mckeon MD Unavailable Angelita Caballero MD Unavailable Jakob Cole Unavailable Unavailable Yari Carias MA Unavailable Unavailable Mariah Espinoza Unavailable Unavailable Jennifer Mojica FINISHING ROOM OPERATOR Unavailable Annie Macias MA Unavailable Unavailable Blessing Morin Unavailable Unavailable Parul De Los Santos MD Unavailable Ngozi Camarena PA-C Unavailable Lary Noguera MD 3 Kristen Gong MD PCP Unavailable Kristen Gong MD 100 Unavailable Reason for Referral * Radiology Services (Routine) Referred By Contact Referred To Contact Status Reason Specialty Diagnoses / Procedures Chapo Colvin MD [address] [facility] [place] [address] [place] [address] No Auth Needed Radiology Diagnoses Malignant neoplasm of lung, unspecified laterality, unspecified part of lung (HCC) P rocedures CT CHEST W CONTRAST Reason for Visit * Reason Comments Office Visit Follow Up Encounter Details Care Team Description Date Type Department Chapo Colvin MD [address] [place] [address] [phone] Malignant neoplasm of lung, unspecified laterality, unspecified part of lung (HCC); Anxiety; Upper respiratory tract infection, unspecified type; Pain 10/08/2018 Office Visit [facility] [address] [place] [phone] Social History Date Tobacco Use Types Packs/Day [...] Vital Signs Time Taken Vital Sign Reading 10/08/2018 10:36 AM MANAGER ACTION Blood Pressure 125/63 10/08/2018 10:36 AM MANAGER ACTION Pulse 63 10/08/2018 10:36 AM MANAGER ACTION Temperature 36.6 C (97.9 F) 10/08/2018 10:36 AM MANAGER ACTION Respiratory Rate 17 10/08/2018 10:36 AM MANAGER ACTION Oxygen Saturation 94% - Inhaled Oxygen - Concentration 10/08/2018 10:36 AM MANAGER ACTION Weight 84.9 kg (187 lb 3.2 oz) 10/08/2018 10:36 AM MANAGER ACTION Height 160 cm (5' 2.99") 10/08/2018 10:36 AM MANAGER ACTION Body Mass Index 33.17 documented in this encounter Functional Status Date [...] * Patient Instructions* Bridgett Randolph RN - 10/08/2018 10:40 AM MANAGER ACTION To reschedule appointments please contact: [phone] To speak to a nurse between the hours of 8:00 to 4:00 please call [phone] Please ensure your schedule is correct prior to leaving clinic and that all your refill requests have been taken care of. Please allow 5-7 business days to complete any paperwork. Please allow 3 business days for narcotic refills. Please try to avoid filling your narcotic prescriptions at [employer], [employer], or [employer]. GER ACTION documented in this encounter Progress Notes * Chapo Colvin MD - 10/08/2018 10:40 AM MANAGER ACTION Name: Charlene Arias : 1965 AGE: 52 y.o. DATE OF SERVICE: 10/08/2018 Office Visit Follow Up Charlene Arias is a 52 y.o. female. Cancer Staging Adenocarcinoma of left lung (HCC) Staging form: Lung, AJCC 7th Edition - Clinical stage from 09/11/2017: T2, N0, M0 - Signed by Nina Rubalcava APRN -SIDE LASTER on 09/23/2017 - Pathologic: No stage assigned - Unsigned History of Present Unnxkqe00-txsx-bvm female with a newly diagnosed recurrent non-small [...] Negative for visual disturbance. Respiratory: Positive for shortness of breath (On exertion) and wheezing. Negative for cough. Cardiovascular: Negative for chest pain and leg [...] Take one tablet by mouth daily. . roatbldyxrp-czxfbsylc-oajjrcsr (TRELEGY ELLIPTA) 100-62.5-25 mcg dsdv Inhale 1 [...] as needed for Nausea or Vomiting. Vitals: 10/08/18 1036 10/08/18 1037 BP: 125/63 Pulse: 63 Resp: 17 Temp: 36.6 C (97.9 F) TempSrc: Oral Oral SpO2: 94% Weight: 84.9 kg (187 lb 3.2 oz) Height: 160 cm (62.99") Body mass index is 33.17 kg/m. Pain Score: Zero Pain Addressed: Patient [...] w/Diff Lab Results Component Value Date/Time WBC 6.1 08/06/2018 12:23 PM RBC 3.32 (L) 08/06/2018 12:23 PM HGB 11.2 (L) 08/06/2018 12:23 PM HCT 32.2 (L) 08/06/2018 12:23 PM MCV 97.0 08/06/2018 12:23 PM MCH 33.9 08/06/2018 12:23 PM MCHC 34.9 08/06/2018 12:23 PM RDW 16.9 (H) 08/06/2018 12:23 PM PLTCT 245 08/06/2018 12:23 PM MPV 8.4 08/06/2018 12:23 PM Lab Results Component Value Date/Time NEUT 71 08/06/2018 12:23 PM ANC 4.40 08/06/2018 12:23 PM LYMA 18 (L) 08/06/2018 12:23 PM ALC 1.10 08/06/2018 12:23 PM MARGARITA 9 08/06/2018 12:23 PM AMC 0.60 08/06/2018 12:23 PM EOSA 1 08/06/2018 12:23 PM AEC 0.00 08/06/2018 12:23 PM BASA 1 08/06/2018 12:23 PM ABC 0.00 08/06/2018 12:23 PM Comprehensive Metabolic Profile Lab Results Component Value Date/Time NA 135 (L) 08/06/2018 12:23 PM K 3.6 08/06/2018 12:23 PM CL 101 08/06/2018 12:23 PM CO2 28 08/06/2018 12:23 PM GAP 6 08/06/2018 12:23 PM BUN 12 08/06/2018 12:23 PM CR 0.91 08/06/2018 12:23 PM GLU 136 (H) 08/06/2018 12:23 PM GLU 95 01/25/2016 10:32 AM Lab Results Component Value Date/Time CA 9.6 08/06/2018 12:23 PM PO4 3.3 07/26/2016 06:16 AM ALBUMIN 4.0 08/06/2018 12:23 PM TOTPROT 6.8 08/06/2018 12:23 PM ALKPHOS 91 08/06/2018 12:23 PM AST 12 08/06/2018 12:23 PM ALT 11 08/06/2018 12:23 PM TOTBILI 0.3 08/06/2018 12:23 PM GFR >60 08/06/2018 12:23 PM GFRAA >60 08/06/2018 12:23 PM Assessment and Plan: Assessment plan #1 non-small [...] a prednisone and antibiotics as discussed before. I also recommended increase the frequency of her nebulizing treatment to 3 times a day. We also discussed if her respiratory status does not improve she will need to return to be admitted to the hospital. GER ACTION documented in this encounter Plan of Treatment Not on filedocumented as of this encounter Results * CT CHEST W CONTRAST (10/22/2018 8:27 AM MANAGER ACTION) Impressions Performed At 1. Interval occlusion of [...] Interface, Radiant Results - 10/22/2018 9:[address] Chest Clinical Indication: Lung cancer. Restaging. [...] Address City/State/Zipcode Phone Number [facility] RES[facility] documented in this encounter Visit Diagnoses Diagnosis Malignant neoplasm of lung, unspecified laterality, unspecified part of lung ( HCC) Anxiety Anxiety state, unspecified Upper respiratory tract infection, unspecified type Pain Generalized pain documented in this encounter
--- OUTSIDE RECORDS SUMMARY | 2018-11-26 13:21 | XMS REPORT | Encounter Summary ---
Author Author [facility] Organization [facility] Address Unknown Phone Unavailable Care Team Providers Care Loose Hand Packer Name Role Phone Derek Mccormick MD Unavailable Jose Daniel Mckeon MD Unavailable Angelita Caballero MD Unavailable Jakob Cole Unavailable Unavailable Yari Carias MA Unavailable Unavailable Mariah Espinoza Unavailable Unavailable Jennifer Mojica SPEECH CORRECTION ASSISTANT Unavailable Annie Macias MA Unavailable Unavailable Blessing Morin Unavailable Unavailable Parul De Los Santos MD Unavailable Ngozi Camarena PA-C Unavailable Lary Noguera MD 3 Kristen Gong MD PCP Unavailable Kristen Gong MD 100 Unavailable Encounter Details Care Team Description Date Type Department Bozena Acuna, SPEECH CORRECTION ASSISTANT-GREEN LUMBER GRADER [address] Ortho[facility] [address] [place] [address] Abnormal cardiovascular stress test (Primary Dx) 09/25/2018 Orders Only [facility] [address] [place] [address] Social History Date Tobacco Use [...] Comments Procedure Name Priority Date/Time Associated Diagnosis NH ECG ROUTINE ECG Routine 09/24/2018 Abnormal cardiovascular W/LEAST 12 LDS W/I&R stress test documented in this encounter Results * NH ECG ROUTINE ECG W/LEAST 12 LDS W/I&R (09/24/2018) Narrative Performed At Performing Organization Address City/State/Zipcode Phone Number [facility] documented in this encounter Visit Diagnoses Diagnosis Abnormal cardiovascular stress test - Primary Other nonspecific abnormal cardiovascular system function study documented in this encounter
--- OUTSIDE RECORDS SUMMARY | 2018-11-26 13:21 | XMS REPORT | Encounter Summary ---
Author Author [facility] Organization [facility] Address Unknown Phone Unavailable Care Team Providers Care News Operations Manager Name Role Phone Derek Mccormick MD Unavailable Jose Daniel Mckeon MD Unavailable Angelita Caballero MD Unavailable Jakob Cole Unavailable Unavailable Yari Carias MA Unavailable Unavailable Mariah Espinoza Unavailable Unavailable Jennifer Mojica SAS STATISTICAL PROGRAMMER Unavailable Annie Macias MA Unavailable Unavailable Blessing Morin Unavailable Unavailable aPrul De Los Santos MD Unavailable Ngozi Camarena PA-C Unavailable Lary Noguera MD 3 Kristen Gong MD PCP Unavailable Kristen Gong MD 100 Unavailable Reason for Visit * Reason Comments Appointment Encounter Details Care Team Description Date Type Department Chapo Colvin MD [address] [place] [address] [phone] Appointment 10/08/2018 Telephone [facility] [address] [place] [address] Social History Date Tobacco Use Types Packs/Day [...]
--- OUTSIDE RECORDS SUMMARY | 2018-11-26 13:22 | XMS REPORT | Encounter Summary ---
Author Author [facility] Organization [facility] Address Unknown Phone Unavailable Care Team Providers Care Route Clerk Name Role Phone Derek Mccormick MD Unavailable Jose Daniel Mckeon MD Unavailable Angelita Caballero MD Unavailable Jakob Cole Unavailable Unavailable Yari Carias MA Unavailable Unavailable Mariah Espinoza Unavailable Unavailable Jennifer Mojica CONSULTING PRACTICE MANAGER Unavailable Annie Macias MA Unavailable Unavailable Blessing Morin Unavailable Unavailable aPrul De Los Santos MD Unavailable Ngozi Camarena PA-C Unavailable Lary Noguera MD 3 Kristen Gong MD PCP Unavailable Kristen Gong MD 100 Unavailable Reason for Visit * Auth/Cert Referred By Contact Referred To Contact Status Reason Specialty Diagnoses / Procedures Diagnoses Lung mass Lung mass [R91.8] P rocedures [facility] EBUS GUIDED SAMPL 3/> NODE STATION/STRUX BRONCHOSCOPY WITH ENDOBRONCHIAL ULTRASOUND GUIDED TRANSTRACHEAL/ TRANSBRONCHIAL SAMPLING - 3 OR MORE MEDIASTINAL/ HILAR LYMPH NODE STATIONS/ STRUCTURE - FLEXIBLE Encounter Details Care Team Description Date Type Department Diana Yoder MD [address] [facility] [address] [place] [address] Lung mass 09/25/2018 [facility] [address] [address] Social History Date Tobacco Use Types Packs/Day [...] Taken Vital Sign Reading 09/25/2018 12:53 PM SOCIAL MEDIA CONTENT MANAGER Blood Pressure 118/73 09/25/2018 12:53 PM SOCIAL MEDIA CONTENT MANAGER Pulse 103 09/25/2018 12:53 PM SOCIAL MEDIA CONTENT MANAGER Temperature 36.5 C (97.7 F) - Respiratory Rate - 09/25/2018 12:53 PM SOCIAL MEDIA CONTENT MANAGER Oxygen Saturation 95% - Inhaled Oxygen - Concentration 09/25/2018 10:26 AM SOCIAL MEDIA CONTENT MANAGER Weight 86.2 kg (190 lb) 09/25/2018 10:26 AM SOCIAL MEDIA CONTENT MANAGER Height 162.6 cm (5' 4") 09/25/2018 10:26 AM SOCIAL MEDIA CONTENT MANAGER Body Mass Index 32.61 documented in this [...] by mouth daily. Take with food. 04/07/2018 nowsaaglkno-fcrbsjsed-uoo Inhale 1 puff 1 each 11 anter [...] * Inocencia Tan - 09/25/2018 10:28 AM SOCIAL MEDIA CONTENT MANAGER History and Physical Update Note Allergies: Ancef [cefazolin] Lab/Radiology/Other Diagnostic Tests: 24-hour labs: Results for orders placed or performed during the hospital encounter of (from the past 24 hour(s)) TEST-URINE Collection Time: 09/25/18 10:07 AM Result Value Ref Range Urine-HCG NEG Samples with Specific Beverly <1.010 may result in a false negative test Specific Beverly 1.020 Point of Care Testing: (Last 24 hours): I have examined the patient, and there are no significant changes in their condition, from the previous H&P performed on 09/24/18. Inocencia Tan Pager [phone] AL MEDIA CONTENT MANAGER * Bozena Acuna, CONSULTING PRACTICE MANAGER-APPLICATIONS PROJECT MANAGER - 09/24/2018 11:30 AM SOCIAL MEDIA CONTENT MANAGER Date of Service: 09/24/2018 Subjective: Sis Allen [...] of diease. Case was recently discussed at [facility]. Scheduled for EBUS tomorrow for further evaluation. [...] Take one tablet by mouth daily. . rjgxsujrele-jqpiiljed-ppouulwy (TRELEGY ELLIPTA) 100-62.5-25 mcg dsdv Inhale 1 [...] DME: David Copd (Chronic Obstructive Pulmonary Disease) (Hcc) GOLD [...] Center 10/08/2018 10:40 AM Chapo Colvin MD [facility] Exam 02/10/2019 9:00 AM Kristen Gong MD [facility] IM 03/23/2019 8:50 AM Parul De Los Santos MD [facility] IM AL MEDIA CONTENT MANAGER documented in this encounter Plan of Treatment Not on filedocumented as of this encounter Procedures Comments Procedure Name Priority Date/Time Associated Diagnosis NON-COIL FORMER CYTOLOGY (BODY 09/25/2018 FLUIDS/TISSUE) 4:45 PM SOCIAL MEDIA CONTENT MANAGER FINE NEEDLE ASPIRATE 09/25/2018 (FNA) 12:36 PM SOCIAL MEDIA CONTENT MANAGER SURGICAL PATHOLOGY 09/25/2018 12:33 PM SOCIAL MEDIA CONTENT MANAGER BRONCHOSCOPY WITH 09/25/2018 Lung mass ENDOBRONCHIAL ULTRASOUND 11:30 AM SOCIAL MEDIA CONTENT MANAGER GUIDED TRANSTRACHEAL/ TRANSBRONCHIAL SAMPLING - 3 OR MORE MEDIASTINAL/ HILAR LYMPH NODE STATIONS/ STRUCTURE - FLEXIBLE BRONCHOSCOPY 09/25/2018 10:24 AM SOCIAL MEDIA CONTENT MANAGER TEST-URINE STAT 09/25/2018 10:07 AM SOCIAL MEDIA CONTENT MANAGER TELEMETRY STRIPS-SCAN 09/25/2018 12:00 AM SOCIAL MEDIA CONTENT MANAGER PROCEDURE RECORD-SCAN 09/25/2018 12:00 AM SOCIAL MEDIA CONTENT MANAGER documented in this encounter Results * NON-COIL FORMER CYTOLOGY (BODY FLUIDS/TISSUE) (09/25/2018 4:45 PM SOCIAL MEDIA CONTENT MANAGER) Cytology [facility] Hello Chair [facility] [email or web address] Department of Pathology and Laboratory Medicine [address] [place] [address] Surgical Pathology Office:[phone] :[phone] CYTOLOGY REPORT NAME: SIS ALLEN CYTOLOGY #: [id number] MR #: [id number] ALT ID #: BILLING #: [id number] LOCATION: [facility] DATE OF PROCEDURE: 09/25/2018 AGE: [...] Address City/State/Zipcode Phone Number [facility] [address] [place] [address] * FINE NEEDLE ASPIRATE (FNA) (09/25/2018 12:36 PM SOCIAL MEDIA CONTENT MANAGER) Cytology [facility] [email or web address] Department of Pathology and Laboratory Medicine [address] [place] [address] Surgical Pathology Office:[phone] :[phone] CYTOLOGY REPORT NAME: SIS ALLEN SURG PATH #: [id number] MR #: [id number] ALT ID #: BILLING #: [id number] LOCATION: [facility] DATE OF PROCEDURE: 09/25/2018 AGE: [...] determination of adequacy was performed by the photographic printerDO, on Diff-Quik stained slide(s). Passes one, two, and five were adequate for evaluation. Pass four was not adequate for evaluation. Pass three was submitted in RPMI for Cellblock. B. (4 DQ direct smear, 4 Pap direct smear, 1 Cellblock) Rapid determination of adequacy was performed by the photographic printerDO, on Diff-Quik stained slide(s). Passes one through [...] Please also see concurrent surgical pathology report ([id number]). Attestation: By this signature, I attest that I have personally formulated the final interpretation expressed in this report and that the above diagnosis is based upon my examination of the slides and/or other material indicated in this report. +++Electronically Signed Out By+++ huy/09/25/2018 Interpreted by: Yumiko Astudillo MD, PhD Mariah De La Cruz M.D. Performing Organization Address City/State/Zipcode Phone Number [facility] [address] [place] [address] * SURGICAL PATHOLOGY (09/25/2018 12:33 PM SOCIAL MEDIA CONTENT MANAGER) PATHOLOGY [facility] [email or web address] Department of Pathology and Laboratory Medicine [address] [place] [address] Surgical Pathology Office:[phone] :[phone] SURGICAL PATHOLOGY REPORT NAME: SIS ALLEN SURG PATH #: [id number] MR #: [id number] SPECIMEN CLASS: SR BILLING #: [id number] ALT ID #:LOCATION: [facility] DATE OF PROCEDURE: 09/25/2018 AGE:52 SEX: F [...] Address City/State/Zipcode Phone Number [facility] [address] [place] [address] * BRONCHOSCOPY (09/25/2018 10:24 AM SOCIAL MEDIA CONTENT MANAGER) Provation Patient Name: Sis CASE OTHER Report Procedure Date: 09/25/2018 RESULTS 10:24 AM CSN: [id number] Date of : 1965 Gender: Female Attending Physician: Diana Yoder MD Procedure: Bronchoscopy Indications: Personal history of lung cancer, Abnormal CT scan of chest Providers: Diana Yoder MD (Doctor), Inocencia Tan (Fellow), Matias Spaulding RN (Nurse), Inocencia Granger, Technologist (Bulk Sealer Operator) Referring Physician:Chapo Colvin Medications: Tetricaine 0.25%/Epinephrine 0.003% 10 mL [...] OTHER RESULTS * TEST-URINE (09/25/2018 10:07 AM SOCIAL MEDIA CONTENT MANAGER) Urine-HCG NEG [facility] Samples with Specific Beverly <1.010 may result in a false negative test Specific 1.020 [facility] Beverly Specimen Urine - Urine Performing Organization Address City/[facility]/Zipcode Phone Number [facility] [address] [place] [address] * TELEMETRY STRIPS-SCAN (09/25/2018 12:00 AM SOCIAL MEDIA CONTENT MANAGER) Narrative Performed At Ordered by an unspecified provider. * PROCEDURE RECORD-SCAN (09/25/2018 12:00 AM SOCIAL MEDIA CONTENT MANAGER) Narrative Performed At Ordered by an unspecified provider. documented in this encounter Visit Diagnoses Diagnosis Abnormal PET scan, mediastinum - Primary Nonspecific abnormal results of pulmonary system function study Abnormal PET of left lung Nonspecific abnormal results of pulmonary system function study Adenocarcinoma of left lung (HCC) documented in this encounter Administered Medications Action Date Dose Rate Site Medication Order MAR Action 09/25/2018 12:38 PM SOCIAL MEDIA CONTENT MANAGER 50 mcg fentaNYL citrate PF (SUBLIMAZE) Given injection 50 mcg 50 mcg, Intravenous, EVERY 5 MIN PRN, Starting Fri09/25/18 at 1119, Until Fri09/25/18 at 1529, Pain Injectable, For Pain Score 4-6, Maximum total dose 200 mcg Hold if RR < 10, PACU (only) 50 mcg Given 09/25/2018 12:21 PM SOCIAL MEDIA CONTENT MANAGER 50 mcg Given 09/25/2018 12:11 PM SOCIAL MEDIA CONTENT MANAGER 09/25/2018 1:17 PM SOCIAL MEDIA CONTENT MANAGER 500 Units heparin lock flush PF syringe [...] six hours., PACU (only) 09/25/2018 10:20 AM SOCIAL MEDIA CONTENT MANAGER sodium chloride 0.9 % infusion Given - New 1,000 mL, Intravenous, CONTINUOUS, Bag Starting Fri09/25/18 at 1015, Until Fri09/25/18 at 1529, Pre-Op SODIUM CHLORIDE 0.9 % IV SOLP (Cabinet Override) NOW, 1 dose, 09/25/18 at 1015, Created by cabinet override, Created by cabinet override, documented in this encounter
--- OUTSIDE RECORDS SUMMARY | 2018-11-26 13:22 | XMS REPORT | Encounter Summary ---
Author Author [facility] Organization [facility] Address Unknown Phone Unavailable Care Team Providers Care Accounting Consultant Name Role Phone Derek Mccormick MD Unavailable Jose Daniel Mckeon MD Unavailable Angelita Caballero MD Unavailable Jakob Cole Unavailable Unavailable Yari Carias MA Unavailable Unavailable Mariah Espinoza Unavailable Unavailable Jennifer Mojica MEDICAL CONSULTANT Unavailable Annie Macias MA Unavailable Unavailable Blessing Morin Unavailable Unavailable Parul De Los Santos MD Unavailable Ngozi Camarena PA-C Unavailable Lary Noguera MD 3 Kristen Gong MD PCP Unavailable Kristen Gong MD 100 Unavailable Reason for Visit * Reason Comments Foot Pain Anxiety Depression Encounter Details Care Team Description Date Type Department Kristen Gong MD [address] [place] [address] Burning sensation of feet (Primary Dx); Anxiety; Chronic bronchitis, unspecified chronic bronchitis type (HCC); Healthcare maintenance; Depression, unspecified depression type; Insomnia, unspecified type; Encounter for screening mammogram for malignant neoplasm of breast; Raynaud's disease with gangrene (HCC); Malignant neoplasm of hilus of left lung (HCC) 09/23/2018 Office Visit The [facility] [address] [place] [address] Social History Date Tobacco Use Types Packs/Day [...] Vital Signs Time Taken Vital Sign Reading 09/23/2018 10:10 AM PILING CUTTER Blood Pressure 130/83 09/23/2018 10:10 AM PILING CUTTER Pulse 108 09/23/2018 10:10 AM PILING CUTTER Temperature 37.2 C (99 F) 09/23/2018 10:10 AM PILING CUTTER Respiratory Rate 16 09/23/2018 10:10 AM PILING CUTTER Oxygen Saturation 95% - Inhaled Oxygen - Concentration - Weight - - Height - - Body Mass Index - documented in this encounter Functional Status Date [...] this encounter Patient Instructions * Patient Instructions* Kristen Gong MD - 09/23/2018 9:00 AM PILING CUTTER It was nice to see you today. Thank you for coming into clinic. Started Gabapentin 100mg at bedtime; you can increase by 100mg every 3 days to a max of 300mg nightly. Take pictures of feet when they flare up. Send records from [facility]. Follow up with me in 6 months or sooner as needed. Routine Clinic Information: Please don't hesitate to call if you have any problems or questions. My nurse is Myrna and she can be reached at [phone]. If she does not answer, please leave a voicemail as she is probably rooming other patients. You may also message us in Etohum. For refills on medications, please have your pharmacy fax a refill authorization request form to our office at Fax) [phone]. Please allow at least 3 business days for refill requests. For urgent issues after business hours/weekends/holidays call [phone] and request for the outpatient internal medicine physician to be paged We offer same day appointments for your acute health concerns. These appointments are on a first come, first serve basis. Please call [phone] if you would like to make an appointment. If I am not available, you can see any of my partners or try to see me the next day (call at 8am). Take care, Dr. Gong and Myrna NG CUTTER documented in this encounter Progress Notes * Dustin Santiago DO - 09/23/2018 9:00 AM PILING CUTTER I performed a limited history and physical examination of the patient and discussed the management with the resident. I reviewed the resident's note and agree with the documented findings and plan of care. NG CUTTER * Kristen Gong MD - 09/23/2018 9:00 AM PILING CUTTER Date of Service: 09/23/2018 Charlene Arias is a 52 y.o. female with PMH of NSCLC, COPD, GERD, Bipolar depression and Anxiety who presents for follow up. Patient is doing well today but discouraged due to her new findings with oncology. Patient states she is going to have a lung biopsy done on Friday to determine more of her prognosis. Patient is currently not on chemotherapy. Pt follows with oncology. CT scan demonstrated enlargement of the right adrenal gland concerning for metastatic disease. Patient had a PET scan which showed increased metabolic activity of the right adrenal gland as well as the left hilar region. She had biopsy of adrenal gland in August that was negative. Oncology is considering the Atezolizumab with cabozantinib trial. Patient is concerned today about burning in her bilateral feet. Patient states she has burning sensation in her feet and they get warm and red. Patient states she also gets white bumps on her feet when this occurs. Patient states she occasionally gets numbness and tingling when this happens. Patient states that occasionally comes and goes. Patient denies any fever or chills. Patient continues to have anxiety and depression due to her cancer prognosis. Patient is currently taking Xanax. Patient states she takes Xanax 1-3 times a day depending on her anxiety that day. Patient has not seen the psychiatrist yet. Patient feels that her anxiety is under control and she does not want to see a psychiatrist or psychologist at this time. Patient has not been sleeping well and has been taking dlbk-wsb-iyqzzdq medication to help her sleep. Pt follows with Pulmonary for her COPD. Pt sees pulmonary tomorrow. Patient believes she is going to get pulmonary physical therapy in the future and be placed on antibiotics prophylactically. Patient states her breathing is at her baseline. Patient denies any abnormal cough or sputum production, abnormal shortness of breath, fever, chills. Patient states she recently had a cold and is getting over it. Past Medical History: Diagnosis Date Anemia "comes [...] patient Raynaud's disease Seasonal allergic rhinitis Seizures ([facility]) x 1 ~2006 Past Surgical History: Procedure Laterality Date LUNG SURGERY Left 09/11/2017 LLL wedge resection showed poorly differentiated adenocarcinoma. pT2N0 PD-L1 60 %. HAND SURGERY Bilateral HAND SURGERY Left left [...] non-medical: Not on file Occupational History Occupation: [employer] Comment: disabled. 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 No pets Allergies Allergen Reactions Ancef [Cefazolin] NAUSEA AND VOMITING Her medication list is displayed below. Health Maintenance Topic Date Due DTAP/TDAP VACCINES (1 - Tdap) 1982 BREAST CANCER SCREENING 2004 SHINGLES RECOMBINANT VACCINE (1 of 2) 2014 PHYSICAL (COMPREHENSIVE) EXAM 07/01/2019 CERVICAL CANCER SCREENING 08/08/2020 COLORECTAL CANCER SCREENING 03/10/2027 INFLUENZA VACCINE Completed HIV SCREENING Completed Review of Systems Constitution: Negative for chills, decreased appetite, fever, weakness, malaise/ fatigue, weight gain and weight loss. HENT: Negative for congestion, hearing loss and sore throat. Eyes: Negative for blurred vision and pain. Cardiovascular: Negative for chest pain, irregular heartbeat, leg swelling and palpitations. Respiratory: Positive for cough (at baseline) and shortness of breath (at baseline). Negative for sputum production and wheezing. Hematologic/Lymphatic: Does not bruise/bleed easily. Skin: Negative for rash and suspicious lesions. Musculoskeletal: Negative for arthritis, back pain, joint pain, muscle weakness and neck pain. Gastrointestinal: Negative for abdominal pain, constipation, diarrhea, heartburn , hematochezia, nausea and vomiting. Genitourinary: Negative for bladder incontinence, dysuria, frequency and urgency. Neurological: Negative for dizziness, headaches, light-headedness and numbness. Burning in her feet Psychiatric/Behavioral: Positive for depression. Negative for altered mental status and suicidal ideas. The patient is nervous/anxious. Medications Current Outpatient Medications: acetaminophen (TYLENOL) 500 mg tablet, Take 2 tablets by mouth every 6 hours while awake. Max of 4,000 mg of acetaminophen in 24 hours., Disp: , Rfl: 0 albuterol (PROAIR HFA, VENTOLIN HFA, OR PROVENTIL HFA) 90 mcg/actuation inhaler, Inhale two puffs by mouth into the lungs every 6 hours as needed for Wheezing or Shortness of Breath. Shake well before use., Disp: 18 g, Rfl: 3 albuterol (PROVENTIL; VENTOLIN) 90 mcg/Actuation inhaler, Inhale 2 puffs by mouth into the lungs twice daily as needed for Wheezing., Disp: , Rfl: albuterol 0.083% (PROVENTIL; VENTOLIN) 2.5 mg /3 mL (0.083 %) nebulizer solution, Inhale 3 mL solution by nebulizer as directed every 6 hours as needed for Wheezing or Shortness of Breath., Disp: 360 mL, Rfl: 11 ALPRAZolam (XANAX) 0.5 mg tablet, Take one tablet by mouth three times daily as needed for Anxiety., Disp: 75 tablet, Rfl: 0 aspirin EC 81 mg tablet, Take 1 tablet by mouth daily. Take with food. ( Patient taking differently: Take 81 mg by mouth at bedtime daily. Take with food.), Disp: 90 tablet, Rfl: 3 qdnbbemdsvn-fnwgjxpmo-pnqzsvao (TRELEGY ELLIPTA) 100-62.5-25 mcg dsdv, Inhale 1 puff by mouth into the lungs daily., Disp: 1 each, Rfl: 11 folic acid (FOLVITE) 1 mg tablet, Take 1 tablet by mouth daily., Disp: 30 tablet, Rfl: 3 gabapentin (NEURONTIN) 100 mg capsule, Take one capsule by mouth at bedtime daily., Disp: 90 capsule, Rfl: 3 guaifenesin (MUCINEX PO), Take 1 tablet by mouth every 4 hours as needed., Disp: , Rfl: loperamide (IMODIUM A-D) 2 mg capsule, Take 2 mg by mouth as Needed for Diarrhea. Take 2 capsules by mouth initially, followed by 1 capsule by mouth after each loose stool up to a maximum of 8 tablets in 24 hours., Disp: , Rfl: milk of magnesia (CONC) 2,400 mg/10 mL oral suspension, Take 10 mL by mouth daily. (Patient taking differently: Take 10 mL by mouth daily as needed.) , Disp: 360 mL, Rfl: NIFEdipine XL (PROCARDIA-XL) 60 mg tablet, Take 60 mg by mouth at bedtime daily., Disp: , Rfl: ondansetron (ZOFRAN) 8 mg tablet, Take 1 tablet by mouth every 8 hours as needed (nausea and vomiting)., Disp: 30 tablet, Rfl: 3 oxyCODONE (ROXICODONE, OXY-IR) 5 mg tablet, Take 1 to 2 tablets by mouth every 6 hours as needed for Pain, Disp: 75 tablet, Rfl: 0 prochlorperazine maleate (COMPAZINE) 10 mg tablet, Take one tablet by mouth every 6 hours as needed for Nausea or Vomiting., Disp: 50 tablet, Rfl: 3 tiotropium-olodaterol 2.5-2.5 mcg/actuation mist, Inhale 2 Puffs by mouth into the lungs daily., Disp: 4 g, Rfl: 12 Objective BP 130/83 (BP Source: Arm, Left Upper, Patient Position: Sitting) | Pulse 108 | Temp 37.2 C (99 F) (Oral) | Resp 16 | SpO2 95% Comment: room air BP Readings from Last 5 Encounters: 09/23/18 130/83 09/10/18 127/78 08/31/18 112/63 08/06/18 120/87 07/29/18 160/90 There is no height or weight on file to calculate BMI. Wt Readings from Last 5 Encounters: 09/10/18 87 kg (191 lb 12.8 oz) 08/31/18 90.3 kg (199 lb) 08/13/18 90.3 kg (199 lb) 08/06/18 90.5 kg (199 lb 9.6 oz) 07/29/18 90.3 kg (199 lb) Physical Exam Constitutional: She is oriented to person, place, and time. She appears well- developed and well-nourished. No distress. HENT: Head: Normocephalic and atraumatic. Eyes: Conjunctivae and EOM are normal. Pupils are equal, round, and reactive to light. Neck: Normal range of motion. Neck supple. No thyromegaly present. Cardiovascular: Normal rate, regular rhythm, normal heart sounds and intact distal pulses. No murmur heard. Pulmonary/Chest: Effort normal and breath sounds normal. No respiratory distress. She has no wheezes. Abdominal: Soft. Bowel sounds are normal. She exhibits no distension. There is no tenderness. Musculoskeletal: Normal range of motion. She exhibits no edema, tenderness or deformity. No abnormalities in her feet. Pt has only 4 fingers on her left hand from past surgery due to Raynauds. Neurological: She is alert and oriented to person, place, and time. No cranial nerve deficit. Skin: Skin is warm and dry. Capillary refill takes less than 2 seconds. No rash noted. No erythema. No pallor. Psychiatric: She has a normal mood and affect. Her behavior is normal. Judgment and thought content normal. Vitals reviewed. Assessment & Plan: Charlene Arias is a 52 y.o. female with PMH of NSCLC, COPD, GERD, Bipolar depression and Anxiety who presents for follow up. Encounter Diagnoses Name Primary? Burning sensation of feet Yes Anxiety Chronic bronchitis, unspecified chronic bronchitis type (HCC) Healthcare maintenance Depression, unspecified depression type Insomnia, unspecified type Encounter for screening mammogram for malignant neoplasm of breast Problem Burning Sensation of Feet -advised pt to send pictures of feet when she gets the sensation -started on gabapentin 100mg and increase up to 300mg Anxiety - anxiety and depression with diagnosis of lung cancer - pt currently xanax and pt states it is controlled. - continue PRN xanax - continue psychology services through oncology as needed - Pt declines to see psychiatry Insomnia -most likely anxiety and bipolar depression is contributing -pt take an OTC medication for sleep -started on gabapentin 100mg and can increase every 3 days up to 300mg nightly. Depression - pt's mood down since being dx with lung cancer - denies SI/HI - continue with psychology with oncology as needed - currently declines psychiatry and also any other medications Healthcare Maintenance Pap: 2017; will plan for pap on next visit Mammogram: 2017 and normal Colonoscopy: 2017; will be due to 2019 Flu Vaccine: 07/01/18 Tdap: unknown Pneumonia: pt states she has had one in the past Physical: 07/01/18 Copd (Chronic Obstructive Pulmonary Disease) (Hcc) GOLD [...] as obtaining regular surveillance with her cancer -possible need for pulmonary rehab in the future and also ppx antibiotics -Pt has pulmonary appointment 09/24/18 Pt was seen and discussed with Dr. Santiago. Follow up in 6 months. Kristen Gong Internal Medicine / PGY-1 Pager [phone] Patient Instructions It was nice to see you today. Thank you for coming into clinic. Started Gabapentin 100mg at bedtime; you can increase by 100mg every 3 days to a max of 300mg nightly. Take pictures of feet when they flare up. Send records from [facility]. Follow up with me in 6 months or sooner as needed. Routine Clinic Information: Please don't hesitate to call if you have any problems or questions. My nurse is Myrna and she can be reached at [phone]. If she does not answer, please leave a voicemail as she is probably rooming other patients. You may also message us in Etohum. For refills on medications, please have your pharmacy fax a refill authorization request form to our office at Fax) [phone]. Please allow at least 3 business days for refill requests. For urgent issues after business hours/weekends/holidays call [phone] and request for the outpatient internal medicine physician to be paged We offer same day appointments for your acute health concerns. These appointments are on a first come, first serve basis. Please call [phone] if you would like to make an appointment. If I am not available, you can see any of my partners or try to see me the next day (call at 8am). Take care, Dr. Gong and Myrna Visit Disposition Disposition Return in about 6 months (around 03/23/2019). Future Appointments Date Time Provider Department Center 09/24/2018 11:30 AM Bozena Acuna [facility]-NP [facility] 10/08/2018 10:40 AM Chapo Colvin MD [facility] Exam 11/19/2018 8:00 AM Parul De Los Santos MD [facility] 02/10/2019 9:00 AM Kristen Gong MD [facility] IM NG CUTTER documented in this encounter Plan of Treatment Order Schedule Name Priority Associated Diagnoses Expected: 09/23/2018 (Approximate), Expires: 09/23/2019 MAMMO SCREEN BILAT Routine Encounter for screening mammogram for malignant neoplasm of breast documented as of this encounter Visit Diagnoses Diagnosis Burning sensation of feet - Primary Disturbance of skin sensation Anxiety Anxiety state, unspecified Chronic bronchitis, unspecified chronic bronchitis type (HCC) Healthcare maintenance Routine general medical examination at a health care facility Depression, unspecified depression type Insomnia, unspecified type Encounter for screening mammogram for malignant neoplasm of breast Other screening mammogram Raynaud's disease with gangrene (HCC) Raynaud's syndrome Malignant neoplasm of hilus of left lung (HCC) documented in this encounter
--- OUTSIDE RECORDS SUMMARY | 2018-11-26 13:22 | XMS REPORT | Encounter Summary ---
Author Author [facility] Organization [facility] Address Unknown Phone Unavailable Care Team Providers Care Campus Executive Director Name Role Phone Derek Mccormick MD Unavailable Jose Daniel Mckeon MD Unavailable Angelita Caballero MD Unavailable Jakob Cole Unavailable Unavailable Yari Carias MA Unavailable Unavailable Mariah Espinoza Unavailable Unavailable Jennifer Mojica BEADWORKER Unavailable Annie Macias MA Unavailable Unavailable Blessing Morin Unavailable Unavailable Parul De Los Santos MD Unavailable Ngozi Camarena PA-C Unavailable Lary Noguera MD 3 Kristen Gong MD PCP Unavailable Kristen Gong MD 100 Unavailable Reason for Referral * Consult, Test & Treat (Urgent) Referred By Contact Referred To Contact Status Reason Specialty Diagnoses / Procedures Chapo Colvin MD [address] [place] [address] Tomy Arnett MD [address] [facility] [address] [place] [address] Closed Specialty Services Pulmonary Diagnoses Required Disease / Malignant neoplasm Pulmonology of lung, unspecified laterality, unspecified part of lung (HCC) Reason for Visit * Reason Comments Heme/Onc Care Encounter Details Care Team Description Date Type Department Chapo Colvin MD [address] [place] [address] [phone] Malignant neoplasm of lung, unspecified laterality, unspecified part of lung (HCC) (Primary Dx); Pain; Anxiety 09/10/2018 Office Visit The [address] [address] Social History Date Tobacco Use Types Packs/Day [...] Vital Signs Time Taken Vital Sign Reading 09/10/2018 11:15 AM E TAILER Blood Pressure 127/78 09/10/2018 11:15 AM E TAILER Pulse 102 09/10/2018 11:15 AM E TAILER Temperature 36.8 C (98.2 F) 09/10/2018 11:15 AM E TAILER Respiratory Rate 16 09/10/2018 11:15 AM E TAILER Oxygen Saturation 98% - Inhaled Oxygen - Concentration 09/10/2018 11:15 AM E TAILER Weight 87 kg (191 lb 12.8 oz) 09/10/2018 11:15 AM E TAILER Height 157.5 cm (5' 2.01") 09/10/2018 11:15 AM E TAILER Body Mass Index 35.07 documented in this encounter Functional Status Date [...] * Patient Instructions* Bridgett Randolph RN - 09/10/2018 11:00 AM E TAILER To reschedule appointments please contact: [phone] To speak to a nurse between the hours of 8:00 to 4:00 please call [phone] Please ensure your schedule is correct prior to leaving clinic and that all your refill requests have been taken care of. Please allow 5-7 business days to complete any paperwork. Please allow 3 business days for narcotic refills. Please try to avoid filling your narcotic prescriptions at [employer], or [employer]. E TAILER documented in this encounter Progress Notes * Chapo Colvin MD - 09/10/2018 11:00 AM E TAILER Name: Charlene Arias : 1965 AGE: 52 y.o. DATE OF SERVICE: 09/10/2018 Heme/Onc Care Charlene Arias is a 52 y.o. female. Cancer Staging Adenocarcinoma of left lung (HCC) Staging form: Lung, AJCC 7th Edition - Clinical stage from 09/11/2017: T2, N0, M0 - Signed by Nina Rubalcava APRN -STUDENT RECORDS SPECIALIST on 09/23/2017 - Pathologic: No stage assigned - Unsigned History of Present [id number] female with a newly diagnosed recurrent non-small [...] metastatic disease. INTERVAL HISTORY: Patient had a CT-guided biopsy of the adrenal lesion on the right and this came back as negative for malignancy. She is otherwise continues to have dyspnea related to her underlying COPD. She denies abdominal pain or recent weight loss. Review of Systems Constitutional: Negative for appetite [...] of Breath. Shake well before use. albuterol (PROVENTIL; VENTOLIN) 90 mcg/Actuation inhaler Inhale 2 puffs by mouth into the lungs twice daily as needed for Wheezing. albuterol 0.083% (PROVENTIL; VENTOLIN) 2.5 mg /3 [...] mouth at bedtime daily. Take with food.) hybbdriczha-hlszplusk-uwdddtap (TRELEGY ELLIPTA) 100-62.5-25 mcg dsdv Inhale 1 puff by mouth into the lungs daily. folic acid (FOLVITE) 1 mg tablet Take 1 tablet by mouth daily. guaifenesin (MUCINEX PO) Take 1 tablet [...] hours as needed for Pain prednisone (DELTASONE) 20 mg tablet 3 tabs daily for 7 days, 2 tabs for 7 days and 1 tab for 7 days then 1/2 tab for 7 days then 1/2 tab every other day x 7 days prochlorperazine maleate (COMPAZINE) 10 mg tablet Take one tablet by mouth every 6 hours as needed for Nausea or Vomiting. tiotropium-olodaterol 2.5-2.5 mcg/actuation mist Inhale 2 Puffs by mouth into the lungs daily. Vitals: 09/10/18 1115 BP: 127/78 Pulse: 102 Resp: 16 Temp: 36.8 C (98.2 F) TempSrc: Oral SpO2: 98% Weight: 87 kg (191 lb 12.8 oz) Height: 157.5 cm (62.01") Body mass index is 35.07 kg/m. Pain Score: Zero Pain Addressed: Patient [...] confirm recurrence however the biopsy was negative. We discussed the findings with the patient and her family member. We discussed that even though the biopsy was negative we remain highly suspicious since the adrenal enlargement is new. We recommended a E bus and biopsy of the left hilar region. We plan to also discussed in chest conference for further management. We also discussed about potential participation in clinical trial if biopsy confirms recurrent disease. She was not a candidate for the Atezolizumab +/- TIGIT antibody trial due to the recurrence being less than 6m from adjuvant therapy. We may consider the Atezolizumab with cabozantinib trial. The patient received consent form for clinical trial we will discuss further upon her return and confirmation of the recurrent disease. In the meantime we will hold off on additional adjuvant chemotherapy. Case reviewed in chest conference and pulm will do EBUS to biopsy left hilar mass. E TAILER documented in this encounter Plan of Treatment Order Schedule Name Priority Associated Diagnoses Ordered: 09/10/2018 AMB REFERRAL TO PULMONARY Routine Malignant neoplasm of lung, unspecified laterality, unspecified part of lung (HCC) documented as of this encounter Visit Diagnoses Diagnosis Malignant neoplasm of lung, unspecified laterality, unspecified part of lung ( HCC) - Primary Pain Generalized pain Anxiety Anxiety state, unspecified documented in this encounter
--- OUTSIDE RECORDS SUMMARY | 2018-11-26 13:22 | XMS REPORT | Encounter Summary ---
Author Author [facility] Organization [facility] Address Unknown Phone Unavailable Care Team Providers Care Fire Sprinkler Installer Name Role Phone Derek Mccormick MD Unavailable Jose Daniel Mckeon MD Unavailable Angelita Caballero MD Unavailable Jakob Cole Unavailable Unavailable Yari Carias MA Unavailable Unavailable Mariah Espinoza Unavailable Unavailable Jennifer Mojica TECHNICAL ARCHITECT Unavailable Annie Macias MA Unavailable Unavailable Blessing Morin Unavailable Unavailable Parul De Los Santos MD Unavailable Ngozi Camarena PA-C Unavailable Lary Noguera MD 3 Kristen Gong MD PCP Unavailable Kristen Gong MD 100 Unavailable Encounter Details Care Team Description Date Type Department Tomy Arnett MD [address] [facility] [address] [place] [address] Lung mass (Primary Dx) 09/17/2018 Prep for Case [facility] [address] [place] [address] Social History Date Tobacco Use [...] as of this encounter Visit Diagnoses Diagnosis Lung mass - Primary Swelling, mass, or lump in chest documented in this encounter
--- OUTSIDE RECORDS SUMMARY | 2018-11-26 13:22 | XMS REPORT | Encounter Summary ---
Author Author [facility] Organization [facility] Address Unknown Phone Unavailable Care Team Providers Care Education Officer Name Role Phone Derek Mccormick MD Unavailable Jose Daniel Mckeon MD Unavailable Angelita Caballero MD Unavailable Jakob Cole Unavailable Unavailable Yari Carias MA Unavailable Unavailable Mariah Espinoza Unavailable Unavailable Jennifer Mojica POSTAL SERVICE MAIL PROCESSOR Unavailable Annie Macias MA Unavailable Unavailable Blessing Morin Unavailable Unavailable Parul De Los Santos MD Unavailable Ngozi Camarena PA-C Unavailable Lary Noguera MD 3 Kristen Gong MD PCP Unavailable Kristen Gong MD 100 Unavailable Reason for Visit * Reason Comments Research Encounter Details Care Team Description Date Type Department Tiffany Aguero MD [address] [facility] [place] [address] Research 09/16/2018 Telephone [facility] [address] [place] [address] Social History Date Tobacco Use Types Packs/Day [...] as of this encounter Miscellaneous Notes * Research - Mis Larson - 09/16/2018 1:22 PM WORM RAISER Study: [id number] Atezolizumab and Cabozantinib [facility]: [id number] This technical coordinator left a message at 1:23 pm for patient to call back regarding the above mentioned trial. RAISER documented in this encounter Plan of Treatment Not on filedocumented as of this encounter Visit Diagnoses Not on filedocumented in this encounter
--- OUTSIDE RECORDS SUMMARY | 2018-11-26 13:22 | XMS REPORT | Encounter Summary ---
Author Author [facility] Organization [facility] Address Unknown Phone Unavailable Care Team Providers Care Community Coordinator For [employer] Name Role Phone Derek Mccormick MD Unavailable Jose Daniel Mckeon MD Unavailable Angelita Caballero MD Unavailable Jakob Cole Unavailable Unavailable Yari Cairas MA Unavailable Unavailable Mariah Espinoza Unavailable Unavailable Jennifer Mojica CEMENT MASON APPRENTICE Unavailable Annie Macias MA Unavailable Unavailable Blessing Morin Unavailable Unavailable Parul De Los Santos MD Unavailable Ngozi Camarena PA-C Unavailable Lary Noguera MD 3 Kristen Gnog MD PCP Unavailable Kristen Gong MD 100 Unavailable Reason for Visit * Reason Comments Breathing Problem Encounter Details Care Team Description Date Type Department Bozena Acuna, TONIE-GAMB CUTTER [address] Orth[facility] [address] [place] [address] Chronic bronchitis, unspecified chronic bronchitis type (HCC ); Mediastinal adenopathy; Chronic hypoxemic respiratory failure (HCC) 09/24/2018 Office Visit [facility] [address] [place] [address] Social History Date Tobacco Use Types Packs/Day [...] Vital Signs Time Taken Vital Sign Reading - Blood Pressure - 09/24/2018 11:21 AM BIOMETRICS ANALYST Pulse 114 09/24/2018 11:21 AM BIOMETRICS ANALYST Temperature 37.1 C (98.8 F) 09/24/2018 11:21 AM BIOMETRICS ANALYST Respiratory Rate 16 09/24/2018 11:21 AM BIOMETRICS ANALYST Oxygen Saturation 94% - Inhaled Oxygen - Concentration 09/24/2018 11:21 AM BIOMETRICS ANALYST Weight 86.2 kg (190 lb) 09/24/2018 11:21 AM BIOMETRICS ANALYST Height 162.6 cm (5' 4") 09/24/2018 11:21 AM BIOMETRICS ANALYST Body Mass Index 32.61 documented in this [...] this encounter Patient Instructions * Patient Instructions* Viviana Dumont RN - 09/24/2018 11:30 AM BIOMETRICS ANALYST Continue your Trelegy Continue your Albuterol as needed I will send a prescription for Azithromycin 250 mg daily to your pharmacy My nurse is Viviana Dumont RN. She can be reached at [phone]. Please contact my nurse with any signs and symptoms of worsening productive cough with thick secretions, blood in sputum, chest tightness/pain, shortness of breath, fever, chills, night sweats, or any questions or concerns. For refills on medications, please have your pharmacy fax a refill authorization request form to our office at [phone]. Please allow at least 3 business days for refill requests. For urgent issues after business hours/weekends/holidays call [phone] and request for the high school director to be paged. ETRICS ANALYST documented in this encounter Progress Notes * Bozena Acuna APRN-NP - 09/24/2018 11:30 AM BIOMETRICS ANALYST Date of Service: 09/24/2018 Subjective: Charlene Arias is a 52 y.o. [...] Take one tablet by mouth daily. . pncfrotvpbz-okjcnkxlf-efwhlmky (TRELEGY ELLIPTA) 100-62.5-25 mcg dsdv Inhale 1 [...] Continue supplemental oxygen RTC 6 mo with KAIT Ham Orders Placed This Encounter azithromycin (ZITHROMAX) 250 mg tablet Future Appointments Date Time Provider Department Center 10/08/2018 10:40 AM Chapo Colvin MD [facility] Exam 02/10/2019 9:00 AM Kristen Gong MD [facility] IM 03/23/2019 8:50 AM Parul De Los Santos MD [facility] ETRICS ANALYST documented in this encounter Plan of Treatment Not on filedocumented as of this encounter Visit Diagnoses Diagnosis Chronic bronchitis, unspecified chronic bronchitis type (HCC) Mediastinal adenopathy Enlargement of lymph nodes Chronic hypoxemic respiratory failure (HCC) Chronic respiratory failure * Assessment & Plan Note - Bozena Acuna APRN-NP - 09/24/2018 1:15 PM BIOMETRICS ANALYST Associated Problem(s): Chronic hypoxemic respiratory failure (HCC) Continue supplemental oxygen ETRICS ANALYST * Assessment & Plan Note - Bozena Acuna APRN-NP - 09/24/2018 1:13 PM BIOMETRICS ANALYST Associated Problem(s): Mediastinal adenopathy Recent PET with hypermetabolic hilar peribronchial soft tissue thickening and subcarinal lymphadenopathy Plan for bronchoscopy tomorrow - not contraindications for proceeding. Pre-procedure instructions reviewed No anticoagulation or hypoglycemic agents EKG today Scheduled for follow-up with oncology 10/08 to discuss results and treatment options ETRICS ANALYST * Assessment & Plan Note - Bozena Acuna APRN-NP - 09/24/2018 1:10 PM BIOMETRICS ANALYST Associated Problem(s): COPD (chronic obstructive pulmonary disease) [...] Would not recommend starting during active chemo/radiation. ETRICS ANALYST documented in this encounter
--- OUTSIDE RECORDS SUMMARY | 2018-11-26 13:23 | XMS REPORT | Encounter Summary ---
Author Author [facility] Organization [facility] Address Unknown Phone Unavailable Care Team Providers Care Shipping Team Leader Name Role Phone Derek Mccormick MD Unavailable Jose Daniel Mckeon MD Unavailable Angelita Caballero MD Unavailable Jakob Cole Unavailable Unavailable Yari Carias MA Unavailable Unavailable Mariah Espinoza Unavailable Unavailable Jennifer Mojica STILL PHOTOGRAPHER Unavailable Annie Macias MA Unavailable Unavailable Blessing Morin Unavailable Unavailable Parul De Los Santos MD Unavailable Ngozi Camarena PA-C Unavailable Lary Noguera MD 3 Kristen Gong MD PCP Unavailable Kristen Gong MD 100 Unavailable Reason for Referral * Radiology Services (Routine) Referred By Contact Referred To Contact Status Reason Specialty Diagnoses / Procedures Bola Leggett MBBS [address] [place] [address] 2 [place] [address] [address] Closed Radiology Diagnoses Adenocarcinoma of left lung (HCC) P rocedures CT GUIDE NEEDLE PLACEMENT IR PERCUTANEOUS BIOPSY AR FINE NEEDLE ASPIRATION WITH IMAGING GUIDANCE * Radiology Services (Routine) Referred By Contact Referred To Contact Status Reason Specialty Diagnoses / Procedures Bola Leggett MBBS [address] [place] [address] Bh2 [place] [address] [address] Closed Radiology Diagnoses Adenocarcinoma of left lung (HCC) P rocedures CT GUIDE NEEDLE PLACEMENT IR PERCUTANEOUS BIOPSY AR FINE NEEDLE ASPIRATION WITH IMAGING GUIDANCE Reason for Visit * Radiology Services (Routine) Referred By Contact Referred To Contact Status Reason Specialty Diagnoses / Procedures Bola Leggett MBBS [address] [place] [address] Bh2 [place] [address] [address] Closed Radiology Diagnoses Adenocarcinoma of left lung (HCC) P rocedures CT GUIDE NEEDLE PLACEMENT IR PERCUTANEOUS BIOPSY AR FINE NEEDLE ASPIRATION WITH IMAGING GUIDANCE Encounter Details Care Team Description Date Type Department Chapo Mandel MD [address] [place] [address] [phone] Lacho Shepherd MD [address] [address] [phone] Emilee Siegel RN Adenocarcinoma of left lung (HCC) 08/31/2018 [facility] [address] [address] Social History Date Tobacco Use Types Packs/Day [...] Vital Signs Time Taken Vital Sign Reading 08/31/2018 9:08 AM TRANSPORT ANALYST Blood Pressure 107/88 08/31/2018 9:08 AM TRANSPORT ANALYST Pulse 100 08/31/2018 9:05 AM TRANSPORT ANALYST Temperature 36.7 C (98 F) - Respiratory Rate - 08/31/2018 9:08 AM TRANSPORT ANALYST Oxygen Saturation 98% - Inhaled Oxygen - Concentration 08/31/2018 7:24 AM TRANSPORT ANALYST Weight 90.3 kg (199 lb) 08/31/2018 7:24 AM TRANSPORT ANALYST Height 157.5 cm (5' 2") 08/31/2018 7:24 AM TRANSPORT ANALYST Body Mass Index 36.4 documented in this encounter Functional Status Date of Assessment Functional Status Response 01/15/2018 Does the patient have a hearing impairment: No 01/15/2018 Does the patient have a visual impairment: Yes 01/15/2018 Does the patient have impaired ambulation: Yes 01/15/2018 Does the patient have an activity of daily living No (ADL) impairment: 01/15/2018 Does the patient have an instrumental activity of No daily living (IADL) impairment: Date of Assessment Cognitive Status Response 01/15/2018 Does the patient have a cognitive impairment: No documented as of this encounter Discharge Instructions * Patient Instructions* Stacie Michaud RN - 08/31/2018 7:28 AM TRANSPORT ANALYST INTERVENTIONAL RADIOLOGY DISCHARGE INSTRUCTIONS PERCUTANEOUS BIOPSY A percutaneous biopsy is a procedure in which a tiny sample of tissue is taken by using a needle inserted through your skin (percutaneously) into the affected area. The radiologist will determine whether the procedure is to be done using ultrasound or CT guidance. Your biopsy is from the following area:____ POST-PROCEDURE ACTIVITY: A responsible adult must drive you home after the procedure. You should not drive or operate heavy machinery or do anything that requires concentration for at least 24 hours after receiving sedation or anesthesia. It is recommended that a responsible adult be with you until tomorrow morning. Other activity restrictions such as lifting restrictions will depend upon the biopsy area and will be determined by the physician after your procedure:_ POST-PROCEDURE SITE CARE: You will have a small bandage over the site. Keep this dry. You may remove it in 24 hours. You may shower in 24 hours, after removing the bandage. Do not submerge the site underwater for 1 week (no tub bath, swimming/hot tub , etc.) Be sure your hands are clean when touching near the site. Do not use ointments, creams or powders on the puncture site. DIET/MEDICATIONS: You may resume your previous diet after the procedure unless otherwise restricted. If you receive sedation or narcotic pain medications, avoid any foods or beverages containing alcohol for at least 24 hours after the procedure. Please see the Medication Reconciliation sheet for instructions on resuming your home medications. CALL THE DOCTOR IF: Bright red blood has soaked the bandage. You have severe pain not relieved by medication. Some soreness or tenderness at the site is to be expected for several days. You have signs of infection such as: Chills, fever greater than 101F, body aches, redness, swelling or warmth at the puncture site or pus draining from the site. You or your caregiver should call 911 if you have any severe symptoms such as excessive bleeding, severe dizziness, trouble breathing or loss of consciousness. For any of the above symptoms or for problems or concerns related to the procedure, call [phone] for Friday-Friday 7-5. After-hours and weekends, please call [phone] and ask for the Interventional Factory Maintenance Manager on-call. SPORT ANALYST documented in this encounter Medications at Time [...] by mouth daily. Take with food. 04/07/2018 [id number] Inhale 1 puff 1 each 11 anter (TRELEGY ELLIPTA) by mouth into 100-62.5-25 mcg the lungs dsdvIndications: Chronic daily. bronchitis, unspecified chronic bronchitis type (HCC) 04/08/2018 folic acid (FOLVITE) 1 mg Take 1 tablet 30 tablet 3 tabletIndications: by mouth Malignant neoplasm of daily. hilus of left lung (HCC) 04/08/2018 ondansetron (ZOFRAN) 8 mg Take 1 [...] 4,000 mg of acetaminophen in 24 hours. 09/24/2018 albuterol (PROVENTIL; Inhale 2 0 VENTOLIN) 90 puffs by mcg/Actuation inhaler mouth into the lungs twice daily as needed for Wheezing. 06/01/2018 11/13/2018 albuterol 0.083% Inhale 3 mL 360 mL 11 (PROVENTIL; VENTOLIN) 2.5 solution by mg /3 mL (0.083 %) nebulizer as nebulizer solution directed every 6 hours as needed for Wheezing or Shortness of Breath. 08/06/2018 09/10/2018 ALPRAZolam (XANAX) 0.5 mg Take one 75 tablet 0 tabletIndications: tablet by Malignant neoplasm of mouth three lung, unspecified times daily laterality, unspecified as needed for part of lung (HCC), Anxiety. Anxiety 11/13/2018 guaifenesin (MUCINEX PO) Take 1 tablet [...] 60 mg mouth at tablet bedtime daily. 09/13/2017 09/23/2018 ondansetron (ZOFRAN ODT) Dissolve 1 30 tablet 0 8 mg rapid dissolve tablet by tablet mouth every 8 hours as needed for Nausea or Vomiting. Place on tongue to disolve. 07/23/2018 09/10/2018 oxyCODONE (ROXICODONE, Take 1 to 2 75 tablet 0 OXY-IR) 5 mg tablets by tabletIndications: Pain mouth every 6 hours as needed for Pain 06/18/2018 09/23/2018 prednisone (DELTASONE) 20 3 tabs daily 46 tablet 0 mg tablet for 7 days, 2 tabs for 7 days and 1 tab for 7 days then 1/2 tab for 7 days then 1/2 tab every other day x 7 days 05/20/2016 09/24/2018 tiotropium-olodaterol Inhale 2 4 g 12 2.5-2.5 mcg/actuation Puffs by mistIndications: Chronic mouth into obstructive pulmonary the lungs disease, unspecified COPD daily. type (HCC), SOB (shortness of breath) documented as of this encounter Progress Notes * Stacie Michaud RN - 08/31/2018 9:14 AM TRANSPORT ANALYST Pt ready for discharge at this time, peripheral iv removed if present for procedure. All discharge paperwork provided and questions answered pertaining to discharge. Will be assisted to POV via wheelchair transportation. SPORT ANALYST * Stacie Michaud RN - 08/31/2018 9:14 AM TRANSPORT ANALYST Per Dr Darnell Douglas MD, pt xray post procedure without evidence of pneumo. Pt cleared for discharge at this time. Pt pain under control after medications given. SPORT ANALYST * Stacie Michaud RN - 08/31/2018 7:27 AM TRANSPORT ANALYST PT INFORMED OF IR PROCEDURE AND POST PROCEDURE PLAN. ALL QUESTIONS ANSWERED. PT VERBALIZED CLEAR UNDERSTANDING. SPORT ANALYST * Viviana Marti RN - 08/19/2018 7:49 AM TRANSPORT ANALYST Pt was scheduled for 08/20/18 as a first case. Pt had not arrived by 0750. This nurse called pt at home, she thought her appointment was for tomorrow. There is no availability for the next few weeks, so pt verbalized an okay with a first case time on 08/31/18. No additional complaints or concerns. SPORT ANALYST documented in this encounter H&P Notes * Chrissie Guan, MSN,STILL PHOTOGRAPHER - 08/31/2018 7:24 AM TRANSPORT ANALYST Pre Procedure History and Physical/Sedation Plan Procedure Date: 08/31/2018 Planned Procedure(s): Right adrenal lesion biopsy Indication for exam: Right adrenal lesion. Hx of lung cancer Chief Complaint: Possible metastatic lung cancer Previous Anesthetic/Sedation History: Denies adverse events Allergies: Ancef [cefazolin] Medications: Scheduled Meds:Continuous Infusions: PRN and Respiratory Meds: Vital Signs: Last Filed Vital Signs: 24 Hour Range Sedation/Medication Plan: Fentanyl and Midazolam Personal history of sedation complications: Denies adverse event. Family history of sedation complications: Denies adverse event. Medications for Reversal: Naloxone and Flumazenil Discussion/Reviews: Physician has discussed risks and alternatives of this type of sedation and above planned procedures with patient NPO Status: Acceptable Airway: airway assessment performed Mallampati III (soft palate, base of uvula visible) Head and Neck: no abnormalities noted Mouth: no abnormalities noted Anesthesia Classification: ASA III (A patient with a severe systemic disease that limits activity, but is not incapacitating) Status: Not Lab/Radiology/Other Diagnostic Tests Labs: Relevant labs reviewed I have examined the patient, and there are no significant changes in their condition, from the previous H&P performed on 08/06/18. Maxine Guan, MSN,STILL PHOTOGRAPHER Pager [phone] SPORT ANALYST documented in this encounter Miscellaneous Notes * Procedures (Immed Post or Bedside) - Remberto Douglas MD - 08/31/2018 9:14 AM TRANSPORT ANALYST Immediate Post Procedure Note Date: 08/31/2018 Attending Physician: Dr. Shepherd Performing Provider: Remberto Douglas MD Consent: Consent obtained from patient. Time out performed: Consent obtained, correct patient verified, correct procedure verified, correct site verified, patient marked as necessary. Pre/Post Procedure Diagnosis: Lung cancer Indications: Right adrenal mass Anesthesia: Conscious Sedation Procedure(s): Right adrenal mass biopsy Findings: 3x18g core biopsy right adrenal mass Estimated Blood Loss: Minimal Specimen(s) Removed/Disposition: Yes, sent to pathology Complications: None Patient Tolerated Procedure: Well Post-Procedure Condition: stable Remberto Douglas MD Pager [phone] SPORT ANALYST documented in this encounter Plan of Treatment Not on filedocumented as of this encounter Procedures Comments Procedure Name Priority Date/Time Associated Diagnosis SURGICAL PATHOLOGY 08/31/2018 10:35 AM TRANSPORT ANALYST CHEST IMMEDIATE POST Routine 08/31/2018 PROCEDURE INSP/EXP 10:[address] GUIDE NEEDLE PLACEMENT Routine 08/31/2018 Adenocarcinoma of left 9:03 AM TRANSPORT ANALYST lung (HCC) documented in this encounter Results * SURGICAL PATHOLOGY (08/31/2018 10:35 AM TRANSPORT ANALYST) PATHOLOGY [email or web address] Department of Pathology and Laboratory Medicine [address] [place] [id number] Surgical Pathology Office:[phone] :[phone] SURGICAL PATHOLOGY REPORT NAME: SIS ALLEN SURG PATH #: [id number] MR #: [id number] SPECIMEN CLASS: SR BILLING #: [id number] ALT ID #:LOCATION: [facility] DATE OF PROCEDURE: 08/31/2018 AGE:52 SEX: F DATE RECEIVED: 08/31/2018 : 4/17/1966TIME RECEIVED:10:35 PHYSICIAN: CHAPO MANDEL DATE OF REPORT: 09/04/2018 COPY TO: EVELYNE ARROYO DATE OF PRINTIN09/04/2018 ############################## ############################## ############ Final Diagnosis: A. Adrenal gland, "right adrenal mass biopsy", biopsy: Negative for carcinoma in this biopsy material. Focal acute and chronic inflammation. Recommend imaging correlation. Comment: CK7 immunostain on block A1 is negative in support of the above interpretation. Attestation: By this signature, I attest that I have personally formulated the final interpretation expressed in this report and that the above diagnosis is based upon my examination of the slides and/or other material indicated in this report. +++ +++ Meir Corrales/08/31/2018 ############################## ############################## ############ Material Received: A: right adrenal mass biopsy History: 52-year-old female with history of adenocarcinoma of left lung Gross Description: A. Received in formalin, labeled with the patient's name and "adrenal mass biopsy" is a 1.3 x 0.2 x 0.1 cm aggregate of brown doty cylindrical soft tissue fragments. The specimen is entirely submitted in cassettes A1-A2. (tn) doty/08/31/2018 If immunohistochemical stains and/or in situ hybridization are cited in this report, the performance characteristics were determined by the Department of Pathology and Laboratory Medicine of the [facility] ([employer] [facility]) in compliance with CLIA'88 regulations.Some of these tests rely on the use of "analyte specific reagents" and are subject to specific labeling requirements by the FDA. Known positive and negative control tissues demonstrate appropriate staining.Results should be interpreted with caution given the likelihood of false negativity on decalcified specimens.This testing was developed by the Department of Pathology and Laboratory Medicine of the [facility].It has not been cleared or approved by the FDA.The FDA has determined that such clearance or approval is not necessary. Performing Organization Address City/State/Zipcode Phone Number [facility] [address] [place] [address] * CHEST IMMEDIATE POST PROCEDURE INSP/EXP (08/31/2018 10:13 AM TRANSPORT ANALYST) Impressions Performed At No evidence of significant pneumothorax one hour after biopsy of the right [facility] adrenal nodule. Progressing atelectasis of the left lower lobe concerning for postobstructive atelectasis secondary to bronchial stenotic or bronchial occlusive lesion of the lower lobe bronchus. Finalized by Raymond Hanson M.D. on 08/31/2018 10:20 AM. Dictated by Raymond Hanson M.D. on 08/31/2018 10:14 AM. Narrative Performed At CHEST X-RAY INSPIRATION/EXPIRATION [facility] History: 1 hour post biopsy. Status [...] with an element of COPD. A right Esifiu-b-Sqxt catheter remains in place with its tip at the level of the right atrium. There is no significant pleural fluid. No pneumothorax is identified. Performing Organization Address City/State/[facility] Phone Number [facility] * CT GUIDE NEEDLE PLACEMENT (08/31/2018 9:03 AM TRANSPORT ANALYST) Impressions Performed At 1. Successful CT-guided biopsy [...] Interface, Radiant Results - 08/31/2018 4:[address] GUIDED BIOPSY OF RIGHT ADRENAL NODULE [...] documented in this encounter Visit Diagnoses Diagnosis Adenocarcinoma of left lung (HCC) documented in this encounter Administered Medications Action Date Dose Rate Site Medication Order MAR Action 08/31/2018 8:22 AM TRANSPORT ANALYST 50 mcg fentaNYL citrate PF (SUBLIMAZE) Given injection 25-50 mcg 25-50 mcg, Intravenous, ONCE, 1 dose, Fri08/31/18 at 0730, Administer prior to procedure for anxiolytic, Pre-Procedure (IR) 08/31/2018 9:24 AM TRANSPORT ANALYST 50 mcg fentaNYL citrate PF (SUBLIMAZE) Given injection 25-50 mcg 25-50 mcg, Intravenous, EVERY 1 HOUR PRN, Starting Fri08/31/18 at 0921, Until Fri08/31/18 at 1114, Pain Injectable 08/31/2018 8:46 AM TRANSPORT ANALYST 50 mcg fentaNYL citrate PF (SUBLIMAZE) Given injection INTRA-PROCEDURE MED, Starting Fri08/31/18 at 0846, Until Fri08/31/18 at 0846 08/31/2018 10:17 AM TRANSPORT ANALYST 500 Units heparin lock flush PF syringe 500 Units Given 500 Units, Intravenous, ONCE, 1 dose, Fri08/31/18 at 1030, NOTE: This is a HIGH ALERT Medication., 08/31/2018 8:19 AM TRANSPORT ANALYST 1 mg midazolam (VERSED) injection 0.5-1 mg Given 0.5-1 mg, Intravenous, ONCE, 1 dose, Fri08/31/18 at 0730, Administer prior to procedure for anxiolytic, Pre-Procedure (IR) 08/31/2018 8:51 AM TRANSPORT ANALYST 1 mg midazolam (VERSED) injection Given INTRA-PROCEDURE MED, Starting Fri08/31/18 at 0841, Until Fri08/31/18 at 0851 1 mg Given 08/31/2018 8:41 AM TRANSPORT ANALYST 08/31/2018 9:25 AM TRANSPORT ANALYST 5 mg oxyCODONE (ROXICODONE, OXY-IR) tablet Given 5-10 mg 5-10 mg, Oral, EVERY 4 HOURS PRN, Starting Fri08/31/18 at 0921, Until Fri08/31/18 at 1114, Pain PO phentolamine (REGITINE) injection 10 mg 10 mg, Intravenous, ONCE PRN, 1 dose, Starting Fri08/31/18 at 0736, Until Fri08/31/18 at 1114, Other..., For possible hypertensive crisis during adrenal biopsy, Give only if experiencing hypertensive crisis, Intra-procedure (IR) documented in this encounter
[2018-11-26] MEDS ORDERED: NS IV 1000 ML 1,000 ML IV SCH ×2 (14:00→15:00)
[2018-11-26] MEDS ORDERED: ACETAMINOPHEN 325 MG TABLET PO ONE (14:00)
[2018-11-26] MEDS ORDERED: morphine INJ 10 MG/ML 1ML (SYR OR VIAL) IVP ONE ×2 (14:15→15:45)
--- NOTE | 2018-11-26 14:20 | ED General ---
General Chief Complaint: General Problems/Pain Stated Complaint: WEAK N/V/D SOB Nursing Triage Note: Pt has metastatic breast cancer, c/o vomiting and diarrhea x7 days. Pt has chronic pneumothorax. Nursing Sepsis Screen: Possible Sepsis Risk Source of Information: Patient, Family Exam Limitations: No Limitations History of Present Illness Date Seen by Provider: Nov 26, 2018 Time Seen by Provider: 14:18 Initial Comments To ER with reports of a one-week history of profuse watery diarrhea, uncontrollable nausea and vomiting. She has Zofran and Phenergan at home which are not helping. 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 She is on chemotherapy following with Dr. Potter at the [facility]. Her primary care provider is also at the [facility]. She is febrile starting today. Last dose of chemotherapy was one month ago. She does report an increased cough. Timing/Duration: 1 Week Severity: Moderate Associated Systoms: Cough, Nausea/Vomiting Allergies and Home Medications Allergies Coded Allergies: No Known Drug Allergies (Verified , 12/21/08) Home Medications Cyclobenzaprine HCl 10 Mg Tablet, 10 MG PO Q8H Prescribed by: SHAUNA SIN on 04/08/180 Mupirocin 1 Gm Oin.pf.franky, 1 GM TP BID Prescribed by: SHAUNA SIN on 04/08/182339 Sulfamethoxazole/Trimethoprim 1 Each Tablet, 1 EACH PO BID Prescribed by: SHAUNA SIN on 04/08/18 2340 Patient Home Medication List Home Medication List Reviewed: Yes Review of Systems Review of Systems Constitutional: see HPI, chills, fever, weakness EENTM: see HPI Respiratory: see HPI, cough Cardiovascular: no symptoms reported Genitourinary: no symptoms reported Musculoskeletal: no symptoms reported Skin: no symptoms reported Psychiatric/Neurological: No Symptoms Reported Hematologic/Lymphatic: No Symptoms Reported Past Zzkscpq-Mjylpt-Srmuje Hx Patient Social History Drug of Choice: METH, THC, RX DRUGS WITH OVERDOSES, INCLUDING INTENTIONAL OVERDOSES Type Used: Cigarettes Former Smoker, Quit: Apr 08, 2013 Recent Foreign Travel: No Contact w/Someone Who Travel: No Recent Infectious Disease Expo: No Recent Hopitalizations: No Immunizations Up To Date Tetanus Booster (TDap): Unknown Past Medical History Surgeries: Yes Amputation, Hysterectomy, Tubal Ligation Respiratory: Yes (LUNG CANCER) COPD Cardiac: Yes (RAYNAUD'S ) Neurological: No Neuropathy, Stroke Reproductive Disorders: No (2 abnormal mamograms, tubes tied) 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 ) Anxiety, Suicide Attempts, Depression Integumentary: No Blood Disorders: No Physical Exam Vital Signs Vital Signs - First Documented 11/26/18 13:32 Temp 101.8 Pulse 122 Resp 18 B/P (MAP) 94/73 (80) Pulse Ox 92 O2 Delivery Room Air Capillary Refill : Less Than 3 Seconds Height, Weight, BMI Height: 5'9.00" Weight: 190lbs. 1.0oz. 86.694208px; BMI Method:Stated General Appearance: No Apparent Distress, WD/WN, Other (on arrival her blood pressure is 80s over 50s, tachycardic at 116 sinus. At this time, fluids are infusing and her blood pressures up to 110/60, still tachycardic at 112.) Eyes: Bilateral Eye Normal Inspection, Bilateral Eye PERRL, Bilateral Eye EOMI HEENT: PERRL/EOMI, TMs Normal Respiratory: No Accessory Muscle Use, No Respiratory Distress, Decreased Breath Sounds Cardiovascular: Regular Rate, Rhythm, Normal Peripheral Pulses Gastrointestinal: Normal Bowel Sounds, Non Tender, Soft Extremity: Normal Capillary Refill, Normal Inspection Neurologic/Psychiatric: Alert, Oriented x3 Skin: Normal Color, Warm/Dry Focused Exam Lactate Level 11/26/18 14:10: Lactic Acid Level 1.58 Lactic Acid Level Laboratory Tests Test 11/26/18 14:10 Lactic Acid Level 1.58 MMOL/L (0.50-2.00) Procedures/Interventions Suture Size: 4-0, 5-0 Progress/Results/Core Measures Suspected Sepsis Recent Fever Within 48 Hours: Yes Infection Criteria Present: Suspected New Infection New/Unexplained Altered Menta: No Sepsis Screen: Possible Sepsis Risk SIRS Temperature:101.8 Pulse: 122 Respiratory Rate: 18 Laboratory Tests 11/26/18 14:10: White Blood Count 13.6H Blood Pressure 94 /73 Mean: 80 11/26/18 14:10: Lactic Acid Level 1.58 Laboratory Tests 11/26/18 14:10: Creatinine 0.88, INR Comment 1.4, Platelet Count 271, Total Bilirubin 0.7 Results/Orders Lab Results Laboratory Tests Test 11/26/18 14:10 Range/Units White Blood Count 13.6 H 4.3-11.0 10^3/uL Red Blood Count 3.34 L 4.35-5.85 10^6/uL Hemoglobin 9.4 L 11.5-16.0 G/DL Hematocrit 30 L 35-52 % Mean Corpuscular Volume 91 80-99 FL Mean Corpuscular Hemoglobin 28 25-34 PG Mean Corpuscular Hemoglobin Concent 31 L 32-36 G/DL Red Cell Distribution Width 17.0 H 10.0-14.5 % Platelet Count 271 130-400 10^3/uL Mean Platelet Volume 11.2 H 7.4-10.4 FL Neutrophils (%) (Auto) 89 H 42-75 % Lymphocytes (%) (Auto) 5 L 12-44 % Monocytes (%) (Auto) 6 0-12 % Eosinophils (%) (Auto) 0 0-10 % Basophils (%) (Auto) 0 0-10 % Neutrophils # (Auto) 12.2 H 1.8-7.8 X 10^3 Lymphocytes # (Auto) 0.6 L 1.0-4.0 X 10^3 Monocytes # (Auto) 0.8 0.0-1.0 X 10^3 Eosinophils # (Auto) 0.0 0.0-0.3 10^3/uL Basophils # (Auto) 0.0 0.0-0.1 10^3/uL Prothrombin Time 17.1 H 12.2-14.7 SEC INR Comment 1.4 0.8-1.4 Sodium Level 135 135-145 MMOL/L Potassium Level 2.7 L 3.6-5.0 MMOL/L Chloride Level 95 L 98-107 MMOL/L Carbon Dioxide Level 27 21-32 MMOL/L Anion Gap 13 5-14 MMOL/L Blood Urea Nitrogen 7 7-18 MG/DL Creatinine 0.88 0.60-1.30 MG/DL Estimat Glomerular Filtration Rate > 60 BUN/Creatinine Ratio 8 Glucose Level 136 H 70-105 MG/DL Lactic Acid Level 1.58 0.50-2.00 MMOL/L Calcium Level 9.4 8.5-10.1 MG/DL Corrected Calcium 9.9 8.5-10.1 MG/DL Total Bilirubin 0.7 0.1-1.0 MG/DL Aspartate Amino Transf (AST/SGOT) 29 5-34 U/L Alanine Aminotransferase (ALT/SGPT) 21 0-55 U/L Alkaline Phosphatase 85 40-136 U/L Total Protein 7.0 6.4-8.2 GM/DL Albumin 3.4 3.2-4.5 GM/DL Micro Results Microbiology 11/26/18 Influenza Types A,B Antigen (YUDY) - Final, Complete My Orders Orders - VON SAUCEDA APRN Cbc With Automated Diff (11/26/18 13:50) Comprehensive Metabolic Panel (11/26/18 13:50) Ua Culture If Indicated (11/26/18 13:50) Iv Heplock-Insert (Order) (11/26/18 13:50) Blood Culture (11/26/18 13:50) Lactic Acid Analyzer (11/26/18 13:50) Acetaminophen Tablet/Caplet (Tylenol T (11/26/18 14:00) Ns Iv 1000 Ml (Sodium Chloride 0.9%) (11/26/18 14:00) Influenza A And B Antigens (11/26/18 13:57) Morphine Injection (Morphine Injection (11/26/18 14:15) Protime With Inr (11/26/18 14:15) Chest 1 View, Ap/Pa Only (11/26/18 14:15) Cefepime Injection (Maxipime Injection) (11/26/18 14:30) Manual Differential (11/26/18 14:10) Magnesium (11/26/18 14:53) Potassium Cl 10meq/50ml Ivpb (Kcl 10 Meq (11/26/18 15:00) Ns Iv 1000 Ml (Sodium Chloride 0.9%) (11/26/18 15:00) Medications Given in ED Current Medications Medications Dose Ordered Sig/Emir Route Start Time Stop Time Status Last Admin Dose Admin Acetaminophen 650 mg ONCE ONCE PO 11/26/18 14:00 11/26/18 14:01 DC 11/26/18 14:15 650 MG Morphine Sulfate 4 mg ONCE ONCE IVP 11/26/18 14:15 11/26/18 14:16 DC 11/26/18 14:25 4 MG Vital Signs/I&O 11/26/18 11/26/18 13:32 14:15 Temp 101.8 101.8 Pulse 122 Resp 18 B/P (MAP) 94/73 (80) Pulse Ox 92 O2 Delivery Room Air Capillary Refill : Less Than 3 Seconds Blood Pressure Mean: 80 Diagnostic Imaging Diagonstic Imaging: Xray Plain Films/CT/US/NM/MRI: chest Comments NAME: SIS ALLEN [employer] REC#: [id number] PT STATUS: REG ER : 1965 PHYSICIAN: VON SAUCEDA APRN ADMIT DATE: 11/26/18/ER Draft Date of Exam:11/26/18 CHEST 1 VIEW, AP/PA ONLY INDICATION: Metastatic breast cancer Portable chest 2:28 PM Right IJ Port-A-Cath tip projects over the right atrium. Heart size and pulmonary vascularity are normal. Lungs are clear. There are no effusions or pneumothoraces. IMPRESSION: No acute abnormalities in the chest. Dictated on workstation # [id number] Dict: 11/26/18 1436 Trans: 11/26/18 1439 [facility] [id number] Interpreted by: PIPER LAINEZ MD Electronically signed by: Departure Impression Primary Impression: Nausea vomiting and diarrhea Additional Impressions: Lung cancer Qualified Codes: C34.91 - Malignant neoplasm of unspecified part of right bronchus or lung Hypokalemia Disposition: XFER SHT-TRM HOSP Condition: Stable Departure-Patient Inst. Referrals: NO,LOCAL PHYSICIAN (PCP/Family) Primary Care Physician VON SAUCEDA APRN Nov 26, 2018 14:20
[2018-11-26 14:28] LABS: BASOPHILS % (AUTO) 0 % (0-10); EOSINOPHILS % (AUTO) 0 % (0-10); HEMATOCRIT 30 % (35-52); HEMOGLOBIN 9.4 G/DL (11.5-16.0); LYMPHOCYTES # (AUTO) 0.6 X 10^3 (1.0-4.0); LYMPHOCYTES % (AUTO) 5 % (12-44); MEAN CORPUSCULAR HEMOGLOBIN 28 PG (25-34); MEAN CORPUSCULAR HGB CONC 31 G/DL (32-36); MEAN CORPUSCULAR VOLUME 91 FL (80-99); MEAN PLATELET VOLUME 11.2 FL (7.4-10.4); MONOCYTES # (AUTO) 0.8 X 10^3 (0.0-1.0); MONOCYTES % (AUTO) 6 % (0-12); NEUTROPHILS # (AUTO) 12.2 X 10^3 (1.8-7.8); NEUTROPHILS % (AUTO) 89 % (42-75); PLATELET COUNT 271 10^3/uL (130-400); WHITE BLOOD COUNT 13.6 10^3/uL (4.3-11.0)
[2018-11-26] MEDS ORDERED: CEFEPIME INJECTION 2,000 MG in WATER (STERILE) FOR INJECTION 20 ML IV ONE (14:30)
--- NOTE | 2018-11-26 14:39 | Diagnostic Imaging Report ---
INDICATION: Metastatic breast cancer Portable chest 2:28 PM Right IJ Port-A-Cath tip projects over the right atrium. Heart size and pulmonary vascularity are normal. Lungs are clear. There are no effusions or pneumothoraces. IMPRESSION: No acute abnormalities in the chest. Dictated by: Dictated on workstation # [id number]
[2018-11-26 14:42] LABS: INR 1.4 (0.8-1.4); PROTHROMBIN TIME PATIENT 17.1 SEC (12.2-14.7)
[2018-11-26 14:48] LABS: ALANINE AMINOTRANSFERASE 21 U/L (0-55); ALBUMIN 3.4 GM/DL (3.2-4.5); ALKALINE PHOSPHATASE 85 U/L (40-136); BILIRUBIN,TOTAL 0.7 MG/DL (0.1-1.0); BUN/CREATININE RATIO 8; CALCIUM 9.4 MG/DL (8.5-10.1); CARBON DIOXIDE 27 MMOL/L (21-32); CHLORIDE 95 MMOL/L (98-107); CREATININE SERUM 0.88 MG/DL (0.60-1.30); GFR ESTIMATED > 60; GLUCOSE 136 MG/DL (70-105); POTASSIUM 2.7 MMOL/L (3.6-5.0); SODIUM 135 MMOL/L (135-145)
[2018-11-26 15:00] LABS: ANISOCYTOSIS SLIGHT; BAND NEUTROPHILS 1 %; BASOPHILS % (MANUAL) 0 %; EOSINOPHILS % (MANUAL) 0 %; LYMPHOCYTES % (MANUAL) 3 %; MONOCYTES % (MANUAL) 8 %; NEUTROPHILS % (MANUAL) 88 %
[2018-11-26] MEDS ORDERED: PROCHLORPERAZINE 10 MG/2ML INJ (COMPAZINE) IV ONE (15:15)
[2018-11-26] MEDS: POTASSIUM CL 10MEQ/50ML IVPB 50 ML IV SCH ×2 (16:13→18:29)
[2018-11-26 17:31] VITALS: BP 96/88
--- NOTE | 2018-11-26 18:07 | NUR ---
CR 0.88; CR CL > 60; 83 KG; VANCO 1500 MG IV BOLUS THEN 1000 MG IV Q12H; TROUGH AFTER 3RD DOSE
[2018-11-26] MEDS: NS IV 1000 ML 1,000 ML IV SCH (18:29)
[2018-11-26] MEDS ORDERED: VANCOMYCIN 1500 MG/NS 500 ML IVPB IV NR ×2 (18:30)
[2018-11-26] MEDS ORDERED: CATHETER FLUSH 10 ML SYR IV PRN (18:30)
[2018-11-26] MEDS ORDERED: PROCHLORPERAZINE 10 MG/2ML INJ (COMPAZINE) IV PRN (18:30)
[2018-11-26] MEDS ORDERED: ONDANSETRON 4 MG/2 ML (SDV) Z0FRAN IV PRN (18:30)
[2018-11-26] MEDS: MAGNESIUM 1 GM/D5W 100 ML IVPB IV SCH ×2 (18:47→21:23)
[2018-11-26] MEDS: POTASSIUM CL 10 MEQ/50 ML IVPB (PRE-MIX) IV SCH ×3 (18:47→21:25)
[2018-11-26] MEDS: ENOXAPARIN 40 MG/0.4 ML (LOVENOX) SYR SC SCH (19:34)
[2018-11-26 20:00] VITALS: BP 102/58
[2018-11-26] MEDS ORDERED: ACETAMINOPHEN 500 MG TAB (TYLENOL) PO PRN (22:00)
[2018-11-26] MEDS ORDERED: diphenhydrAMINE 25 MG TAB (BENADRYL) PO PRN (22:00)
[2018-11-26] MEDS ORDERED: DOCUSATE SODIUM 100 MG (COLACE) CAP PO PRN (22:00)
[2018-11-26] MEDS ORDERED: IBUPROFEN TABLET 200 MG TAB PO PRN (22:00)
[2018-11-26] MEDS ORDERED: LOPERAMIDE 2 MG (IMODIUM) CAP PO PRN (22:00)
[2018-11-26] MEDS: oxyCODONE/APAP 5/325MG (PERCOCET 5) TABLET PO PRN (22:28)
[2018-11-26 23:12] VITALS: BP 112/59
[2018-11-27] MEDS: NS IV 1000 ML 1,000 ML IV SCH ×4 (03:00→20:56)
[2018-11-27 04:00] VITALS: BP 113/85
[2018-11-27] MEDS: CEFEPIME 2,000 MG/SWFI 20 ML IV PUSH IV SCH ×4 (04:17→17:25)
[2018-11-27] MEDS: VANCOMYCIN 1 GM/NS 250 ML IVPB IV SCH ×4 (06:06→18:52)
[2018-11-27 06:43] LABS: BASOPHILS % (AUTO) 0 % (0-10); EOSINOPHILS # (AUTO) 0.1 10^3/uL (0.0-0.3); EOSINOPHILS % (AUTO) 0 % (0-10); HEMATOCRIT 29 % (35-52); HEMOGLOBIN 9.2 G/DL (11.5-16.0); LYMPHOCYTES # (AUTO) 0.6 X 10^3 (1.0-4.0); LYMPHOCYTES % (AUTO) 3 % (12-44); MEAN CORPUSCULAR HEMOGLOBIN 30 PG (25-34); MEAN CORPUSCULAR HGB CONC 32 G/DL (32-36); MEAN CORPUSCULAR VOLUME 92 FL (80-99); MONOCYTES # (AUTO) 0.9 X 10^3 (0.0-1.0); MONOCYTES % (AUTO) 5 % (0-12); NEUTROPHILS # (AUTO) 16.7 X 10^3 (1.8-7.8); NEUTROPHILS % (AUTO) 91 % (42-75); PLATELET COUNT 322 10^3/uL (130-400); RED CELL DISTRIBUTION WIDTH 17.2 % (10.0-14.5); WHITE BLOOD COUNT 18.3 10^3/uL (4.3-11.0)
[2018-11-27 07:18] LABS: ALANINE AMINOTRANSFERASE 15 U/L (0-55); ALKALINE PHOSPHATASE 72 U/L (40-136); BILIRUBIN,TOTAL 0.5 MG/DL (0.1-1.0); BUN/CREATININE RATIO 9; CALCIUM 8.6 MG/DL (8.5-10.1); CARBON DIOXIDE 21 MMOL/L (21-32); CHLORIDE 105 MMOL/L (98-107); CREATININE SERUM 0.75 MG/DL (0.60-1.30); GFR ESTIMATED > 60; GLUCOSE 113 MG/DL (70-105); POTASSIUM 3.5 MMOL/L (3.6-5.0); SODIUM 137 MMOL/L (135-145); TOTAL PROTEIN 6.1 GM/DL (6.4-8.2)
[2018-11-27 08:00] VITALS: BP 80/48
[2018-11-27] MEDS ORDERED: RT-ALBUTEROL/IPRATROPIUM 3 ML (DUONEB) VIAL INH SCH (08:00)
[2018-11-27] MEDS ORDERED: NS IV 1000 ML 1,000 ML IV SCH (08:45)
--- NOTE | 2018-11-27 08:45 | NUR ---
NOTIFIED DR. ROPER AT THIS TIME THAT PATIENT'S BP IS LOW 82/52 MANUALLY. PULSE-113, RR-24 O2 96% @ 3L NC. TEMP-99.8. PUT IN ORDERS FOR 1 L NS BOLUS X1 BAG AND TO CONSULT DR. STEPHEN. WILL CALL DR. STEPHEN TO NOTIFY HIM AND CARRY OUT ORDERS. WILL CONTINUE TO MONITOR.
--- NOTE | 2018-11-27 09:04 | NUR ---
RAPID RESPONSE CALLED AT THIS TIME JOSH IBARRA, TRU RN, AGAPITO,RN AND HAN RT RESPOND TO CALL. VITALS: BP-99/57 HEART RATE 102, RR-24 TEMP -100.2 O2- 100% ON 3L NC. EKG AT 0910 SHOWED SINUS TACH 0911-THIS RN, JOSH IBARRA, AGAPITORN, HAN, RT ALL ASSESS PATIENT AND AGREE ABG'S AND ANY OTHER LABS/TEST ARE NOT INDICATED AT THIS TIME. WILL CALL DR. STEPHEN TO UPDATE HIM. 929-NOTIFIED DR. STEPHEN AT THIS TIME DR. STEPHEN STATES THAT HE PUT IN ORDERS ON PATIENT FOR ABGS AND LACTIC ACID ANALYZER. STATES TO UPDATE HIM. WILL CARRY OUT ORDERS.
--- NOTE | 2018-11-27 09:04 | NUR ---
NOTIFIED DR. STEPHEN OF CONSULT AND PATIENT'S SITUATION OF LOW BP AND TACHY AND TACHYPNEIC. STATES THAT HOSPITAL ADMINISTRATION HAS BEEN IN [place]KS ABOUT UTILIZING RAPID RESPONSE TEAM MORE. ORDERS THIS RN TO CALL RAPID RESPONSE AND TO UPDATE HIM WHEN ASSESS,ENT BY TEAM IS COMPLETED. WILL CARRY OUT ORDER.
[2018-11-27 09:15] VITALS: BP 99/57
[2018-11-27] MEDS: ALPRAZolam 0.25 MG (XANAX) TAB PO PRN ×2 (09:37→22:39)
--- NOTE | 2018-11-27 09:53 | Diagnostic Imaging Report ---
Indication: Shortness of breath Portable chest 1:40 AM Right subclavian central line tip projects over the SVC. Heart size and pulmonary vascular normal. Right lung is hyperexpanded compared to the left probably due to air trapping. There are no infiltrates, effusions or pneumothoraces. Impression: COPD. No acute abnormalities. No change since 11/26/2018. Dictated by: Dictated on workstation # [id number]
--- NOTE | 2018-11-27 10:31 | History & Physical-Hospitalist ---
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 At this current time patient once her Xanax restarted because of her anxiety and the rest of her home medication and she did have low blood pressure and rapid response team evaluated her and she is responding to IV fluid bolus. She is asking for a new primary care provider locally. She lives with her partner at home. 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 At this current time Dr. Solorio did talk to her and she was deemed a DO NOT RESUSCITATE with nurse at the bedside witnessing the conversation. That order was placed. Source: patient, RN/MD Exam Limitations: no limitations Date Seen 11/27/18 Time Seen by a Provider: 09:15 Attending Physician Mary Jane Hernandez DO PCP No,Local Physician Referring Physician Date of Admission Nov 26, 2018 at 15:46 Home Medications & Allergies Home Medications Reviewed patient Home Medication Reconciliation performed by pharmacy medication reconciliations emg technician and/or nursing. Patients Allergies have been reviewed. 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) Alcohol Use: Denies Use Recreational Drug Use: No (PAST HX) Drug of Choice: METH, THC, RX DRUGS WITH OVERDOSES, INCLUDING INTENTIONAL OVERDOSES Smoking Status: Former Smoker Former Smoker, Quit: Apr 08, 2013 Type Used: Cigarettes Recent Foreign Travel: No Contact w/other who traveled: No Recent Hopitalizations: No Recent Infectious Disease Expo: No Immunizations Up To Date Tetanus Booster (TDap): Unknown Date of Pneumonia Vaccine: Jun 28, 2018 Date of Influenza Vaccine: Jun 28, 2018 Past Medical History Surgeries: Amputation, Hysterectomy, Tubal Ligation Respiratory: COPD, Pneumonia Neurological: Neuropathy, Stroke : No Reproductive: No (2 abnormal mamograms, tubes tied) Hysterectomy, Menopausal Musculoskeletal: Amputee, Fractures Cancer: Lung Did You Recieve Any Treatments: Yes What Type of Treatment Did You: Radiation, Surgical Intervention Psychosocial: Anxiety, Suicide Attempts, Depression History of Blood Disorders: No Review of Systems Constitutional: see HPI, weakness EENTM: no symptoms reported Respiratory: cough, dyspnea on exertion, short of breath, wheezing Cardiovascular: no symptoms reported Gastrointestinal: no symptoms reported Genitourinary: no symptoms reported Musculoskeletal: no symptoms reported Skin: no symptoms reported Psychiatric/Neurological: Anxiety All Other Systems Reviewed Negative Unless Noted: Yes Physical Exam Physical Exam Vital Signs Vital Signs - First Documented 11/26/18 11/26/18 11/26/18 13:32 20:00 22:18 Temp 101.8 Pulse 122 Resp 18 B/P (MAP) 94/73 (80) Pulse Ox 92 O2 Delivery Room Air O2 Flow Rate 3.00 FiO2 21 Capillary Refill : Less Than 3 Seconds Height, Weight, BMI Height: 5'4.00" Weight: 184lbs. 5.0oz. 83.781760si; 31.6 BMI Method:Stated General Appearance: WD/WN, Chronically ill, Mild Distress, Other (coughing) Eyes: Right Eye Normal Inspection, Right Eye PERRL HEENT: PERRL/EOMI, Normal ENT Inspection, Pharynx Normal, Moist Mucous Membranes Neck: Full Range of Motion, Normal Inspection, Non Tender Respiratory: Chest Non Tender, No Accessory Muscle Use, No Respiratory Distress , Crackles, Decreased Breath Sounds, Wheezing Cardiovascular: No Edema, No Gallop, No JVD, No Murmur, Normal Peripheral Pulses, Tachycardia Gastrointestinal: Normal Bowel Sounds, No Organomegaly, No Pulsatile Mass, Non Tender, Soft Back: Normal Inspection, No CVA Tenderness, No Vertebral Tenderness Extremity: Normal Capillary Refill, Normal Inspection, Normal Range of Motion, Non Tender, No Calf Tenderness, No Pedal Edema Neurologic/Psychiatric: Alert, Oriented x3, No Motor/Sensory Deficits, Normal Mood/Affect Skin: Normal Color, Warm/Dry Lymphatic: No Adenopathy Results Results/Procedures Labs Laboratory Tests 11/26/18 14:10 11/27/18 06:35 Patient resulted labs reviewed. Assessment/Plan Admission Diagnosis Assessment: Immunosuppression with fever Severe COPD Hypotension Lung cancer with metastases failing chemotherapy Home O2 dependent Former smoker Anxiety Leukocytosis Hypokalemia Anemia of cancer Plan: Nebulizers IV fluids Home meds Anxiolytics Nebulizers Dr. Solorio consult Broad-spectrum antibiotics Admission Status: Inpatient Order (span 2 midnights) Reason for Inpatient Admission: Immunosuppression with fever and respiratory insufficiency with hypotension Diagnosis/Problems Diagnosis/Problems (1) Sepsis Status: Acute Qualifiers: Sepsis type: sepsis due to unspecified organism Qualified Codes: A41.9 - Sepsis, unspecified organism (2) Metastatic primary lung cancer Status: Chronic Qualifiers: Laterality: unspecified laterality Qualified Codes: C34.90 - Malignant neoplasm of unspecified part of unspecified bronchus or lung (3) Former smoker Status: Chronic (4) Anxiety Status: Chronic (5) Neuropathy Status: Chronic (6) Cough Status: Acute (7) Leukocytosis Status: Acute Qualifiers: Leukocytosis type: leukemoid reaction Qualified Codes: D72.823 - Leukemoid reaction (8) Anemia Status: Chronic Qualifiers: Anemia type: unspecified type Qualified Codes: D64.9 - Anemia, unspecified (9) Volume depletion Status: Acute (10) Lung cancer Status: Chronic Qualifiers: Laterality: right Lung location: unspecified part of lung Qualified Codes : C34.91 - Malignant neoplasm of unspecified part of right bronchus or lung (11) Hypokalemia Status: Acute (12) Nausea vomiting and diarrhea Status: Acute (13) Electrolyte abnormality Status: Acute (14) Fever Status: Acute Qualifiers: Fever type: unspecified Qualified Codes: R50.9 - Fever, unspecified (15) Hypotension (16) Wheezing Status: Acute (17) Acute bacterial bronchitis Status: Acute Clinical Quality Measures DVT/VTE Risk/Contraindication: Risk Factor Score Per Nursin RFS Level Per Nursing on Admit: 4+=Very High MARY JANE HERNANDEZ DO Nov 27, 2018 10:31
[2018-11-27] MEDS ORDERED: RT-ALBUTEROL/IPRATROPIUM 3 ML (DUONEB) VIAL INH PRN (10:45)
--- NOTE | 2018-11-27 11:30 | NUR ---
NOTIFIED DR. STEPHEN AT THIS TIME THAT PATIENT STILL HYPOTENSIVE AT 84/54 MANUALLY AND PULSE STILL TACHY AT 103. ORDERS X1 DOSE OF SOLU-CORTEF 100MG IV AND A 500CC NS BOLUS. WILL CONTINUE TO MONITOR.
[2018-11-27] MEDS ORDERED: NS IV 500 ML 500 ML ONE (11:39)
[2018-11-27] MEDS ORDERED: NS IV 500 ML 500 ML IV ONE (11:45)
[2018-11-27] MEDS ORDERED: HYDROCORTISONE 100 MG/2 ML (Solu-CORTEF) VIAL IV ONE (11:45)
[2018-11-27] MEDS: RT-ALBUTEROL/IPRATROPIUM 3 ML (DUONEB) VIAL INH SCH ×3 (11:47→20:19)
[2018-11-27 12:00] VITALS: BP 84/52
--- NOTE | 2018-11-27 12:06 | Pulmonary Consultation ---
History of Present Illness History of Present Illness Date of Consultation 11/27/18 12:00 Time Seen by Provider: 12:00 Date of Admission History of Present Illness 52yo with hx of severe oxygen dependent COPD, and metastatic lung cancer (known to oncology) dx 2yrs ago presented to ED secondary to worsening SOB. Last chemo was 3wks ago. Her oncologist told her the cancer has spread since starting chemo therapy and it is stage 4. She states every time she undergoes chemo she gets very nauseated. I talked to patient about code status and she wants to be a DNR. I also briefly explained hospice care and she would like more information about hospice. Allergies and Home Medications Allergies Coded Allergies: No Known Drug Allergies (Verified , 12/21/08) Home Medications Cyclobenzaprine HCl 10 Mg Tablet, 10 MG PO Q8H Prescribed by: SHAUNA SIN on 04/08/18 2340 Mupirocin 1 Gm Oin.pf.franky, 1 GM TP BID Prescribed by: SHAUNA SIN on 04/08/18 234 Sulfamethoxazole/Trimethoprim 1 Each Tablet, 1 EACH PO BID Prescribed by: SHAUNA SIN on 04/08/18 2340 Past Qixnzkn-Zbbhvs-Dfnirl Hx Past Med/Social Hx: Reviewed Nursing Past Med/Soc Hx, Reviewed and Corrections made Patient Social History Alcohol Use: Denies Use Recreational Drug Use: No (PAST HX) Drug of Choice: METH, THC, RX DRUGS WITH OVERDOSES, INCLUDING INTENTIONAL OVERDOSES Smoking Status: Former Smoker Type Used: Cigarettes Former Smoker, Quit: Apr 08, 2013 Recent Foreign Travel: No Contact w/Someone Who Travel: No Recent Infectious Disease Expo: No Recent Hopitalizations: No Immunizations Up To Date Tetanus Booster (TDap): Unknown Date of Pneumonia Vaccine: Jun 28, 2018 Date of Influenza Vaccine: Jun 28, 2018 Past Medical History Surgeries: Yes Amputation, Hysterectomy, Tubal Ligation Respiratory: Yes (LUNG CANCER) COPD Cardiac: Yes (RAYNAUD'S ) Neurological: No Neuropathy, Stroke : No Reproductive Disorders: No (2 abnormal mamograms, tubes tied) 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 ) Anxiety, Suicide Attempts, Depression Integumentary: No Blood Disorders: No Review of Systems Time Seen by Provider: 12:14 Constitutional: Fever, Chills, Sweats, Weakness, Malaise, Other Eyes: No: Pain, Vision change, Conjunctivae inflammation, Eyelid inflammation, Other, Redness ENT: Nose congestion; No: Ear pain, Ear discharge, Nose pain, Nose discharge, Mouth pain, Mouth swelling, Throat pain, Throat swelling, Other Respiratory: Cough, Dry, Shortness of breath, SOB with excertion, Wheezing; No : Hemoptysis, Pleuritic Pain Cardiovascular: Palpitations, Paroxysmal Noc. Dyspnea; No: Chest Pain, Orthopnea, Edema, Lt Headedness, Other Gastrointestinal: Nausea, Vomiting, Diarrhea; No: Abdominal Pain, Constipation , Melena, Hematochezia, Other Genitourinary: No Dysuria, No Frequency, No Incontinence, No Hematuria, No Retention, No Other Musculoskeletal: No: other, neck pain, shoulder pain, arm pain, back pain, hand pain, leg pain, foot pain Skin: No: Rash, Lesions, Jaundice, Bruising, Other Neurological: Weakness Sepsis Event Evaluation Height, Weight, BMI Height: 5'4.00" Weight: 184lbs. 5.0oz. 83.477377ht; 31.6 BMI Method:Stated Exam Exam Vital Signs Date Time Temp Pulse Resp B/P (MAP) Pulse Ox O2 Delivery O2 Flow Rate FiO2 11/27/18 11:47 97 Nasal Cannula 3.00 11/27/18 09:37 100.4 11/27/18 09:15 100.4 102 22 99/57 (71) 100 Nasal Cannula 2.00 11/27/18 08:00 99.7 113 22 80/48 (59) 100 Nasal Cannula 2.00 11/27/18 07:18 86 Room Air 11/27/18 07:00 114 11/27/18 04:00 99.3 106 22 113/85 (94) 100 Room Air 11/27/18 01:00 86 11/26/18 23:12 97.9 90 20 112/59 (76) 97 Room Air 11/26/18 22:30 Nasal Cannula 3.00 11/26/18 22:18 95 21 11/26/18 20:00 95 Nasal Cannula 3.00 11/26/18 20:00 98.3 90 20 102/58 (73) 95 Room Air 11/26/18 19:00 103 11/26/18 18:53 81 11/26/18 18:03 97 Room Air 11/26/18 17:31 98.0 90 18 96/88 97 Room Air 11/26/18 17:21 90 20 119/83 (95) 100 Room Air 11/26/18 14:15 101.8 11/26/18 13:32 101.8 122 18 94/73 (80) 92 Room Air I & O 11/27/18 07:00 Intake Total 3270 ml Balance 3270 ml Height & Weight Height: 5'4.00" Weight: 184lbs. 5.0oz. 83.385879li; 31.6 BMI Method:Stated General Appearance: WD/WN, Chronically ill, Mild Distress, Other (coughing) HEENT: PERRL/EOMI, Normal ENT Inspection, Pharynx Normal, Moist Mucous Membranes Neck: Full Range of Motion, Normal Inspection, Non Tender Respiratory: Chest Non Tender, No Accessory Muscle Use, No Respiratory Distress , Crackles, Decreased Breath Sounds, Wheezing Cardiovascular: No Edema, No Gallop, No JVD, No Murmur, Normal Peripheral Pulses, Tachycardia Capillary Refill: Less Than 3 Seconds Extremity: Normal Capillary Refill, Normal Inspection, Normal Range of Motion, Non Tender, No Calf Tenderness, No Pedal Edema Neurologic/Psychiatric: Alert, Oriented x3, No Motor/Sensory Deficits, Normal Mood/Affect Skin: Normal Color, Warm/Dry Lymphatic: No Adenopathy Results Lab Laboratory Tests 11/26/18 14:10 11/27/18 06:35 Assessment/Plan Assessment/Plan Severe sepsis -Cautious IVF - I am concerned about pt developing pulmonary edema with her severe lung disease. She is a DNR. Will proceed with aggressive but cautious IVF. -Will give a liter bolus and monitor BP and UO -Continue Vanco, Zosyn -Warren cultures, check UA -Influenza is negative Hypotension -IVF -BP appears to be responding to IVF. If BP does not continue to improve will transfer pt to ICU for BP support -Start SoluCortef Hypokalemia -Replace Diarrhea with Dehydration -Check C diff -IVF Metastatic lung cancer - nonsmall cell Anemia - monitor Anxiety Neuropathy ODETTE STEPHEN DO Nov 27, 2018 12:06
--- NOTE | 2018-11-27 12:44 | NUR ---
Palliative Care RN to talk with patient after receiving a consult on her from Dr. Solorio for hospice education. I sat down and spent approximately 25 minutes talking to her. She reports that she has lung cancer that had spread to a spot on her kidney as well as metastasized to her mediastinum. Patient reports that she is getting Keytruda on a q [address] Potter at and that it makes her incredibly sick and is considering not taking it any longer. She is tearful throughout the visit, saying she is "only 52". The patient said repeatedly that all she wanted to do was ride her motorcycle and have fun. She is tearful when speaking of her sisters, children, grandkids and her "honey" a significant other of 7 years. Her sisters are going to be here this weekend, one of which is a hospice nurse. She plans to talk to them about her feeling and desire to stop taking the Keytruda. She has not told her children yet that she is in the hospital.. and feels like they will not be supportive of her wish to discontinuation of treatment. Will resume supportive visits on Friday.
[2018-11-27] MEDS: POTASSIUM CL 10MEQ/50ML IVPB 50 ML IV SCH ×3 (12:54→18:03)
[2018-11-27] MEDS ORDERED: HYDROCORTISONE 100 MG/2 ML (Solu-CORTEF) VIAL IV SCH (14:00)
[2018-11-27] MEDS: metroNIDAZOLE 500 MG (FLAGYL) TAB PO SCH ×2 (14:04→14:06)
[2018-11-27] MEDS: metroNIDAZOLE 500MG/100ML IVPB 100 ML IV SCH ×2 (14:49→22:30)
[2018-11-27 15:03] LABS: BASOPHILS % (AUTO) 0 % (0-10); EOSINOPHILS % (AUTO) 0 % (0-10); HEMATOCRIT 24 % (35-52); HEMOGLOBIN 7.5 G/DL (11.5-16.0); LYMPHOCYTES # (AUTO) 0.3 X 10^3 (1.0-4.0); LYMPHOCYTES % (AUTO) 3 % (12-44); MEAN CORPUSCULAR HEMOGLOBIN 29 PG (25-34); MEAN CORPUSCULAR HGB CONC 31 G/DL (32-36); MEAN CORPUSCULAR VOLUME 93 FL (80-99); MEAN PLATELET VOLUME 10.9 FL (7.4-10.4); MONOCYTES # (AUTO) 0.4 X 10^3 (0.0-1.0); MONOCYTES % (AUTO) 3 % (0-12); NEUTROPHILS # (AUTO) 10.9 X 10^3 (1.8-7.8); NEUTROPHILS % (AUTO) 94 % (42-75); PLATELET COUNT 236 10^3/uL (130-400); RED CELL DISTRIBUTION WIDTH 17.3 % (10.0-14.5); WHITE BLOOD COUNT 11.6 10^3/uL (4.3-11.0)
[2018-11-27 15:26] LABS: ALANINE AMINOTRANSFERASE 13 U/L (0-55); ALBUMIN 2.6 GM/DL (3.2-4.5); ALKALINE PHOSPHATASE 61 U/L (40-136); BILIRUBIN,TOTAL 0.3 MG/DL (0.1-1.0); BUN/CREATININE RATIO 8; CALCIUM 8.1 MG/DL (8.5-10.1); CARBON DIOXIDE 22 MMOL/L (21-32); CHLORIDE 109 MMOL/L (98-107); CREATININE SERUM 0.74 MG/DL (0.60-1.30); GFR ESTIMATED > 60; GLUCOSE 123 MG/DL (70-105); MAGNESIUM 1.6 MG/DL (1.8-2.4); PHOSPHORUS 2.7 MG/DL (2.3-4.7); POTASSIUM 3.3 MMOL/L (3.6-5.0); SODIUM 139 MMOL/L (135-145); TOTAL PROTEIN 5.1 GM/DL (6.4-8.2)
[2018-11-27 15:27] LABS: BILIRUBIN,URINE NEGATIVE (NEGATIVE); CLARITY,URINE CLEAR; COLOR,URINE YELLOW; GLUCOSE, URINE (UA) NEGATIVE (NEGATIVE); KETONES,URINE NEGATIVE (NEGATIVE); LEUKOCYTE ESTERASE ,URINE NEGATIVE (NEGATIVE); NITRITE,URINE NEGATIVE (NEGATIVE); PH,URINE 6 (5-9); PROTEIN,URINE NEGATIVE (NEGATIVE); UROBILINOGEN,URINE NORMAL (NORMAL)
[2018-11-27 15:42] VITALS: BP 110/54
[2018-11-27 15:42] LABS: BACTERIA,URINE TRACE /HPF
--- NOTE | 2018-11-27 15:55 | NUR ---
NOTIFIED DR. STEPHEN OF CRITICAL LACTIC ACID OF 2.33. ALSO NOTIFIED HIM THAT PATIENT'S BP BETTER AT 110/54 PULSE 88 RR-18 O2 97% 3L NC TEMP- 98.1. NO NEW ORDERS AT THIS TIME. WILL CONTINUE TO MONITOR.
--- NOTE | 2018-11-27 15:59 | NUR ---
Pastoral care visit, pt shared of her health issues and also shared her concerns regarding her terminal condition and young age. Pt further stated she knows where she is going when she dies, indicating [place]. Our visit was interrupted by phone call, pt did request further visits.
[2018-11-27] MEDS: ENOXAPARIN 40 MG/0.4 ML (LOVENOX) SYR SC SCH (18:54)
[2018-11-27] MEDS: HYDROCORTISONE 100 MG/2 ML (Solu-CORTEF) VIAL IV SCH (19:15)
[2018-11-27 20:07] VITALS: BP 103/63
[2018-11-27] MEDS: CALCIUM CARBONATE 500 MG (TUMS) TAB.CHEW PO PRN (20:56)
[2018-11-28] VITALS (7 sets, daily range): BP systolic 99–161; BP diastolic 56–82
[2018-11-28] MEDS: POTASSIUM CL 10MEQ/50ML IVPB 50 ML IV SCH (00:50)
[2018-11-28] MEDS: HYDROCORTISONE 100 MG/2 ML (Solu-CORTEF) VIAL IV SCH ×3 (03:55→17:35)
[2018-11-28] MEDS: CEFEPIME 2,000 MG/SWFI 20 ML IV PUSH IV SCH ×4 (04:34→16:55)
[2018-11-28] MEDS ORDERED: TROUGH ORDER-PHARMACY XX NR (06:00)
[2018-11-28] MEDS: metroNIDAZOLE 500MG/100ML IVPB 100 ML IV SCH ×3 (06:15→21:37)
[2018-11-28] MEDS: NS IV 1000 ML 1,000 ML IV SCH ×3 (06:16→16:13)
[2018-11-28] MEDS: RT-ALBUTEROL/IPRATROPIUM 3 ML (DUONEB) VIAL INH SCH ×4 (07:14→19:25)
[2018-11-28] MEDS: VANCOMYCIN 1 GM/NS 250 ML IVPB IV SCH ×4 (07:35→17:35)
--- NOTE | 2018-11-28 07:43 | Pulmonary Progress Note ---
Subjective Time Seen by a Provider: 07:41 Subjective/Events-last exam Pt appears to be doing better. Sepsis Event Evaluation Height, Weight, BMI Height: 5'4.00" Weight: 184lbs. 5.0oz. 83.972574fj; 31.6 BMI Method:Stated Focused Exam Lactate Level 11/26/18 14:10: Lactic Acid Level 1.58 11/27/18 14:39: Lactic Acid Level 2.33*H 11/27/18 17:55: Lactic Acid Level 2.20*H Exam Exam Vital Signs Date Time Temp Pulse Resp B/P (MAP) Pulse Ox O2 Delivery O2 Flow Rate FiO2 11/28/18 07:14 93 Nasal Cannula 3.00 11/28/18 07:00 103 11/28/18 04:52 96.8 104 18 109/71 (84) 100 Nasal Cannula 2.00 11/28/18 03:39 97 Nasal Cannula 3.00 11/28/18 01:00 99 11/28/18 00:45 97.2 100 20 103/57 (72) 97 Nasal Cannula 2.00 11/27/18 20:19 94 Nasal Cannula 3.00 11/27/18 20:07 97.9 94 18 103/63 (76) 97 Nasal Cannula 2.00 11/27/18 20:00 Nasal Cannula 3.00 11/27/18 19:00 93 11/27/18 15:42 98.1 88 18 110/54 (72) 97 Nasal Cannula 2.00 11/27/18 13:00 96 11/27/18 12:00 97.6 91 20 84/52 (63) 100 Nasal Cannula 2.00 11/27/18 11:47 97 Nasal Cannula 3.00 11/27/18 09:37 100.4 11/27/18 09:15 100.4 102 22 99/57 (71) 100 Nasal Cannula 2.00 11/27/18 08:00 99.7 113 22 80/48 (59) 100 Nasal Cannula 2.00 11/27/18 08:00 Nasal Cannula 3.00 I & O 11/28/18 07:00 Intake Total 2050 ml Balance 2050 ml Height & Weight Height: 5'4.00" Weight: 184lbs. 5.0oz. 83.580764xu; 31.6 BMI Method:Stated General Appearance: No Apparent Distress, WD/WN, Chronically ill, Other ( coughing) HEENT: PERRL/EOMI, Normal ENT Inspection, Pharynx Normal, Moist Mucous Membranes Neck: Full Range of Motion, Normal Inspection, Non Tender Respiratory: Chest Non Tender, No Accessory Muscle Use, No Respiratory Distress , Crackles, Decreased Breath Sounds, Wheezing Cardiovascular: No Edema, No Gallop, No JVD, No Murmur, Normal Peripheral Pulses, Tachycardia Capillary Refill: Less Than 3 Seconds Extremity: Normal Capillary Refill, Normal Inspection, Normal Range of Motion, Non Tender, No Calf Tenderness, No Pedal Edema Neurologic/Psychiatric: Alert, Oriented x3, No Motor/Sensory Deficits, Normal Mood/Affect Skin: Normal Color, Warm/Dry Lymphatic: No Adenopathy Results Lab Laboratory Tests 11/26/18 14:10 11/27/18 06:35 11/27/18 14:39 Assessment/Plan Assessment/Plan Severe sepsis -Cautious IVF -Vanco, Zosyn, flagyl -Warren cultures, check UA -Influenza is negative Hypotension - Improved -IVF - SoluCortef Diarrhea with Dehydration -Check C diff -- Negative -IVF Metastatic lung cancer - nonsmall cell Anemia - monitor Anxiety Neuropathy ODETTE STEPHEN DO Nov 28, 2018 07:43
--- NOTE | 2018-11-28 08:45 | NUR ---
MRSA NASAL SWAB TO LAB.
--- NOTE | 2018-11-28 10:00 | NUR ---
IMODIUM PO FOR LOOSE BM.
[2018-11-28] MEDS: CALCIUM CARBONATE 500 MG (TUMS) TAB.CHEW PO PRN (11:11)
[2018-11-28] MEDS: ALPRAZolam 0.25 MG (XANAX) TAB PO PRN ×2 (11:11→19:35)
--- NOTE | 2018-11-28 11:15 | NUR ---
XANAX O.25 PO FOR ANXIETY AND TUMS PO FOR HEARTBURN.
--- NOTE | 2018-11-28 13:01 | Progress Note-Hospitalist ---
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 At this current time patient once her Xanax restarted because of her anxiety and the rest of her home medication and she did have low blood pressure and rapid response team evaluated her and she is responding to IV fluid bolus. She is asking for a new primary care provider locally. She lives with her partner at home. 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 At this current time Dr. Solorio did talk to her and she was deemed a DO NOT RESUSCITATE with nurse at the bedside witnessing the conversation. That order was placed. Subjective/Events-last exam Patient feeling better denies abdominal pain and reports that she's feeling a little hungry. She denies night sweats chills or fever but does report general fatigue. She denies cough or chest pain. Focused Exam Lactate Level 11/26/18 14:10: Lactic Acid Level 1.58 11/27/18 14:39: Lactic Acid Level 2.33*H 11/27/18 17:55: Lactic Acid Level 2.20*H Objective Exam Vital Signs Vital Signs Date Time Temp Pulse Resp B/P (MAP) Pulse Ox O2 Delivery O2 Flow Rate FiO2 11/28/18 10:56 95 Nasal Cannula 3.00 11/28/18 08:00 97.7 105 20 113/79 (90) 11/26/18 22:18 21 Capillary Refill : Less Than 3 Seconds General Appearance: No Apparent Distress, WD/WN, Chronically ill, Other ( coughing) HEENT: PERRL/EOMI, Pharynx Normal, Moist Mucous Membranes Neck: Full Range of Motion, Normal Inspection, Non Tender Respiratory: Chest Non Tender, Lungs Clear, No Accessory Muscle Use, No Respiratory Distress, Decreased Breath Sounds, Wheezing Cardiovascular: Regular Rate, Rhythm, No Edema, No Gallop, No JVD, No Murmur, Normal Peripheral Pulses Gastrointestinal: Normal Bowel Sounds, No Organomegaly, No Pulsatile Mass, Non Tender, Soft Back: Normal Inspection, No CVA Tenderness, No Vertebral Tenderness Extremity: Normal Capillary Refill, Normal Inspection, Normal Range of Motion, Non Tender, No Calf Tenderness, No Pedal Edema Neurologic/Psychiatric: Alert, Oriented x3, No Motor/Sensory Deficits, Normal Mood/Affect Skin: Normal Color, Warm/Dry Lymphatic: No Adenopathy Results/Procedures Lab Laboratory Tests 11/27/18 14:39 Patient resulted labs reviewed. Assessment/Plan Assessment and Plan Assess & Plan/Chief Complaint A/P 1. Severe sepsis resolved possible GI etiology cultures negative continue broad-spectrum antibiotics. 2. Diarrhea possible chemotherapy versus gastroenteritis induced C. difficile negative continue when necessary Imodium. 3. Terminal lung cancer the patient states that she is ready to consider hospice care we'll see about getting this set up on discharge. Critical Care Critically Ill Patient Clinical Quality Measures DVT/VTE Risk/Contraindication: Risk Factor Score Per Nursin RFS Level Per Nursing on Admit: 4+=Very High MASSIEL ANDERSON MD Nov 28, 2018 13:01
[2018-11-28] MEDS: oxyCODONE/APAP 5/325MG (PERCOCET 5) TABLET PO PRN (16:58)
--- NOTE | 2018-11-28 17:00 | NUR ---
PERCOCET PO FOR PAIN.
[2018-11-28] MEDS: ENOXAPARIN 40 MG/0.4 ML (LOVENOX) SYR SC SCH (17:37)
[2018-11-28] MEDS: MELATONIN 3 MG TABLET PO PRN (21:36)
[2018-11-29] MEDS: HYDROCORTISONE 100 MG/2 ML (Solu-CORTEF) VIAL IV SCH ×2 (03:09→10:52)
[2018-11-29 04:00] VITALS: BP 109/70
[2018-11-29] MEDS: CEFEPIME 2,000 MG/SWFI 20 ML IV PUSH IV SCH ×4 (04:18→17:31)
[2018-11-29] MEDS: oxyCODONE/APAP 5/325MG (PERCOCET 5) TABLET PO PRN ×2 (04:59→18:33)
[2018-11-29] MEDS: metroNIDAZOLE 500MG/100ML IVPB 100 ML IV SCH ×3 (05:59→21:46)
[2018-11-29 06:09] LABS: BASOPHILS % (AUTO) 0 % (0-10); EOSINOPHILS % (AUTO) 0 % (0-10); HEMATOCRIT 24 % (35-52); HEMOGLOBIN 7.3 G/DL (11.5-16.0); LYMPHOCYTES # (AUTO) 0.2 X 10^3 (1.0-4.0); LYMPHOCYTES % (AUTO) 2 % (12-44); MEAN CORPUSCULAR HEMOGLOBIN 29 PG (25-34); MEAN CORPUSCULAR HGB CONC 31 G/DL (32-36); MEAN CORPUSCULAR VOLUME 93 FL (80-99); MONOCYTES # (AUTO) 0.3 X 10^3 (0.0-1.0); MONOCYTES % (AUTO) 3 % (0-12); NEUTROPHILS % (AUTO) 95 % (42-75); PLATELET COUNT 238 10^3/uL (130-400); WHITE BLOOD COUNT 9.5 10^3/uL (4.3-11.0)
[2018-11-29 06:38] LABS: BUN/CREATININE RATIO 15; CALCIUM 9.4 MG/DL (8.5-10.1); CARBON DIOXIDE 22 MMOL/L (21-32); CHLORIDE 111 MMOL/L (98-107); CREATININE SERUM 0.66 MG/DL (0.60-1.30); GFR ESTIMATED > 60; GLUCOSE 128 MG/DL (70-105); POTASSIUM 3.7 MMOL/L (3.6-5.0); SODIUM 141 MMOL/L (135-145)
[2018-11-29] MEDS: VANCOMYCIN 1 GM/NS 250 ML IVPB IV SCH ×4 (06:55→17:31)
[2018-11-29] MEDS ORDERED: CISATRACURIUM 2MG/ML (NIMBEX) 10ML VIAL IV ONE (07:15)
[2018-11-29 08:00] VITALS: BP 98/65
[2018-11-29] MEDS ORDERED: FUROSEMIDE 40 MG (LASIX) TAB PO NR (10:30)
[2018-11-29] MEDS: ALPRAZolam 1 MG (XANAX) TAB PO PRN ×2 (10:51→20:10)
--- NOTE | 2018-11-29 11:00 | NUR ---
XANAX 1MG PER PT REQUEST.
--- NOTE | 2018-11-29 11:01 | Pulmonary Progress Note ---
Subjective Time Seen by a Provider: 11:00 Subjective/Events-last exam Pt appears to be doing better. Sepsis Event Evaluation Height, Weight, BMI Height: 5'4.00" Weight: 184lbs. 5.0oz. 83.977625py; 31.6 BMI Method:Stated Focused Exam Lactate Level 11/26/18 14:10: Lactic Acid Level 1.58 11/27/18 14:39: Lactic Acid Level 2.33*H 11/27/18 17:55: Lactic Acid Level 2.20*H Exam Exam Vital Signs Date Time Temp Pulse Resp B/P (MAP) Pulse Ox O2 Delivery O2 Flow Rate FiO2 11/29/18 08:14 Nasal Cannula 3.00 11/29/18 08:00 97.9 63 18 98/65 (76) 96 Nasal Cannula 3.00 11/29/18 07:00 98 11/29/18 04:00 97.2 85 16 109/70 (83) 93 Nasal Cannula 3.00 11/29/18 01:00 90 11/28/18 23:09 97.9 83 20 99/56 (70) 97 Nasal Cannula 3.00 11/28/18 20:00 Nasal Cannula 3.00 11/28/18 19:31 97.3 93 20 117/62 (80) 100 Nasal Cannula 3.00 11/28/18 19:25 98 Nasal Cannula 3.00 11/28/18 19:00 112 11/28/18 16:15 98.4 112 20 161/82 (108) 98 Nasal Cannula 3.00 11/28/18 13:00 104 11/28/18 12:00 98.7 65 20 107/69 (82) 100 Nasal Cannula 2.00 I & O 11/29/18 07:00 Intake Total 3680 ml Balance 3680 ml Height & Weight Height: 5'4.00" Weight: 184lbs. 5.0oz. 83.361352rc; 31.6 BMI Method:Stated General Appearance: No Apparent Distress, WD/WN, Chronically ill, Other ( coughing) HEENT: PERRL/EOMI, Pharynx Normal, Moist Mucous Membranes Neck: Full Range of Motion, Normal Inspection, Non Tender Respiratory: Chest Non Tender, Lungs Clear, No Accessory Muscle Use, No Respiratory Distress, Decreased Breath Sounds, Wheezing Cardiovascular: Regular Rate, Rhythm, No Edema, No Gallop, No JVD, No Murmur, Normal Peripheral Pulses Capillary Refill: Less Than 3 Seconds Extremity: Normal Capillary Refill, Normal Inspection, Normal Range of Motion, Non Tender, No Calf Tenderness, No Pedal Edema Neurologic/Psychiatric: Alert, Oriented x3, No Motor/Sensory Deficits, Normal Mood/Affect Skin: Normal Color, Warm/Dry Lymphatic: No Adenopathy Results Lab Laboratory Tests 11/27/18 14:39 11/29/18 06:00 Assessment/Plan Assessment/Plan Severe sepsis -Cautious IVF -Vanco, Zosyn, flagyl -Warren cultures, check UA -Influenza is negative Hypotension - Improved -IVF - SoluCortef Diarrhea with Dehydration -Check C diff -- Negative -IVF Metastatic lung cancer - nonsmall cell Anemia - monitor Anxiety Neuropathy Pt is interested in hospice. She states she does not want to continue chemo. Hospice is consulted for education. ODETTE STEPHEN DO Nov 29, 2018 11:01
[2018-11-29] MEDS: RT-ALBUTEROL/IPRATROPIUM 3 ML (DUONEB) VIAL INH SCH ×4 (11:14→19:14)
--- NOTE | 2018-11-29 11:47 | Progress Note-Hospitalist ---
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 At this current time patient once her Xanax restarted because of her anxiety and the rest of her home medication and she did have low blood pressure and rapid response team evaluated her and she is responding to IV fluid bolus. She is asking for a new primary care provider locally. She lives with her partner at home. 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 At this current time Dr. Solorio did talk to her and she was deemed a DO NOT RESUSCITATE with nurse at the bedside witnessing the conversation. That order was placed. Subjective/Events-last exam Patient reports feeling little better today less nausea appetite returning. She denies chills fever or abdominal pain. Diarrhea is diminishing with no reported bright red blood per rectum or melena. Focused Exam Lactate Level 11/26/18 14:10: Lactic Acid Level 1.58 11/27/18 14:39: Lactic Acid Level 2.33*H 11/27/18 17:55: Lactic Acid Level 2.20*H Objective Exam Vital Signs Vital Signs Date Time Temp Pulse Resp B/P (MAP) Pulse Ox O2 Delivery O2 Flow Rate FiO2 11/29/18 11:17 98 Nasal Cannula 3.00 11/29/18 08:00 97.9 63 18 98/65 (76) 11/26/18 22:18 21 Capillary Refill : Less Than 3 SecondsLess Than 3 Seconds General Appearance: No Apparent Distress, WD/WN, Chronically ill, Other ( coughing) HEENT: PERRL/EOMI, Pharynx Normal, Moist Mucous Membranes Neck: Full Range of Motion, Normal Inspection, Non Tender Respiratory: Chest Non Tender, Lungs Clear, No Accessory Muscle Use, No Respiratory Distress, Decreased Breath Sounds, Wheezing Cardiovascular: Regular Rate, Rhythm, No Edema, No Gallop, No JVD, No Murmur, Normal Peripheral Pulses Gastrointestinal: Normal Bowel Sounds, No Organomegaly, No Pulsatile Mass, Non Tender, Soft Back: Normal Inspection, No CVA Tenderness, No Vertebral Tenderness Extremity: Normal Capillary Refill, Normal Inspection, Normal Range of Motion, Non Tender, No Calf Tenderness, No Pedal Edema Neurologic/Psychiatric: Alert, Oriented x3, No Motor/Sensory Deficits, Normal Mood/Affect Skin: Normal Color, Warm/Dry Lymphatic: No Adenopathy Results/Procedures Lab Laboratory Tests 11/29/18 06:00 Patient resulted labs reviewed. Assessment/Plan Assessment and Plan Assess & Plan/Chief Complaint A/P 1. Severe sepsis resolved possible GI etiology cultures negative consider de-escalation of antibiotic therapy but defer to Dr. Solorio. 2. Diarrhea possible chemotherapy versus gastroenteritis induced, C. difficile negative improving continue when necessary Imodium. 3. Terminal non-small cell lung cancer. She recently started Ketruda but reports she feels worse on this and thinks that this is the cause of her diarrhea which very well may be medication induced colitis. She is currently seeing an oncologist at but would like a second opinion about hospice or other treatment options. I will put a consult in to Dr. Siu for the morning. 4. Patient states that she's still feeling uncomfortably puffy in the hands and feet despite stopping IV fluids yesterday. She still getting a fair amount with her antibiotics so we'll give her a 1 time dose of furosemide 40 by mouth. 5. Patient is hemodynamically stable with no evidence for bleeding with hemoglobin of 7.2. As she is considering hospice and is stable we'll hold off on transfusion. Critical Care Critically Ill Patient Clinical Quality Measures DVT/VTE Risk/Contraindication: Risk Factor Score Per Nursin RFS Level Per Nursing on Admit: 4+=Very High MASSIEL ANDERSON MD Nov 29, 2018 11:47
[2018-11-29 12:00] VITALS: BP 122/64
[2018-11-29 16:22] VITALS: BP 124/72
[2018-11-29] MEDS: ENOXAPARIN 40 MG/0.4 ML (LOVENOX) SYR SC SCH (17:31)
[2018-11-29 19:07] VITALS: BP 109/66
--- NOTE | 2018-11-29 20:00 | NUR ---
pt stating she is anxious & requesting prn Xanax-see mar
[2018-11-29] MEDS ORDERED: HYDROCORTISONE 100 MG/2 ML (Solu-CORTEF) VIAL IV SCH (21:00)
[2018-11-29] MEDS: MELATONIN 3 MG TABLET PO PRN (23:09)
--- NOTE | 2018-11-29 23:10 | NUR ---
PT REQUESTED MELATONIN FOR INSOMNIA
[2018-11-29 23:17] VITALS: BP 116/59
[2018-11-30] MEDS: CEFEPIME 2,000 MG/SWFI 20 ML IV PUSH IV SCH ×2 (04:03)
[2018-11-30 04:09] VITALS: BP 108/68
[2018-11-30] MEDS: metroNIDAZOLE 500MG/100ML IVPB 100 ML IV SCH (05:52)
--- NOTE | 2018-11-30 06:34 | Pulmonary Progress Note ---
Subjective Time Seen by a Provider: 06:35 Subjective/Events-last exam No complications noted. Sepsis Event Evaluation Height, Weight, BMI Height: 5'4.00" Weight: 184lbs. 5.0oz. 83.982373fy; 31.6 BMI Method:Stated Focused Exam Lactate Level 11/27/18 14:39: Lactic Acid Level 2.33*H 11/27/18 17:55: Lactic Acid Level 2.20*H Exam Exam Vital Signs Date Time Temp Pulse Resp B/P (MAP) Pulse Ox O2 Delivery O2 Flow Rate FiO2 11/30/18 04:09 97.0 84 20 108/68 (81) 97 Nasal Cannula 3.00 11/30/18 01:00 88 11/29/18 23:17 98.0 102 18 116/59 (78) 98 Nasal Cannula 3.00 11/29/18 20:00 Nasal Cannula 2.00 11/29/18 19:14 100 Nasal Cannula 3.00 11/29/18 19:07 98.2 102 18 109/66 (80) 98 Nasal Cannula 3.00 11/29/18 19:00 97 11/29/18 16:22 97.7 91 18 124/72 (89) 94 Room Air 11/29/18 13:00 99 11/29/18 12:00 97.4 76 20 122/64 (83) 98 Nasal Cannula 3.00 11/29/18 11:17 98 Nasal Cannula 3.00 11/29/18 08:14 Nasal Cannula 3.00 11/29/18 08:00 97.9 63 18 98/65 (76) 96 Nasal Cannula 3.00 11/29/18 07:00 98 I & O 11/30/18 07:00 Intake Total 2360 ml Output Total 1000 ml Balance 1360 ml Height & Weight Height: 5'4.00" Weight: 184lbs. 5.0oz. 83.218745fe; 31.6 BMI Method:Stated General Appearance: No Apparent Distress, WD/WN, Chronically ill, Other ( coughing) HEENT: PERRL/EOMI, Pharynx Normal, Moist Mucous Membranes Neck: Full Range of Motion, Normal Inspection, Non Tender Respiratory: Chest Non Tender, Lungs Clear, No Accessory Muscle Use, No Respiratory Distress, Decreased Breath Sounds, Wheezing Cardiovascular: Regular Rate, Rhythm, No Edema, No Gallop, No JVD, No Murmur, Normal Peripheral Pulses Capillary Refill: Less Than 3 Seconds Extremity: Normal Capillary Refill, Normal Inspection, Normal Range of Motion, Non Tender, No Calf Tenderness, No Pedal Edema Neurologic/Psychiatric: Alert, Oriented x3, No Motor/Sensory Deficits, Normal Mood/Affect Skin: Normal Color, Warm/Dry Lymphatic: No Adenopathy Results Lab Laboratory Tests 11/29/18 06:00 Assessment/Plan Assessment/Plan Severe sepsis - improving -Repeat labs including LA -Vanco, Zosyn, flagyl -Warren cultures, check UA - are negative -MRSA and Cdiff are neg -D/C flagyl and vanco -Influenza is negative COPD -SVNS, add advair Diarrhea with Dehydration -Check C diff -- Negative Metastatic lung cancer - nonsmall cell Anemia - monitor Anxiety Neuropathy Pt is interested in hospice. She states she does not want to continue chemo. Hospice is consulted for education. ODETTE STEPHEN DO Nov 30, 2018 06:34
[2018-11-30] MEDS: oxyCODONE/APAP 5/325MG (PERCOCET 5) TABLET PO PRN ×2 (07:01→11:22)
[2018-11-30 07:15] LABS: HEMOGLOBIN 8.2 G/DL (11.5-16.0); MEAN PLATELET VOLUME 10.9 FL (7.4-10.4); WHITE BLOOD COUNT 12.8 10^3/uL (4.3-11.0)
--- NOTE | 2018-11-30 07:31 | NUR ---
this rn called dr. reyna about the consult. this rn was informed by that he is not in [place] to notify dr. castro of the consult. this rn spoke with this pt about the potential consult with dr. castro, pt is refusing to have dr. castro see her & is requesting dr. ribeiro see her if dr. reyna cannot. this rn informed enrique frost shift rn of this-she has agreed to contact dr. ribeiro.
[2018-11-30 07:38] LABS: ALANINE AMINOTRANSFERASE 9 U/L (0-55); ALBUMIN 2.7 GM/DL (3.2-4.5); ALKALINE PHOSPHATASE 70 U/L (40-136); BILIRUBIN,TOTAL 0.2 MG/DL (0.1-1.0); BUN/CREATININE RATIO 19; CALCIUM 9.4 MG/DL (8.5-10.1); CARBON DIOXIDE 25 MMOL/L (21-32); CHLORIDE 109 MMOL/L (98-107); CREATININE SERUM 0.69 MG/DL (0.60-1.30); GFR ESTIMATED > 60; GLUCOSE 119 MG/DL (70-105); MAGNESIUM 1.5 MG/DL (1.8-2.4); PHOSPHORUS 2.8 MG/DL (2.3-4.7); POTASSIUM 3.1 MMOL/L (3.6-5.0); SODIUM 143 MMOL/L (135-145); TOTAL PROTEIN 5.1 GM/DL (6.4-8.2)
[2018-11-30] MEDS: RT-ALBUTEROL/IPRATROPIUM 3 ML (DUONEB) VIAL INH SCH ×2 (07:38→11:23)
[2018-11-30 08:00] VITALS: BP 111/75
[2018-11-30] MEDS ORDERED: LACTATED RINGERS 1,000 ML IV SCH (08:00)
[2018-11-30] MEDS ORDERED: RT-ADVAIR HFA 115/21 MCG PER PUFF IH SCH (08:00)
[2018-11-30] MEDS ORDERED: HYDROCORTISONE 100 MG/2 ML (Solu-CORTEF) VIAL IV SCH (09:00)
[2018-11-30] MEDS ORDERED: OXYC1TAB87 PO (09:15)
--- NOTE | 2018-11-30 09:20 | Discharge Summary-Hospitalist ---
Diagnosis/Chief Complaint Date of Admission Nov 26, 2018 at 15:46 Date of Discharge Discharge Date: Nov 30, 2018 Admission Diagnosis Assessment: Immunosuppression with fever Severe COPD Hypotension Lung cancer with metastases failing chemotherapy Home O2 dependent Former smoker Anxiety Leukocytosis Hypokalemia Anemia of cancer Discharge Diagnosis (1) Metastatic primary lung cancer Status: Chronic (2) Sepsis Status: Acute (3) Former smoker Status: Chronic (4) Anxiety Status: Chronic (5) Neuropathy Status: Chronic (6) Cough Status: Acute (7) Leukocytosis Status: Acute (8) Anemia Status: Chronic (9) Volume depletion Status: Acute (10) Lung cancer Status: Chronic (11) Hypokalemia Status: Acute (12) Nausea vomiting and diarrhea Status: Acute (13) Electrolyte abnormality Status: Acute (14) Fever Status: Acute (15) Hypotension (16) Wheezing Status: Acute (17) Acute bacterial bronchitis Status: Acute Discharge Summary Procedures/Consulations Dr Michelle Aviles Discharge Physical Exam Allergies: Coded Allergies: No Known Drug Allergies (Verified , 12/21/08) Vitals & I&Os Vital Signs Date Time Temp Pulse Resp B/P (MAP) Pulse Ox O2 Delivery O2 Flow Rate FiO2 11/30/18 11:23 98 Nasal Cannula 3.00 11/30/18 08:00 98.2 107 20 111/75 (87) 11/26/18 22:18 21 General Appearance: No Apparent Distress, WD/WN Neurologic/Psychiatric: Alert, Oriented x3 Hospital Course Pt was admitted dueto concerns fo sepsis following her chemotherapy. She has a history of metastatic lung cancer and has been on Keytruda. Following every cycle of Keytruda she gets very ill. She was admitted and treated with IV abx giving concerns for sepsis. She elected throughout her admission that she did not want to continue on this cycle and wanted treatment geared only at her comfort. Hospice was consulted for education. She elected to enroll in hospice after conversation with her significant other and her sister who is a hospice nurse. She was discharged to home with [facility]. DPOA paperwork was filled out during her stay and she elected her sister as her DPOA. Labs (last 24 hrs) Laboratory Tests 11/30/18 07:08: White Blood Count 12.8H, Red Blood Count 2.82L, Hemoglobin 8.2L, Hematocrit 26L , Mean Corpuscular Volume 93, Mean Corpuscular Hemoglobin 29, Mean Corpuscular Hemoglobin Concent 31L, Red Cell Distribution Width 18.0H, Platelet Count 268, Mean Platelet Volume 10.9H, Sodium Level 143, Potassium Level 3.1L, Chloride Level 109H, Carbon Dioxide Level 25, Anion Gap 9, Blood Urea Nitrogen 13, Creatinine 0.69, Estimat Glomerular Filtration Rate > 60, BUN/Creatinine Ratio 19, Glucose Level 119H, Lactic Acid Level 2.14*H, Calcium Level 9.4, Corrected Calcium 10.4H, Phosphorus Level 2.8, Magnesium Level 1.5L, Total Bilirubin 0.2, Aspartate Amino Transf (AST/SGOT) 10, Alanine Aminotransferase (ALT/SGPT) 9, Alkaline Phosphatase 70, B-Type Natriuretic Peptide 754.3H, Total Protein 5.1L, Albumin 2.7L Microbiology 11/26/18 Blood Culture - Preliminary, Resulted No growth 11/27/18 C. difficile GDH Antigen & Toxins - Final, Complete 11/28/18 MRSA Screen - Final, Complete MRSA not isolated Patient resulted labs reviewed. Pending Labs Laboratory Tests 11/30/18 07:08: White Blood Count 12.8, Red Blood Count 2.82, Hemoglobin 8.2, Hematocrit 26, Mean Corpuscular Volume 93, Mean Corpuscular Hemoglobin 29, Mean Corpuscular Hemoglobin Concent 31, Red Cell Distribution Width 18.0, Platelet Count 268, Mean Platelet Volume 10.9, Sodium Level 143, Potassium Level 3.1, Chloride Level 109, Carbon Dioxide Level 25, Anion Gap 9, Blood Urea Nitrogen 13, Creatinine 0.69, Estimat Glomerular Filtration Rate > 60, BUN/Creatinine Ratio 19, Glucose Level 119, Lactic Acid Level 2.14, Calcium Level 9.4, Corrected Calcium 10.4, Phosphorus Level 2.8, Magnesium Level 1.5, Total Bilirubin 0.2, Aspartate Amino Transf (AST/SGOT) 10, Alanine Aminotransferase (ALT/SGPT) 9, Alkaline Phosphatase 70, B-Type Natriuretic Peptide 754.3, Total Protein 5.1, Albumin 2.7 Discussion & Recommendations Discharge Planning: >30 minutes discharge planning Discharge Home Medications: Active Scripts Active Alprazolam 1 Mg Tablet 1 Mg PO Q8H PRN Percocet 5-325 mg Tablet (Oxycodone HCl/Acetaminophen) 1 Each Tablet 1 Tab PO Q4H PRN Cyclobenzaprine HCl 10 Mg Tablet 10 Mg PO Q8H Mupirocin 1 Gm Oin.pf.franky 1 Gm TP BID Reported Ambien 10 Mg (Zolpidem Tartrate) 10 Mg Tab Motrin (Ibuprofen) 800 Mg Tab Prevacid (Lansoprazole) 30 Mg Cap Bupropion Hcl Sr (Bupropion Hcl) 150 Mg Tablet.sa Nexium (Esomeprazole Magnesium) 40 Mg Capsule.dr Instructions to patient/family Please see electronic discharge instructions given to patient. Clinical Quality Measures DVT/VTE Risk/Contraindication: Risk Factor Score Per Nursin RFS Level Per Nursing on Admit: 4+=Very High Problem Qualifiers (1) Metastatic primary lung cancer: Laterality: unspecified laterality Qualified Codes: C34.90 - Malignant neoplasm of unspecified part of unspecified bronchus or lung (2) Sepsis: Sepsis type: sepsis due to unspecified organism Qualified Codes: A41.9 - Sepsis, unspecified organism (3) Leukocytosis: Leukocytosis type: leukemoid reaction Qualified Codes: D72.823 - Leukemoid reaction (4) Anemia: Anemia type: unspecified type Qualified Codes: D64.9 - Anemia, unspecified (5) Lung cancer: Laterality: right Lung location: unspecified part of lung Qualified Codes: C34.91 - Malignant neoplasm of unspecified part of right bronchus or lung (6) Fever: Fever type: unspecified Qualified Codes: R50.9 - Fever, unspecified LOUIE DELONG MD Nov 30, 2018 09:20
[2018-11-30] MEDS ORDERED: ALPR1TAB7 PO (09:46)
--- NOTE | 2018-11-30 10:13 | NUR ---
PALLIATIVE CARE RN/DISCHARGE PLANNING: Received call from Dr. Jefferson this morning reporting discussion with patient her domenices to discharge to home with [facility]. She apparently did have the discussion with her sisters and her significant other and made the decision over the weekend. I have assisted them in completing an Out of Hospital DNR, as well as LIVING WILL/DURABLE POWER OF BULL LADLE TENDER. I have spoken with Darius, at [facility] and informed him of the referral with admission to hospice today. I have spoken with patient's nurse and informed her of the discharge and that there are no additional needs from this RN and that she is ready to go when all discharge needs are finalized. I will send complete orders to [facility] once they have been finalized.
[2018-11-30] MEDS: ALPRAZolam 1 MG (XANAX) TAB PO PRN (11:22)
--- NOTE | 2018-11-30 11:36 | NUR ---
SIS ALLEN demonstrates understanding of discharge instructions and accurately returns instructions upon questioning. Copy of Post-Discharge Instructions given to patient. SIS ALLEN is able to manage continuing needs after discharge. Patients belongings returned to patient. Patient discharged from [facility]- on 01/30/19 at 1136. SIS ALLEN left floor via wheelchair, accompanied by family and staff.
== END 2018-11-30 11:36 | disposition hospice, home (50) | DRG 872 ==
LOC: EDUNIT# 13:06 → ER 13:08 → 4TH 15:46
PROVIDERS: ADMIT Internal Medicine; ATTEND Internal Medicine
DX: A41.9 Sepsis, unspecified organism (principal); J44.0 Chronic obstructive pulmonary disease with (acute) lower respiratory infection; J20.8 Acute bronchitis due to other specified organisms; C34.91 Malignant neoplasm of unspecified part of right bronchus or lung; C78.1 Secondary malignant neoplasm of mediastinum; D63.0 Anemia in neoplastic disease; E86.0 Dehydration; R11.2 Nausea with vomiting, unspecified; R19.7 Diarrhea, unspecified; Z66 Do not resuscitate; I73.00 Raynaud's syndrome without gangrene; I95.9 Hypotension, unspecified; G62.9 Polyneuropathy, unspecified; F41.9 Anxiety disorder, unspecified; E87.6 Hypokalemia; F32.9 Major depressive disorder, single episode, unspecified; F15.10 Other stimulant abuse, uncomplicated; Z92.3 Personal history of irradiation; Z92.21 Personal history of antineoplastic chemotherapy; Z87.09 Personal history of other diseases of the respiratory system; Z87.891 Personal history of nicotine dependence; Z89.022 Acquired absence of left finger(s); Z86.73 Personal history of transient ischemic attack (TIA), and cerebral infarction without residual deficits; Z91.5 Personal history of self-harm; Z99.81 Dependence on supplemental oxygen; T45.1X5A Adverse effect of antineoplastic and immunosuppressive drugs, initial encounter
CPT/HCPCS: 36415; 71045; 80048; 80053; 80202; 81000; 83605; 83735; 83880; 84100; 85007; 85025; 85027; 85610; 87040; 87081; 87324; 87449; 87804; 93005; 94640; 94760; 96361; 96365; 96367; 96375

== ENCOUNTER 2019-01-10 21:08 | Emergency (ER) | payer MEDICARE, MEDICAID ==
[~2019-01-10] VITALS: Ht 160 cm; Wt 88.5 kg
[~2019-01-10 21:08] MED LIST changes: +ALPR1TAB7 PO; +OXYC1TAB87 PO
--- OUTSIDE RECORDS SUMMARY | 2019-01-10 21:17 | XMS REPORT | Clinical Summary ---
Author Author [facility] Organization [facility] Address Unknown Phone Unavailable Care Team Providers Care Cancer Program Director Name Role Phone Derek Mccormick MD Unavailable Jose Daniel Mckeon MD Unavailable Angelita Caballero MD Unavailable Jakob Cole Unavailable Unavailable Yari Carias MA Unavailable Unavailable Mariah Espinoza Unavailable Unavailable Jennifer Mojica TELEPHONE DIAPHRAGM ASSEMBLER Unavailable Annie Macias MA Unavailable Unavailable [...] in the Health Information Management department at [phone] for further assistance in locating additional records.[facility] Allergies Comments Active Allergy Reactions Severity Noted Date Cefazolin NAUSEA AND Low 09/12/2017 VOMITING Medications End Date Status Medication Sig Dispensed Refills Start Date Active aspirin EC 81 mg tablet Take 1 tablet 90 tablet 3 by mouth 7 daily. Take with food. Active nwqavcpkcxz-elertrkwy-dpb Inhale 1 puff 1 each 11 anter [...] as nebulizer solution directed four times daily. Active Problems Problem Noted Date Intractable nausea [...] next visit Mammogram: 2017 and normal Colonoscopy: 2016; will be due [...] by Chapo Colvin MD on 10/22/2018 Overview: [id number] adenocarcinoma s/p SBRT 02/19 to 02/27/18. L [...] Overview: Added automatically from request for surgery [id number] Personal history of tobacco use 08/08/2017 Abnormal cardiovascular stress test 07/15/2017 Adenocarcinoma of left lung 06/04/2017 Cancer Staging: Clinical stage from 09/11/2017: T2, N0, M0 - Signed by Nina Rubalcava APRN-NP on 09/23/2017 Overview: 52-year-old female with a [...] will begin Keytruda today. She will call [phone] if she develops any immune related side [...] with sleep and exertion - DME: David L ast Assessment & Plan: Continue supplemental [...] Oxygen at night and occasional exertion (DME: [employer]) Pulm Rehab Possibly in the future - [...] MD Jones, Matthew, DO [place], Yonatan, MD [facility] [place], [facility] Intractable nausea and vomiting 11/12/2018 Hospital - Encounter 11/14/2018 Jaleesa Coyle APRN 10/29/2018 Hospital Oncology Encounter Jaleesa Coyle, TONIE Adenocarcinoma of left lung (HCC); Chronic bronchitis, unspecified chronic bronchitis type (HCC); Chronic hepatitis C without hepatic coma (HCC) 10/29/2018 Office Visit Oncology Jaleesa Coyle, TONIE Malignant neoplasm of hilus of left lung [...] (HCC) (Primary Dx) 10/20/2018 Orders Only Oncology from Last 3 Months Immunizations Name Dates [...] Taken Vital Sign Reading 11/14/2018 11:02 AM LOKIE DRIVER Blood Pressure 96/51 11/14/2018 11:02 AM LOKIE DRIVER Pulse 109 11/14/2018 11:02 AM LOKIE DRIVER Temperature 37.2 C (99 F) 10/29/2018 10:22 AM LOKIE DRIVER Respiratory Rate 16 11/14/2018 11:02 AM LOKIE DRIVER Oxygen Saturation 93% - Inhaled Oxygen - Concentration 11/12/2018 9:55 PM LOKIE DRIVER Weight 85 kg (187 lb 6.3 oz) 11/12/2018 9:55 PM LOKIE DRIVER Height 162.6 cm (5' 4") 11/12/2018 9:55 PM LOKIE DRIVER Body Mass Index 32.17 Plan of Treatment Health Maintenance Due Date Last Done Comments DTAP/TDAP VACCINES (1 - 1982 Tdap) BREAST CANCER SCREENING 2004 SHINGLES RECOMBINANT 2014 VACCINE (1 of 2) INFLUENZA VACCINE 06/08/2019 07/01/2018, 07/01/2018, 07/25/2016, Additional history exists PHYSICAL (COMPREHENSIVE) 07/01/2019 07/01/2018 EXAM CERVICAL CANCER SCREENING 08/08/2020 08/08/2017 (Previously completed) COLORECTAL CANCER 03/10/2027 03/10/2017 (Previously completed) SCREENING HIV SCREENING Completed 06/27/2015 Implants Device Identifier Shelf Expiration Date Model / Serial / Lot Implanted Type Area Manufactur [id number] / N/A / NOT RECORDED System Biosentry Tract Sealant - Chest Wall Surgical Sn/A Specialtie Implanted: Qty: 1 on 04/28/2017 by s Filiberto Guerra MD [id number] / N/A / [id number] System Biosentry Tract Sealant - Chest Wall Surgical Sn/A Specialtie Implanted: Qty: 1 on 06/26/2017 by s Leonidas Haywood MD [id number] 12/07/2019 [id number] / NA / [id number] Port Implantable Infusion Powerport Right: Chest C R BARD Mri Plastic Polyurethane - Sna Wall Implanted: Qty: 1 on 05/13/2018 by Kasi Rousseau MD Procedures Comments Procedure Name Priority Date/Time Associated Diagnosis CBC AND DIFF Routine 11/14/2018 9:16 AM LOKIE DRIVER MAGNESIUM Routine 11/14/2018 4:25 AM LOKIE DRIVER COMPREHENSIVE METABOLIC Routine 11/14/2018 PANEL 4:25 AM LOKIE DRIVER LACTIC ACID(LACTATE) Routine 11/13/2018 5:15 AM LOKIE DRIVER LACTIC ACID (BG - RAPID Routine 11/13/2018 LACTATE) 5:15 AM LOKIE DRIVER CORTISOL-AM Routine 11/13/2018 5:15 AM LOKIE DRIVER OSMOLALITY-URINE RANDOM STAT 11/13/2018 2:24 AM LOKIE DRIVER SODIUM-URINE RANDOM STAT 11/13/2018 2:24 AM LOKIE DRIVER PTT (APTT) Add on 11/12/2018 11:48 PM LOKIE DRIVER FREE T4 (FREE THYROXINE) Add on 11/12/2018 ONLY 11:48 PM LOKIE DRIVER FIBRINOGEN Add on 11/12/2018 11:48 PM LOKIE DRIVER BNP (B-TYPE NATRIURETIC Add on 11/12/2018 PEPTI) 11:48 PM LOKIE DRIVER CBC Routine 11/12/2018 11:48 PM LOKIE DRIVER PROTIME INR (PT) Routine 11/12/2018 11:48 PM LOKIE DRIVER THYROID STIMULATING STAT 11/12/2018 HORMONE-TSH 11:48 PM LOKIE DRIVER PERIPHERAL SMEAR STAT 11/12/2018 11:48 PM LOKIE DRIVER HAPTOGLOBIN STAT 11/12/2018 11:48 PM LOKIE DRIVER LDH-LACTATE DEHYDROGENASE STAT 11/12/2018 11:48 PM LOKIE DRIVER RETICULOCYTE COUNT STAT 11/12/2018 11:48 PM LOKIE DRIVER OSMOLALITY STAT 11/12/2018 11:48 PM LOKIE DRIVER CONTACT AOD TO REQUEST STAT 11/12/2018 INTERNAL MEDICINE 7:28 PM LOKIE DRIVER ADMISSION FROM ED CT ABD/PELV W CONTRAST STAT 11/12/2018 5:42 PM LOKIE DRIVER CHEST SINGLE VIEW STAT 11/12/2018 4:16 PM LOKIE DRIVER URINALYSIS, MICROSCOPIC STAT 11/12/2018 3:36 PM LOKIE DRIVER URINALYSIS DIPSTICK STAT 11/12/2018 3:36 PM LOKIE DRIVER INFLUENZA A/B AG (RAPID STAT 11/12/2018 TEST) 3:36 PM LOKIE DRIVER LIPASE Add on 11/12/2018 2:15 PM LOKIE DRIVER PHOSPHORUS STAT 11/12/2018 2:15 PM LOKIE DRIVER MAGNESIUM STAT 11/12/2018 2:15 PM LOKIE DRIVER COMPREHENSIVE METABOLIC STAT 11/12/2018 PANEL 2:15 PM LOKIE DRIVER CBC AND DIFF STAT 11/12/2018 2:15 PM LOKIE DRIVER ECG 12-LEAD STAT 11/12/2018 12:42 PM LOKIE DRIVER ECG-SCAN 11/12/2018 12:00 AM LOKIE DRIVER FREE T4-FREE THYROXINE Routine 10/29/2018 Malignant neoplasm of 10:05 AM LOKIE DRIVER hilus of left lung (HCC) HEPATITIS C VIRAL LOAD Routine 10/29/2018 Chronic hepatitis C PCR QUANT 10:05 AM LOKIE DRIVER without hepatic coma (HCC) TSH WITH FREE T4 REFLEX Routine 10/29/2018 Malignant neoplasm of 10:05 AM LOKIE DRIVER hilus of left lung (HCC) COMPREHENSIVE METABOLIC Routine 10/29/2018 Malignant neoplasm of PANEL 10:05 AM LOKIE DRIVER hilus of left lung (HCC) CBC AND DIFF Routine 10/29/2018 Malignant neoplasm of 10:05 AM LOKIE DRIVER hilus of left lung (HCC) CT CHEST W CONTRAST Routine 10/22/2018 Malignant neoplasm of 8:27 AM LOKIE DRIVER lung, unspecified laterality, unspecified part of lung (HCC) COMPREHENSIVE METABOLIC Routine 10/22/2018 Malignant neoplasm of PANEL 8:10 AM LOKIE DRIVER hilus of left lung (HCC) CBC AND DIFF Routine 10/22/2018 Malignant neoplasm of 8:10 AM LOKIE DRIVER hilus of left lung (HCC) from Last 3 Months Results * CBC AND DIFF (11/14/2018 9:16 AM LOKIE DRIVER) Only the most recent of 4 results [...] Basophil Count Specimen Blood Performing Organization Address City/[facility] Phone Number [facility] [address] [place] [address] * MAGNESIUM (11/14/2018 4:25 AM LOKIE DRIVER) Only the most recent of 2 results within the time period is included. Magnesium 1.5 (L) 1.6 - 2.6 mg/dL [facility] Specimen Blood Performing Organization Address [facility] Phone Number MAIN LAB [address] [place] [address] * COMPREHENSIVE METABOLIC PANEL (11/14/2018 4:25 AM LOKIE DRIVER) Only the most recent of 4 results within the time period is included. Sodium 138 137 - 147 MMOL/L [facility] [...] LAB Anion Gap 6 3 - 12 [facility] eGFR Non >60 >60 mL/min MAIN LAB Comment: [place] The eGFR is not validated for use in drug dosing adjustments.Continue to use estimated creatinine clearance per dosing reference text.Please contact the Clinical Pharmacist for questions. eGFR >60 >60 mL/min MAIN LAB [place] Comment: The eGFR is not validated for use in drug dosing adjustments.Continue to use estimated creatinine clearance per dosing reference text.Please contact the Clinical Pharmacist for questions. Specimen Blood Performing Organization Address City/[facility] Phone Number MAIN LAB [address] [place] [address] * LACTIC ACID (BG - RAPID LACTATE) (11/13/2018 5:15 AM LOKIE DRIVER) Lactic Acid,BG 1.8 0.5 - 2.0 MMOL/L MAIN LAB Specimen Blood Performing Organization Address [facility] Phone Number MAIN LAB [address] [place] [address] * LACTIC ACID(LACTATE) (11/13/2018 5:15 AM LOKIE DRIVER) Lactic Acid 1.7 0.5 - 2.0 MMOL/L MAIN LAB Specimen Blood Performing Organization Address [facility] Phone Number MAIN LAB [address] [place] [address] * CORTISOL-AM (11/13/2018 5:15 AM LOKIE DRIVER) Cortisol-AM 7.3 6.7 - 22.6 MCG/DL MAIN LAB Specimen Blood Performing Organization Address [facility] Phone Number MAIN LAB [address] [place] [address] * SODIUM-URINE RANDOM (11/13/2018 2:24 AM LOKIE DRIVER) Sodium, Random 10 MMOL/L MAIN LAB Specimen Urine - Urine Performing Organization Address [facility] Phone Number [facility] [address] [place] [address] * OSMOLALITY-URINE RANDOM (11/13/2018 2:24 AM LOKIE DRIVER) Osmolality-Urin 85 50 - 1,400 MOS/KG [facility] LAB e Specimen Urine - Urine Performing Organization Address [facility] Phone Number MAIN LAB [address] [place] [address] * PERIPHERAL SMEAR (11/12/2018 11:48 PM LOKIE DRIVER) Peripheral NORMOCYTIC ANEMIA WITH [facility] Smear ANISOCYTOSIS. WHITE CELLS AND PLATELETS APPEAR NORMAL IN NUMBER AND MORPHOLOGY. Pathologist INTERPRETED BY [facility]RAN[facility] MAIN LAB Signature Noel By the PATH SIGNATURE ABOVE, I attest that I have personally formulated the final interpretation expressed in this report and that the above diagnosis is based upon my examination of the slides and/or other material indicated in this report. Specimen Blood Performing Organization Address [facility] Phone Number MAIN LAB [address] [place] [address] * PTT (APTT) (11/12/2018 11:48 PM LOKIE DRIVER) APTT 26.3 24.0 - 36.5 SEC MAIN LAB Performing Organization Address [facility] Phone Number MAIN LAB [address] [place] [address] * PROTIME INR (PT) (11/12/2018 11:48 PM LOKIE DRIVER) INR 1.6 (H) 0.8 - 1.2 [facility] LAB Specimen Blood Performing Organization Address [facility] Phone Number [facility] [address] [place] [address] * FIBRINOGEN (11/12/2018 11:48 PM LOKIE DRIVER) Fibrinogen 527 (H) 200 - 400 MG/DL MAIN LAB Performing Organization Address [facility] Phone Number MAIN LAB [address] [place] [address] * RETICULOCYTE COUNT (11/12/2018 11:48 PM LOKIE DRIVER) Retic, 1.2 0.5 - 2.0 % MAIN LAB Uncorrected Retic, 0.8 % MAIN LAB Corrected Retic, Absolute 35.4 30 - 94 K/UL MAIN LAB Specimen Blood Performing Organization Address [facility] Phone Number MAIN LAB [address] [place] [address] * CBC (11/12/2018 11:48 PM LOKIE DRIVER) White Blood 9.4 4.5 - 11.0 K/UL [facility] Cells RBC 3.03 (L) 4.0 - [...] LAB MPV 8.9 7 - 11 FL [facility] MAIN [facility] Specimen Blood Performing Organization Address [facility] Phone Number MAIN LAB [address] [place] [address] * THYROID STIMULATING HORMONE-TSH (11/12/2018 11:48 PM LOKIE DRIVER) TSH 0.120 (L) 0.35 - 5.00 MCU/ML MAIN LAB Specimen Blood Performing Organization Address [facility] Phone Number MAIN LAB [address] [place] [address] * FREE T4 (FREE THYROXINE) ONLY (11/12/2018 11:48 PM LOKIE DRIVER) T4-Free 1.1 0.6 - 1.6 NG/DL MAIN LAB Performing Organization Address [facility] [place] [facility] [address] [place] [id number] * OSMOLALITY (11/12/2018 11:48 PM LOKIE DRIVER) Osmolality 278 (L) 280 - 307 MOSMOL/KG [facility] Specimen Blood Performing Organization Address [facility] Phone Number MAIN LAB [address] [place] [address] * BNP (B-TYPE NATRIURETIC PEPTI) (11/12/2018 11:48 PM LOKIE DRIVER) B Type 134.0 (H) 0 - 100 PG/ML MAIN LAB Natriuretic Peptide Performing Organization Address [facility] Phone Number MAIN LAB [address] [place] [address] * LDH-LACTATE DEHYDROGENASE (11/12/2018 11:48 PM LOKIE DRIVER) Lactate 158 100 - 210 U/L [facility] Dehydrogenase Specimen Blood Performing Organization Address City/[facility]/Zipcode Phone Number [facility] [address] [place] [address] * HAPTOGLOBIN (11/12/2018 11:48 PM LOKIE DRIVER) Haptoglobin 347 (H) 16 - 200 MG/DL MAIN LAB Specimen Blood Performing Organization Address [facility]/Zipcode Phone Number [facility] [address] [place] [address] * CT ABD/PELV W CONTRAST (11/12/2018 5:42 PM LOKIE DRIVER) Impressions Performed At 1.No abdominopelvic inflammatory mass, [...] Interface, Radiant Results - 11/12/2018 6:[address] ABDOMEN AND PELVIS Clinical Indication: Female, [...] on 11/12/2018 5:47 PM. Performing Organization Address City/State/Zipcode Phone Number [facility] RAD RESULTS * CHEST SINGLE VIEW (11/12/2018 4:16 PM LOKIE DRIVER) Impressions Performed At Chronic atelectasis or scarring [...] interstitial or alveolar opacities are identified. Right Cipdaw-o-Wdjf catheter remains in place with its tip at the level of the right atrium. No pleural fluid is identified. No pneumothorax is seen. Procedure Note Interface, Radiant Results - 11/13/2018 8:37 AM LOKIE DRIVER CHEST SINGLE VIEW History: shortness of breath. Technique: Single portable AP upright view of the chest was obtained. Comparison: Comparison is made to an examination of 08/31/2018. Findings: Cardiac size remains within normal limits. There is no vascular congestion. There is chronic atelectasis or scarring in the left lower lobe. No acute interstitial or alveolar opacities are identified. Right Jkbzeh-z-Wvuu catheter remains in place with its tip at the level of the right atrium. No pleural fluid is identified. No pneumothorax is seen. IMPRESSION Chronic atelectasis or scarring in the left lower lobe. No acute cardiopulmonary abnormalities. Finalized by Raymond Hanson M.D. on 11/13/2018 8:34 AM. Dictated by Raymond Hanson M.D. on 11/13/2018 8:29 AM. Performing Organization Address City/State/Zipcode Phone Number RAD RESULTS * URINALYSIS, MICROSCOPIC (11/12/2018 3:36 PM LOKIE DRIVER) WBCs,UA 2-10 0 - 2 /HPF [facility] RBCs,UA 0-2 0 - 3 /HPF [facility] MucousUA TRACE [facility] Squamous 0-2 0 - 5 [facility] Epithelial Cells Specimen Urine - Urine Performing Organization Address [facility] Phone Number [facility] [address] [place] [address] * URINALYSIS DIPSTICK (11/12/2018 3:36 PM LOKIE DRIVER) Color,UA CHRISTIANO [facility] Turbidity,UA CLEAR CLEAR-CLEAR [facility] Specific 1.020 1.003 - 1.035 [facility] Errol-Urine pH,UA 6.0 5.0 - 8.0 [facility] Protein,UA 1+ (A) NEG-NEG [facility] Glucose,UA NEG NEG-NEG [facility] Ketones,UA NEG NEG-NEG [facility] Bilirubin,UA NEG NEG-NEG [facility] Blood,UA NEG NEG-NEG [facility] Urobilinogen,UA INCREASED (A) NORM-NORMAL MAIN [...] Specimen Urine - Urine Performing Organization Address [facility] Phone Number MAIN LAB [address] [place] [address] * INFLUENZA A/B AG (RAPID TEST) (11/12/2018 3:36 PM LOKIE DRIVER) Battery Name INFLUENZA A/B ANTIGEN MAIN LAB Specimen NASOPHARYNGEAL SWAB MAIN LAB Description Special NONE MAIN LAB Requests Direct Antigen NEGATIVE FOR INFLUENZA A/B MAIN LAB Report Status FINAL MAIN LAB 11/12/2018 Specimen Nasopharyngeal Swab Performing Organization Address [facility] Phone Number MAIN LAB [address] [place] [address] * PHOSPHORUS (11/12/2018 2:15 PM LOKIE DRIVER) Phosphorus 3.1Comment: NOTE NEW REFERENCE 2.0 - 4.5 MG/DL MAIN LAB RANGES Specimen Blood Performing Organization Address [facility] [place] Phone Number [facility] [address] [place] [address] * LIPASE (11/12/2018 2:15 PM LOKIE DRIVER) Lipase 9 (L) 11 - 82 U/L MAIN LAB Performing Organization Address [facility] Phone Number MAIN LAB [address] [place] [address] * ECG-SCAN (11/12/2018 12:00 AM LOKIE DRIVER) Narrative Performed At Ordered by an unspecified provider. * FREE T4-FREE THYROXINE (10/29/2018 10:05 AM LOKIE DRIVER) T4-Free 1.0 0.6 - 1.6 NG/DL MAIN LAB Performing Organization Address [facility] Phone Number MAIN LAB [address] [place] [address] * TSH WITH FREE T4 REFLEX (10/29/2018 10:05 AM LOKIE DRIVER) TSH 0.220 (L) 0.35 - 5.00 MCU/ML [facility] Specimen Blood Performing Organization Address City/State/Zipcode Phone Number MAIN LAB [address] [place] [address] * HEPATITIS C VIRAL LOAD PCR QUANT (10/29/2018 10:05 AM LOKIE DRIVER) Hepatitis C PCR HCV RNA Not Detected, <12 <12 IU/ML [facility] Quantitative IU/mL Comment: The test method detects HCV viral load using the Piña RealTime assay. Please correlate results with the clinical status of the patient. Log 10 HCV <1.08 <1.08 IU/mL [facility] Specimen Blood Performing Organization Address City/[facility]/Zipcode Phone Number MAIN LAB [address] [place] [address] * CT CHEST W CONTRAST (10/22/2018 8:27 AM LOKIE DRIVER) Impressions Performed At 1. Interval occlusion of [...] Interface, Radiant Results - 10/22/2018 9:[address] Chest Clinical Indication: Lung cancer. Restaging. Technique: Multiple contiguous axial CT images were obtained through the chest with IV contrast. Post processing coronal and sagittal reconstruction images were made from the axial images. Comparison: October 22, [address] Findings: Right IJ chest port remains in place. Axilla, Mediastinum and Tses: There is no axillary or mediastinal lymphadenopathy. Left hilar soft tissue thickening persists which may represent eblén tissue. A discrete rounded enlarged lymph node [...] least mild coronary artery calcification. Finalized by Tmoy Abreu M.D. on 10/22/2018 9:39 AM. Dictated [...] on file. For more information, please contact: [facility] [address] [place] [address] Date Inactivated Comments Code Status Date Activated [...]
--- OUTSIDE RECORDS SUMMARY | 2019-01-10 21:17 | XMS REPORT | Encounter Summary ---
Author Author [facility] Organization [facility] Address Unknown Phone Unavailable Care Team Providers Care Cable Mock Up Assembler Name Role Phone Derek Mccormick MD Unavailable Jose Daniel Mckeon MD Unavailable Angelita Caballero MD Unavailable Jakob Cole Unavailable Unavailable Yari Carias MA Unavailable Unavailable Mariah Espinoza Unavailable Unavailable Jennifer Mojica MARSHMALLOW MACHINE WORKER Unavailable Annie Macias MA Unavailable Unavailable Blessing Morin Unavailable Unavailable Parul De Los Santos MD Unavailable Ngozi Camarena PA-C Unavailable Lary Noguera MD 3 Kristen Gong MD PCP Unavailable Kristen Gong MD 100 Unavailable Reason for Visit * Reason Comments Transition Of Care Encounter Details Care Team Description Date Type Department Kristen Gong MD [address] [place] [address] Transition Of Care 11/16/2018 Telephone [facility] [address] [place] [address] Social History Date Tobacco Use [...] Up Reached Patient:Yes Admission Information: Hospital Name: [facility] Admission Date: 11/12/2018 Discharge Date: 11/14/2018 [...] Center 11/19/2018 1:00 PM LL2 NURSE CHAIR [facility] Exam 11/19/2018 2:00 PM Chapo Colvin MD [facility] Exam 11/19/2018 3:15 PM CC [facility] Treatme 12/10/2018 9:00 AM LL2 NURSE CHAIR [facility] Exam 12/10/2018 10:00 AM Jaleesa Coyle APRN [facility] Exam 12/10/2018 11:15 AM [facility]RE[facility] Treatme 02/10/2019 9:00 AM Kristen Gong MD [facility] 03/23/2019 8:50 AM Parul De Los Santos MD [facility] PCP appointment scheduled?Yes, Date: 02/10/2019 Patient declines sooner appointment. PCP primary location: [facility] Gen Medicine Specialist appointment scheduled? Yes, with Oncology 11/19/2018 and 12/10/2018; Pulmonary 03/23/2019 Both PCP and Specialist appointment scheduled: Yes Is assistance with transportation needed?No documented in this encounter Plan of Treatment Not on filedocumented as of this encounter Visit Diagnoses Not on filedocumented in this encounter
[2019-01-10] MEDS ORDERED: morphine INJ 10 MG/ML 1ML (SYR OR VIAL) ONE (21:18)
--- OUTSIDE RECORDS SUMMARY | 2019-01-10 21:18 | XMS REPORT | Encounter Summary ---
Author Author [facility] Organization [facility] Address Unknown Phone Unavailable Care Team Providers Care System Admin Name Role Phone Derek Mccormick MD Unavailable Jose Daniel Mckeon MD Unavailable Angelita Caballero MD Unavailable Jakob Cole Unavailable Unavailable Yari Carias MA Unavailable Unavailable Mariah Espinoza Unavailable Unavailable Jennifer Mojica CLASSIFICATION COUNSELOR Unavailable Annie Macias MA Unavailable Unavailable Blessing Morin Unavailable Unavailable Parul De Los Santos MD Unavailable Ngzoi Camarena PA-C Unavailable Lary Noguera MD 3 Kristen Gong MD PCP Unavailable Kristen Gong MD 100 Unavailable Reason for Visit * Reason Comments Cancer Encounter Details Care Team Description Date Type Department Jaleesa Coyle, CLASSIFICATION COUNSELOR [address] [place], [place] [phone] Adenocarcinoma of left lung (HCC); Chronic bronchitis, unspecified chronic bronchitis type (HCC); Chronic hepatitis C without hepatic coma (HCC) 10/29/2018 Office Visit The [address] [phone] Social History Date Tobacco Use Types Packs/Day [...] Taken Vital Sign Reading 10/29/2018 10:22 AM TOMBSTONE CARVER Blood Pressure 118/74 10/29/2018 10:22 AM [facility] CARVER Pulse 109 10/29/2018 10:22 AM [facility]OM[facility] CARVER Temperature 36.6 C (97.8 F) 10/29/2018 10:22 AM [facility] CARVER Respiratory Rate 16 10/29/2018 10:22 AM TOM[facility]STONE CARVER Oxygen Saturation 97% - Inhaled Oxygen - Concentration 10/29/2018 10:22 AM TOMBSTONE CARVER Weight 86.6 kg (191 lb) 10/29/2018 10:22 AM [facility] CARVER Height 160 cm (5' 2.99") 10/29/2018 10:22 AM TOM[facility]ST[facility] CARVER Body Mass Index 33.84 documented in this [...] Bridgett Randolph RN - 10/29/2018 10:30 AM TOMBSTONE CARVER To reschedule appointments please contact: [phone] To speak to a nurse between the hours of 8:00 to 4:00 please call [phone] Please ensure your schedule is correct prior to leaving clinic and that all your refill requests have been taken care of. Please allow 5-7 business days to complete any paperwork. Please allow 3 business days for narcotic refills. Please [facility] to [place] [facility] [facility] [place], [facility], or [facility]. STONE CARVER documented in this encounter Progress Notes * Jaleesa Coyle APRN - 10/29/2018 10:30 AM [facility] CARVER Name: Charlene Arias : 1965 AGE: 52 y.o. DATE OF SERVICE: 10/29/2018 Cancer Charlene Arias is a 52 y.o. female. Cancer Staging Adenocarcinoma of left lung (HCC) Staging form: Lung, AJCC 7th Edition - Clinical stage from 09/11/2017: T2, N0, M0 - Signed by Nina Rubalcava APRN -REBAR FABRICATOR on 09/23/2017 - Pathologic: No stage assigned - Unsigned Malignant neoplasm of hilus of left lung (HCC) Staging form: Lung, AJCC 8th Edition - Clinical: Stage IV (cT2a, cN1, cM1a) - Signed by Chapo Colvin MD on 2018 History of Present [id number] female with a newly diagnosed recurrent non-small [...] Take one tablet by mouth daily. . ykwsqfianiz-bgjntgwoo-bkmahitm (TRELEGY ELLIPTA) 100-62.5-25 mcg dsdv Inhale 1 [...] will begin Keytruda today. She will call [phone] if she develops any immune related side [...] number to call with questions or concerns. STONE CARVER documented in this encounter Plan of Treatment Not on filedocumented as of this encounter Visit Diagnoses Diagnosis Adenocarcinoma of left lung (HCC) Chronic bronchitis, unspecified chronic bronchitis type (HCC) Chronic hepatitis C without hepatic coma (HCC) Chronic hepatitis C without mention of hepatic coma * Assessment & Plan Note - Jaleesa Coyle APRN - 10/29/2018 5:23 PM TOMBSTONE CARVER Associated Problem(s): Chronic hepatitis C without hepatic coma (HCC) F/u with Hep C lab drawn today once results are available. ALT improved. STONE CARVER * Assessment & Plan Note - Jaleesa Coyle APRN - 10/29/2018 5:22 PM [facility] CARVER Associated Problem(s): COPD (chronic obstructive pulmonary disease) (HCC) Continue medications as prescribed. STONE CARVER * Assessment & Plan Note - Jaleesa Coyle APRN - 10/29/2018 5:20 PM TOMBSTONE CARVER Associated Problem(s): Adenocarcinoma of left lung (HCC) Patient will begin Keytruda today. She will call [phone] if she develops any immune related side effects including: worsening of shortness of breath, diarrhea or rash. Patient verbalized understanding. She will return in 3 weeks with labs, treatment and visit. STONE CARVER documented in this encounter
--- OUTSIDE RECORDS SUMMARY | 2019-01-10 21:18 | XMS REPORT | Encounter Summary ---
Author Author [facility] Organization [facility] Address Unknown Phone Unavailable Care Team Providers Care Boring Machine Operator Double End Name Role Phone Derek Mccormick MD Unavailable Jose Daniel Mckeon MD Unavailable Angelita Caballero MD Unavailable Jakob Cole Unavailable Unavailable Yari Carias MA Unavailable Unavailable Mariah Espinoza Unavailable Unavailable Jennifer Mojica ORE TESTER Unavailable Annie Macias MA Unavailable Unavailable Blessing Morin Unavailable Unavailable Parul De Los Santos MD Unavailable Ngozi Camarena PA-C Unavailable Lary Noguera MD 3 Kristen Gong MD PCP Unavailable Kristen Gong MD 100 Unavailable Reason for Visit * Reason Comments Heme/Onc Care Encounter Details Care Team Description Date Type Department Angely Huber, 10/29/2018 Clinical [facility] [address] [id number] Social History Date Tobacco Use Types Packs/Day [...] Mabel Hylton, PhD - 10/29/2018 2:55 PM DERRICK ENGINEER Ms. Arias was seen by Angely Huber MS, psychology practicum student, on for a health and behavior intervention. The case was reviewed and discussed with the psychology trainee, and I agree with the findings and plan as documented in her note. Mabel Hylton, Ph.D. Licensed Psychologist and Clinical [employer] Clinical Automobile Rental Representative Pager [phone] ICK ENGINEER * Angely Huber, MS - 10/29/2018 2:55 PM DERRICK ENGINEER Health and Behavior Assessment and Intervention CONFIDENTIAL : 1965 Date of Service: 10/29/2018 Time of Service: 10:30-10:55am Location of Service: [facility] Necessity of Service: Pt is a [...] under the supervision of a licensed psychologist. ICK ENGINEER documented in this encounter Plan of Treatment Not on filedocumented as of this encounter Visit Diagnoses Not on filedocumented in this encounter
--- OUTSIDE RECORDS SUMMARY | 2019-01-10 21:18 | XMS REPORT | Encounter Summary ---
Author Author [facility] Organization [facility] Address Unknown Phone Unavailable Care Team Providers Care Trimming Inspector Name Role Phone Derek Mccormick MD Unavailable Jose Daniel Mckeon MD Unavailable Angelita Caballero MD Unavailable Jakob Cole Unavailable Unavailable Yari Carias MA Unavailable Unavailable Mariah Espinoza Unavailable Unavailable Jennifer Mojica IT RISK AND ASSURANCE SENIOR MANAGER Unavailable Annie Macias MA Unavailable Unavailable [...] Date Type Department Andrew Molina MD [address] [facility] Emergency Dept [place], [place] [id number] Ollie Espinoza DO [address] [facility] [place], [place] [id number] Trav Sampson MD [address] [place] [address] [phone] Roberto Gauthier, JD [address] [place] [address] [phone] Intractable nausea and vomiting 11/12/2018 [facility] 11/14/[address] [place] [address] Social History Date Tobacco Use Types Packs/Day [...] Taken Vital Sign Reading 11/14/2018 11:02 AM MARGIN ANALYST Blood Pressure 96/51 11/14/2018 11:02 AM MARGIN ANALYST Pulse 109 11/14/2018 11:02 AM MARGIN ANALYST Temperature 37.2 C (99 F) - Respiratory Rate - 11/14/2018 11:02 AM MARGIN ANALYST Oxygen Saturation 93% - Inhaled Oxygen - Concentration 11/12/2018 9:55 PM MARGIN ANALYST Weight 85 kg (187 lb 6.3 oz) 11/12/2018 9:55 PM MARGIN ANALYST Height 162.6 cm (5' 4") 11/12/2018 9:55 PM MARGIN ANALYST Body Mass Index 32.17 documented in this [...] Denia Queen MD - 11/14/2018 12:54 PM MARGIN ANALYST Physician Discharge Summary Name: Charlene Arias Date Of : 1965 Age: 52 years Admit date: 11/12/2018 Discharge date: 11/14/2018 Attending Physician: Denia Queen MD Service: [facility] 5573 Physician Summary completed by: Denia Queen [...] at baseline no wheeze presently. Continued on CLAIMS EXAMINER regimen. She will complete previously commenced prednisone [...] or concerns regarding your hospital stay. Call [phone] Discharging attending physician: DENIA QUEEN [[id number]] Regular Diet You have no dietary restriction. [...] tablet, Refills: 3 PRESCRIPTION TYPE: No Print qheovvorgfd-fuiporjng-sfudygpe (TRELEGY ELLIPTA) 100-62.5-25 mcg dsdv Inhale 1 [...] PM) Lab with LL2 NURSE CHAIR [facility] Exam ([facility] Exam) [address] [address] Nov 19, 2018 2:00 PM CDT (Arrive by 1:45 PM) Return Patient with Chapo Colvin MD [facility] Exam ([facility] Exam) [facility] [address] [place] [phone] Nov 19, 2018 3:15 PM CDT (Arrive by 3:00 PM) Treatment 02 Hour with CC [facility] TREATMENT [facility] Treatment ([facility] Treatment) [place] [address] [place] [phone] Dec 10, 2018 9:00 AM CDT (Arrive by 8:45 AM) Nurse Lab Visit with LL2 NURSE CHAIR [facility] ([facility] Exam) [address] [address] Dec 10, 2018 10:00 AM CDT (Arrive by 9:45 AM) Return Patient with Jaleesa Coyle APRN [facility] ([facility] Exam) [address] [address] Dec 10, 2018 11:15 AM CDT (Arrive by 11:00 AM) Treatment 02 Hour with CC [facility] TREATMENT [facility] Treatment ([facility] Treatment) [place] [address] [place] [phone] Feb 10, 2019 9:00 AM CDT Return Patient with Kristen Gong MD [facility] - Internal Medicine (Internal Medicine) [address] [place] [address] Ortho and Medical [facility] [address] Mar 23, 2019 8:50 AM CDT Return Patient with Parul De Los Santos MD [facility] - Internal Medicine (Internal Medicine) [address] Orth[facility] [address] Signed: Denia Queen MD 11/16/2018 cc: Primary [...] by mouth daily. Take with food. 04/07/2018 xbwipvuatfp-bqoeeeljp-bqq Inhale 1 puff 1 each 11 anter [...] Do Bolton RN - 11/14/2018 12:54 PM MARGIN ANALYST Charlene Arias discharged on 11/14/2018. . Discharge instructions reviewed with patient and family. Valuables returned: Personal Items / Valuables: Cell Phone, Eyeglasses/Contacts, Dentures, Clothing Denture Type: Full upper, Full lower. Home medications: N/A . Functional assessment at discharge complete: Yes . Prescriptions delivered via PCS. Addressed questions/concerns. Port de- accessed. Pt left unit via wheelchair at 1255. IN ANALYST * Denia Queen MD - 11/14/2018 7:48 AM MARGIN ANALYST General Progress Note Admission Date: 11/12/2018 LOS: [...] at baseline no wheeze presently. Continued on CLAIMS EXAMINER regimen. She will complete previously commenced prednisone [...] syringe 40 mg 40 mg Subcutaneous QDAY(21) iodcmpbsart-dscjdtkqb-tnkyxjog (TRELEGY ELLIPTA) 100-62.5-25 mcg dsdv 1 puff [...] colonic diverticulosis without diverticulitis. Denia Queen MD [employer] [facility] [phone] IN ANALYST * Roberto Gauthier, [facility] - 11/13/2018 11:41 AM MARGIN ANALYST General Progress Note Admission Date: 11/12/2018 LOS: [...] syringe 40 mg 40 mg Subcutaneous QDAY(21) gncfychkqyj-wzkhftpld-qmawouqa (TRELEGY ELLIPTA) 100-62.5-25 mcg dsdv 1 puff [...] distal colonic diverticulosis without diverticulitis. Breanna Mccarthy [phone] IN ANALYST * Idalia Raymond PHARMD - 11/13/2018 6:12 AM MARGIN ANALYST Pharmacy Note: Patient's Own Medication The following medication has been identified by pharmacy and placed in the secure medication room for storage: ehucdmwuqlu-kmzwbwhwldtw-kpnktznubk (TRELEGY ELLIPTA) 100-62.5-25 mcg inhalation disk Lot: [id number] Exp: The patient may use their own supply of this medication during this admission. All doses should be administered and documented per hospital policy. Idalia Raymond PharmEder, JESSICA [phone] IN ANALYST * Sakshi Casey, RN - 11/13/2018 1:50 AM MARGIN ANALYST Pt BP 78/43. Text page sent to [facility] Teaching pager [phone]. Awaiting orders. IN ANALYST * Roberto Aparicio, RT - 11/12/2018 10:58 PM MARGIN ANALYST RT Adult Assessment Note NAME:Charlene Arias :1965 [...] Clear (implies normal);Decreased;Coarse crackles Respiratory Effort: Non-Labored IN ANALYST * Jenni Stoner RN - 11/12/2018 9:51 PM MARGIN ANALYST Patient arrived to room # [id number] via cart accompanied by technology administrator. Patient transferred to the bed with assistance. [...] See Doc Flowsheet for additional wound details. IN ANALYST documented in this encounter H&P Notes * Ge Wong MD - 11/12/2018 10:39 PM MARGIN ANALYST Admission History and Physical Examination Name: Charlene [...] and mild uncorrected diffusion defect PLAN >Continue CLAIMS EXAMINER trelegy and duonebs Hyponatremia -most likely hypovolemic hyponatremia. Differential includes medication effect of Keytruda vs SIADH -Baseline is 140 >s/p 2L in ED PLAN >Urine studies >IVF as above Elevated INR -INR 1.6 on admission -previously normal most recently in September -Patient has hx of treated HCV -Reportedly had liver Bx at [place] showing no cirrhosis -Denies bleeding. Denies melena, [...] with Dr. Colvin PLAN >consult oncology >Continue CLAIMS EXAMINER xanax. >continue CLAIMS EXAMINER prednisone taper. Fluids, electrolytes and Nutrition: IVF: No IVF Electrolytes: replacing prn Diet: CLD. Prophylaxis: DVT: Lovenox Code status: FULL Disposition: Admit to [facility] Patient seen and discussed with Dr. Leoncio [...] ~2006 Past Surgical History: Procedure Laterality Date [place] [facility] GUIDED SAMPL 3/> NODE STATION/STRUX Left 01/22/2017 BRONCHOSCOPY WITH ULTRASOUND performed by Tomy Arnett MD at ENDO/GI PERCUTANEOUS CORONARY INTERVENTION N/A 07/30/2017 Possible Percutaneous Coronary Intervention performed by Abdiel Augustine MD at [facility] Left 09/11/2017 LEFT VIDEO ASSISTED THORACOSCOPY, [...] HX TUBAL LIGATION KNEE SURGERY Left arthroscopy [place] UNLISTED PROCEDURE HANDS/FINGERS x8 SYMPATHECTOMY Family History [...] non-medical: Not on file Occupational History Occupation: [employer] Comment: disabled. 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 . zspgygylqaf-xujxuodjv-vkjjhrpo (TRELEGY ELLIPTA) 100-62.5-25 mcg dsdv Inhale 1 [...] Range Color,UA CHRISTIANO Turbidity,UA CLEAR CLEAR-CLEAR Specific [place]-Urine 1.020 1.003 - 1.035 pH,UA 6.0 5.0 [...] Pertinent radiology reviewed. Ge Wong MD Pager [phone]. After 0600, please page day team IN ANALYST Associated attestation - Sofi Quinonez MD - 11/13/2018 5:22 AM MARGIN ANALYST ATTESTATION I personally performed the mckeon portions [...] Yanira Morgan MD - 11/13/2018 7:55 AM MARGIN ANALYST Associated Order(s): CONSULT ONCOLOGY PHYSICIAN Oncology Consult [...] appointment with Dr. Colvin on 11/19/18 at [facility] 2 pm Thank you for this consult, [...] ~2006 Past Surgical History: Procedure Laterality Date [place] [facility] GUIDED SAMPL 3/> NODE STATION/STRUX Left 01/22/2017 BRONCHOSCOPY WITH ULTRASOUND performed by Tomy Arnett MD at ENDO/GI PERCUTANEOUS CORONARY INTERVENTION N/A 07/30/2017 Possible Percutaneous Coronary Intervention performed by Abdiel Augustine MD at [facility] Left 09/11/2017 LEFT VIDEO ASSISTED THORACOSCOPY, [...] HX TUBAL LIGATION KNEE SURGERY Left arthroscopy [place] UNLISTED PROCEDURE HANDS/FINGERS x8 SYMPATHECTOMY Social History [...] non-medical: Not on file Occupational History Occupation: [employer] business Comment: disabled. 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 No pets Family History Problem Relation Age of Onset Emphysema Mother from cancer but does not know the primary stie. Cancer-Lung Sister 57 Allergies: Ancef [cefazolin] Scheduled Meds: albuterol 0.5% (PROVENTIL; VENTOLIN) nebulizer solution 2.5 mg 2.5 mg Inhalation TID & PRN nzekwlxtejy-kgkrjjknf-ogdgkkve (TRELEGY ELLIPTA) 100-62.5-25 mcg dsdv 1 puff [...] Range Color,UA CHRISTIANO Turbidity,UA CLEAR CLEAR-CLEAR Specific [place]-Urine 1.020 1.003 - 1.035 pH,UA 6.0 5.0 [...] 2.0 MMOL/L Pertinent radiology reviewed. Meagan Mendez, IT RISK AND ASSURANCE SENIOR MANAGER [phone] IN ANALYST documented in this encounter ED Notes * Vesta Espinoza RN - 11/12/2018 9:42 PM MARGIN ANALYST To room per cart IN ANALYST * Vesta Espinoza RN - 11/12/2018 9:16 PM MARGIN ANALYST Report to Zoe MORENO IN ANALYST * Vesta Espinoza RN - 11/12/2018 8:49 PM MARGIN ANALYST Nicom results reported to Dr García, orders to bolus fluids IN ANALYST * Vesta Espinoza RN - 11/12/2018 8:43 PM MARGIN ANALYST NICOM Fluid Bolus or Passive Leg Raise Challenge: Fluid Bolus Challenge: {/no , Passive Leg Raise: {yes CO CI SV SVI Baseline 4.0 37 Challenge Stroke Volume Index Change:2.3% IN ANALYST * Vesta Espinoza RN - 11/12/2018 8:04 PM MARGIN ANALYST BP reported to Dr Molina orders to nicom IN ANALYST * Vesta Espinoza RN - 11/12/2018 7:39 PM MARGIN ANALYST Assumed care, bedside safety checks done, IN ANALYST * Andrew Molina MD - 11/12/2018 3:05 PM MARGIN ANALYST Charlene Arias is a 52 y.o. female. [...] History: Past Surgical History: Procedure Laterality Date [facility] [facility] GUIDED SAMPL 3/> NODE STATION/STRUX Left 01/22/2017 BRONCHOSCOPY WITH ULTRASOUND performed by Tomy Arnett MD at ENDO/GI PERCUTANEOUS CORONARY INTERVENTION N/A 07/30/2017 Possible Percutaneous Coronary Intervention performed by Abdiel Augustnie MD at [facility] Left 09/11/2017 LEFT VIDEO ASSISTED THORACOSCOPY, [...] HX TUBAL LIGATION KNEE SURGERY Left arthroscopy [place] UNLISTED PROCEDURE HANDS/FINGERS x8 SYMPATHECTOMY Pertinent medical/surgical [...] CHRISTIANO Final Turbidity,UA CLEAR CLEAR-CLEAR Final Specific [place]-Urine 1.020 1.003 - 1.035 Final pH,UA 6.0 [...] 5:47 PM. EKG: n/a ED Course: Ms. Gomze is a 52-year-old woman with history of [...] plan unless otherwise noted. Andrew Molina MD IN ANALYST * Meagan Cortez RN - 11/12/2018 1:40 PM MARGIN ANALYST 52 y.o. Female to ED with c/o [...] pants, shoes, bra, home O2 tank, purse. IN ANALYST documented in this encounter Miscellaneous Notes * Care Plan - Do Bolton RN - 11/14/2018 11:47 AM MARGIN ANALYST Problem: Infection, Risk of, Central Venous Catheter-Associated [...] falls this shift. Fall precautions in place. IN ANALYST * Case Mgmt DC Plan - Lian Dahl RN - 11/13/2018 10:43 AM MARGIN ANALYST Case Management Admission AssessmentNAME:Orma Ghulam Macedonian :1965 AGE: 52 y.o. ADMISSION DATE: 11/12/2018 DAYS ADMITTED: LOS: 1 day Todays Date: 11/13/2018 Source of Information: Patient Plan Plan: Case Management Assessment, Discharge Planning for Home Anticipated INtroduced self and explained role of NCM Pt presented with N/V which started after Keytruda which was started on . Pt receiving chemo at [facility]. Pt feeling better this morning. Continue IVF's, Zofran PRN, Oncology consult Pt mostly independent at home but does require assistance with bathing provided by her MIRZA Dale. Pt also receiving home care services for housework and shopping 28 hrs/week. Baseline [facility] Dale to bring tank at discharge. Denies d/c needs at this time. Patient Address/Phone [address] [facility] [address] (home) Emergency Contact Extended Emergency Contact Information Primary Emergency Contact: Chito Crowe Address: [address] [place] [address] [facility] Mobile Relation: Significant Other Secondary Emergency Contact: Almaz Agustin Address: [address] [place] [address] [facility] Relation: Sister Healthcare Directive Healthcare Directive: No, patient does not have a healthcare directive Would patient like to fill out a (a new) Healthcare Directive?: No, patient declined Psych Advance Directive (Psych unit only): No, patient does not have a Psych Advance Directive Transportation Does the patient need discharge transport arranged?: No Transportation Name, Phone and Availability #1: [facility] will transport home Does the patient use Medicaid Transportation?: No [...] ? Coverage Primary Insurance: Medicare Secondary Insurance: Medicaid([facility] Medicaid) Additional Coverage: RX(Medicaid, states meds are affordable) ? Source of Income Source Of Income: SSDI ? Financial Assistance Needed? none Psychosocial Needs ? Mental Health Mental Health History: No ? Substance Use History Substance Use History Screen: No ? Other none Current/Previous Services ? PCP Kristen Gong, None, None ? Pharmacy [facility][id number] [place], [place] - [address] [facility] [address] [facility] [phone] [facility] [address] ? Durable Medical Equipment Durable Medical Equipment at home: Oxygen(Baseline 2-3L all the time, provided by [facility]) ? Home Health Receiving home health: No ? Hemodialysis or Peritoneal Dialysis Undergoing hemodialysis or peritoneal dialysis: No ? Tube/Enteral Feeds Receive tube/enteral feeds: No ? Infusion Receive infusions: No ? Private Duty Private duty help used: No ? Home and Community Based Services Home and community based services: Yes Agency name: [facility] assistance hours/week: 28 Services provided: shopping, housework, cooking ? Gilles White Gilles White: N/A ? Hospice Hospice: No ? Outpatient Therapy PT: No OT: No SCENE PAINTER: No ? Assisted Facility/[facility] SNF: No NH: No ? Inpatient Rehab IPR: No ? Long-Term Acute Care Hospital LTACH: No ? Acute Hospital Stay Acute Hospital Stay: No DORIE Morgan, RN, CPHQ Integrated Nurse Tdp Displays Analyst [phone] IN ANALYST * Med Student Consult - Giselle Naik, MS - 11/13/2018 10:22 AM MARGIN ANALYST Medical Student General Consult Note NAME: Charlene [...] ([facility]) x 1 ~2006 FH: Family History Problem [...] non-medical: Not on file Occupational History Occupation: [employer] Comment: disabled. 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 No pets Allergies: Allergies Allergen Reactions Ancef [Cefazolin] NAUSEA AND VOMITING Medications: Scheduled Meds: albuterol 0.5% (PROVENTIL; VENTOLIN) nebulizer solution 2.5 mg 2.5 mg Inhalation TID & PRN enoxaparin (LOVENOX) syringe 40 mg 40 mg Subcutaneous QDAY(21) ebtrlvnosfb-nfvwmcpbz-utnhbejb (TRELEGY ELLIPTA) 100-62.5-25 mcg dsdv 1 puff [...] Low-High Color,UA CHRISTIANO Turbidity,UA CLEAR CLEAR-CLEAR Specific [place]-Urine 1.020 1.003 - 1.035 pH,UA 6.0 5.0 [...] colonic diverticulosis without diverticulitis. Jillian Naik MS4 IN ANALYST * Care Coordination-Inpatient - Trav Sampson MD - 11/13/2018 4:59 AM MARGIN ANALYST Please page [phone] with any issues until 8am after that please page med Private J IN ANALYST * Advanced Care Planning/Resuscitation Status - Ge Wong MD - 11/12/2018 11:31 PM MARGIN ANALYST Advance Care Planning/Resuscitation Status Conversation Individuals present [...] which outline patient/surrogate wishes: None Attestation? N/A IN ANALYST documented in this encounter Plan of Treatment Not on filedocumented as of this encounter Procedures Comments Procedure Name Priority Date/Time Associated Diagnosis CBC AND DIFF Routine 11/14/2018 9:16 AM MARGIN ANALYST MAGNESIUM Routine 11/14/2018 4:25 AM MARGIN ANALYST COMPREHENSIVE METABOLIC Routine 11/14/2018 PANEL 4:25 AM MARGIN ANALYST LACTIC ACID (BG - RAPID Routine 11/13/2018 LACTATE) 5:15 AM MARGIN ANALYST LACTIC ACID(LACTATE) Routine 11/13/2018 5:15 AM MARGIN ANALYST CORTISOL-AM Routine 11/13/2018 5:15 AM MARGIN ANALYST SODIUM-URINE RANDOM STAT 11/13/2018 2:24 AM MARGIN ANALYST OSMOLALITY-URINE RANDOM STAT 11/13/2018 2:24 AM MARGIN ANALYST PERIPHERAL SMEAR STAT 11/12/2018 11:48 PM MARGIN ANALYST PTT (APTT) Add on 11/12/2018 11:48 PM MARGIN ANALYST PROTIME INR (PT) Routine 11/12/2018 11:48 PM MARGIN ANALYST FIBRINOGEN Add on 11/12/2018 11:48 PM MARGIN ANALYST RETICULOCYTE COUNT STAT 11/12/2018 11:48 PM MARGIN ANALYST CBC Routine 11/12/2018 11:48 PM MARGIN ANALYST THYROID STIMULATING STAT 11/12/2018 HORMONE-TSH 11:48 PM MARGIN ANALYST FREE T4 (FREE THYROXINE) Add on 11/12/2018 ONLY 11:48 PM MARGIN ANALYST OSMOLALITY STAT 11/12/2018 11:48 PM MARGIN ANALYST BNP (B-TYPE NATRIURETIC Add on 11/12/2018 PEPTI) 11:48 PM MARGIN ANALYST LDH-LACTATE DEHYDROGENASE STAT 11/12/2018 11:48 PM MARGIN ANALYST HAPTOGLOBIN STAT 11/12/2018 11:48 PM MARGIN ANALYST CONTACT AOD TO REQUEST STAT 11/12/2018 INTERNAL MEDICINE 7:28 PM MARGIN ANALYST ADMISSION FROM ED CT ABD/PELV W CONTRAST STAT 11/12/2018 5:42 PM MARGIN ANALYST CHEST SINGLE VIEW STAT 11/12/2018 4:16 PM MARGIN ANALYST URINALYSIS, MICROSCOPIC STAT 11/12/2018 3:36 PM MARGIN ANALYST URINALYSIS DIPSTICK STAT 11/12/2018 3:36 PM MARGIN ANALYST INFLUENZA A/B AG (RAPID STAT 11/12/2018 TEST) 3:36 PM MARGIN ANALYST CBC AND DIFF STAT 11/12/2018 2:15 PM MARGIN ANALYST PHOSPHORUS STAT 11/12/2018 2:15 PM MARGIN ANALYST MAGNESIUM STAT 11/12/2018 2:15 PM MARGIN ANALYST LIPASE Add on 11/12/2018 2:15 PM MARGIN ANALYST COMPREHENSIVE METABOLIC STAT 11/12/2018 PANEL 2:15 PM MARGIN ANALYST ECG 12-LEAD STAT 11/12/2018 12:42 PM MARGIN ANALYST ECG-SCAN 11/12/2018 12:00 AM MARGIN ANALYST documented in this encounter Results * CBC AND DIFF (11/14/2018 9:16 AM MARGIN ANALYST) White Blood 9.4 4.5 - 11.0 K/UL [...] Basophil Count Specimen Blood Performing Organization Address City/[facility] Phone Number [facility] [address] [place] [phone] * MAGNESIUM (11/14/2018 4:25 AM MARGIN ANALYST) Pathologist [facility] Magnesium 1.5 (L) 1.6 - 2.6 mg/dL [facility] Specimen Blood Performing Organization Address City/[facility] Phone Number MA[facility] [address] [place] [address] * COMPREHENSIVE METABOLIC PANEL (11/14/2018 4:25 AM MARGIN ANALYST) Pathologist [facility] Sodium 138 137 - 147 MMOL/L [facility] [...] Non >60 >60 mL/min MAIN LAB Comment: Mexican The eGFR is not validated for use in drug dosing adjustments.Continue to use estimated creatinine clearance per dosing reference text.Please contact the Clinical Pharmacist for questions. eGFR >60 >60 mL/min MAIN LAB Mexican Comment: The eGFR is not validated for use in drug dosing adjustments.Continue to use estimated creatinine clearance per dosing reference text.Please contact the Clinical Pharmacist for questions. Specimen Blood Performing Organization Address City/[facility]/Zipcode Phone Number MAIN LAB [address] [place] [address] * LACTIC ACID(LACTATE) (11/13/2018 5:15 AM MARGIN ANALYST) Lactic Acid 1.7 0.5 - 2.0 MMOL/L MAIN LAB Specimen Blood Performing Organization Address City/[facility]/Zipcode Phone Number MAIN LAB [address] [place] [address] * LACTIC ACID (BG - RAPID LACTATE) (11/13/2018 5:15 AM MARGIN ANALYST) Lactic Acid,BG 1.8 0.5 - 2.0 MMOL/L MAIN LAB Specimen Blood Performing Organization Address [facility]/Zipcode Phone Number MAIN LAB [address] [place] [address] * CORTISOL-AM (11/13/2018 5:15 AM MARGIN ANALYST) Cortisol-AM 7.3 6.7 - 22.6 MCG/DL MAIN LAB Specimen Blood Performing Organization Address [facility] Phone Number MA[facility] [address] [place] [address] * OSMOLALITY-URINE RANDOM (11/13/2018 2:24 AM MARGIN ANALYST) Osmolality-Urin 85 50 - 1,400 MOS/KG [facility] MAIN [facility] e Specimen Urine - Urine Performing Organization Address [facility] Phone Number MAIN [facility] [address] [place] [address] * SODIUM-URINE RANDOM (11/13/2018 2:24 AM MARGIN ANALYST) Sodium, Random 10 MMOL/L MAIN LAB Specimen Urine - Urine Performing Organization Address [facility] Phone Number MAIN LAB [address] [place], [place] [phone] * PTT (APTT) (11/12/2018 11:48 PM MARGIN ANALYST) APTT 26.3 24.0 - 36.5 SEC MAIN LAB Performing Organization Address [facility] Phone Number MAIN LAB [address] [place] [phone] * FREE T4 (FREE THYROXINE) ONLY (11/12/2018 11:48 PM MARGIN ANALYST) T4-Free 1.1 0.6 - 1.6 NG/DL MAIN LAB Performing Organization Address [facility] Phone Number [facility] [address] [place] [address] * FIBRINOGEN (11/12/2018 11:48 PM MARGIN ANALYST) Fibrinogen 527 (H) 200 - 400 MG/DL [facility]IN [facility] Performing Organization Address [facility] Phone Number [facility] [address] [place] [address] * BNP (B-TYPE NATRIURETIC PEPTI) (11/12/2018 11:48 PM MARGIN ANALYST) B Type 134.0 (H) 0 - 100 PG/ML MAIN LAB Natriuretic Peptide Performing Organization Address [facility] Phone Number MA[facility] [address] [place] [phone] * CBC (11/12/2018 11:48 PM MARGIN ANALYST) White Blood 9.4 4.5 - 11.0 K/UL [facility] Cells RBC 3.03 (L) 4.0 - 5.0 M/UL [facility] Hemoglobin 9.0 (L) 12.0 - 15.0 GM/DL [facility] Hematocrit 26.6 (L) 36 - 45 % [facility] MCV 87.8 80 - 100 FL [facility] MCH 29.7 26 - 34 PG [facility] MCHC 33.8 32.0 - 36.0 G/DL [facility] RDW 16.2 (H) 11 - 15 % [facility] Platelet Count 207 150 - 400 K/UL [facility] MPV 8.9 7 - 11 [place] [facility] Specimen Blood Performing Organization Address [facility] Phone Number [facility] [address] [place] [address] * PROTIME INR (PT) (11/12/2018 11:48 PM MARGIN ANALYST) Pathologist [facility] INR 1.6 (H) 0.8 - 1.2 [facility] Specimen Blood Performing Organization Address [facility] Phone Number [facility] [address] [place] [address] * THYROID STIMULATING HORMONE-TSH (11/12/2018 11:48 PM MARGIN ANALYST) Pathologist [facility] TSH 0.120 (L) 0.35 - 5.00 MCU/ML [facility] Specimen Blood Performing Organization Address [facility] Phone Number [facility] [address] [place] [address] * PERIPHERAL SMEAR (11/12/2018 11:48 PM MARGIN ANALYST) Peripheral NORMOCYTIC ANEMIA WITH MAIN LAB Smear ANISOCYTOSIS. WHITE CELLS AND PLATELETS APPEAR NORMAL IN NUMBER AND MORPHOLOGY. Pathologist INTERPRETED BY COOPER MEDRANO [facility] Evie Cohen By the PATH SIGNATURE ABOVE, I attest that I have personally formulated the final interpretation expressed in this report and that the above diagnosis is based upon my examination of the slides and/or other material indicated in this report. Specimen Blood Performing Organization Address [facility] Phone Number [facility] [address] [place] [address] * HAPTOGLOBIN (11/12/2018 11:48 PM MARGIN ANALYST) Haptoglobin 347 (H) 16 - 200 MG/DL [facility] Specimen Blood Performing Organization Address [facility] Phone Number [facility] [address] [place] [address] * LDH-LACTATE DEHYDROGENASE (11/12/2018 11:48 PM MARGIN ANALYST) Lactate 158 100 - 210 U/L [facility] Dehydrogenase Specimen Blood Performing Organization Address [facility] Phone Number MAIN LAB [address] [phone] * RETICULOCYTE COUNT (11/12/2018 11:48 PM MARGIN ANALYST) Pathologist [facility] Retic, 1.2 0.5 - 2.0 % [facility] Uncorrected Retic, 0.8 % [facility] Corrected Retic, Absolute 35.4 30 - 94 K/UL [facility] Specimen Blood Performing Organization Address [facility] Phone Number [facility] [address] [place] [address] * OSMOLALITY (11/12/2018 11:48 PM MARGIN ANALYST) Osmolality 278 (L) 280 - 307 MOSMOL/KG [facility] Specimen Blood Performing Organization Address [facility] Phone Number MAIN LAB [address] [place] [address] * CT ABD/PELV W CONTRAST (11/12/2018 5:42 PM MARGIN ANALYST) Impressions Performed At 1.No abdominopelvic inflammatory mass, [...] Interface, Radiant Results - 11/12/2018 6:[address] ABDOMEN AND PELVIS Clinical Indication: Female, [...] on 11/12/2018 5:47 PM. Performing Organization Address [facility] Phone Number [facility] RESULTS * CHEST SINGLE VIEW (11/12/2018 4:16 PM MARGIN ANALYST) Impressions Performed At Chronic atelectasis or scarring [...] interstitial or alveolar opacities are identified. Right Itlyzn-l-Ftrt catheter remains in place with its tip at the level of the right atrium. No pleural fluid is identified. No pneumothorax is seen. Procedure Note Interface, Radiant Results - 11/13/2018 8:37 AM MARGIN ANALYST CHEST SINGLE VIEW History: shortness of breath. Technique: Single portable AP upright view of the chest was obtained. Comparison: Comparison is made to an examination of 08/31/2018. Findings: Cardiac size remains within normal limits. There is no vascular congestion. There is chronic atelectasis or scarring in the left lower lobe. No acute interstitial or alveolar opacities are identified. Right Yowulp-o-Byne catheter remains in place with its tip at the level of the right atrium. No pleural fluid is identified. No pneumothorax is seen. IMPRESSION Chronic atelectasis or scarring in the left lower lobe. No acute cardiopulmonary abnormalities. Finalized by Raymond Hanson M.D. on 11/13/2018 8:34 AM. Dictated by Raymond Hanson M.D. on 11/13/2018 8:29 AM. Performing Organization Address [facility] Phone Number [facility] RESULTS * INFLUENZA A/B AG (RAPID TEST) (11/12/2018 3:36 PM MARGIN ANALYST) Battery Name INFLUENZA A/B ANTIGEN [facility] Specimen NASOPHARYNGEAL SWAB [facility] Description Special NONE [facility] Requests Direct Antigen NEGATIVE FOR INFLUENZA A/B [facility] Report Status FINAL MAIN LAB 11/12/2018 Specimen Nasopharyngeal Swab Performing Organization Address [facility] Phone Number [facility] [address] [place] [address] * URINALYSIS, MICROSCOPIC (11/12/2018 3:36 PM MARGIN ANALYST) WBCs,UA 2-10 0 - 2 /HPF [facility] RBCs,UA 0-2 0 - 3 /HPF [facility] MucousUA TRACE MAIN LAB Squamous 0-2 0 - 5 MAIN LAB Epithelial Cells Specimen Urine - Urine Performing Organization Address [facility] Phone Number MAIN LAB [address] [place] [address] * URINALYSIS DIPSTICK (11/12/2018 3:36 PM MARGIN ANALYST) Color,UA [facility] MAIN LAB Turbidity,UA CLEAR CLEAR-CLEAR MAIN LAB Specific 1.020 1.003 - 1.035 MAIN LAB [place]-Urine pH,UA 6.0 5.0 - 8.0 [facility] MAIN [...] Specimen Urine - Urine Performing Organization Address [facility] Phone Number MA[facility] LAB [address] [place] [address] * LIPASE (11/12/2018 2:15 PM MARGIN ANALYST) Lipase 9 (L) 11 - 82 U/L [facility] Performing Organization Address [facility] Phone Number [facility] [address] [place] [address] * PHOSPHORUS (11/12/2018 2:15 PM MARGIN ANALYST) Phosphorus 3.1Comment: NOTE NEW REFERENCE 2.0 - 4.5 MG/DL [facility] RANGES Specimen Blood Performing Organization Address [facility]/Zipcode Phone Number MAIN LAB [address] [place] [address] * MAGNESIUM (11/12/2018 2:15 PM MARGIN ANALYST) Magnesium 1.6 1.6 - 2.6 mg/dL [facility] Specimen Blood Performing Organization Address [facility]/Zipcode Phone Number MAIN LAB [address] [place] [address] * COMPREHENSIVE METABOLIC PANEL (11/12/2018 2:15 PM MARGIN ANALYST) Sodium 130 (L) 137 - 147 MMOL/L [...] >60 >60 mL/min [facility] Comment: [place] The eGFR is not validated for use in drug dosing adjustments.Continue to use estimated creatinine clearance per dosing reference text.Please contact the Clinical Pharmacist for questions. eGFR >60 >60 mL/min [facility] [place] Comment: The eGFR is not validated for use in drug dosing adjustments.Continue to use estimated creatinine clearance per dosing reference text.Please contact the Clinical Pharmacist for questions. Specimen Blood Performing Organization Address [facility]/Zipcode Phone Number [facility] [address] [place] [address] * CBC AND DIFF (11/12/2018 2:15 PM MARGIN ANALYST) White Blood 12.6 (H) 4.5 - 11.0 [...] Basophil Count Specimen Blood Performing Organization Address [facility]/Zipcode Phone Number [facility] [address] [place] [address] * ECG-SCAN (11/12/2018 12:00 AM MARGIN ANALYST) Narrative Performed At Ordered by an unspecified [...] Medication Order MAR Action 11/12/2018 11:37 PM MARGIN ANALYST 30 mL acetaminophen/lidocaine/antacid DS(#) Given (GI COCKTAIL) 1:1:3 suspension 30 mL 30 mL, Oral, EVERY 6 HOURS PRN, Starting Meghann 11/12/18 at 2324, Until 11/14/18 at 1454, Indigestion/Heartburn, 30mL (1:1:3)=192mg/6mL acetamin-6mL 2% vis lidocaine-18mL Antacid DS, 11/14/2018 12:12 PM MARGIN ANALYST 2.5 mg albuterol 0.5% (PROVENTIL; VENTOLIN) Given nebulizer solution 2.5 mg 2.5 mg, Inhalation, RT THREE TIMES DAILY AND PRN, First dose on Fri11/13/18 at 0600, Until Discontinued, ADMINISTERED BY RT, 2.5 mg Given 11/14/2018 5:45 AM MARGIN ANALYST 2.5 mg Given 11/13/2018 5:46 PM MARGIN ANALYST 11/13/2018 9:18 PM MARGIN ANALYST 1 mg ALPRAZolam (XANAX) tablet 1 mg Given 1 mg, Oral, THREE TIMES DAILY PRN, Starting Meghann 11/12/18 at 2153, Until 11/14/18 at 1454, Anxiety PO 1 mg Given 11/13/2018 4:27 PM MARGIN ANALYST 11/14/2018 5:41 AM MARGIN ANALYST 125 mL/hr dextrose 5 % & 0.9% NaCl with KCl 20 Given - New mEq/L infusion Bag 1,000 mL, Intravenous, at 125 mL/hr, CONTINUOUS, Starting Meghann 11/12/18 at 2245, Until 11/14/18 at 1454 125 mL/hr Given - New Bag 11/13/2018 9:37 PM MARGIN ANALYST 125 mL/hr Given - New Bag 11/13/2018 12:37 PM MARGIN ANALYST 11/13/2018 9:07 PM MARGIN ANALYST 40 mg Abdominal Tissue enoxaparin (LOVENOX) syringe 40 mg Given 40 mg, Subcutaneous, DAILY, First dose on Fri11/13/18 at 2100, Until Discontinued, For patients undergoing surgery: Consult physician in advance -- enoxaparin is an anticoagulant and may need to be held for 12hr prior to surgery or invasive procedures. NOTE: This is a HIGH ALERT Medication., 11/14/2018 5:48 AM MARGIN ANALYST 1 puff [id number]-[id number]-kjdnmeym (TRELEGY Given ELLIPTA) 100-62.5-25 mcg dsdv 1 puff [Patient's Own Medication] 1 puff, Inhalation, RT DAILY, First dose on Fri11/13/18 at 0615, Until Discontinued, NOTE: patient's own medication., 1 puff Given 11/13/2018 5:22 AM MARGIN ANALYST 11/12/2018 11:27 PM MARGIN ANALYST 100 mg gabapentin (NEURONTIN) capsule 100 mg Given 100 mg, Oral, AT BEDTIME DAILY, First dose on Meghann 11/12/18 at 2200, Until Discontinued 11/14/2018 11:37 AM MARGIN ANALYST 500 Units heparin lock flush PF syringe 500 Units Given 500 Units, Intra-catheter, ONCE PRN, 1 dose, Starting 11/14/18 at 1014, Until 11/14/18 at 1137, Catheter flush, When de-accessing a port-a-cath pack with 5 mL heparin (100 units/mL) unless contraindicated. NOTE: This is a HIGH ALERT Medication., 11/12/2018 5:37 PM MARGIN ANALYST 100 mL iohexol (OMNIPAQUE-350) 350 mg/mL Given injection 100 mL 100 mL, Intravenous, ONCE, 1 dose, Meghann 11/12/18 at 1745, NOTE: This is a HIGH ALERT Medication., 11/14/2018 12:12 PM MARGIN ANALYST 0.5 mg ipratropium bromide (ATROVENT) 0.02 % Given nebulizer solution 0.5 mg 0.5 mg, Inhalation, RT THREE TIMES DAILY AND PRN, First dose on Fri11/13/18 at 0600, Until Discontinued, ADMINISTERED BY RT, 0.5 mg Given 11/14/2018 5:45 AM MARGIN ANALYST 0.5 mg Given 11/13/2018 5:48 PM MARGIN ANALYST 11/12/2018 3:19 PM MARGIN ANALYST 1,000 mL 999 mL/hr lactated ringers infusion Given - New 1,000 mL, 1,000 mL, Intravenous, at 999 Bag mL/hr, BOLUS, 1 dose, Meghann 11/12/18 at 1500 11/12/2018 7:28 PM MARGIN ANALYST 1,000 mL 150 mL/hr lactated ringers infusion Given - New 1,000 mL, 1,000 mL, Intravenous, at 150 Bag mL/hr, BOLUS, 1 dose, Fri11/12/18 at 1915 11/12/2018 8:52 PM MARGIN ANALYST 1,000 mL 999 mL/hr lactated ringers infusion Given - New 1,000 mL, 1,000 mL, Intravenous, at 999 Bag mL/hr, BOLUS, 1 dose, Fri11/12/18 at 2100 11/13/2018 3:36 AM MARGIN ANALYST 500 mL 9999 mL/hr lactated ringers infusion Given - New 1,000 mL, 500 mL, Intravenous, at 9,999 Bag mL/hr, BOLUS, 1 dose, Fri11/13/18 at 0300 11/13/2018 12:58 AM MARGIN ANALYST 1 g 100 mL/hr magnesium sulfate 1 g/D5W 100 mL IVPB Given - New 1 g, Intravenous, 100 mL, Administer Bag over 1 Hours, EVERY 1 HOUR FOR 2 DOSES, 2 doses, First dose on Fri11/12/18 at 2300, Last dose on Fri11/13/18 at 0000, Each 1gm delivers 8.1 mEq Magnesium., 1 g 100 mL/hr Given - New Bag 11/12/2018 11:26 PM MARGIN ANALYST 11/14/2018 10:09 AM MARGIN ANALYST 1 g 100 mL/hr magnesium sulfate 1 g/D5W 100 mL IVPB Given - New 1 g, Intravenous, 100 mL, Administer Bag over 1 Hours, EVERY 1 HOUR FOR 2 DOSES, 2 doses, First dose on Fri11/14/18 at 0800, Last dose on Fri11/14/18 at 0900, Each 1gm delivers 8.1 mEq Magnesium., 1 g 100 mL/hr Given - New Bag 11/14/2018 9:08 AM MARGIN ANALYST 11/12/2018 3:19 PM MARGIN ANALYST 4 mg ondansetron (ZOFRAN) injection 4 mg Given 4 mg, Intravenous, ONCE, 1 dose, Fri11/12/18 at 1500 11/13/2018 9:18 PM MARGIN ANALYST 5 mg oxyCODONE (ROXICODONE, OXY-IR) tablet Given 5-10 mg 5-10 mg, Oral, EVERY 6 HOURS PRN, Starting Fri11/12/18 at 2153, Until Fri11/14/18 at 1454, Pain PO 10 mg Given 11/12/2018 11:37 PM MARGIN ANALYST 11/13/2018 9:07 PM MARGIN ANALYST [address] (PROTONIX) tablet 40 mg Given 40 mg, Oral, DAILY, First dose on Fri11/12/18 at 2330, Until Discontinued, Do not crush or chew tablet., 40 mg Given 11/12/2018 11:37 PM MARGIN ANALYST 11/12/2018 11:27 PM MARGIN ANALYST 60 mEq potassium chloride SR (K-DUR) tablet [...] split in half. , 11/13/2018 8:50 AM MARGIN ANALYST 10 mg prednisone (DELTASONE) tablet 10 mg Given 10 mg, Oral, DAILY WITH BREAKFAST, First dose on Fri11/13/18 at 0800, Until Discontinued, Give with food, 11/14/2018 9:07 AM MARGIN ANALYST 5 mg prednisone (DELTASONE) tablet 5 mg Given 5 mg, Oral, DAILY WITH BREAKFAST, 6 doses, First dose on Fri11/14/18 at 0800, Last dose on Fri11/19/18 at 0800, Give with food, 11/12/2018 5:37 PM MARGIN ANALYST 50 mL 2.5 mL/hr sodium chloride PF 0.9% injection 50 mL Given 50 mL, Intravenous, at 2.5 mL/hr, ONCE, 1 dose, Fri11/12/18 at 1745, DO NOT SEND this medication unless it is requested. This med is usually available in floor stock., Intra-procedure (IR) documented in this encounter
--- OUTSIDE RECORDS SUMMARY | 2019-01-10 21:18 | XMS REPORT | Encounter Summary ---
Author Author [facility] Organization [facility] Address Unknown Phone Unavailable Care Team Providers Care Construction Laborer Name Role Phone Derek Mccormick MD Unavailable Jose Daniel Mckeon MD Unavailable Angelita Caballero MD Unavailable Jakob Cole Unavailable Unavailable Yari Carias MA Unavailable Unavailable Mariah Espinoza Unavailable Unavailable Jennifer Mojica JITNEY DRIVER Unavailable Annie Macias MA Unavailable Unavailable Blessing Morin Unavailable Unavailable Parul De Los Santos MD Unavailable Ngozi Camarena PA-C Unavailable Lary Noguera MD 3 Kristen Gong MD PCP Unavailable Kristen Gong MD 100 Unavailable Encounter Details Care Team Description Date Type Department Jaleesa Coyle, JITNEY DRIVER [address] [place], [place] [phone] 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) ; Chronic hepatitis C without hepatic coma (HCC) 10/29/2018 Lab Only [facility] [address] [phone] Social History Date Tobacco Use Types Packs/Day [...] Routine 10/29/2018 Malignant neoplasm of 10:05 AM WORK MANAGER hilus of left lung (HCC) TSH WITH FREE T4 REFLEX Routine 10/29/2018 Malignant neoplasm of 10:05 AM WORK MANAGER hilus of left lung (HCC) HEPATITIS C VIRAL LOAD Routine 10/29/2018 Chronic hepatitis C PCR QUANT 10:05 AM WORK MANAGER without hepatic coma (HCC) CBC AND DIFF Routine 10/29/2018 Malignant neoplasm of 10:05 AM WORK MANAGER hilus of left lung (HCC) COMPREHENSIVE METABOLIC Routine 10/29/2018 Malignant neoplasm of PANEL 10:05 AM WORK MANAGER hilus of left lung (HCC) documented in this encounter Results * FREE T4-FREE THYROXINE (10/29/2018 10:05 AM WORK MANAGER) T4-Free 1.0 0.6 - 1.6 NG/DL [facility] Performing Organization Address City/State/Zipcode Phone Number MAIN LAB [address] [place] [address] * HEPATITIS C VIRAL LOAD PCR QUANT (10/29/2018 10:05 AM WORK MANAGER) Hepatitis C PCR HCV RNA Not Detected, <12 <12 IU/ML MAIN LAB Quantitative IU/mL Comment: The test method detects HCV viral load using the Piña RealTime assay. Please correlate results with the clinical status of the patient. Log 10 HCV <1.08 <1.08 IU/mL MAIN LAB Specimen Blood Performing Organization Address City/[facility]/Zipcode Phone Number MAIN LAB [address] [place] [address] * TSH WITH FREE T4 REFLEX (10/29/2018 10:05 AM WORK MANAGER) [facility] TSH 0.220 (L) 0.35 - 5.00 MCU/ML MAIN LAB Specimen Blood Performing Organization Address [facility] Phone Number [facility] [address] [place] [address] * COMPREHENSIVE METABOLIC PANEL (10/29/2018 10:05 AM WORK MANAGER) [facility] Sodium 131 (L) 137 - 147 MMOL/L [facility] Potassium 3.8 3.5 - 5.1 MMOL/L [facility] Chloride 95 (L) 98 - 110 MMOL/L [facility] Glucose 174 (H) 70 - 100 MG/DL [facility] Blood Urea 14 7 - 25 MG/DL [facility] Nitrogen Creatinine 0.88 0.4 - 1.00 [...] Non >60 >60 mL/min [facility] Comment: Citizen Of [place] The eGFR is not validated for use in drug dosing adjustments.Continue to use estimated creatinine clearance per dosing reference text.Please contact the Clinical Pharmacist for questions. eGFR >60 >60 mL/min [facility] Citizen [place] Comment: The eGFR is not validated for use in drug dosing adjustments.Continue to use estimated creatinine clearance per dosing reference text.Please contact the Clinical Pharmacist for questions. 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
--- OUTSIDE RECORDS SUMMARY | 2019-01-10 21:19 | XMS REPORT | Encounter Summary ---
Author Author [facility] Organization [facility] Address Unknown Phone Unavailable Care Team Providers Care Second Cutter Name Role Phone Derek Mccormick MD Unavailable Jose Daniel Mckeon MD Unavailable Angelita Caballero MD Unavailable Jakob Cole Unavailable Unavailable Yari Carias MA Unavailable Unavailable Mariah Espinoza Unavailable Unavailable Jennifer Mojica CLIENT SERVER DEVELOPER Unavailable Annie Macias MA Unavailable Unavailable Blessing Morin Unavailable Unavailable Parul De Los Santos MD Unavailable Ngozi Camarena PA-C Unavailable Lary Noguera MD 3 Kristen Gong MD PCP Unavailable Kristen Gong MD 100 Unavailable Reason for Visit * Reason Comments Treatment keytruda infusion * Treatment (Routine) Referred By Contact Referred To Contact Status Reason Specialty Diagnoses / Procedures Chapo Colvin MD [address] [place] [address] Chapo Colvin MD [address] [place] [address] Authorized Oncology Diagnoses Malignant neoplasm of hilus of left lung (HCC) 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 Take with food. 04/07/2018 [id number] Inhale 1 puff 1 each 11 anter [...] Florencia Cameron RN - 10/29/2018 4:09 PM FINISHED CARPET INSPECTOR CHEMO NOTE Verified chemo consent signed and [...] this time. Denies AVS. Pt left ambulatory. SHED CARPET INSPECTOR documented in this encounter Miscellaneous Notes * Addendum Note - Cassandra Cornell - 10/30/2018 8:29 AM FINISHED CARPET INSPECTOR Encounter addended by: Cassandra Cornell on: 10/30/2018 8:29 AM Actions taken: Charge Capture section accepted SHED CARPET INSPECTOR documented in this encounter Plan of Treatment Not on filedocumented as of this encounter Visit Diagnoses Diagnosis Malignant neoplasm of hilus of left lung (HCC) - Primary documented in this encounter Administered Medications Action Date Dose Rate Site Medication Order MAR Action 10/29/2018 3:22 PM FINISHED CARPET INSPECTOR 500 Units heparin lock flush PF syringe 500 Units Given 500 Units, Intravenous, ONCE, 1 dose, Meghann 10/29/18 at 1415, NOTE: This is a HIGH ALERT Medication., 10/29/2018 2:43 PM FINISHED CARPET INSPECTOR 200 mg 116 mL/hr pembrolizumab (KEYTRUDA) 200 mg in Given - New sodium chloride 0.9% (NS) 58 mL IVPB Bag 200 mg, Intravenous, 58 mL, Administer over 30 Minutes, ONCE, 1 dose, Meghann 10/29/18 at 1430, NOTE: This is a HIGH ALERT Medication., documented in this encounter
--- OUTSIDE RECORDS SUMMARY | 2019-01-10 21:19 | XMS REPORT | Encounter Summary ---
Author Author [facility] Organization [facility] Address Unknown Phone Unavailable Care Team Providers Care Newspaper Illustrator Name Role Phone Derek Mccormick MD Unavailable Jose Daniel Mckeon MD Unavailable Angelita Caballero MD Unavailable Jakob Cole Unavailable Unavailable Yari Carias MA Unavailable Unavailable Mariah Espinoza Unavailable Unavailable Jennifer Mojica CODE ENFORCEMENT SUPERVISOR Unavailable Annie Macias MA Unavailable Unavailable Blessing Morin Unavailable Unavailable Parul De Los Santos MD Unavailable Ngozi Camarena PA-C Unavailable Lary Noguera MD 3 Kristen Gong MD PCP Unavailable Kristen Gong MD 100 Unavailable Encounter Details Care Team Description Date Type Department Chapo Colvin MD [address] [place] [address] [phone] 10/28/2018 Orders Only [facility] [address] [place] [phone] Social History Date Tobacco Use Types Packs/Day [...]
--- OUTSIDE RECORDS SUMMARY | 2019-01-10 21:19 | XMS REPORT | Encounter Summary ---
Author Author [facility] Organization [facility] Address Unknown Phone Unavailable Care Team Providers Care Motor Express Clerk Name Role Phone Derek Mccormick MD Unavailable Jose Daniel Mckeon MD Unavailable Angelita Caballero MD Unavailable Jakob Cole Unavailable Unavailable Yari Carias MA Unavailable Unavailable Mariah Espinoza Unavailable Unavailable Jennifer Mojica OUTSIDE FOOD SERVER Unavailable Annie Macias MA Unavailable Unavailable Blessing Morin Unavailable Unavailable Parul De Los Santos MD Unavailable Ngozi Camarena PA-C Unavailable Lary Noguera MD 3 Kristen Gong MD PCP Unavailable Kristen Gong MD 100 Unavailable Encounter Details Care Team Description Date Type Department Chapo Colvin MD [address] [facility] [place] [address] 10/22/2018 [facility] [address] [address] Social History Date Tobacco Use [...] by mouth daily. Take with food. 04/07/2018 [id number] Inhale 1 puff 1 each 11 anter [...]
--- OUTSIDE RECORDS SUMMARY | 2019-01-10 21:19 | XMS REPORT | Encounter Summary ---
Author Author [facility] Organization [facility] Address Unknown Phone Unavailable Care Team Providers Care Inspector Floor Sub Assembly Name Role Phone Derek Mccormick MD Unavailable Jose Daniel Mckeon MD Unavailable Angelita Caballero MD Unavailable Jakob Cole Unavailable Unavailable Yari Carias MA Unavailable Unavailable Mariah Espinoza Unavailable Unavailable Jennifer Mojica NURSING PROGRAM DIRECTOR Unavailable Annie Macias MA Unavailable Unavailable Blessing Morin Unavailable Unavailable Parul De Los Santos MD Unavailable Ngozi Camarena PA-C Unavailable Lary Noguera MD 3 Kristen Gong MD PCP Unavailable Kristen Gong MD 100 Unavailable Reason for Referral * Radiology Services (Routine) Referred By Contact Referred To Contact Status Reason Specialty Diagnoses / Procedures Chapo Colvin MD [address] [facility] [place] [address] [place] [address] No Auth Needed Radiology Diagnoses Malignant neoplasm of lung, unspecified laterality, unspecified part of lung (HCC) P rocedures CT CHEST W CONTRAST * Radiology Services (Routine) Referred By Contact Referred To Contact Status Reason Specialty Diagnoses / Procedures Chapo Colvin MD [address] [place] [address] [address] [place] [address] No Auth Needed Radiology Diagnoses Malignant neoplasm of lung, unspecified laterality, unspecified part of lung (HCC) P rocedures CT CHEST W CONTRAST Reason for Visit * Radiology Services (Routine) Referred By Contact Referred To Contact Status Reason Specialty Diagnoses / Procedures Chapo Colvin MD [address] [place] [address] [address] [address] No Auth Needed Radiology Diagnoses Malignant neoplasm of lung, unspecified laterality, unspecified part of lung (HCC) P rocedures CT CHEST W CONTRAST Encounter Details Care Team Description [place] [address] [place] [address] [phone] 10/22/2018 [facility] [address] [place] [id number] Social History Date Tobacco Use Types Packs/Day [...] by mouth daily. Take with food. 04/07/2018 [id number] Inhale 1 puff 1 each 11 anter [...] Routine 10/22/2018 Malignant neoplasm of 8:27 AM CREW CAR DRIVER lung, unspecified laterality, unspecified part of lung (HCC) CBC AND DIFF Routine 10/22/2018 Malignant neoplasm of 8:10 AM CREW CAR DRIVER hilus of left lung (HCC) COMPREHENSIVE METABOLIC Routine 10/22/2018 Malignant neoplasm of PANEL 8:10 AM CREW CAR DRIVER hilus of left lung (HCC) documented in this encounter Results * CT CHEST W CONTRAST (10/22/2018 8:27 AM CREW CAR DRIVER) Impressions Performed At 1. Interval occlusion [...] Interface, Radiant Results - 10/22/2018 9:[address] Chest Clinical Indication: Lung cancer. [...] * COMPREHENSIVE METABOLIC PANEL (10/22/2018 8:10 AM CREW CAR DRIVER) Sodium 132 (L) 137 - 147 MMOL/L [...] Non >60 >60 mL/min [facility] Comment: Ecuadorean The eGFR is not validated for use in drug dosing adjustments.Continue to use estimated creatinine clearance per dosing reference text.Please contact the Clinical Pharmacist for questions. eGFR >60 >60 mL/min [facility] Ecuadorean Comment: The eGFR is not validated for use in drug dosing adjustments.Continue to use estimated creatinine clearance per dosing reference text.Please contact the Clinical Pharmacist for questions. Specimen Blood Performing Organization Address City/State/Zipcode Phone Number [facility] [address] [place] [address] * CBC AND DIFF (10/22/2018 8:10 AM CREW CAR DRIVER) White Blood 14.9 (H) 4.5 - 11.0 [...] Blood Performing Organization Address City/State/Zipcode Phone Number [facility] [address] [place] [address] documented in this encounter Visit Diagnoses Diagnosis Malignant neoplasm of lung, unspecified laterality, unspecified part of lung ( HCC) Malignant neoplasm of hilus of left lung (HCC) documented in this encounter Administered Medications Action Date Dose Rate Site Medication Order MAR Action 10/22/2018 8:27 AM CREW CAR DRIVER 70 mL iohexol (OMNIPAQUE-350) 350 mg/mL Given injection 70 mL 70 mL, Intravenous, ONCE, 1 dose, Meghann 10/22/18 at 0815, NOTE: This is a HIGH ALERT Medication., 10/22/2018 8:27 AM CREW CAR DRIVER 50 mL sodium chloride PF 0.9% injection 50 mL Given 50 mL, Intravenous, ONCE, 1 dose, Meghann 10/22/18 at 0815, Intra-procedure (IR) documented in this encounter
--- OUTSIDE RECORDS SUMMARY | 2019-01-10 21:19 | XMS REPORT | Encounter Summary ---
Author Author [facility] Organization [facility] Address Unknown Phone Unavailable Care Team Providers Care Product Development Intern Name Role Phone Derek Mccormick MD Unavailable Jose Daniel Mckeon MD Unavailable Angelita Caballero MD Unavailable Jakob Cole Unavailable Unavailable Yari Carias MA Unavailable Unavailable Mariah Espinoza Unavailable Unavailable Jennifer Mojica MANAGER VOICE Unavailable Annie Macias MA Unavailable Unavailable Blessing Morin Unavailable Unavailable Parul De Los Santos MD Unavailable Ngozi Camarena PA-C Unavailable Lary Noguera MD 3 Kristen Gong MD PCP Unavailable Kristen Gong MD 100 Unavailable Encounter Details Care Team Description Date Type Department Chapo Colvin MD [address] [place] [address] [phone] 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) 10/20/2018 Orders Only The [address] [address] Social History Date Tobacco Use Types Packs/Day [...] * COMPREHENSIVE METABOLIC PANEL (10/22/2018 8:10 AM LEAD ELECTRICAL ENGINEER) [facility] Sodium 132 (L) 137 - 147 MMOL/L [...] Non >60 >60 mL/min [facility] Comment: Barbadian The eGFR is not validated for use in drug dosing adjustments.Continue to use estimated creatinine clearance per dosing reference text.Please contact the Clinical Pharmacist for questions. eGFR >60 >60 mL/min [facility] Barbadian Comment: The eGFR is not validated for use in drug dosing adjustments.Continue to use estimated creatinine clearance per dosing reference text.Please contact the Clinical Pharmacist for questions. Specimen Blood Performing Organization Address City/[facility]/Zipcode Phone Number [facility] [address] [place] [address] * CBC AND DIFF (10/22/2018 8:10 AM LEAD ELECTRICAL ENGINEER) White Blood 14.9 (H) 4.5 - 11.0 [...] Basophil Count Specimen Blood Performing Organization Address City/[facility]/Zipcode Phone Number [facility] [address] [place] [address] documented in this encounter Visit Diagnoses Diagnosis Malignant neoplasm of hilus of left lung (HCC) - Primary documented in this encounter
--- OUTSIDE RECORDS SUMMARY | 2019-01-10 21:19 | XMS REPORT | Encounter Summary ---
Author Author [facility] Organization [facility] Address Unknown Phone Unavailable Care Team Providers Care Inspector Missile Name Role Phone Derek Mccormick MD Unavailable Jose Daniel Mckeon MD Unavailable Angelita Caballero MD Unavailable Jakob Cole Unavailable Unavailable Yari Carias MA Unavailable Unavailable Mariah Espinoza Unavailable Unavailable Jennifer Mojica TIME STUDY ANALYST Unavailable Annie Macias MA Unavailable Unavailable Blessing Morin Unavailable Unavailable Parul D eLos Santos MD Unavailable Ngozi Camarena PA-C Unavailable Lary Noguera MD 3 Kristen Gong MD PCP Unavailable Kristen Gong MD 100 Unavailable Reason for Visit * Reason Comments Heme/Onc Care Encounter Details Care Team Description Date Type Department Chapo Colvin MD [address] [place] [address] [phone] Chronic hepatitis C without hepatic coma (HCC) (Primary Dx) 10/22/2018 Office Visit [facility] [address] [place] [phone] Social History Date Tobacco Use Types Packs/Day [...] Taken Vital Sign Reading 10/22/2018 11:01 AM SINGEING TORCH OPERATOR Blood Pressure 107/67 10/22/2018 11:01 AM SINGEING TORCH OPERATOR Pulse 101 10/22/2018 11:01 AM SINGEING TORCH OPERATOR Temperature 36.4 C (97.5 F) 10/22/2018 11:01 AM SINGEING TORCH OPERATOR Respiratory Rate 16 10/22/2018 11:01 AM SINGEING TORCH OPERATOR Oxygen Saturation 95% - Inhaled Oxygen - Concentration 10/22/2018 11:01 AM SINGEING TORCH OPERATOR Weight 90.1 kg (198 lb 9.6 oz) 10/22/2018 11:01 AM SINGEING TORCH OPERATOR Height 160 cm (5' 2.99") 10/22/2018 11:01 AM SINGEING TORCH OPERATOR Body Mass Index 35.19 documented in [...] Bridgett Randolph RN - 10/22/2018 11:20 AM SINGEING TORCH OPERATOR To reschedule appointments please contact: [phone] To speak to a nurse between the hours of 8:00 to 4:00 please call [phone] Please ensure your schedule is correct prior to leaving clinic and that all your refill requests have been taken care of. Please allow 5-7 business days to complete any paperwork. Please allow 3 business days for narcotic refills. Please try to avoid filling your narcotic prescriptions at [facility] [place], [facility], or [facility]. EING TORCH OPERATOR documented in this encounter Progress Notes * Chapo Colvin MD - 10/22/2018 11:20 AM SINGEING TORCH OPERATOR I discussed the case with the [...] to DuoNeb every 3-4 times a day. EING TORCH OPERATOR * [facility] - 10/22/2018 11:20 AM SINGEING TORCH OPERATOR Name: Charlene Arias : 1965 AGE: [...] Colvin MD on 2018 History of Present Nliigfr86-dxzz-yct female with a newly diagnosed recurrent non-small [...] Take one tablet by mouth daily. . eszfjdmxnni-zzqtcbvol-jemyfnkt (TRELEGY ELLIPTA) 100-62.5-25 mcg dsdv Inhale 1 [...] any questions or concerns. Seen and D/W EING TORCH OPERATOR documented in this encounter Plan of Treatment Not on filedocumented as of this encounter Results * HEPATITIS C VIRAL LOAD PCR QUANT (10/29/2018 10:05 AM SINGEING TORCH OPERATOR) Hepatitis C PCR HCV RNA Not Detected, <12 <12 IU/ML [facility] Quantitative IU/mL Comment: The test method detects HCV viral load using the Piña RealTime assay. Please correlate results with the clinical status of the patient. Log 10 HCV <1.08 <1.08 IU/mL [facility] Specimen Blood Performing Organization Address City/State/Zipcode Phone Number [facility] [address] [place] [address] documented in this encounter Visit Diagnoses Diagnosis Chronic hepatitis C without hepatic coma (HCC) - Primary Chronic hepatitis C without mention of hepatic coma documented in this encounter
--- NOTE | 2019-01-10 21:29 | ED General ---
General Stated Complaint: SEIZURE Source of Information: Patient, EMS Exam Limitations: No Limitations History of Present Illness Date Seen by Provider: January 10, 2019 Time Seen by Provider: 21:26 Initial Comments To ER per EMS from home with reports of seizure-like activity. Patient is on hospice through [facility] for diagnosis of lung cancer. Significant other with whom she lives, Chito, noticed her to have some seizure-like activity this evening. Upon EMS arrival she had a blood pressure of 80s over 40s, tachycardic at 130s, febrile at 102. Timing/Duration: Getting Worse Severity: Moderate Associated Systoms: Cough, Fever/Chills Allergies and Home Medications Allergies Coded Allergies: No Known Drug Allergies (Verified , 12/21/08) Home Medications Alprazolam 1 Mg Tablet, 1 MG PO Q8H PRN for ANXIETY Prescribed by: LOUIE DELONG on 11/30/18 0946 Cyclobenzaprine HCl 10 Mg Tablet, 10 MG PO Q8H Prescribed by: SHAUNA SIN on 04/08/18 2340 Mupirocin 1 Gm Oin.pf.franky, 1 GM TP BID Prescribed by: SHAUNA SIN on 04/08/18 2340 Oxycodone HCl/Acetaminophen 1 Each Tablet, 1 TAB PO Q4H PRN for PAIN-MODERATE Prescribed by: LOUIE DELONG on 11/30/18 0915 Patient Home Medication List Home Medication List Reviewed: Yes Review of Systems Review of Systems Constitutional: see HPI, other (unable to obtain) Past Nyqfjdd-Heqolo-Xdpkam Hx Patient Social History Drug of Choice: METH, THC, RX DRUGS WITH OVERDOSES, INCLUDING INTENTIONAL OVERDOSES Type Used: Cigarettes Former Smoker, Quit: Apr 08, 2013 Recent Hopitalizations: No Immunizations Up To Date Tetanus Booster (TDap): Unknown Date of Pneumonia Vaccine: Jun 28, 2018 Date of Influenza Vaccine: Jun 28, 2018 Past Medical History Surgeries: Yes Amputation, Hysterectomy, Tubal Ligation Respiratory: Yes (LUNG CANCER) COPD Cardiac: Yes (RAYNAUD'S ) Neurological: No Neuropathy, Stroke Reproductive Disorders: No (2 abnormal mamograms, tubes tied) 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 ) Anxiety, Suicide Attempts, Depression Integumentary: No Blood Disorders: No Physical Exam Vital Signs Capillary Refill : Height, Weight, BMI Height: 5'4.00" Weight: 184lbs. 5.0oz. 83.310333vz; 31.6 BMI Method:Stated General Appearance: Other (patient appears to be actively dying. She'll open her eyes to verbal stimuli and answer "yeah" to any question asked even if that is not the correct answer. She is tachycardic at 1:30, temperature 102. Respirations are irregular and shallow. Audible crackles and rhonchi. I discussed with Grover who is here at the bedside that we should focus on comfort, he agrees with this.) Eyes: Bilateral Eye Normal Inspection, Bilateral Eye PERRL, Bilateral Eye EOMI Neck: Full Range of Motion, Normal Inspection Respiratory: No Accessory Muscle Use, No Respiratory Distress, Respiratory Distress, Rhonci Cardiovascular: Normal Peripheral Pulses, Tachycardia Gastrointestinal: Normal Bowel Sounds, Non Tender, Soft Skin: Normal Color, Warm/Dry, Mottled Procedures/Interventions Suture Size: 4-0, 5-0 Progress/Results/Core Measures Suspected Sepsis SIRS Temperature: Pulse: Respiratory Rate: Blood Pressure / Mean: Results/Orders My Orders Orders - VON SAUCEDA APRN Morphine Injection (Morphine Injection (01/10/19 21:18) Medications Given in ED Current Medications Medications Dose Ordered Sig/Emir Route Start Time Stop Time Status Last Admin Dose Admin Morphine Sulfate 10 mg STK-MED ONCE .ROUTE 01/10/19 21:18 01/10/19 21:22 DC 01/10/19 21:23 10 MG Vital Signs/I&O Capillary Refill : Departure Communication (Admissions) Time/Spoke to Admitting Phy: 22:[address] Fitch who is on-call for [facility], agrees to admit, comfort care order set. Test with the patient's significant other Chito at the bedside that antibiotics could always be done but this would only prolong the inevitable, fully anticipate her to within the next few days if not tonight. He is understanding of this and states "I was praying today that she would quit suffering". Told him that I do not recommend antibiotics and would only recommend comfort care, he is agreeable with this. Patient herself is unable to voice and opinion that she did state her opinion when she was admitted here last time In November of this year. 2223-patient is now a bit more alert, still having some labored breathing shallow lung sounds with audible rhonchi and hypoxia. Told her I was going to admit to the hospital and she states "no!". Asked her if she wanted to go home and she states yes. Significant other is at the bedside, he agrees that she would want to go home and he is okay with this plan as well. They are out of the lorazepam 0.5 mg tablets at home so I'll give him a take-home pack of this until hospice nurse can resupply tomorrow, give a dose of 0.5 mg IV prior to discharge. Impression Primary Impression: End of life care Additional Impression: Septic shock Disposition: ADMITTED INPATIENT Condition: Critical Admissions Decision to Admit Reason: Admit from ER (General) Decision to Admit/Date: January 10, 2019 Time/Decision to Admit Time: 22:01 Departure-Patient Inst. Referrals: NO,LOCAL PHYSICIAN (PCP/Family) Primary Care Physician Copy Copies To 1: JONO MARTINEZ MD, PETER J APRN January 10, 2019 21:29
[2019-01-10] MEDS ORDERED: LORazepam INJ 2 MG/ML (ATIVAN) VIAL IVP PRN (22:30)
[2019-01-10] MEDS ORDERED: RX-LORAZEPAM (ATIVAN) 0.5 MG TAB PPK#4 PO STA (22:34)
--- NOTE | 2019-01-10 22:39 | NUR ---
PROVIDER IN EXAM ROOM DISCUSSING CARE WITH PT AND FAMILY, PT STATED SHE WAS AGAINST BEING ADMITTED TO THE FLOOR, STATED SHE WANTED TO GO HOME, PROVIDER AND FAMILY COMPLY WITH PT'S WISHES.
--- OUTSIDE RECORDS SUMMARY | 2019-01-10 22:40 | XMS REPORT | Clinical Summary ---
Author Author [facility] Organization [facility] Address Unknown Phone Unavailable Care Team Providers Care Setter Cold Rolling Machine Name Role Phone Derek Mccormick MD Unavailable Jose Daniel Mckeon MD Unavailable Angelita Caballero MD Unavailable Jakob Cole Unavailable Unavailable Yari Carias MA Unavailable Unavailable Mariah Espinoza Unavailable Unavailable Jennifer Mojica TAP DANCER Unavailable Annie Macias MA Unavailable Unavailable Blessing [...] in the Health Information Management department at [phone] for further assistance in locating additional records.[facility] Allergies Comments Active Allergy Reactions Severity Noted Date Cefazolin NAUSEA AND Low 09/12/2017 VOMITING Medications End Date Status Medication Sig Dispensed Refills Start Date Active aspirin EC 81 mg tablet Take 1 tablet 90 tablet 3 by mouth 7 daily. Take with food. 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 L [...] Overview: Added automatically from request for surgery [id number] Personal history of tobacco use 08/08/2017 Abnormal [...] will begin Keytruda today. She will call [phone] if she develops any immune related side [...] Overview: CT CHEST (05/2016): stable 0.5 cm AYDIRA and subpleural nodularity LLL. New 0.6 cm [...] MD Jones, Matthew, DO Gizaw, Yonatan, MD [facility] [place], [facility] Intractable nausea and vomiting 11/12/2018 Hospital - [...] Taken Vital Sign Reading 11/14/2018 11:02 AM BELT KNIFE FEEDER Blood Pressure 96/51 11/14/2018 11:02 AM BELT KNIFE FEEDER Pulse 109 11/14/2018 11:02 AM BELT KNIFE FEEDER Temperature 37.2 C (99 F) 10/29/2018 10:22 AM BELT KNIFE FEEDER Respiratory Rate 16 11/14/2018 11:02 AM BELT KNIFE FEEDER Oxygen Saturation 93% - Inhaled Oxygen - Concentration 11/12/2018 9:55 PM BELT KNIFE FEEDER Weight 85 kg (187 lb 6.3 oz) 11/12/2018 9:55 PM BELT KNIFE FEEDER Height 162.6 cm (5' 4") 11/12/2018 9:55 PM BELT KNIFE FEEDER Body Mass Index 32.17 Plan of Treatment [...] Serial / Lot Implanted Type Area Manufactur [id number] / N/A / NOT RECORDED System [employer] Tract Sealant - Chest Wall Surgical Sn/A Specialtie Implanted: Qty: 1 on 04/28/2017 by s Filiberto Guerra MD [id number] / N/A / [id number] System [employer]entry Tract Sealant - Chest Wall Surgical Sn/A Specialtie Implanted: Qty: 1 on 06/26/2017 by s Leonidas Haywood MD [id number] 12/07/2019 [id number] / NA / [id number] Port Implantable Infusion Powerport Right: Chest C R BARD Mri Plastic Polyurethane - Sna Wall Implanted: Qty: 1 on 05/13/2018 by Kasi Rousseau MD Procedures Comments Procedure Name Priority Date/Time Associated Diagnosis CBC AND DIFF Routine 11/14/2018 9:16 AM BELT KNIFE FEEDER MAGNESIUM Routine 11/14/2018 4:25 AM BELT KNIFE FEEDER COMPREHENSIVE METABOLIC Routine 11/14/2018 PANEL 4:25 AM BELT KNIFE FEEDER LACTIC ACID(LACTATE) Routine 11/13/2018 5:15 AM BELT KNIFE FEEDER LACTIC ACID (BG - RAPID Routine 11/13/2018 LACTATE) 5:15 AM BELT KNIFE FEEDER CORTISOL-AM Routine 11/13/2018 5:15 AM BELT KNIFE FEEDER OSMOLALITY-URINE RANDOM STAT 11/13/2018 2:24 AM BELT KNIFE FEEDER SODIUM-URINE RANDOM STAT 11/13/2018 2:24 AM BELT KNIFE FEEDER PTT (APTT) Add on 11/12/2018 11:48 PM BELT KNIFE FEEDER FREE T4 (FREE THYROXINE) Add on 11/12/2018 ONLY 11:48 PM BELT KNIFE FEEDER FIBRINOGEN Add on 11/12/2018 11:48 PM BELT KNIFE FEEDER BNP (B-TYPE NATRIURETIC Add on 11/12/2018 PEPTI) 11:48 PM BELT KNIFE FEEDER CBC Routine 11/12/2018 11:48 PM BELT KNIFE FEEDER PROTIME INR (PT) Routine 11/12/2018 11:48 PM BELT KNIFE FEEDER THYROID STIMULATING STAT 11/12/2018 HORMONE-TSH 11:48 PM BELT KNIFE FEEDER PERIPHERAL SMEAR STAT 11/12/2018 11:48 PM BELT KNIFE FEEDER HAPTOGLOBIN STAT 11/12/2018 11:48 PM BELT KNIFE FEEDER LDH-LACTATE DEHYDROGENASE STAT 11/12/2018 11:48 PM BELT KNIFE FEEDER RETICULOCYTE COUNT STAT 11/12/2018 11:48 PM BELT KNIFE FEEDER OSMOLALITY STAT 11/12/2018 11:48 PM BELT KNIFE FEEDER CONTACT AOD TO REQUEST STAT 11/12/2018 INTERNAL MEDICINE 7:28 PM BELT KNIFE FEEDER ADMISSION FROM ED CT ABD/PELV W CONTRAST STAT 11/12/2018 5:42 PM BELT KNIFE FEEDER CHEST SINGLE VIEW STAT 11/12/2018 4:16 PM BELT KNIFE FEEDER URINALYSIS, MICROSCOPIC STAT 11/12/2018 3:36 PM BELT KNIFE FEEDER URINALYSIS DIPSTICK STAT 11/12/2018 3:36 PM BELT KNIFE FEEDER INFLUENZA A/B AG (RAPID STAT 11/12/2018 TEST) 3:36 PM BELT KNIFE FEEDER LIPASE Add on 11/12/2018 2:15 PM BELT KNIFE FEEDER PHOSPHORUS STAT 11/12/2018 2:15 PM BELT KNIFE FEEDER MAGNESIUM STAT 11/12/2018 2:15 PM BELT KNIFE FEEDER COMPREHENSIVE METABOLIC STAT 11/12/2018 PANEL 2:15 PM BELT KNIFE FEEDER CBC AND DIFF STAT 11/12/2018 2:15 PM BELT KNIFE FEEDER ECG 12-LEAD STAT 11/12/2018 12:42 PM BELT KNIFE FEEDER ECG-SCAN 11/12/2018 12:00 AM BELT KNIFE FEEDER FREE T4-FREE THYROXINE Routine 10/29/2018 Malignant neoplasm of 10:05 AM BELT KNIFE FEEDER hilus of left lung (HCC) HEPATITIS C VIRAL LOAD Routine 10/29/2018 Chronic hepatitis C PCR QUANT 10:05 AM BELT KNIFE FEEDER without hepatic coma (HCC) TSH WITH FREE T4 REFLEX Routine 10/29/2018 Malignant neoplasm of 10:05 AM BELT KNIFE FEEDER hilus of left lung (HCC) COMPREHENSIVE METABOLIC Routine 10/29/2018 Malignant neoplasm of PANEL 10:05 AM BELT KNIFE FEEDER hilus of left lung (HCC) CBC AND DIFF Routine 10/29/2018 Malignant neoplasm of 10:05 AM BELT KNIFE FEEDER hilus of left lung (HCC) CT CHEST W CONTRAST Routine 10/22/2018 Malignant neoplasm of 8:27 AM BELT KNIFE FEEDER lung, unspecified laterality, unspecified part of lung (HCC) COMPREHENSIVE METABOLIC Routine 10/22/2018 Malignant neoplasm of PANEL 8:10 AM BELT KNIFE FEEDER hilus of left lung (HCC) CBC AND DIFF Routine 10/22/2018 Malignant neoplasm of 8:10 AM BELT KNIFE FEEDER hilus of left lung (HCC) from Last 3 Months Results * CBC AND DIFF (11/14/2018 9:16 AM BELT KNIFE FEEDER) Only the most recent of 4 results [...] Basophil Count Specimen Blood Performing Organization Address City/[facility] Phone Number [facility] [address] [place] [address] * MAGNESIUM (11/14/2018 4:25 AM BELT KNIFE FEEDER) Only the most recent of 2 results within the time period is included. Magnesium 1.5 (L) 1.6 - 2.6 mg/dL [facility] Specimen Blood Performing Organization Address [facility] Phone Number MAIN LAB [address] [place] [address] * COMPREHENSIVE METABOLIC PANEL (11/14/2018 4:25 AM BELT KNIFE FEEDER) Only the most recent of 4 results [...] Non >60 >60 mL/min MAIN LAB Comment: Latvian The eGFR is not validated for use in drug dosing adjustments.Continue to use estimated creatinine clearance per dosing reference text.Please contact the Clinical Pharmacist for questions. eGFR >60 >60 mL/min MAIN LAB [place]ian Comment: The eGFR is not validated for use in drug dosing adjustments.Continue to use estimated creatinine clearance per dosing reference text.Please contact the Clinical Pharmacist for questions. Specimen Blood Performing Organization Address City/[facility] Phone Number MAIN LAB [address] [place] [address] * LACTIC ACID (BG - RAPID LACTATE) (11/13/2018 5:15 AM BELT KNIFE FEEDER) Lactic Acid,BG 1.8 0.5 - 2.0 MMOL/L MAIN LAB Specimen Blood Performing Organization Address [facility] Phone Number MAIN LAB [address] [place] [address] * LACTIC ACID(LACTATE) (11/13/2018 5:15 AM BELT KNIFE FEEDER) Lactic Acid 1.7 0.5 - 2.0 MMOL/L MAIN LAB Specimen Blood Performing Organization Address [facility] Phone Number MAIN LAB [address] [place] [address] * CORTISOL-AM (11/13/2018 5:15 AM BELT KNIFE FEEDER) Cortisol-AM 7.3 6.7 - 22.6 MCG/DL MAIN LAB Specimen Blood Performing Organization Address [facility] Hospital[facility] Phone Number MAIN LAB [address] [place] [address] * SODIUM-URINE RANDOM (11/13/2018 2:24 AM BELT KNIFE FEEDER) Sodium, Random 10 MMOL/L MAIN LAB Specimen Urine - Urine Performing Organization Address [facility] Hospitalcode Phone Number [facility] [address] [place] [address] * OSMOLALITY-URINE RANDOM (11/13/2018 2:24 AM BELT KNIFE FEEDER) Osmolality-Urin 85 50 - 1,400 MOS/KG [facility] e Specimen Urine - Urine Performing Organization Address [facility] Hospital[facility] Phone Number MAIN LAB [address] [place] [address] * PERIPHERAL SMEAR (11/12/2018 11:48 PM BELT KNIFE FEEDER) Peripheral NORMOCYTIC ANEMIA WITH [facility] [...] this report. Specimen Blood Performing Organization Address [facility] Hospitalcode Phone Number MAIN LAB [address] [place] [address] * PTT (APTT) (11/12/2018 11:48 PM BELT KNIFE FEEDER) APTT 26.3 24.0 - 36.5 SEC MAIN LAB Performing Organization Address [facility] Phone Number MAIN LAB [address] [place] [address] * PROTIME INR (PT) (11/12/2018 11:48 PM BELT KNIFE FEEDER) INR 1.6 (H) 0.8 - 1.2 [facility] Specimen Blood Performing Organization Address [facility] Phone Number [facility] [address] [place] [address] * FIBRINOGEN (11/12/2018 11:48 PM BELT KNIFE FEEDER) Fibrinogen 527 (H) 200 - 400 MG/DL MAIN LAB Performing Organization Address [facility] Phone Number MAIN LAB [address] [place] [address] * RETICULOCYTE COUNT (11/12/2018 11:48 PM BELT KNIFE FEEDER) Retic, 1.2 0.5 - 2.0 % MAIN LAB Uncorrected Retic, 0.8 % MAIN LAB Corrected Retic, Absolute 35.4 30 - 94 K/UL MAIN LAB Specimen Blood Performing Organization Address [facility] Hospital[facility] Phone Number MAIN LAB [address] [place] [address] * CBC (11/12/2018 11:48 PM BELT KNIFE FEEDER) White Blood 9.4 4.5 - 11.0 K/UL [facility] Cells RBC 3.03 (L) 4.0 [...] MAIN LAB Specimen Blood Performing Organization Address [facility] Phone Number MAIN LAB [address] [place] [address] * THYROID STIMULATING HORMONE-TSH (11/12/2018 11:48 PM BELT KNIFE FEEDER) TSH 0.120 (L) 0.35 - 5.00 MCU/ML MAIN LAB Specimen Blood Performing Organization Address [facility] Phone Number MAIN LAB [address] [place] [address] * FREE T4 (FREE THYROXINE) ONLY (11/12/2018 11:48 PM BELT KNIFE FEEDER) T4-Free 1.1 0.6 - 1.6 NG/DL MAIN LAB Performing Organization Address [facility] [place] [place] Phone Number MAIN LAB [address] [place] [phone] * OSMOLALITY (11/12/2018 11:48 PM BELT KNIFE FEEDER) Osmolality 278 (L) 280 - 307 MOSMOL/KG [facility] Specimen Blood Performing Organization Address [facility] Phone Number MAIN LAB [address] [place] [address] * BNP (B-TYPE NATRIURETIC PEPTI) (11/12/2018 11:48 PM BELT KNIFE FEEDER) B Type 134.0 (H) 0 - 100 PG/ML MAIN LAB Natriuretic Peptide Performing Organization Address [facility] Phone Number MAIN LAB [address] [place] [address] * LDH-LACTATE DEHYDROGENASE (11/12/2018 11:48 PM BELT KNIFE FEEDER) Lactate 158 100 - 210 U/L [facility] Dehydrogenase Specimen Blood Performing Organization Address City/[facility]/Zipcode Phone Number [facility] [address] [place] [address] * HAPTOGLOBIN (11/12/2018 11:48 PM BELT KNIFE FEEDER) Haptoglobin 347 (H) 16 - 200 MG/DL MAIN LAB Specimen Blood Performing Organization Address [facility]/Zipcode Phone Number [facility] [address] [place] [address] * CT ABD/PELV W CONTRAST (11/12/2018 5:42 PM BELT KNIFE FEEDER) Impressions Performed At 1.No abdominopelvic inflammatory mass, [...] Interface, Radiant Results - 11/12/2018 6:[address] ABDOMEN AND PELVIS Clinical Indication: Female, [...] * CHEST SINGLE VIEW (11/12/2018 4:16 PM BELT KNIFE FEEDER) Impressions Performed At Chronic atelectasis or scarring [...] interstitial or alveolar opacities are identified. Right Advtio-v-Oirm catheter remains in place with its tip at the level of the right atrium. No pleural fluid is identified. No pneumothorax is seen. Procedure Note Interface, Radiant Results - 11/13/2018 8:37 AM BELT KNIFE FEEDER CHEST SINGLE VIEW History: shortness of breath. Technique: Single portable AP upright view of the chest was obtained. Comparison: Comparison is made to an examination of 08/31/2018. Findings: Cardiac size remains within normal limits. There is no vascular congestion. There is chronic atelectasis or scarring in the left lower lobe. No acute interstitial or alveolar opacities are identified. Right Zmyziv-h-Ifli catheter remains in place with its tip [...] RESULTS * URINALYSIS, MICROSCOPIC (11/12/2018 3:36 PM BELT KNIFE FEEDER) WBCs,UA 2-10 0 - 2 /HPF [facility] RBCs,UA 0-2 0 - 3 /HPF [facility] MucousUA TRACE [facility] Squamous 0-2 0 - 5 [facility] Epithelial Cells Specimen Urine - Urine Performing Organization Address [facility] Phone Number [facility] [address] [place] [address] * URINALYSIS DIPSTICK (11/12/2018 3:36 PM BELT KNIFE FEEDER) Color,UA CHRISTIANO [facility] Turbidity,UA CLEAR CLEAR-CLEAR [facility] Specific 1.020 1.003 - 1.035 [facility] Mer[place]-Urine pH,UA 6.0 5.0 - 8.0 [facility] MAIN [...] Specimen Urine - Urine Performing Organization Address [facility] Phone Number MAIN LAB [address] [place] [address] * INFLUENZA A/B AG (RAPID TEST) (11/12/2018 3:36 PM BELT KNIFE FEEDER) Battery Name INFLUENZA A/B ANTIGEN MAIN LAB Specimen NASOPHARYNGEAL SWAB MAIN LAB Description Special NONE MAIN LAB Requests Direct Antigen NEGATIVE FOR INFLUENZA A/B MAIN LAB Report Status FINAL MAIN LAB 11/12/2018 Specimen Nasopharyngeal Swab Performing Organization Address [facility] Phone Number MAIN LAB [address] [place] [address] * PHOSPHORUS (11/12/2018 2:15 PM BELT KNIFE FEEDER) Phosphorus 3.1Comment: NOTE NEW REFERENCE 2.0 - 4.5 MG/DL MAIN LAB RANGES Specimen Blood Performing Organization Address [facility] [place] [place] Phone Number MAIN LAB [address] [place] [address] * LIPASE (11/12/2018 2:15 PM BELT KNIFE FEEDER) Lipase 9 (L) 11 - 82 U/L MAIN LAB Performing Organization Address [facility] Phone Number MAIN LAB [address] [place] [address] * ECG-SCAN (11/12/2018 12:00 AM BELT KNIFE FEEDER) Narrative Performed At Ordered by an unspecified provider. * FREE T4-FREE THYROXINE (10/29/2018 10:05 AM BELT KNIFE FEEDER) T4-Free 1.0 0.6 - 1.6 NG/DL MAIN LAB Performing Organization Address [facility] Phone Number MA[facility] LAB [address] [place] [address] * TSH WITH FREE T4 REFLEX (10/29/2018 10:05 AM BELT KNIFE FEEDER) TSH 0.220 (L) 0.35 - 5.00 MCU/ML [facility] Specimen Blood Performing Organization Address City/State/Zipcode Phone Number MAIN LAB [address] [place] [address] * HEPATITIS C VIRAL LOAD PCR QUANT (10/29/2018 10:05 AM BELT KNIFE FEEDER) Hepatitis C PCR HCV RNA Not Detected, <12 <12 IU/ML [facility] Quantitative IU/mL Comment: The test method detects HCV viral load using the Piña RealTime assay. Please correlate results with the clinical status of the patient. Log 10 HCV <1.08 <1.08 IU/mL [facility] Specimen Blood Performing Organization Address City/[facility]/Zipcode Phone Number MAIN LAB [address] [place] [address] * CT CHEST W CONTRAST (10/22/2018 8:27 AM BELT KNIFE FEEDER) Impressions Performed At 1. Interval occlusion of [...] Interface, Radiant Results - 10/22/2018 9:42 [address]NIFE [address]ER CT Chest Clinical Indication: Lung cancer. Restaging. [...] on file. For more information, please contact: [facility] [address] [place] [address] Date Inactivated Comments Code Status Date Activated [...]
--- OUTSIDE RECORDS SUMMARY | 2019-01-10 22:40 | XMS REPORT | Encounter Summary ---
Author Author [facility] Organization [facility] Address Unknown Phone Unavailable Care Team Providers Care Sewage Treatment Plant Operator Name Role Phone Derek Mccormick MD Unavailable Jose Daniel Mckeon MD Unavailable Angelita Caballero MD Unavailable Jakob Cole Unavailable Unavailable Yari Carias MA Unavailable Unavailable Mariah Espinoza Unavailable Unavailable Jennifer Mojica MILK INSPECTOR Unavailable Annie Macias MA Unavailable Unavailable Blessing Morin Unavailable Unavailable Parul De Los Santos MD Unavailable Ngozi Camarena PA-C Unavailable Lary Noguera MD 3 Kristen Gong MD PCP Unavailable Kristen Gong MD 100 Unavailable Reason for Visit * Reason Comments Transition Of Care Encounter Details Care Team Description Date Type Department Kristen Gong MD [address] [place] [address] Transition Of Care 11/16/2018 Telephone [facility] [address] [place] [address] Social History Date Tobacco Use [...] Up Reached Patient:Yes Admission Information: Hospital Name: [facility] Admission Date: 11/12/2018 Discharge Date: 11/14/2018 [...] Center 11/19/2018 1:00 PM LL2 NURSE CHAIR [facility] Exam 11/19/2018 2:00 PM Chapo Colvin MD [facility] Exam 11/19/2018 3:15 PM CC [facility] TREATMENT CCT [facility] Treatme 12/10/2018 9:00 AM LL2 NURSE CHAIR [facility] Exam 12/10/2018 10:00 AM Jaleesa Coyle APRN [facility] Exam 12/10/2018 11:15 AM CC [facility] TREATMENT CCT [facility] Treatme 02/10/2019 9:00 AM Kristen Gong MD [facility] 03/23/2019 8:50 AM Parul De Los Santos MD [facility] PCP appointment scheduled?Yes, Date: 02/10/2019 Patient declines sooner appointment. P[facility] Gen Medicine Specialist appointment scheduled? Yes, with Oncology 11/19/2018 and 12/10/2018; Pulmonary 03/23/2019 Both PCP and Specialist appointment scheduled: Yes Is assistance with transportation needed?No documented in this encounter Plan of Treatment Not on filedocumented as of this encounter Visit Diagnoses Not on filedocumented in this encounter
--- OUTSIDE RECORDS SUMMARY | 2019-01-10 22:41 | XMS REPORT | Encounter Summary ---
Author Author [facility] Organization [facility] Address Unknown Phone Unavailable Care Team Providers Care Entry Level Manufacturing Engineer Name Role Phone Derek Mccormick MD Unavailable Jose Daniel Mckeon MD Unavailable Angelita Caballero MD Unavailable Jakob Cole Unavailable Unavailable Yari Carias MA Unavailable Unavailable Mariah Espinoza Unavailable Unavailable Jennifer Mojica DIGITAL SALES DIRECTOR Unavailable Annie Macias MA Unavailable Unavailable [...] Date Type Department Andrew Molina MD [address] [facility] Emergency Dept [place], [place] [id number] Ollie Espinoza DO [address] [facility] [place], [place] [id number] Trav Sampson MD [address] [place] [address] [phone] Roberto Gauthier, JD [address] [place] [address] [phone] Intractable nausea and vomiting 11/12/2018 [facility] 11/14/[address] [place] [address] Social History Date Tobacco Use Types Packs/Day [...] Taken Vital Sign Reading 11/14/2018 11:02 AM RELAY MOTORMAN Blood Pressure 96/51 11/14/2018 11:02 AM RELAY MOTORMAN Pulse 109 11/14/2018 11:02 AM RELAY MOTORMAN Temperature 37.2 C (99 F) - Respiratory Rate - 11/14/2018 11:02 AM RELAY MOTORMAN Oxygen Saturation 93% - Inhaled Oxygen - Concentration 11/12/2018 9:55 PM RELAY MOTORMAN Weight 85 kg (187 lb 6.3 oz) 11/12/2018 9:55 PM RELAY MOTORMAN Height 162.6 cm (5' 4") 11/12/2018 9:55 PM RELAY MOTORMAN Body Mass Index 32.17 documented in this [...] Denia Queen MD - 11/14/2018 12:54 PM RELAY MOTORMAN Physician Discharge Summary Name: Charlene Arias Date Of : 1965 Age: 52 years Admit date: 11/12/2018 Discharge date: 11/14/2018 Attending Physician: Denia Queen MD Service: [facility] 5573 Physician Summary completed by: [...] at baseline no wheeze presently. Continued on HUMAN SERVICES ASSISTANT regimen. She will complete previously commenced prednisone [...] or concerns regarding your hospital stay. Call [phone] Discharging attending physician: DENIA QUEEN [[id number]] Regular Diet You have no dietary restriction. [...] tablet, Refills: 3 PRESCRIPTION TYPE: No Print zqlfazhlejx-yjygvumyu-bbshsgqj (TRELEGY ELLIPTA) 100-62.5-25 mcg dsdv Inhale 1 [...] Lab with LL2 NURSE CHAIR [facility] - [facility] Exam ([facility] Exam) [address] [address] Nov 19, 2018 2:00 PM CDT (Arrive by 1:45 PM) Return Patient with Chapo Colvin MD [facility] Exam ([facility] Exam) [facility] [address] [place] [phone] Nov 19, 2018 3:15 PM CDT (Arrive by 3:00 PM) Treatment 02 Hour with CC WW TREATMENT [facility] Treatment ([facility] Treatment) [place] [address] [place] [phone] Dec 10, 2018 9:00 AM CDT (Arrive by 8:45 AM) Nurse Lab Visit with LL2 NURSE CHAIR [facility] Exam ([facility] Exam) [address] [address] Dec 10, 2018 10:00 AM CDT (Arrive by 9:45 AM) Return Patient with Jaleesa Coyle APRN [facility] Exam ([facility] Exam) [address] [address] Dec 10, 2018 11:15 AM CDT (Arrive by 11:00 AM) Treatment 02 Hour with CC [facility] TREATMENT [facility] Treatment ([facility] Treatment) [place] [address] [place] [phone] Feb 10, 2019 9:00 AM CDT Return Patient with Kristen Gong MD [facility] Physicians - Internal Medicine (Internal Medicine) [address] Ortho and Medical [facility] [address] Mar 23, 2019 8:50 AM CDT Return Patient with Parul De Los Santos MD [facility] Physicians - Internal Medicine (Internal Medicine) [address] Ortho and Medical [facility] [address] Signed: Denia Queen MD 11/16/2018 cc: Primary [...] by mouth daily. Take with food. 04/07/2018 maferhkxxpa-tubcpkgqu-tqu Inhale 1 puff 1 each 11 anter [...] Do Bolton RN - 11/14/2018 12:54 PM RELAY MOTORMAN Charlene Arias discharged on 11/14/2018. . Discharge instructions reviewed with patient and family. Valuables returned: Personal Items / Valuables: Cell Phone, Eyeglasses/Contacts, Dentures, Clothing Denture Type: Full upper, Full lower. Home medications: N/A . Functional assessment at discharge complete: Yes . Prescriptions delivered via PCS. Addressed questions/concerns. Port de- accessed. Pt left unit via wheelchair at 1255. Y MOTORMAN * Denia Queen MD - 11/14/2018 7:48 AM RELAY MOTORMAN General Progress Note Admission Date: 11/12/2018 LOS: [...] at baseline no wheeze presently. Continued on HUMAN SERVICES ASSISTANT regimen. She will complete previously commenced prednisone [...] syringe 40 mg 40 mg Subcutaneous QDAY(21) omfemlkkyma-uonvceafv-vwlcathy (TRELEGY ELLIPTA) 100-62.5-25 mcg dsdv 1 puff [...] colonic diverticulosis without diverticulitis. Denia Queen MD [employer] [facility] [address] 5562 Y MOTORMAN * Roberto Gauthier, [facility] - 11/13/2018 11:41 AM RELAY MOTORMAN General Progress Note Admission Date: 11/12/2018 LOS: [...] syringe 40 mg 40 mg Subcutaneous QDAY(21) fuanhbsrndq-ukpqduejv-rtneeoiu (TRELEGY ELLIPTA) 100-62.5-25 mcg dsdv 1 puff [...] distal colonic diverticulosis without diverticulitis. Breanna Mccarthy [facility]573 Y MOTORMAN * Idalia Raymond PHARMD - 11/13/2018 6:12 AM RELAY MOTORMAN Pharmacy Note: Patient's Own Medication The following medication has been identified by pharmacy and placed in the secure medication room for storage: ugbvzbmvufg-ufluekkrkwll-zeldpmfhoc (TRELEGY ELLIPTA) 100-62.5-25 mcg inhalation disk Lot: [id number] Exp: The patient may use their own supply of this medication during this admission. All doses should be administered and documented per hospital policy. Idalia Raymond PharmEder, JESSICA [phone] Y MOTORMAN * Sakshi Casey, RN - 11/13/2018 1:50 AM RELAY MOTORMAN Pt BP 78/43. Text page sent to [facility] Teaching pager [phone]. Awaiting orders. Y MOTORMAN * Roberto Aparicio, RT - 11/12/2018 10:58 PM RELAY MOTORMAN RT Adult Assessment Note NAME:Charlene Arias :1965 [...] Clear (implies normal);Decreased;Coarse crackles Respiratory Effort: Non-Labored Y MOTORMAN * Jenni Stoner RN - 11/12/2018 9:51 PM RELAY MOTORMAN Patient arrived to room # 5320 via cart accompanied by health and safety tech. Patient transferred to the bed with assistance. [...] See Doc Flowsheet for additional wound details. Y MOTORMAN documented in this encounter H&P Notes * Ge Wong MD - 11/12/2018 10:39 PM RELAY MOTORMAN Admission History and Physical Examination Name: Charlene [...] and mild uncorrected diffusion defect PLAN >Continue HUMAN SERVICES ASSISTANT trelegy and duonebs Hyponatremia -most likely hypovolemic hyponatremia. Differential includes medication effect of Keytruda vs SIADH -Baseline is 140 >s/p 2L in ED PLAN >Urine studies >IVF as above Elevated INR -INR 1.6 on admission -previously normal most recently in September -Patient has hx of treated HCV -Reportedly had liver Bx at [place] showing no cirrhosis -Denies bleeding. Denies melena, [...] with Dr. Colvin PLAN >consult oncology >Continue HUMAN SERVICES ASSISTANT xanax. >continue HUMAN SERVICES ASSISTANT prednisone taper. Fluids, electrolytes and Nutrition: IVF: No IVF Electrolytes: replacing prn Diet: CLD. Prophylaxis: DVT: Lovenox Code status: FULL Disposition: Admit to [facility] Patient seen and discussed with Dr. Leoncio [...] ~2006 Past Surgical History: Procedure Laterality Date [facility] EBUS GUIDED SAMPL 3/> NODE STATION/STRUX Left 01/22/2017 BRONCHOSCOPY WITH ULTRASOUND performed by Tomy Arnett MD at ENDO/GI PERCUTANEOUS CORONARY INTERVENTION N/A 07/30/2017 Possible Percutaneous Coronary Intervention performed by Abdiel Augustine MD at [facility] SEAMSTRESS THORACOSCOPY Left 09/11/2017 LEFT VIDEO ASSISTED THORACOSCOPY, [...] HX TUBAL LIGATION KNEE SURGERY Left arthroscopy MA UNLISTED PROCEDURE HANDS/FINGERS x8 SYMPATHECTOMY Family History [...] non-medical: Not on file Occupational History Occupation: [employer] Comment: disabled. 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 . pzsbyfiplky-kydvhipjd-papsprha (TRELEGY ELLIPTA) 100-62.5-25 mcg dsdv Inhale 1 [...] Range Color,UA CHRISTIANO Turbidity,UA CLEAR CLEAR-CLEAR Specific Lake-Urine 1.020 1.003 - 1.035 pH,UA 6.0 5.0 [...] Pertinent radiology reviewed. Ge Wong MD Pager [phone]. After 0600, please page day team Y MOTORMAN Associated attestation - Sofi Quinonez MD - 11/13/2018 5:22 AM RELAY MOTORMAN ATTESTATION I personally performed the mckeon portions [...] Yanira Morgan MD - 11/13/2018 7:55 AM RELAY MOTORMAN Associated Order(s): CONSULT ONCOLOGY PHYSICIAN Oncology Consult [...] appointment with Dr. Colvin on 11/19/18 at [facility] 2 pm Thank you for this [...] ~2006 Past Surgical History: Procedure Laterality Date [facility] EBUS GUIDED SAMPL 3/> NODE STATION/STRUX Left 01/22/2017 BRONCHOSCOPY WITH ULTRASOUND performed by Tomy Arnett MD at ENDO/GI PERCUTANEOUS CORONARY INTERVENTION N/A 07/30/2017 Possible Percutaneous Coronary Intervention performed by Abdiel Augustine MD at [facility] SEAMSTRESS THORACOSCOPY Left 09/11/2017 LEFT VIDEO ASSISTED THORACOSCOPY, [...] HX TUBAL LIGATION KNEE SURGERY Left arthroscopy MA UNLISTED PROCEDURE HANDS/FINGERS x8 SYMPATHECTOMY Social History [...] non-medical: Not on file Occupational History Occupation: [employer] business Comment: disabled. 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 No pets Family History Problem Relation Age of Onset Emphysema Mother from cancer but does not know the primary stie. Cancer-Lung Sister 57 Allergies: Ancef [cefazolin] Scheduled Meds: albuterol 0.5% (PROVENTIL; VENTOLIN) nebulizer solution 2.5 mg 2.5 mg Inhalation TID & PRN gsqbzrdbgeq-ayfgfqfuv-dlvhcffa (TRELEGY ELLIPTA) 100-62.5-25 mcg dsdv 1 puff [...] Range Color,UA CHRISTIANO Turbidity,UA CLEAR CLEAR-CLEAR Specific Lake-Urine 1.020 1.003 - 1.035 pH,UA 6.0 5.0 [...] 2.0 MMOL/L Pertinent radiology reviewed. Meagan Mendez, DIGITAL SALES DIRECTOR [phone] Y MOTORMAN documented in this encounter ED Notes * Vesta Espinoza RN - 11/12/2018 9:42 PM RELAY MOTORMAN To room per cart Y MOTORMAN * Vesta Espinoza RN - 11/12/2018 9:16 PM RELAY MOTORMAN Report to Zoe MORENO Y MOTORMAN * Vesta Espinoza RN - 11/12/2018 8:49 PM RELAY MOTORMAN Nicom results reported to Dr García, orders to bolus fluids Y MOTORMAN * Vesta Espinoza RN - 11/12/2018 8:43 PM RELAY MOTORMAN NICOM Fluid Bolus or Passive Leg Raise Challenge: Fluid Bolus Challenge: {/no , Passive Leg Raise: {yes CO CI SV SVI Baseline 4.0 37 Challenge Stroke Volume Index Change:2.3% Y MOTORMAN * Vesta Espinoza RN - 11/12/2018 8:04 PM RELAY MOTORMAN BP reported to Dr Molina orders to nicom Y MOTORMAN * Vesta Espinoza RN - 11/12/2018 7:39 PM RELAY MOTORMAN Assumed care, bedside safety checks done, Y MOTORMAN * Andrew Molina MD - 11/12/2018 3:05 PM RELAY MOTORMAN Charlene Arias is a 52 y.o. female. [...] History: Past Surgical History: Procedure Laterality Date [facility] EBUS GUIDED SAMPL 3/> NODE STATION/STRUX Left 01/22/2017 BRONCHOSCOPY WITH ULTRASOUND performed by Tomy Arnett MD at ENDO/GI PERCUTANEOUS CORONARY INTERVENTION N/A 07/30/2017 Possible Percutaneous Coronary Intervention performed by Abdiel Augustine MD at [facility] SEAMSTRESS THORACOSCOPY Left 09/11/2017 LEFT VIDEO ASSISTED THORACOSCOPY, [...] HX TUBAL LIGATION KNEE SURGERY Left arthroscopy MA UNLISTED PROCEDURE HANDS/FINGERS x8 SYMPATHECTOMY Pertinent medical/surgical [...] CHRISTIANO Final Turbidity,UA CLEAR CLEAR-CLEAR Final Specific Lake-Urine 1.020 1.003 - 1.035 Final pH,UA 6.0 [...] plan unless otherwise noted. Andrew Molina MD Y MOTORMAN * Meagan Cortez RN - 11/12/2018 1:40 PM RELAY MOTORMAN 52 y.o. Female to ED with c/o [...] pants, shoes, bra, home O2 tank, purse. Y MOTORMAN documented in this encounter Miscellaneous Notes * Care Plan - Do Bolton RN - 11/14/2018 11:47 AM RELAY MOTORMAN Problem: Infection, Risk of, Central Venous Catheter-Associated [...] falls this shift. Fall precautions in place. Y MOTORMAN * Case Mgmt DC Plan - Lian Dahl RN - 11/13/2018 10:43 AM RELAY MOTORMAN Case Management Admission AssessmentNAME:Orma Ghulam Maori :1965 AGE: 52 y.o. ADMISSION DATE: 11/12/2018 DAYS ADMITTED: LOS: 1 day Todays Date: 11/13/2018 Source of Information: Patient Plan Plan: Case Management Assessment, Discharge Planning for Home Anticipated INtroduced self and explained role of NCM Pt presented with N/V which started after Keytruda which was started on . Pt receiving chemo at [place]. Pt feeling better this morning. Continue IVF's, Zofran PRN, Oncology consult Pt mostly independent at home but does require assistance with bathing provided by her MIRZA Dale. Pt also receiving home care services for housework and shopping 28 hrs/week. [facility] MIRZA Dale to bring tank at discharge. Denies d/c needs at this time. Patient Address/Phone [address] [facility] [address] (home) Emergency Contact Extended Emergency Contact Information Primary Emergency Contact: Chito Crowe Address: [address] [place] [address] [facility] Mobile Relation: Significant Other Secondary Emergency Contact: Almaz Agustin Address: [address] [place] [address] [facility] Relation: Sister Healthcare Directive Healthcare Directive: No, [...] ? Coverage Primary Insurance: Medicare Secondary Insurance: Medicaid([facility] Medicaid) Additional Coverage: RX(Medicaid, states meds are affordable) ? Source of Income Source Of Income: SSDI ? Financial Assistance Needed? none Psychosocial Needs ? Mental Health Mental Health History: No ? Substance Use History Substance Use History Screen: No ? Other none Current/Previous Services ? PCP Kristen Gong, None, None ? Pharmacy [id number] [place], [place] - [address] [facility] [address] [facility] [address] [facility] [phone] [facility] [address] ? Durable Medical Equipment Durable Medical Equipment at home: Oxygen(Baseline 2-3L all the time, provided by [facility]) ? Home Health Receiving home health: No ? Hemodialysis or Peritoneal Dialysis Undergoing hemodialysis or peritoneal dialysis: No ? Tube/Enteral Feeds Receive tube/enteral feeds: No ? Infusion Receive infusions: No ? Private Duty Private duty help used: No ? Home and Community Based Services Home and community based services: Yes Agency name: [facility] assistance hours/week: 28 Services provided: shopping, housework, cooking ? Gilles White Gilles White: N/A ? Hospice Hospice: No ? Outpatient Therapy PT: No OT: No BROKE BEATER: No ? Half-Way Facility/Group Home SNF: No NH: No ? Inpatient Rehab IPR: No ? Long-Term Acute Care Hospital LTACH: No ? Acute Hospital Stay Acute Hospital Stay: No DORIE Morgan, RN, CPHQ Integrated Nurse Sander Operator [phone] Y MOTORMAN * Med Student Consult - Giselle Naik, MS - 11/13/2018 10:22 AM RELAY MOTORMAN Medical Student General Consult Note NAME: Charlene [...] patient Raynaud's disease Seasonal allergic rhinitis Seizures ([facility]) x 1 ~2006 FH: Family History Problem [...] non-medical: Not on file Occupational History Occupation: [employer] Comment: disabled. 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 No pets Allergies: Allergies Allergen Reactions Ancef [Cefazolin] NAUSEA AND VOMITING Medications: Scheduled Meds: albuterol 0.5% (PROVENTIL; VENTOLIN) nebulizer solution 2.5 mg 2.5 mg Inhalation TID & PRN enoxaparin (LOVENOX) syringe 40 mg 40 mg Subcutaneous QDAY(21) qykvddoqyca-xzjslpmsf-ffnjwibc (TRELEGY ELLIPTA) 100-62.5-25 mcg dsdv 1 puff [...] Low-High Color,UA CHRISTIANO Turbidity,UA CLEAR CLEAR-CLEAR Specific Lake-Urine 1.020 1.003 - 1.035 pH,UA 6.0 5.0 [...] colonic diverticulosis without diverticulitis. Jillian Naik MS4 Y MOTORMAN * Care Coordination-Inpatient - Trav Sampson MD - 11/13/2018 4:59 AM RELAY MOTORMAN Please page [phone] with any issues until 8am after that please page med Private J Y MOTORMAN * Advanced Care Planning/Resuscitation Status - Ge Wong MD - 11/12/2018 11:31 PM RELAY MOTORMAN Advance Care Planning/Resuscitation Status Conversation Individuals present [...] which outline patient/surrogate wishes: None Attestation? N/A Y MOTORMAN documented in this encounter Plan of Treatment Not on filedocumented as of this encounter Procedures Comments Procedure Name Priority Date/Time Associated Diagnosis CBC AND DIFF Routine 11/14/2018 9:16 AM RELAY MOTORMAN MAGNESIUM Routine 11/14/2018 4:25 AM RELAY MOTORMAN COMPREHENSIVE METABOLIC Routine 11/14/2018 PANEL 4:25 AM RELAY MOTORMAN LACTIC ACID (BG - RAPID Routine 11/13/2018 LACTATE) 5:15 AM RELAY MOTORMAN LACTIC ACID(LACTATE) Routine 11/13/2018 5:15 AM RELAY MOTORMAN CORTISOL-AM Routine 11/13/2018 5:15 AM RELAY MOTORMAN SODIUM-URINE RANDOM STAT 11/13/2018 2:24 AM RELAY MOTORMAN OSMOLALITY-URINE RANDOM STAT 11/13/2018 2:24 AM RELAY MOTORMAN PERIPHERAL SMEAR STAT 11/12/2018 11:48 PM RELAY MOTORMAN PTT (APTT) Add on 11/12/2018 11:48 PM RELAY MOTORMAN PROTIME INR (PT) Routine 11/12/2018 11:48 PM RELAY MOTORMAN FIBRINOGEN Add on 11/12/2018 11:48 PM RELAY MOTORMAN RETICULOCYTE COUNT STAT 11/12/2018 11:48 PM RELAY MOTORMAN CBC Routine 11/12/2018 11:48 PM RELAY MOTORMAN THYROID STIMULATING STAT 11/12/2018 HORMONE-TSH 11:48 PM RELAY MOTORMAN FREE T4 (FREE THYROXINE) Add on 11/12/2018 ONLY 11:48 PM RELAY MOTORMAN OSMOLALITY STAT 11/12/2018 11:48 PM RELAY MOTORMAN BNP (B-TYPE NATRIURETIC Add on 11/12/2018 PEPTI) 11:48 PM RELAY MOTORMAN LDH-LACTATE DEHYDROGENASE STAT 11/12/2018 11:48 PM RELAY MOTORMAN HAPTOGLOBIN STAT 11/12/2018 11:48 PM RELAY MOTORMAN CONTACT AOD TO REQUEST STAT 11/12/2018 INTERNAL MEDICINE 7:28 PM RELAY MOTORMAN ADMISSION FROM ED CT ABD/PELV W CONTRAST STAT 11/12/2018 5:42 PM RELAY MOTORMAN CHEST SINGLE VIEW STAT 11/12/2018 4:16 PM RELAY MOTORMAN URINALYSIS, MICROSCOPIC STAT 11/12/2018 3:36 PM RELAY MOTORMAN URINALYSIS DIPSTICK STAT 11/12/2018 3:36 PM RELAY MOTORMAN INFLUENZA A/B AG (RAPID STAT 11/12/2018 TEST) 3:36 PM RELAY MOTORMAN CBC AND DIFF STAT 11/12/2018 2:15 PM RELAY MOTORMAN PHOSPHORUS STAT 11/12/2018 2:15 PM RELAY MOTORMAN MAGNESIUM STAT 11/12/2018 2:15 PM RELAY MOTORMAN LIPASE Add on 11/12/2018 2:15 PM RELAY MOTORMAN COMPREHENSIVE METABOLIC STAT 11/12/2018 PANEL 2:15 PM RELAY MOTORMAN ECG 12-LEAD STAT 11/12/2018 12:42 PM RELAY MOTORMAN ECG-SCAN 11/12/2018 12:00 AM RELAY MOTORMAN documented in this encounter Results * CBC AND DIFF (11/14/2018 9:16 AM RELAY MOTORMAN) White Blood 9.4 4.5 - 11.0 K/UL [...] Performing Organization Address City/[facility] Phone Number [facility] [address] [place] [phone] * MAGNESIUM (11/14/2018 4:25 AM RELAY MOTORMAN) Pathologist [facility] Emergency Department Magnesium 1.5 (L) 1.6 - 2.6 mg/dL [facility] Specimen Blood Performing Organization Address City/[facility] Phone Number MAIN LAB [address] [place] [address] * COMPREHENSIVE METABOLIC PANEL (11/14/2018 4:25 AM RELAY MOTORMAN) Pathologist [facility] Emergency Department Sodium 138 137 - 147 MMOL/L [facility] [...] Non >60 >60 mL/min MAIN LAB Comment: Swedish The eGFR is not validated for use in drug dosing adjustments.Continue to use estimated creatinine clearance per dosing reference text.Please contact the Clinical Pharmacist for questions. eGFR >60 >60 mL/min MAIN LAB Swedish Comment: The eGFR is not validated for use in drug dosing adjustments.Continue to use estimated creatinine clearance per dosing reference text.Please contact the Clinical Pharmacist for questions. Specimen Blood Performing Organization Address City/[facility]/Zipcode Phone Number MAIN LAB [address] [place] [address] * LACTIC ACID(LACTATE) (11/13/2018 5:15 AM RELAY MOTORMAN) Lactic Acid 1.7 0.5 - 2.0 MMOL/L MAIN LAB Specimen Blood Performing Organization Address City/[facility]/Zipcode Phone Number MAIN LAB [address] [place] [address] * LACTIC ACID (BG - RAPID LACTATE) (11/13/2018 5:15 AM RELAY MOTORMAN) Lactic Acid,BG 1.8 0.5 - 2.0 MMOL/L MAIN LAB Specimen Blood Performing Organization Address [facility]/Zipcode Phone Number MAIN LAB [address] [place] [address] * CORTISOL-AM (11/13/2018 5:15 AM RELAY MOTORMAN) Cortisol-AM 7.3 6.7 - 22.6 MCG/DL MAIN LAB Specimen Blood Performing Organization Address [facility] Phone Number MAIN LAB [address] [place] [address] * OSMOLALITY-URINE RANDOM (11/13/2018 2:24 AM RELAY MOTORMAN) Osmolality-Urin 85 50 - 1,400 MOS/KG [facility] MAIN [facility] e Specimen Urine - Urine Performing Organization Address [facility] Phone Number MAIN LAB [address] [place] [address] * SODIUM-URINE RANDOM (11/13/2018 2:24 AM RELAY MOTORMAN) Sodium, Random 10 MMOL/L MAIN LAB Specimen Urine - Urine Performing Organization Address [facility] Phone Number MAIN LAB [address] [place], [place] [phone] * PTT (APTT) (11/12/2018 11:48 PM RELAY MOTORMAN) APTT 26.3 24.0 - 36.5 SEC MAIN LAB Performing Organization Address [facility] Phone Number MAIN LAB [address] [place] [phone] * FREE T4 (FREE THYROXINE) ONLY (11/12/2018 11:48 PM RELAY MOTORMAN) T4-Free 1.1 0.6 - 1.6 NG/DL MAIN LAB Performing Organization Address [facility] Phone Number MAIN LAB [address] [place] [address] * FIBRINOGEN (11/12/2018 11:48 PM RELAY MOTORMAN) Fibrinogen 527 (H) 200 - 400 MG/DL [facility] Performing Organization Address [facility] Phone Number MAIN LAB [address] [place] [address] * BNP (B-TYPE NATRIURETIC PEPTI) (11/12/2018 11:48 PM RELAY MOTORMAN) B Type 134.0 (H) 0 - 100 PG/ML MAIN LAB Natriuretic Peptide Performing Organization Address [facility] Phone Number MAIN LAB [address] [place] [phone] * CBC (11/12/2018 11:48 PM RELAY MOTORMAN) White Blood 9.4 4.5 - 11.0 K/UL [facility] Cells RBC 3.03 (L) 4.0 - 5.0 M/UL [facility] Hemoglobin 9.0 (L) 12.0 - 15.0 GM/DL [facility] Hematocrit 26.6 (L) 36 - 45 % [facility] MCV 87.8 80 - 100 FL [facility] MCH 29.7 26 - 34 PG [facility] MCHC 33.8 32.0 - 36.0 G/DL [facility] RDW 16.2 (H) 11 - 15 % [facility] Platelet Count 207 150 - 400 K/UL [facility] MPV 8.9 7 - 11 FL [facility] Specimen Blood Performing Organization Address [facility] Phone Number [facility] [address] [place] [address] * PROTIME INR (PT) (11/12/2018 11:48 PM RELAY MOTORMAN) Pathologist [facility] INR 1.6 (H) 0.8 - 1.2 [facility] Specimen Blood Performing Organization Address [facility] Phone Number [facility] [address] [place] [address] * THYROID STIMULATING HORMONE-TSH (11/12/2018 11:48 PM RELAY MOTORMAN) Pathologist [facility] Department TSH 0.120 (L) 0.35 - 5.00 MCU/ML [facility] Specimen Blood Performing Organization Address [facility] Phone Number [facility] [address] [place] [address] * PERIPHERAL SMEAR (11/12/2018 11:48 PM RELAY MOTORMAN) Peripheral NORMOCYTIC ANEMIA WITH MAIN LAB Smear ANISOCYTOSIS. WHITE CELLS AND PLATELETS APPEAR NORMAL IN NUMBER AND MORPHOLOGY. Pathologist INTERPRETED BY COOPER MEDRANO [facility] Evie Cohen By the PATH SIGNATURE ABOVE, I attest that I have personally formulated the final interpretation expressed in this report and that the above diagnosis is based upon my examination of the slides and/or other material indicated in this report. Specimen Blood Performing Organization Address [facility] Phone Number [facility] [address] [place] [address] * HAPTOGLOBIN (11/12/2018 11:48 PM RELAY MOTORMAN) Haptoglobin 347 (H) 16 - 200 MG/DL [facility] Specimen Blood Performing Organization Address [facility] Phone Number [facility] [address] [place] [address] * LDH-LACTATE DEHYDROGENASE (11/12/2018 11:48 PM RELAY MOTORMAN) Lactate 158 100 - 210 U/L [facility] Dehydrogenase Specimen Blood Performing Organization Address [facility] Phone Number MAIN LAB [address] [phone] * RETICULOCYTE COUNT (11/12/2018 11:48 PM RELAY MOTORMAN) Pathologist [facility] Retic, 1.2 0.5 - 2.0 % [facility] Uncorrected Retic, 0.8 % [facility] Corrected Retic, Absolute 35.4 30 - 94 K/UL [facility] Specimen Blood Performing Organization Address [facility] Phone Number [facility] [address] [place] [address] * OSMOLALITY (11/12/2018 11:48 PM RELAY MOTORMAN) Osmolality 278 (L) 280 - 307 MOSMOL/KG [facility] Specimen Blood Performing Organization Address [facility] Phone Number MAIN LAB [address] [place] [address] * CT ABD/PELV W CONTRAST (11/12/2018 5:42 PM RELAY MOTORMAN) Impressions Performed At 1.No abdominopelvic inflammatory mass, [...] Interface, Radiant Results - 11/12/2018 6:[address] ABDOMEN AND PELVIS Clinical Indication: Female, [...] Performing Organization Address City/[facility] Phone Number [facility] RESULTS * CHEST SINGLE VIEW (11/12/2018 4:16 PM RELAY MOTORMAN) Impressions Performed At Chronic atelectasis or scarring [...] interstitial or alveolar opacities are identified. Right Ktbdqp-x-Xxse catheter remains in place with its tip at the level of the right atrium. No pleural fluid is identified. No pneumothorax is seen. Procedure Note Interface, Radiant Results - 11/13/2018 8:37 AM RELAY MOTORMAN CHEST SINGLE VIEW History: shortness of breath. Technique: Single portable AP upright view of the chest was obtained. Comparison: Comparison is made to an examination of 08/31/2018. Findings: Cardiac size remains within normal limits. There is no vascular congestion. There is chronic atelectasis or scarring in the left lower lobe. No acute interstitial or alveolar opacities are identified. Right Suvvzb-s-Uvev catheter remains in place with its tip at the level of the right atrium. No pleural fluid is identified. No pneumothorax is seen. IMPRESSION Chronic atelectasis or scarring in the left lower lobe. No acute cardiopulmonary abnormalities. Finalized by Raymond Hanson M.D. on 11/13/2018 8:34 AM. Dictated by Raymond Hanson M.D. on 11/13/2018 8:29 AM. Performing Organization Address [facility] Phone Number [facility] RESULTS * INFLUENZA A/B AG (RAPID TEST) (11/12/2018 3:36 PM RELAY MOTORMAN) Battery Name INFLUENZA A/B ANTIGEN [facility] Specimen NASOPHARYNGEAL SWAB [facility] Description Special NONE [facility] Requests Direct Antigen NEGATIVE FOR INFLUENZA A/B [facility] Report Status FINAL MAIN LAB 11/12/2018 Specimen Nasopharyngeal Swab Performing Organization Address [facility] Phone Number [facility] [address] [place] [address] * URINALYSIS, MICROSCOPIC (11/12/2018 3:36 PM RELAY MOTORMAN) WBCs,UA 2-10 0 - 2 /HPF [facility] RBCs,UA 0-2 0 - 3 /HPF [facility] MucousUA TRACE MAIN LAB Squamous 0-2 0 - 5 MAIN LAB Epithelial Cells Specimen Urine - Urine Performing Organization Address [facility] Phone Number MAIN LAB [address] [place] [address] * URINALYSIS DIPSTICK (11/12/2018 3:36 PM RELAY MOTORMAN) Color,UA [facility] MAIN [facility] Turbidity,UA CLEAR CLEAR-CLEAR MAIN LAB Specific 1.020 1.003 - 1.035 MAIN LAB Lake-Urine pH,UA 6.0 5.0 - 8.0 [facility] MAIN [...] Specimen Urine - Urine Performing Organization Address [facility] Phone Number MAIN LAB [address] [place] [address] * LIPASE (11/12/2018 2:15 PM RELAY MOTORMAN) Lipase 9 (L) 11 - 82 U/L [facility] Performing Organization Address [facility] Phone Number [facility] [address] [place] [address] * PHOSPHORUS (11/12/2018 2:15 PM RELAY MOTORMAN) Phosphorus 3.1Comment: NOTE NEW REFERENCE 2.0 - 4.5 MG/DL [facility] RANGES Specimen Blood Performing Organization Address [facility]/Zipcode Phone Number MAIN LAB [address] [place] [address] * MAGNESIUM (11/12/2018 2:15 PM RELAY MOTORMAN) Magnesium 1.6 1.6 - 2.6 mg/dL [facility] Specimen Blood Performing Organization Address [facility]/Zipcode Phone Number MAIN LAB [address] [place] [address] * COMPREHENSIVE METABOLIC PANEL (11/12/2018 2:15 PM RELAY MOTORMAN) Sodium 130 (L) 137 - 147 MMOL/L [...] >60 >60 mL/min [facility] Comment: Swedish The eGFR is not validated for use in drug dosing adjustments.Continue to use estimated creatinine clearance per dosing reference text.Please contact the Clinical Pharmacist for questions. eGFR >60 >60 mL/min [facility] Swedish Comment: The eGFR is not validated for use in drug dosing adjustments.Continue to use estimated creatinine clearance per dosing reference text.Please contact the Clinical Pharmacist for questions. Specimen Blood Performing Organization Address [facility]/Zipcode Phone Number [facility] [address] [place] [address] * CBC AND DIFF (11/12/2018 2:15 PM RELAY MOTORMAN) White Blood 12.6 (H) 4.5 - 11.0 [...] Performing Organization Address [facility]/Zipcode Phone Number [facility] [address] [place] [address] * ECG-SCAN (11/12/2018 12:00 AM RELAY MOTORMAN) Narrative Performed At Ordered by an unspecified [...] Medication Order MAR Action 11/12/2018 11:37 PM RELAY MOTORMAN 30 mL acetaminophen/lidocaine/antacid DS(#) Given (GI COCKTAIL) 1:1:3 suspension 30 mL 30 mL, Oral, EVERY 6 HOURS PRN, Starting Meghann 11/12/18 at 2324, Until 11/14/18 at 1454, Indigestion/Heartburn, 30mL (1:1:3)=192mg/6mL acetamin-6mL 2% vis lidocaine-18mL Antacid DS, 11/14/2018 12:12 PM RELAY MOTORMAN 2.5 mg albuterol 0.5% (PROVENTIL; VENTOLIN) Given nebulizer solution 2.5 mg 2.5 mg, Inhalation, RT THREE TIMES DAILY AND PRN, First dose on Fri11/13/18 at 0600, Until Discontinued, ADMINISTERED BY RT, 2.5 mg Given 11/14/2018 5:45 AM RELAY MOTORMAN 2.5 mg Given 11/13/2018 5:46 PM RELAY MOTORMAN 11/13/2018 9:18 PM RELAY MOTORMAN 1 mg ALPRAZolam (XANAX) tablet 1 mg Given 1 mg, Oral, THREE TIMES DAILY PRN, Starting Meghann 11/12/18 at 2153, Until 11/14/18 at 1454, Anxiety PO 1 mg Given 11/13/2018 4:27 PM RELAY MOTORMAN 11/14/2018 5:41 AM RELAY MOTORMAN 125 mL/hr dextrose 5 % & 0.9% NaCl with KCl 20 Given - New mEq/L infusion Bag 1,000 mL, Intravenous, at 125 mL/hr, CONTINUOUS, Starting Meghann 11/12/18 at 2245, Until 11/14/18 at 1454 125 mL/hr Given - New Bag 11/13/2018 9:37 PM RELAY MOTORMAN 125 mL/hr Given - New Bag 11/13/2018 12:37 PM RELAY MOTORMAN 11/13/2018 9:07 PM RELAY MOTORMAN 40 mg Abdominal Tissue enoxaparin (LOVENOX) syringe 40 mg Given 40 mg, Subcutaneous, DAILY, First dose on Fri11/13/18 at 2100, Until Discontinued, For patients undergoing surgery: Consult physician in advance -- enoxaparin is an anticoagulant and may need to be held for 12hr prior to surgery or invasive procedures. NOTE: This is a HIGH ALERT Medication., 11/14/2018 5:48 AM RELAY MOTORMAN 1 puff yxexdnugcpk-bqfxgaxri-rbbwkyjl (TRELEGY Given ELLIPTA) 100-62.5-25 mcg dsdv 1 puff [Patient's Own Medication] 1 puff, Inhalation, RT DAILY, First dose on Fri11/13/18 at 0615, Until Discontinued, NOTE: patient's own medication., 1 puff Given 11/13/2018 5:22 AM RELAY MOTORMAN 11/12/2018 11:27 PM RELAY MOTORMAN 100 mg gabapentin (NEURONTIN) capsule 100 mg Given 100 mg, Oral, AT BEDTIME DAILY, First dose on Meghann 11/12/18 at 2200, Until Discontinued 11/14/2018 11:37 AM RELAY MOTORMAN 500 Units heparin lock flush PF syringe 500 Units Given 500 Units, Intra-catheter, ONCE PRN, 1 dose, Starting 11/14/18 at 1014, Until 11/14/18 at 1137, Catheter flush, When de-accessing a port-a-cath pack with 5 mL heparin (100 units/mL) unless contraindicated. NOTE: This is a HIGH ALERT Medication., 11/12/2018 5:37 PM RELAY MOTORMAN 100 mL iohexol (OMNIPAQUE-350) 350 mg/mL Given injection 100 mL 100 mL, Intravenous, ONCE, 1 dose, Meghann 11/12/18 at 1745, NOTE: This is a HIGH ALERT Medication., 11/14/2018 12:12 PM RELAY MOTORMAN 0.5 mg ipratropium bromide (ATROVENT) 0.02 % Given nebulizer solution 0.5 mg 0.5 mg, Inhalation, RT THREE TIMES DAILY AND PRN, First dose on Fri11/13/18 at 0600, Until Discontinued, ADMINISTERED BY RT, 0.5 mg Given 11/14/2018 5:45 AM RELAY MOTORMAN 0.5 mg Given 11/13/2018 5:48 PM RELAY MOTORMAN 11/12/2018 3:19 PM RELAY MOTORMAN 1,000 mL 999 mL/hr lactated ringers infusion Given - New 1,000 mL, 1,000 mL, Intravenous, at 999 Bag mL/hr, BOLUS, 1 dose, Meghann 11/12/18 at 1500 11/12/2018 7:28 PM RELAY MOTORMAN 1,000 mL 150 mL/hr lactated ringers infusion Given - New 1,000 mL, 1,000 mL, Intravenous, at 150 Bag mL/hr, BOLUS, 1 dose, Fri11/12/18 at 1915 11/12/2018 8:52 PM RELAY MOTORMAN 1,000 mL 999 mL/hr lactated ringers infusion Given - New 1,000 mL, 1,000 mL, Intravenous, at 999 Bag mL/hr, BOLUS, 1 dose, Fri11/12/18 at 2100 11/13/2018 3:36 AM RELAY MOTORMAN 500 mL 9999 mL/hr lactated ringers infusion Given - New 1,000 mL, 500 mL, Intravenous, at 9,999 Bag mL/hr, BOLUS, 1 dose, Fri11/13/18 at 0300 11/13/2018 12:58 AM RELAY MOTORMAN 1 g 100 mL/hr magnesium sulfate 1 g/D5W 100 mL IVPB Given - New 1 g, Intravenous, 100 mL, Administer Bag over 1 Hours, EVERY 1 HOUR FOR 2 DOSES, 2 doses, First dose on Fri11/12/18 at 2300, Last dose on Fri11/13/18 at 0000, Each 1gm delivers 8.1 mEq Magnesium., 1 g 100 mL/hr Given - New Bag 11/12/2018 11:26 PM RELAY MOTORMAN 11/14/2018 10:09 AM RELAY MOTORMAN 1 g 100 mL/hr magnesium sulfate 1 g/D5W 100 mL IVPB Given - New 1 g, Intravenous, 100 mL, Administer Bag over 1 Hours, EVERY 1 HOUR FOR 2 DOSES, 2 doses, First dose on Fri11/14/18 at 0800, Last dose on Fri11/14/18 at 0900, Each 1gm delivers 8.1 mEq Magnesium., 1 g 100 mL/hr Given - New Bag 11/14/2018 9:08 AM RELAY MOTORMAN 11/12/2018 3:19 PM RELAY MOTORMAN 4 mg ondansetron (ZOFRAN) injection 4 mg Given 4 mg, Intravenous, ONCE, 1 dose, Fri11/12/18 at 1500 11/13/2018 9:18 PM RELAY MOTORMAN 5 mg oxyCODONE (ROXICODONE, OXY-IR) tablet Given 5-10 mg 5-10 mg, Oral, EVERY 6 HOURS PRN, Starting Fri11/12/18 at 2153, Until Fri11/14/18 at 1454, Pain PO 10 mg Given 11/12/2018 11:37 PM RELAY MOTORMAN 11/13/2018 9:07 PM RELAY MOTORMAN [address] (PROTONIX) tablet 40 mg Given 40 mg, Oral, DAILY, First dose on Fri11/12/18 at 2330, Until Discontinued, Do not crush or chew tablet., 40 mg Given 11/12/2018 11:37 PM RELAY MOTORMAN 11/12/2018 11:27 PM RELAY MOTORMAN 60 mEq potassium chloride SR (K-DUR) tablet [...] split in half. , 11/13/2018 8:50 AM RELAY MOTORMAN 10 mg prednisone (DELTASONE) tablet 10 mg Given 10 mg, Oral, DAILY WITH BREAKFAST, First dose on Fri11/13/18 at 0800, Until Discontinued, Give with food, 11/14/2018 9:07 AM RELAY MOTORMAN 5 mg prednisone (DELTASONE) tablet 5 mg Given 5 mg, Oral, DAILY WITH BREAKFAST, 6 doses, First dose on Fri11/14/18 at 0800, Last dose on Fri11/19/18 at 0800, Give with food, 11/12/2018 5:37 PM RELAY MOTORMAN 50 mL 2.5 mL/hr sodium chloride PF 0.9% injection 50 mL Given 50 mL, Intravenous, at 2.5 mL/hr, ONCE, 1 dose, Fri11/12/18 at 1745, DO NOT SEND this medication unless it is requested. This med is usually available in floor stock., Intra-procedure (IR) documented in this encounter
--- OUTSIDE RECORDS SUMMARY | 2019-01-10 22:42 | XMS REPORT | Encounter Summary ---
Author Author [facility] Organization [facility] Address Unknown Phone Unavailable Care Team Providers Care Field Agronomist Name Role Phone Derek Mccormick MD Unavailable Jose Daniel Mckeon MD Unavailable Angelita Caballero MD Unavailable Jakob Cole Unavailable Unavailable Yari Carias MA Unavailable Unavailable Mariah Espinoza Unavailable Unavailable Jennifer Mojica SENIOR MARKETING DATA ANALYST Unavailable Annie Macias MA Unavailable Unavailable Blessing Morin Unavailable Unavailable Parul De Los Santos MD Unavailable Ngozi Camarena PA-C Unavailable Lary Noguera MD 3 Kristen Gong MD PCP Unavailable Kristen Gong MD 100 Unavailable Reason for Visit * Reason Comments Heme/Onc Care Encounter Details Care Team Description Date Type Department Angely Huber, 10/29/2018 Clinical [facility] [address] [phone] Social History Date Tobacco Use Types Packs/Day [...] Mabel Hylton, PhD - 10/29/2018 2:55 PM YOUTH MANAGER Ms. Arias was seen by Angely Huber MS, psychology practicum student, on for a health and behavior intervention. The case was reviewed and discussed with the psychology trainee, and I agree with the findings and plan as documented in her note. Mabel Hylton, Ph.D. Licensed Psychologist and Clinical Machine Assembler Supervisor Clinical Sales Office Coordinator Pager [phone] H MANAGER * Angely Huber, MS - 10/29/2018 2:55 PM YOUTH MANAGER Health and Behavior Assessment and Intervention CONFIDENTIAL : 1965 Date of Service: 10/29/2018 Time of Service: 10:30-10:55am Location of Service: [facility] Necessity of Service: Pt is a 52 [...] under the supervision of a licensed psychologist. H MANAGER documented in this encounter Plan of Treatment Not on filedocumented as of this encounter Visit Diagnoses Not on filedocumented in this encounter
--- OUTSIDE RECORDS SUMMARY | 2019-01-10 22:42 | XMS REPORT | Encounter Summary ---
Author Author [facility] Organization [facility] Address Unknown Phone Unavailable Care Team Providers Care Doctor Of Nursing Practice Name Role Phone Derek Mccormick MD Unavailable Jose Daniel Mckeon MD Unavailable Angelita Caballero MD Unavailable Jakob Cole Unavailable Unavailable Yari Carias MA Unavailable Unavailable Mariah Espinoza Unavailable Unavailable Jennifer Mojica LIBRARY CLERK TALKING BOOKS Unavailable Annie Macias MA Unavailable Unavailable Blessing Morin Unavailable Unavailable Parul De Los Santos MD Unavailable Ngozi Camarena PA-C Unavailable Lary Noguera MD 3 Kristen Gong MD PCP Unavailable Kristen Gong MD 100 Unavailable Reason for Visit * Reason Comments Cancer Encounter Details Care Team Description Date Type Department Jaleesa Coyle, LIBRARY CLERK TALKING BOOKS [address] [place], [place] [phone] Adenocarcinoma of left lung (HCC); Chronic bronchitis, unspecified chronic bronchitis type (HCC); Chronic hepatitis C without hepatic coma (HCC) 10/29/2018 Office Visit The [address] [phone] Social History Date Tobacco Use Types Packs/Day [...] Taken Vital Sign Reading 10/29/2018 10:22 AM TOOLER Blood Pressure 118/74 10/29/2018 10:22 AM TOOLER Pulse 109 10/29/2018 10:22 AM TOOLER Temperature 36.6 C (97.8 F) 10/29/2018 10:22 AM TOOLER Respiratory Rate 16 10/29/2018 10:22 AM TOOLER Oxygen Saturation 97% - Inhaled Oxygen - Concentration 10/29/2018 10:22 AM TOOLER Weight 86.6 kg (191 lb) 10/29/2018 10:22 AM TOOLER Height 160 cm (5' 2.99") 10/29/2018 10:22 AM TOOLER Body Mass Index 33.84 documented in this [...] Bridgett Randolph RN - 10/29/2018 10:30 AM TOOLER To reschedule appointments please contact: [phone] To speak to a nurse between the hours of 8:00 to 4:00 please call [phone] Please ensure your schedule is correct prior to leaving clinic and that all your refill requests have been taken care of. Please allow 5-7 business days to complete any paperwork. Please allow 3 business days for narcotic refills. Please try to avoid filling your narcotic prescriptions at [facility], [facility], or [facility]. ER documented in this encounter Progress Notes * Jaleesa Coyle APRN - 10/29/2018 10:30 AM TOOLER Name: Charlene Arias : 1965 AGE: 52 y.o. DATE OF SERVICE: 10/29/2018 Cancer Charlene Arias is a 52 y.o. female. 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 . ktqjwcngawk-oiifwblim-pjlgfmnq (TRELEGY ELLIPTA) 100-62.5-25 mcg dsdv Inhale 1 [...] will begin Keytruda today. She will call [phone] if she develops any immune related side [...] number to call with questions or concerns. ER documented in this encounter Plan of Treatment Not on filedocumented as of this encounter Visit Diagnoses Diagnosis Adenocarcinoma of left lung (HCC) Chronic bronchitis, unspecified chronic bronchitis type (HCC) Chronic hepatitis C without hepatic coma (HCC) Chronic hepatitis C without mention of hepatic coma * Assessment & Plan Note - Jaleesa Coyle APRN - 10/29/2018 5:23 PM TOOLER Associated Problem(s): Chronic hepatitis C without hepatic coma (HCC) F/u with Hep C lab drawn today once results are available. ALT improved. ER * Assessment & Plan Note - Jaleesa Coyle APRN - 10/29/2018 5:22 PM TOOLER Associated Problem(s): COPD (chronic obstructive pulmonary disease) (HCC) Continue medications as prescribed. ER * Assessment & Plan Note - Jaleesa Coyle APRN - 10/29/2018 5:20 PM TOOLER Associated Problem(s): Adenocarcinoma of left lung (HCC) Patient will begin Keytruda today. She will call [phone] if she develops any immune related side effects including: worsening of shortness of breath, diarrhea or rash. Patient verbalized understanding. She will return in 3 weeks with labs, treatment and visit. ER documented in this encounter
--- OUTSIDE RECORDS SUMMARY | 2019-01-10 22:42 | XMS REPORT | Encounter Summary ---
Author Author [facility] Organization [facility] Address Unknown Phone Unavailable Care Team Providers Care Seam Hammerer Name Role Phone Derek Mccormick MD Unavailable Jose Daniel Mckeon MD Unavailable Angelita Caballero MD Unavailable Jakob Cole Unavailable Unavailable Yari Carias MA Unavailable Unavailable Mariah Espinoza Unavailable Unavailable Jennifer Mojica PSYCHOLOGIST INDUSTRIAL ORGANIZATIONAL Unavailable Annie Macias MA Unavailable Unavailable Blessing Morin Unavailable Unavailable Parul De Los Santos MD Unavailable Ngozi Camarena PA-C Unavailable Lary Noguera MD 3 Kristen Gong MD PCP Unavailable Kristen Gong MD 100 Unavailable Encounter Details Care Team Description Date Type Department Chapo Colvin MD [address] [place] [address] [phone] 10/28/2018 Orders Only [facility] [address] [place] [phone] Social History Date Tobacco Use Types Packs/Day [...]
--- OUTSIDE RECORDS SUMMARY | 2019-01-10 22:42 | XMS REPORT | Encounter Summary ---
Author Author [facility] Organization [facility] Address Unknown Phone Unavailable Care Team Providers Care Truck Despatcher Name Role Phone Derek Mccormick MD Unavailable Jose Daniel Mckeon MD Unavailable Angelita Caballero MD Unavailable Jakob Cole Unavailable Unavailable Yari Carias MA Unavailable Unavailable Mariah Espinoza Unavailable Unavailable Jennifer Mojica EPIC BEACON ANALYST Unavailable Annie Macias MA Unavailable Unavailable Blessing Morin Unavailable Unavailable Parul De Los Santos MD Unavailable Ngozi Camarena PA-C Unavailable Lary Noguera MD 3 Kristen Gong MD PCP Unavailable Kristen Gong MD 100 Unavailable Encounter Details Care Team Description Date Type Department Chapo Colvin MD [address] [facility] [place] [address] 10/22/2018 [facility] [address] [address] Social History Date Tobacco Use [...] by mouth daily. Take with food. 04/07/2018 oqyhorhqmek-eekelzbvz-jns Inhale 1 puff 1 each 11 anter [...]
--- OUTSIDE RECORDS SUMMARY | 2019-01-10 22:42 | XMS REPORT | Encounter Summary ---
Author Author [facility] Organization [facility] Address Unknown Phone Unavailable Care Team Providers Care Glass Beveler Name Role Phone Derek Mccormick MD Unavailable Jose Daniel Mckeon MD Unavailable Angelita Caballero MD Unavailable Jakob Cole Unavailable Unavailable Yari Carias MA Unavailable Unavailable Mariah Espinoza Unavailable Unavailable Jennifer Mojica EYEGLASS MAKER Unavailable Annie Macias MA Unavailable Unavailable Blessing Morin Unavailable Unavailable Parul De Los Santos MD Unavailable Ngozi Camarena PA-C Unavailable Lary Noguera MD 3 Kristen Gong MD PCP Unavailable Kristen Gong MD 100 Unavailable Reason for Visit * Reason Comments Treatment keytruda infusion * Treatment (Routine) Referred By Contact Referred To Contact Status Reason Specialty Diagnoses / Procedures Chapo Colvin MD [address] [place] [address] Chapo Colvin MD [address] [place] [address] Authorized Oncology Diagnoses 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 Take with food. 04/07/2018 [id number] Inhale 1 puff 1 each 11 anter [...] Florencia Cameron RN - 10/29/2018 4:09 PM ADVANCED PRACTICE NURSE PSYCHOTHERAPIST CHEMO NOTE Verified chemo consent signed and [...] this time. Denies AVS. Pt left ambulatory. NCED PRACTICE NURSE PSYCHOTHERAPIST documented in this encounter Miscellaneous Notes * Addendum Note - Cassandra Cornell - 10/30/2018 8:29 AM ADVANCED PRACTICE NURSE PSYCHOTHERAPIST Encounter addended by: Cassandra Cornell on: 10/30/2018 8:29 AM Actions taken: Charge Capture section accepted NCED PRACTICE NURSE PSYCHOTHERAPIST documented in this encounter Plan of Treatment Not on filedocumented as of this encounter Visit Diagnoses Diagnosis Malignant neoplasm of hilus of left lung (HCC) - Primary documented in this encounter Administered Medications Action Date Dose Rate Site Medication Order MAR Action 10/29/2018 3:22 PM ADVANCED PRACTICE NURSE PSYCHOTHERAPIST 500 Units heparin lock flush PF syringe 500 Units Given 500 Units, Intravenous, ONCE, 1 dose, Meghann 10/29/18 at 1415, NOTE: This is a HIGH ALERT Medication., 10/29/2018 2:43 PM ADVANCED PRACTICE NURSE PSYCHOTHERAPIST 200 mg 116 mL/hr pembrolizumab (KEYTRUDA) 200 mg in Given - New sodium chloride 0.9% (NS) 58 mL IVPB Bag 200 mg, Intravenous, 58 mL, Administer over 30 Minutes, ONCE, 1 dose, Meghann 10/29/18 at 1430, NOTE: This is a HIGH ALERT Medication., documented in this encounter
--- OUTSIDE RECORDS SUMMARY | 2019-01-10 22:42 | XMS REPORT | Encounter Summary ---
Author Author [facility] Organization [facility] Address Unknown Phone Unavailable Care Team Providers Care Civil Engineering Teacher Name Role Phone Derek Mccormick MD Unavailable Jose Daniel Mckeon MD Unavailable Angelita Caballero MD Unavailable Jakob Cole Unavailable Unavailable Yari Carias MA Unavailable Unavailable Mariah Espinoza Unavailable Unavailable Jennifer Mojica BODY MAKER MACHINE SETTER Unavailable Annie Macias MA Unavailable Unavailable Blessing Morin Unavailable Unavailable Parul De Los Santos MD Unavailable Ngozi Camarena PA-C Unavailable Lary Noguera MD 3 Kristen Gong MD PCP Unavailable Kristen Gong MD 100 Unavailable Encounter Details Care Team Description Date Type Department Jaleesa Coyle, BODY MAKER MACHINE SETTER [address] [place], [place] [phone] 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) ; Chronic hepatitis C without hepatic coma (HCC) 10/29/2018 Lab Only The [address] [phone] Social History Date Tobacco Use Types Packs/Day [...] Routine 10/29/2018 Malignant neoplasm of 10:05 AM MICA PLATE LAYER hilus of left lung (HCC) TSH WITH FREE T4 REFLEX Routine 10/29/2018 Malignant neoplasm of 10:05 AM MICA PLATE LAYER hilus of left lung (HCC) HEPATITIS C VIRAL LOAD Routine 10/29/2018 Chronic hepatitis C PCR QUANT 10:05 AM MICA PLATE LAYER without hepatic coma (HCC) CBC AND DIFF Routine 10/29/2018 Malignant neoplasm of 10:05 AM MICA PLATE LAYER hilus of left lung (HCC) COMPREHENSIVE METABOLIC Routine 10/29/2018 Malignant neoplasm of PANEL 10:05 AM MICA PLATE LAYER hilus of left lung (HCC) documented in this encounter Results * FREE T4-FREE THYROXINE (10/29/2018 10:05 AM MICA PLATE LAYER) T4-Free 1.0 0.6 - 1.6 NG/DL [facility] Performing Organization Address City/State/Zipcode Phone Number MAIN LAB [address] [place] [address] * HEPATITIS C VIRAL LOAD PCR QUANT (10/29/2018 10:05 AM MICA PLATE LAYER) Hepatitis C PCR HCV RNA Not Detected, <12 <12 IU/ML [facility] Quantitative IU/mL Comment: The test method detects HCV viral load using the Piña RealTime assay. Please correlate results with the clinical status of the patient. Log 10 HCV <1.08 <1.08 IU/mL [facility] Specimen Blood Performing Organization Address City/[facility]/Zipcode Phone Number MAIN LAB [address] [place] [address] * TSH WITH FREE T4 REFLEX (10/29/2018 10:05 AM MICA PLATE LAYER) [facility] TSH 0.220 (L) 0.35 - 5.00 MCU/ML [facility] Specimen Blood Performing Organization Address [facility] Phone Number [facility] [address] [place] [address] * COMPREHENSIVE METABOLIC PANEL (10/29/2018 10:05 AM MICA PLATE LAYER) [facility] Sodium 131 (L) 137 - 147 MMOL/L [facility] Potassium 3.8 3.5 - 5.1 MMOL/L [facility] Chloride 95 (L) 98 - 110 MMOL/L [facility] Glucose 174 (H) 70 - 100 MG/DL [facility] Blood Urea 14 7 - 25 MG/DL [facility] Nitrogen Creatinine 0.88 0.4 - 1.00 [...] Non >60 >60 mL/min [facility] Comment: Armenian The eGFR is not validated for use in drug dosing adjustments.Continue to use estimated creatinine clearance per dosing reference text.Please contact the Clinical Pharmacist for questions. eGFR >60 >60 mL/min [facility] Armenian Comment: The eGFR is not validated for use in drug dosing adjustments.Continue to use estimated creatinine clearance per dosing reference text.Please contact the Clinical Pharmacist for questions. Specimen Blood Performing Organization Address City/[facility]/Zipcode Phone Number [facility] [address] [place] [address] * CBC AND DIFF (10/29/2018 10:05 AM MICA PLATE LAYER) White Blood 9.1 4.5 - 11.0 K/UL [...] Basophil Count Specimen Blood Performing Organization Address City/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
--- OUTSIDE RECORDS SUMMARY | 2019-01-10 22:43 | XMS REPORT | Encounter Summary ---
Author Author [facility] Organization [facility] Address Unknown Phone Unavailable Care Team Providers Care Civil Engineering Professional Name Role Phone Derek Mccormick MD Unavailable Jose Daniel Mckeon MD Unavailable Angelita Caballero MD Unavailable Jakob Cole Unavailable Unavailable Yari Carias MA Unavailable Unavailable Mariah Espinoza Unavailable Unavailable Jennifer Mojica GROCERY CARRIER Unavailable Annie Macias MA Unavailable Unavailable Blessing Morin Unavailable Unavailable Parul De Los Santos MD Unavailable Ngozi Camarean PA-C Unavailable Lary Noguera MD 3 Kristen Gong MD PCP Unavailable Kristen Gong MD 100 Unavailable Encounter Details Care Team Description Date Type Department Chapo Colvin MD [address] [place] [address] [phone] 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) 10/20/2018 Orders Only The [address] [address] Social History Date Tobacco Use Types Packs/Day [...] * COMPREHENSIVE METABOLIC PANEL (10/22/2018 8:10 AM SOLUTION STRATEGIST) [facility] Sodium 132 (L) 137 - 147 MMOL/L [...] Non >60 >60 mL/min [facility] Comment: Iranian The eGFR is not validated for use in drug dosing adjustments.Continue to use estimated creatinine clearance per dosing reference text.Please contact the Clinical Pharmacist for questions. eGFR >60 >60 mL/min [facility] Iranian Comment: The eGFR is not validated for use in drug dosing adjustments.Continue to use estimated creatinine clearance per dosing reference text.Please contact the Clinical Pharmacist for questions. Specimen Blood Performing Organization Address City/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
--- OUTSIDE RECORDS SUMMARY | 2019-01-10 22:43 | XMS REPORT | Encounter Summary ---
Author Author [facility] Organization [facility] Address Unknown Phone Unavailable Care Team Providers Care Patient Access Coordinator Name Role Phone Derek Mccormick MD Unavailable Jose Daniel Mckeon MD Unavailable Angelita Caballero MD Unavailable Jakob Cole Unavailable Unavailable Yari Carias MA Unavailable Unavailable Mariah Espinoza Unavailable Unavailable Jennifer Mojica FINANCIAL HEALTH COUNSELOR Unavailable Annie Macias MA Unavailable Unavailable Blessing Morin Unavailable Unavailable Parul De Los Santos MD Unavailable Ngozi Camarena PA-C Unavailable Lary Noguera MD 3 Kristen Gong MD PCP Unavailable Kristen Gong MD 100 Unavailable Reason for Visit * Reason Comments Heme/Onc Care Encounter Details Care Team Description Date Type Department Chapo Colvin MD [address] [place] [address] [phone] Chronic hepatitis C without hepatic coma (HCC) (Primary Dx) 10/22/2018 Office Visit The [facility] [address] [place] [phone] Social History Date Tobacco Use Types Packs/Day [...] Taken Vital Sign Reading 10/22/2018 11:01 AM CLERICAL ADMINISTRATIVE ASSISTANT Blood Pressure 107/67 10/22/2018 11:01 AM CLERICAL ADMINISTRATIVE ASSISTANT Pulse 101 10/22/2018 11:01 AM CLERICAL ADMINISTRATIVE ASSISTANT Temperature 36.4 C (97.5 F) 10/22/2018 11:01 AM CLERICAL ADMINISTRATIVE ASSISTANT Respiratory Rate 16 10/22/2018 11:01 AM CLERICAL ADMINISTRATIVE ASSISTANT Oxygen Saturation 95% - Inhaled Oxygen - Concentration 10/22/2018 11:01 AM CLERICAL ADMINISTRATIVE ASSISTANT Weight 90.1 kg (198 lb 9.6 oz) 10/22/2018 11:01 AM CLERICAL ADMINISTRATIVE ASSISTANT Height 160 cm (5' 2.99") 10/22/2018 11:01 AM CLERICAL ADMINISTRATIVE ASSISTANT Body Mass Index 35.19 documented in this [...] Bridgett Randolph RN - 10/22/2018 11:20 AM CLERICAL ADMINISTRATIVE ASSISTANT To reschedule appointments please contact: [phone] To speak to a nurse between the hours of 8:00 to 4:00 please call [phone] Please ensure your schedule is correct prior to leaving clinic and that all your refill requests have been taken care of. Please allow 5-7 business days to complete any paperwork. Please allow 3 business days for narcotic refills. Please try to avoid filling your narcotic prescriptions at [facility], [facility], or [facility]. ICAL ADMINISTRATIVE ASSISTANT documented in this encounter Progress Notes * Chapo Colvin MD - 10/22/2018 11:20 AM CLERICAL ADMINISTRATIVE ASSISTANT I discussed the case with the resident [...] to DuoNeb every 3-4 times a day. ICAL ADMINISTRATIVE ASSISTANT * [facility] - 10/22/2018 11:20 AM CLERICAL ADMINISTRATIVE ASSISTANT Name: Charlene Arias : 1965 AGE: 52 [...] Colvin MD on 2018 History of Present [id number] female with a newly diagnosed recurrent non-small [...] Take one tablet by mouth daily. . gizorpionuv-nhwmejflh-sjuwhwgn (TRELEGY ELLIPTA) 100-62.5-25 mcg dsdv Inhale 1 [...] any questions or concerns. Seen and D/W ICAL ADMINISTRATIVE ASSISTANT documented in this encounter Plan of Treatment Not on filedocumented as of this encounter Results * HEPATITIS C VIRAL LOAD PCR QUANT (10/29/2018 10:05 AM CLERICAL ADMINISTRATIVE ASSISTANT) Hepatitis C PCR HCV RNA Not Detected, <12 <12 IU/ML [facility] Quantitative IU/mL Comment: The test method detects HCV viral load using the Piañ RealTime assay. Please correlate results with the clinical status of the patient. Log 10 HCV <1.08 <1.08 IU/mL [facility] Specimen Blood Performing Organization Address City/State/Zipcode Phone Number [facility] [address] [place] [address] documented in this encounter Visit Diagnoses Diagnosis Chronic hepatitis C without hepatic coma (HCC) - Primary Chronic hepatitis C without mention of hepatic coma documented in this encounter
--- OUTSIDE RECORDS SUMMARY | 2019-01-10 22:43 | XMS REPORT | Encounter Summary ---
Author Author [facility] Organization [facility] Address Unknown Phone Unavailable Care Team Providers Care Journeyman Powerhouse Operator Name Role Phone Derek Mccormick MD Unavailable Jose Daniel Mckeon MD Unavailable Angelita Caballero MD Unavailable Jakob Cole Unavailable Unavailable Yari Carias MA Unavailable Unavailable Mariah Espinoza Unavailable Unavailable Jennifer Mojica SEMICONDUCTOR WAFERS ETCH OPERATOR Unavailable Annie Macias MA Unavailable Unavailable Blessing Morin Unavailable Unavailable Parul De Los Santos MD Unavailable Ngozi Camarena PA-C Unavailable Lary Noguera MD 3 Kristen Gong MD PCP Unavailable Kristen Gong MD 100 Unavailable Reason for Referral * Radiology Services (Routine) Referred By Contact Referred To Contact Status Reason Specialty Diagnoses / Procedures Chapo Colvin MD [address] [facility] [place] [address] [place] [place] [address] No Auth Needed Radiology Diagnoses Malignant neoplasm of lung, unspecified laterality, unspecified part of lung (HCC) P rocedures CT CHEST W CONTRAST * Radiology Services (Routine) Referred By Contact Referred To Contact Status Reason Specialty Diagnoses / Procedures Chapo Colvin MD [address] [place] [address] [address] [place] [address] [address] No Auth Needed Radiology Diagnoses Malignant neoplasm of lung, unspecified laterality, unspecified part of lung (HCC) P rocedures CT CHEST W CONTRAST Reason for Visit * Radiology Services (Routine) Referred By Contact Referred To Contact Status Reason Specialty Diagnoses / Procedures Chapo Colvin MD [address] [place] [address] [address] [address] No Auth Needed Radiology Diagnoses Malignant neoplasm of lung, unspecified laterality, unspecified part of lung (HCC) P rocedures CT CHEST W CONTRAST Encounter Details Care Team Description [place] [address] [place] [address] [phone] 10/22/2018 [facility] [address] [place] [address] Social History Date Tobacco Use Types Packs/Day [...] by mouth daily. Take with food. 04/07/2018 [id number] Inhale 1 puff 1 each 11 anter [...] Routine 10/22/2018 Malignant neoplasm of 8:27 AM COMPLAINT OPERATOR lung, unspecified laterality, unspecified part of lung (HCC) CBC AND DIFF Routine 10/22/2018 Malignant neoplasm of 8:10 AM COMPLAINT OPERATOR hilus of left lung (HCC) COMPREHENSIVE METABOLIC Routine 10/22/2018 Malignant neoplasm of PANEL 8:10 AM COMPLAINT OPERATOR hilus of left lung (HCC) documented in this encounter Results * CT CHEST W CONTRAST (10/22/2018 8:27 AM COMPLAINT OPERATOR) Impressions Performed At 1. Interval occlusion of [...] Interface, Radiant Results - 10/22/2018 9:[address] Chest Clinical Indication: Lung cancer. Restaging. [...] * COMPREHENSIVE METABOLIC PANEL (10/22/2018 8:10 AM COMPLAINT OPERATOR) Sodium 132 (L) 137 - 147 MMOL/L [...] Non >60 >60 mL/min [facility] Comment: Italian The eGFR is not validated for use in drug dosing adjustments.Continue to use estimated creatinine clearance per dosing reference text.Please contact the Clinical Pharmacist for questions. eGFR >60 >60 mL/min [facility] Italian Comment: The eGFR is not validated for use in drug dosing adjustments.Continue to use estimated creatinine clearance per dosing reference text.Please contact the Clinical Pharmacist for questions. Specimen Blood Performing Organization Address City/State/Zipcode Phone Number [facility] [address] [place] [address] * CBC AND DIFF (10/22/2018 8:10 AM COMPLAINT OPERATOR) White Blood 14.9 (H) 4.5 - 11.0 [...] Blood Performing Organization Address City/State/Zipcode Phone Number [facility] [address] [place] [address] documented in this encounter Visit Diagnoses Diagnosis Malignant neoplasm of lung, unspecified laterality, unspecified part of lung ( HCC) Malignant neoplasm of hilus of left lung (HCC) documented in this encounter Administered Medications Action Date Dose Rate Site Medication Order MAR Action 10/22/2018 8:27 AM COMPLAINT OPERATOR 70 mL iohexol (OMNIPAQUE-350) 350 mg/mL Given injection 70 mL 70 mL, Intravenous, ONCE, 1 dose, Meghann 10/22/18 at 0815, NOTE: This is a HIGH ALERT Medication., 10/22/2018 8:27 AM COMPLAINT OPERATOR 50 mL sodium chloride PF 0.9% injection 50 mL Given 50 mL, Intravenous, ONCE, 1 dose, Meghann 10/22/18 at 0815, Intra-procedure (IR) documented in this encounter
[2019-01-10 23:15] VITALS: BP 92/50
== END 2019-01-10 23:14 | disposition home or self-care (01) ==
LOC: EDUNIT# 21:08 → ER 21:12 → UNDOADMIN 21:55 → 4TH 21:55 → ER 23:14
DX: A41.9 Sepsis, unspecified organism (principal); R65.21 Severe sepsis with septic shock; C34.90 Malignant neoplasm of unspecified part of unspecified bronchus or lung; J44.9 Chronic obstructive pulmonary disease, unspecified; G62.9 Polyneuropathy, unspecified; F41.9 Anxiety disorder, unspecified; F32.9 Major depressive disorder, single episode, unspecified; I73.00 Raynaud's syndrome without gangrene; Z51.5 Encounter for palliative care; Z89.022 Acquired absence of left finger(s); Z86.73 Personal history of transient ischemic attack (TIA), and cerebral infarction without residual deficits; Z91.5 Personal history of self-harm; Z87.891 Personal history of nicotine dependence; Z90.710 Acquired absence of both cervix and uterus; Z98.51 Tubal ligation status
CPT/HCPCS: 96372; 96374